=== PATIENT | male | born 1950 | race Caucasian/White ===

== ENCOUNTER 2020-11-18 11:19 | Inpatient (IN) | payer MEDICARE, MEDICAID, SELFPAY ==
[2020-11-18 11:32] VITALS: BMI 26.8
[2020-11-18 11:34] VITALS: BP 107/69; PULSE 69; TEMP 37.2; O2SAT 95
--- NOTE | 2020-11-18 13:17 | P.HPPS_ITS ---
HPI Chief Complaint: Bipolar disorder Sources of Information: patient interviewed, chart reviewed and crisis/core team assessment reviewed HPI Subjective Notes: Montiel Order, Section 7 and Conditional Voluntary Guardianship: Yes Medical Problems Affecting Mental Status: No Narrative: The patient is a 70 year old male, resident of group homes for most of his adult life, with a long history of Bipolar Disorder. He has a guardian, he is on a community Montiel and he has case managing services from [facility]. 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 He was also sexually desinhibited and he was inappropriated with his staff. During the intake interview, the patient was tired , he refused to elaborate but stated that he was on the ED for 15 days and 14 nights and he stated that he wanted to talk with his PCP. At the moment of the interview, he was uncooperative, refusing to give more details but he was easily redirected, with no evidence of violence. As per crisis report, since February 2020, he had several admissions into the hospital for manic episodes and psychosis and he has spent more time inpatient that in the community. Past Psychiatric History: He has several admissions in the past, he has a Montiel order, a guardian and he has [facility] case managing services. He lives in group homes for the last years. Medical Evaluation Reviewed: Hospitalist Chris Pending (Direct admission) [facility] Narrative: Parkinson's disease Hypercholesterolemia HTN Family History: Denies Social History: Chronically institutionalized, on disability for mental illness. Substance History: Denies Trauma History: Refused to elaborate Diagnostics Vital Signs (24Hr): Vital Signs - 24 hr 11/18/20 11:34 Temperature 98.9 F Pulse Rate 69 Blood Pressure 107/69 Pulse Oximetry 95 Body Mass Index 26.8 Meds/Allergies Meds Home Medications Acetaminophen (Acetaminophen 325 Mg Tablet) 650 mg PO Q6H PRN PRN Reason: Headache/Pain Mild Scale (1-3) Al Hydroxide/Mg Hydroxide (Magnesium Hydrox/Alum Hydrox 30 Ml Oral.Susp) 30 ml PO Q6H PRN PRN Reason: Heartburn/Nausea Amlodipine Besylate (Amlodipine Besylate 5 Mg Tablet) 5 mg PO DAILY [facility]; Protocol Aspirin (Aspirin 81 Mg Tab.Chew) 81 mg PO DAILY RADHAMES Carbamazepine (Carbamazepine 200 Mg Tablet) 400 mg PO BID RADHAMES Carbidopa/Levodopa (Carbidopa/Levodopa 25/100 Tablet) 1 tab PO BID RADHAMES Haloperidol (Haloperidol 5 Mg Tablet) 10 mg PO BID RADHAMES Hydroxyzine HCl (Hydroxyzine Hcl 25 Mg Tablet) 25 mg PO BEDTIME PRN PRN Reason: Anxiety Lorazepam (Lorazepam 1 Mg Tablet) 2 mg PO BID PRN PRN Reason: anxiety Magnesium Hydroxide (Milk Of Magnesia 30 Ml Oral.Susp) 30 ml PO DAILY PRN PRN Reason: Constipation Pravastatin Sodium (Pravastatin Sodium 40 Mg Tablet) 40 mg PO DAILY RADHAMES Tamsulosin HCl (Tamsulosin Hcl 0.4 Mg Capsule) 0.4 mg PO BEDTIME RADHAMES Trazodone HCl (Trazodone Hcl 50 Mg Tablet) 50 mg PO BEDTIME PRN PRN Reason: Insomnia Allergies Allergies Allergy/AdvReac Type Severity Reaction Status Date / Time No Known Allergies Allergy Verified 11/18/20 11:30 Mental Status Exam Mental Status Exam Patient Appearance: Disheveled (on hospital gowns) Patient Orientation: Person and Place Level of Consciousness: Awake and Alert Patient Behavior: Guarded, Avoidant, Fatigued and Uncooperative Mood Description: Calm and Withdrawn Affect Description: Constricted and Labile Patient Cognition Impaired: No Ability to Follow Directions: Fair Speech Pattern: Clear Hallucinations: None Delusions: Paranoid Ideation and Grandiose Thought Process: Evasive and Slowed Thinking Thought Content: positive for Perseveration and positive for Preoccupation Judgement: Poor Assessment & Plan Assessment & Plan (1) Bipolar 1 disorder: Status: Acute Code(s): F31.9 - Bipolar disorder, unspecified Assessment and Plan: Elderly male with bipolar disorder, chronically institutionalized, with a Montiel and Community Guardianship with several admissions for malcolm with psychosis. Plan: 1. Keep same treatment as per Dinesh and collateral. 2. Get Tegretol level and other bloodwork 3. Get collateral from primary caregivers Patient educated on: diagnosis, medication risk/benefits and therapeutic strategies Informed Consent: understands Reason for continued inpatient stay Substantial Risk for: harm to others, inability to function, rapid decompensation and med/psych decompensation
[2020-11-18 15:17] LABS: Carbamazepine Tegretol 8.2 mcg/mL (5.0-12.0)
--- NOTE | 2020-11-18 17:04 | PM.EVENT ---
Event Note Date of Service: 11/18/20 Event Note: attempted to see patient for medical consult. pt repeating himself and not answering questions. unable to obtain any medical history. can attempt re-evaluation at later date if necessary
[2020-11-18 18:00] VITALS: BP 137/62; PULSE 69; RESP 16; TEMP 36.1; O2SAT 96
--- NOTE | 2020-11-18 19:14 | PC.NURSE ---
Patient arrived via stretcher. was calm and cooperative upon arrival.Patient signed a CV and immediately asked for a three day notice. Admission assessment was started upon arrival. During assessment patient began to get agitated and continued to express desire to go out for a smoke. After signing all legals and doing a portion of the assessment I told him we would take a break. 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 He also discussed his removal from the care home and the incident that led to removal. He reported he was using the dining room as an office for his business and the group social worker did not like it. He was removed and spent 2 weeks in an ED. While there he became verbally agressive using sexually inappropriate language. 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 He was calm and cooperative until this evening when a disagreement ensued over the television. Jake was redirected and went to his room.
[2020-11-18] MEDS: carBAMazepine 200 MG TABLET 400 MG PO (21:41)
[2020-11-18] MEDS: Carbidopa/Levodopa 25/100 TABLET 1 TAB PO (21:42)
[2020-11-18] MEDS: HaloperidoL 5 MG TABLET 10 MG PO (21:42)
[2020-11-18] MEDS: Tamsulosin HCL 0.4 MG CAPSULE PO (21:42)
--- NOTE | 2020-11-18 22:55 | PC.NURSE ---
PT got into a verbal altercation with another PT (LISA) on the unit over television privileges. PT was found standing over the other PT demanding the TV remote. This nurse intervened in the exchange and all parties involved came to an agreement that each individual would be allowed 30 minute time slots to choose what they wanted to watch on the TV.
[2020-11-19 06:00] VITALS: BP 139/85; PULSE 66; RESP 16; TEMP 36.7; O2SAT 95
[2020-11-19 06:31] LABS: MANUAL DIFF FLAG NO
[2020-11-19 06:42] LABS: Basophils Percent Auto 0.3 % (0-2); Eosinophils Absolute Auto 0.1 X10*3/uL (0.0-0.4); Eosinophils Percent Auto 1.7 % (0-4); Hematocrit 42.5 % (42-52); Hemoglobin 14.5 g/dl (14.0-18.0); Imm Gran Abs Auto 0.04 X10*3/uL (0.00-0.03); Imm Gran Pct Auto 0.5 % (0.0-0.4); Lymphocytes Absolute Auto 2.3 X10*3/uL (1.2-4.9); Lymphocytes Percent Auto 31.1 % (20-40); Mean Corpuscular HGB Conc 34.1 g/dl (31.0-36.0); Mean Corpuscular Hemoglobin 31.7 pg (27.0-33.0); Mean Platelet Volume 8.9 fL (9.4-12.4); Monocytes Absolute Auto 0.7 X10*3/uL (0.1-1.2); Monocytes Percent Auto 9.1 % (2-11); Neutrophils Absolute Auto 4.3 X10*3/uL (2.0-8.3); Neutrophils Percent Auto 57.3 % (45-73); Platelet Count 225 X10*3/uL (160-400); Red Blood Count 4.57 X10*6/uL (4.60-5.80); White Blood Count 7.5 X10*3/uL (4.8-10.8)
[2020-11-19 06:52] LABS: Estimated Average Glucose 108 mg/dL; Hemoglobin A1c % 5.4 %
[2020-11-19 07:19] LABS: Alanine Aminotransferase < 6 U/L (0-40); Albumin Level 4.1 g/dL (3.5-5.0); Alkaline Phosphatase 113 U/L (39-117); Aspartate Amino Transferase 11 U/L (5-37); Bilirubin Direct 0.2 mg/dL (0.0-0.5); Bilirubin Total 0.4 mg/dL (0.0-1.0); Cholesterol 185 mg/dL; HDL Cholesterol 64 mg/dL; LDL Cholesterol Calculated 98 mg/dl; Total Protein 6.6 g/dL (6.5-8.0); Triglycerides 116 mg/dL
[2020-11-19 07:38] LABS: Thyroid Stimulating Hormone 1.04 uIU/mL (0.32-4.0)
[2020-11-19 08:03] LABS: Folate 11.9 ng/mL (> or = 4.0); Vitamin B12 331 pg/mL (200-900)
[2020-11-19] MEDS: amLODIPine Besylate 5 MG TABLET PO (08:12)
[2020-11-19] MEDS: HaloperidoL 5 MG TABLET 10 MG PO ×2 (08:12→21:18)
[2020-11-19] MEDS: carBAMazepine 200 MG TABLET 400 MG PO ×2 (08:12→21:19)
[2020-11-19] MEDS: Aspirin 81 MG TAB.CHEW PO (08:12)
[2020-11-19] MEDS: Carbidopa/Levodopa 25/100 TABLET 1 TAB PO ×2 (08:12→21:38)
[2020-11-19] MEDS: Pravastatin Sodium 40 MG TABLET PO (08:12)
--- NOTE | 2020-11-19 09:31 | P.PNPSI_ITS ---
Subjective Subjective Date of Service: 11/19/20 Reason For Visit: Bipolar disorder Subjective Notes: Conditional Voluntary and 3 Day Guardianship: Yes Medical Problems Affecting Mental Status: No Interim History: The patient signed a 3 day letter. He was angry and irritable over the phone yesterday and he nearly got into an altercation with a peer. I asked him to please not to use procacity while in the phone since it disturbs the rest of the patients. He denied any symptoms, he was passively pleasant. Medication Compliance: Yes Review of Systems Review of Systems Yes all other systems are reviewed and are negative Mental Status Exam Mental Status Exam Patient Appearance: Disheveled Patient Orientation: Person, Place and Situation Level of Consciousness: Awake Patient Behavior: Passive and Avoidant Mood Description: Withdrawn Affect Description: Constricted Patient Cognition Impaired: No Ability to Follow Directions: Good Speech Pattern: Clear Hallucinations: None Delusions: Paranoid Ideation and Grandiose Thought Process: Distracted and Slowed Thinking Judgement: Poor Diagnostics Vital Signs (24Hr): Vital Signs - 24 hr 11/18/20 11:34 11/18/20 18:00 11/19/20 06:00 Temperature 98.9 F 96.9 F 98.1 F Pulse Rate 69 69 66 Respiratory Rate 16 16 Blood Pressure 107/69 137/62 139/85 Pulse Oximetry 95 96 95 Body Mass Index 26.8 Labs Results: 11/19/20 06:25 Labs: Laboratory Results - last 48 hr 11/18/20 11/19/20 11/19/20 13:54 06:25 06:25 WBC 7.5 RBC 4.57 L Hgb 14.5 Hct 42.5 MCV 93.0 MCH 31.7 MCHC 34.1 RDW 12.0 Plt Count 225 MPV 8.9 L Immature Gran % (Auto) 0.5 H Neut % (Auto) 57.3 Lymph % (Auto) 31.1 [place] % (Auto) 9.1 Eos % (Auto) 1.7 Baso % (Auto) 0.3 Lymph # (Auto) 2.3 [place] # (Auto) 0.7 Eos # (Auto) 0.1 Baso # (Auto) 0.0 Abs Immat Gran (auto) 0.04 H Absolute Neuts (auto) 4.3 Absolute Nucleated RBC 0.000 Nucleated RBC % (auto) 0.0 Estimat Average Glucose Hemoglobin A1c % Total Bilirubin 0.4 Direct Bilirubin 0.2 AST 11 ALT < 6 Alkaline Phosphatase 113 Total Protein 6.6 Albumin 4.1 Triglycerides 116 Cholesterol 185 LDL Cholesterol, Calc 98 HDL Cholesterol 64 Vitamin B12 Folate TSH 1.04 Carbamazepine 8.2 11/19/20 11/19/20 06:25 06:25 WBC RBC Hgb Hct MCV MCH MCHC RDW Plt Count MPV Immature Gran % (Auto) Neut % (Auto) Lymph % (Auto) [place] % (Auto) Eos % (Auto) Baso % (Auto) Lymph # (Auto) [place] # (Auto) Eos # (Auto) Baso # (Auto) Abs Immat Gran (auto) Absolute Neuts (auto) Absolute Nucleated RBC Nucleated RBC % (auto) Estimat Average Glucose 108 Hemoglobin A1c % 5.4 Total Bilirubin Direct Bilirubin AST ALT Alkaline Phosphatase Total Protein Albumin Triglycerides Cholesterol LDL Cholesterol, Calc HDL Cholesterol Vitamin B12 331 Folate 11.9 TSH Carbamazepine Medications Medications Current Medications Generic Name Dose Route Start Last Admin Trade Name Freq PRN Reason Stop Dose Admin Acetaminophen 650 mg 11/18/20 13:10 Acetaminophen 325 Mg Tablet PO Q6H PRN Headache/Pain Mild Scale (1-3) Al Hydroxide/Mg Hydroxide 30 ml 11/18/20 13:10 Magnesium Hydrox/Alum Hydrox 30 Ml Oral.Susp PO Q6H PRN Heartburn/Nausea Amlodipine Besylate 5 mg 11/19/20 09:00 11/19/20 08:12 Amlodipine Besylate 5 Mg Tablet PO 5 mg DAILY RADHAMES Administration Protocol Aspirin 81 mg 11/19/20 09:00 11/19/20 08:12 Aspirin 81 Mg Tab.Chew PO 81 mg DAILY RADHAMES Administration Carbamazepine 400 mg 11/18/20 21:00 11/19/20 08:12 Carbamazepine 200 Mg Tablet PO 400 mg BID RADHAMES Administration Carbidopa/Levodopa 1 tab 11/18/20 21:00 11/19/20 08:12 Carbidopa/Levodopa 25/100 Tablet PO 1 tab BID RADHAMES Administration Haloperidol 10 mg 11/18/20 21:00 11/19/20 08:12 Haloperidol 5 Mg Tablet PO 10 mg BID RADHAMES Administration Hydroxyzine HCl 25 mg 11/18/20 13:10 Hydroxyzine Hcl 25 Mg Tablet PO BEDTIME PRN Anxiety Lorazepam 2 mg 11/18/20 13:13 Lorazepam 1 Mg Tablet PO BID PRN anxiety Magnesium Hydroxide 30 ml 11/18/20 13:10 Milk Of Magnesia 30 Ml Oral.Susp PO DAILY PRN Constipation Pravastatin Sodium 40 mg 11/19/20 09:00 11/19/20 08:12 Pravastatin Sodium 40 Mg Tablet PO 40 mg DAILY RADHAMES Administration Tamsulosin HCl 0.4 mg 11/18/20 21:00 11/18/20 21:42 Tamsulosin Hcl 0.4 Mg Capsule PO 0.4 mg BEDTIME RADHAMES Administration Trazodone HCl 50 mg 11/18/20 13:10 Trazodone Hcl 50 Mg Tablet PO BEDTIME PRN Insomnia Allergies Allergies Allergy/AdvReac Type Severity Reaction Status Date / Time No Known Allergies Allergy Verified 11/18/20 11:30 Assessment & Plan Assessment & Plan (1) Bipolar 1 disorder: Status: Acute Code(s): F31.9 - Bipolar disorder, unspecified Assessment and Plan: Elderly male with bipolar disorder, chronically institutionalized, with a Montiel and Community Guardianship with several admissions for malcolm with psychosis. Plan: 1. Keep same treatment as per Dinesh and collateral. 2. Get Tegretol level and other bloodwork 3. Get collateral from primary caregivers Greater than 50% of the session was spent on counseling and/or coordination of care Reason for contiued inpatient stay Substantial Risk for: harm to others, inability to function, rapid decompensation and med/psych decompensation
--- NOTE | 2020-11-19 14:07 | PC.NURSE ---
Santos Called to report Jake's Son had contacted him reporting Jake called him to request assistance for contacting an Escort Service. Reported to Viktoriya Michael.
--- NOTE | 2020-11-19 19:33 | PC.NURSE ---
Received phone call from Santos, the assistant import manager of the pt's intermediate, phone number is [phone]. Santos requested a phone call back from the MD regarding pt status, messaged [place] texted to Dr Michael. Other contacts for the intermediate are Martita- [phone]. Fzt-[phone]. Santos reports he is hoping that pt will not be sent home next week.
[2020-11-19] MEDS: Tamsulosin HCL 0.4 MG CAPSULE PO (21:15)
[2020-11-20 06:00] VITALS: BP 149/79; PULSE 65; RESP 12; TEMP 36.7; O2SAT 97
[2020-11-20] MEDS: LORazepam 1 MG TABLET 2 MG PO ×2 (08:19→17:46)
[2020-11-20] MEDS: Aspirin 81 MG TAB.CHEW PO (08:20)
[2020-11-20] MEDS: HaloperidoL 5 MG TABLET 10 MG PO ×2 (08:21→21:06)
[2020-11-20 08:22] VITALS: BP 148/76; PULSE 66
[2020-11-20] MEDS: Carbidopa/Levodopa 25/100 TABLET 1 TAB PO ×2 (08:22→21:06)
[2020-11-20] MEDS: carBAMazepine 200 MG TABLET 400 MG PO ×2 (08:22→21:06)
[2020-11-20] MEDS: amLODIPine Besylate 5 MG TABLET PO (08:22)
[2020-11-20] MEDS: Pravastatin Sodium 40 MG TABLET PO (08:23)
--- NOTE | 2020-11-20 10:48 | PM.GPSY.PN ---
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 Today was opening masturbating in public areas of psychiatric unit got prn ativan 2mg MSE- pt was A and Oriented to place and person, speech was garbled had to ask him to repeat himself multiple times, TP was perseverative on calling people to join his escort service TC hypersexual thoughts- not able to discuss other, denies PI/AH/VH , denies SI/HI Current Medications: Active Medications Generic Name Dose Route Start Last Admin Trade Name Freq PRN Reason Stop Dose Admin Acetaminophen 650 mg 11/18/20 13:10 Acetaminophen 325 Mg Tablet PO Q6H PRN Headache/Pain Mild Scale (1-3) Al Hydroxide/Mg Hydroxide 30 ml 11/18/20 13:10 Magnesium Hydrox/Alum Hydrox 30 Ml Oral.Susp PO Q6H PRN Heartburn/Nausea Amlodipine Besylate 5 mg 11/19/20 09:00 11/20/20 08:22 Amlodipine Besylate 5 Mg Tablet PO 5 mg DAILY RADHAMES Administration Protocol Aspirin 81 mg 11/19/20 09:00 11/20/20 08:20 Aspirin 81 Mg Tab.Chew PO 81 mg DAILY RADHAMES Administration Carbamazepine 400 mg 11/18/20 21:00 11/20/20 08:22 Carbamazepine 200 Mg Tablet PO 400 mg BID RADHAMES Administration Carbidopa/Levodopa 1 tab 11/18/20 21:00 11/20/20 08:22 Carbidopa/Levodopa 25/100 Tablet PO 1 tab BID RADHAMES Administration Haloperidol 10 mg 11/18/20 21:00 11/20/20 08:21 Haloperidol 5 Mg Tablet PO 10 mg BID RADHAMES Administration Hydroxyzine HCl 25 mg 11/18/20 13:10 Hydroxyzine Hcl 25 Mg Tablet PO BEDTIME PRN Anxiety Lorazepam 2 mg 11/18/20 13:13 11/20/20 08:19 Lorazepam 1 Mg Tablet PO 2 mg BID PRN Administration anxiety Magnesium Hydroxide 30 ml 11/18/20 13:10 Milk Of Magnesia 30 Ml Oral.Susp PO DAILY PRN Constipation Pravastatin Sodium 40 mg 11/19/20 09:00 11/20/20 08:23 Pravastatin Sodium 40 Mg Tablet PO 40 mg DAILY RADHAMES Administration Tamsulosin HCl 0.4 mg 11/18/20 21:00 11/19/20 21:15 Tamsulosin Hcl 0.4 Mg Capsule PO 0.4 mg BEDTIME RADHAMES Administration Trazodone HCl 50 mg 11/18/20 13:10 Trazodone Hcl 50 Mg Tablet PO BEDTIME PRN Insomnia Side effects from medications: Yes (pt does not identify any but clearly has parkinsonian movements ) Attending groups: Yes Medication compliance: Yes Acute medical concerns: No Data Labs CBC & Chem 7: 11/19/20 06:25 Labs: Laboratory Results - last 48 hr 11/18/20 11/19/20 11/19/20 13:54 06:25 06:25 WBC 7.5 RBC 4.57 L Hgb 14.5 Hct 42.5 MCV 93.0 MCH 31.7 MCHC 34.1 RDW 12.0 Plt Count 225 MPV 8.9 L Immature Gran % (Auto) 0.5 H Neut % (Auto) 57.3 Lymph % (Auto) 31.1 [place] % (Auto) 9.1 Eos % (Auto) 1.7 Baso % (Auto) 0.3 Lymph # (Auto) 2.3 [place] # (Auto) 0.7 Eos # (Auto) 0.1 Baso # (Auto) 0.0 Abs Immat Gran (auto) 0.04 H Absolute Neuts (auto) 4.3 Absolute Nucleated RBC 0.000 Nucleated RBC % (auto) 0.0 Estimat Average Glucose Hemoglobin A1c % Total Bilirubin 0.4 Direct Bilirubin 0.2 AST 11 ALT < 6 Alkaline Phosphatase 113 Total Protein 6.6 Albumin 4.1 Triglycerides 116 Cholesterol 185 LDL Cholesterol, Calc 98 HDL Cholesterol 64 Vitamin B12 Folate TSH 1.04 Carbamazepine 8.2 11/19/20 11/19/20 06:25 06:25 WBC RBC Hgb Hct MCV MCH MCHC RDW Plt Count MPV Immature Gran % (Auto) Neut % (Auto) Lymph % (Auto) [place] % (Auto) Eos % (Auto) Baso % (Auto) Lymph # (Auto) [place] # (Auto) Eos # (Auto) Baso # (Auto) Abs Immat Gran (auto) Absolute Neuts (auto) Absolute Nucleated RBC Nucleated RBC % (auto) Estimat Average Glucose 108 Hemoglobin A1c % 5.4 Total Bilirubin Direct Bilirubin AST ALT Alkaline Phosphatase Total Protein Albumin Triglycerides Cholesterol LDL Cholesterol, Calc HDL Cholesterol Vitamin B12 331 Folate 11.9 TSH Carbamazepine ECG Attestation: I personally reviewed and interpreted this ECG as follows: (ordered ekg- ) Geriatric Psychiatry - A/P Patient Data Legal status: conditional voluntary (3Day) Cognitive Capacity: perseverative on sexual concerns/preoccupations Alert and Oriented to place and person- Functional Capacity: independent ambulation Assessment and plan (1) Bipolar 1 disorder: Status: Acute Assessment and Plan: reviewed greenberg order which can allow higher dose of haldol , or risperidone po or invega IM but not po?! could add in risperidone and switch to invega- or stick to haldol and go for deconoate if it works effectively enough PRN ativan given for hypersexual behavior activity
--- NOTE | 2020-11-20 13:49 | PC.NURSE ---
Patient is OOB in dayroom. Continues to come out of room with no top on. Redirected to room. On phone multiple times. Attempts are made to make sure he isn't too close to other patients as he is sexually inappropriate verbally. His thoughts are disorganized and loose. He is on 5 minute checks however all staff has eyes on him as much as possible. He showered this morning. Because we have no male staff today security was called to stand by. He was cooperative with the shower and with his meds. He is eating his meals. He is allowed to participate in group but must sit at a separate table.
[2020-11-20 18:29] VITALS: BP 147/70; PULSE 69; RESP 20; TEMP 36.8; O2SAT 95
--- NOTE | 2020-11-20 19:02 | PC.NURSE ---
Patient has been sexually inappropriate this shift. Found masturbating multiple times throughout the shift in different locations. Redirected to his room each time and told to keep his clothes on. Unsuccessful. Ativan 2 mg given [id number]. Patient now sleeping in dayroom. He Using phone multiple times a day presumably to make business calls. Redirected from phone. It is necessary to keep him at a distance from other patients especially female patients due to inappropriate remarks. He was showered this shift in the presence of security. He voids without assist and is compliant with meds.
[2020-11-20] MEDS: Tamsulosin HCL 0.4 MG CAPSULE PO (21:06)
[2020-11-21 06:00] VITALS: BP 145/72; PULSE 67; RESP 16; TEMP 36.2; O2SAT 95
[2020-11-21] MEDS: carBAMazepine 200 MG TABLET 400 MG PO ×2 (08:16→19:40)
[2020-11-21] MEDS: Pravastatin Sodium 40 MG TABLET PO (08:17)
[2020-11-21] MEDS: HaloperidoL 5 MG TABLET 10 MG PO ×2 (08:17→19:40)
[2020-11-21 08:18] VITALS: BP 142/70; PULSE 66
[2020-11-21] MEDS: amLODIPine Besylate 5 MG TABLET PO (08:18)
[2020-11-21] MEDS: Aspirin 81 MG TAB.CHEW PO (09:44)
[2020-11-21] MEDS: Carbidopa/Levodopa 25/100 TABLET 1 TAB PO ×2 (09:45→19:40)
--- NOTE | 2020-11-21 11:10 | HO.PSYCHPN ---
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 Medication Compliance: Yes Side effects from medications: Yes (does not seem to be aware of it but he does have EPS movements in his hands) Attending Groups: No (not appropriate for groups due to intrussive hyperesexual behaviors) Review of Systems Review of Systems denies Mental Status Exam Mental Status Exam Narrative: casually dressed, more groomed after he was showered yesterday - still manages to appear unkempt Patient Appearance: Unkempt Patient Orientation: Person, Place and Situation Level of Consciousness: Awake Patient Behavior: Hypersexual, Restless and Distractible Behavior Comments: wants me to help him contact immediately a cousin he has not seen in months- Mood Description: Expansive Affect Description: Expansive Patient Cognition Impaired: Yes Ability to Follow Directions: Poor Speech Pattern: Slurred Hallucinations: None Delusions: Grandiose Thought Process: Distracted Thought Content: positive for Perseveration Abnormal Motor Activity Signs and Symptoms: Restlessness Judgement: Poor Diagnostics Vital Signs (24Hr): Vital Signs - 24 hr 11/20/20 18:29 11/21/20 06:00 11/21/20 08:18 Temperature 98.3 F 97.2 F Pulse Rate 69 67 66 Respiratory Rate 20 16 Blood Pressure 147/70 H 145/72 H 142/70 H Pulse Oximetry 95 95 Body Mass Index 26.8 Labs Results: 11/19/20 06:25 EKG EKG: reviewed EKG Comment: qtc on admission 422 Medications Medications Current Medications Generic Name Dose Route Start Last Admin Trade Name Freq PRN Reason Stop Dose Admin Acetaminophen 650 mg 11/18/20 13:10 Acetaminophen 325 Mg Tablet PO Q6H PRN Headache/Pain Mild Scale (1-3) Al Hydroxide/Mg Hydroxide 30 ml 11/18/20 13:10 Magnesium Hydrox/Alum Hydrox 30 Ml Oral.Susp PO Q6H PRN Heartburn/Nausea Amlodipine Besylate 5 mg 11/19/20 09:00 11/21/20 08:18 Amlodipine Besylate 5 Mg Tablet PO 5 mg DAILY RADHAMES Administration Protocol Aspirin 81 mg 11/19/20 09:00 11/21/20 09:44 Aspirin 81 Mg Tab.Chew PO 81 mg DAILY RADHAMES Administration Carbamazepine 400 mg 11/18/20 21:00 11/21/20 08:16 Carbamazepine 200 Mg Tablet PO 400 mg BID RADHAMES Administration Carbidopa/Levodopa 1 tab 11/18/20 21:00 11/21/20 09:45 Carbidopa/Levodopa 25/100 Tablet PO 1 tab BID RADHAMES Administration Haloperidol 10 mg 11/18/20 21:00 11/21/20 08:17 Haloperidol 5 Mg Tablet PO 10 mg BID RADHAMES Administration Haloperidol Lactate 2.5 mg 11/20/20 19:38 Haloperidol Lactate 10 Mg/5 Ml Oral.Conc PO TID PRN hypersexuality Hydroxyzine HCl 25 mg 11/20/20 19:38 Hydroxyzine Hcl 25 Mg Tablet PO BEDTIME MRX1 PRN Anxiety Lorazepam 2 mg 11/18/20 13:13 11/20/20 17:46 Lorazepam 1 Mg Tablet PO 2 mg BID PRN Administration anxiety Magnesium Hydroxide 30 ml 11/18/20 13:10 Milk Of Magnesia 30 Ml Oral.Susp PO DAILY PRN Constipation Pravastatin Sodium 40 mg 11/19/20 09:00 11/21/20 08:17 Pravastatin Sodium 40 Mg Tablet PO 40 mg DAILY RADHAMES Administration Tamsulosin HCl 0.4 mg 11/18/20 21:00 11/20/20 21:06 Tamsulosin Hcl 0.4 Mg Capsule PO 0.4 mg BEDTIME RADHAMES Administration Allergies Allergies Allergy/AdvReac Type Severity Reaction Status Date / Time No Known Allergies Allergy Verified 11/18/20 11:30 Assessment & Plan Assessment & Plan (1) Bipolar 1 disorder: Status: Acute Code(s): F31.9 - Bipolar disorder, unspecified Assessment and Plan: continues hypersexual and inappropriate verbal and behavior wrote for prn of haldol 2.5mg tid if needed reduced ativan to 1mg prn due to xs sedation on higher dose yesterday Greater than 50% of the session was spent on counseling and/or coordination of care Reason for contiued inpatient stay Substantial Risk for: harm to others and rapid decompensation
[2020-11-21 17:57] VITALS: BP 123/69; PULSE 62; RESP 18; TEMP 36.9; O2SAT 94
[2020-11-21 18:00] VITALS: BP 123/69; PULSE 62; RESP 16; TEMP 36.9; O2SAT 94
[2020-11-21] MEDS: LORazepam 1 MG TABLET PO (18:43)
[2020-11-21] MEDS: Tamsulosin HCL 0.4 MG CAPSULE PO (19:40)
[2020-11-22] MEDS: hydrOXYzine HCL 25 MG TABLET PO (01:20)
[2020-11-22] MEDS: LORazepam 1 MG TABLET PO (01:43)
--- NOTE | 2020-11-22 03:41 | PC.NURSE ---
Pt. on phone at start of shift using [employer] slur. Security called to redirect pt. To room. Pt. took HS medications with encouragement from security. Pt. up multiple times going straight to phone. Pt. redirected away from the phone. Pt. allowed to sit in sensory room with door open. He started masturbating. Pt. made sexually inappropriate comments when asked to go to room. Pt. then came out and sat in dining room with shirt up, fondling nipples making sexually inappropriate comments. Security called at [phone] for assist due to lack of staff. Pt. escorted to room by security. Pt. came out of room naked. Security called again at 0235. PRNs: hydroxyzine 25mg at 0120, haldol 2.5mg at 0143, ativan 1mg at 0143
[2020-11-22] MEDS: amLODIPine Besylate 5 MG TABLET PO (08:09)
[2020-11-22] MEDS: Carbidopa/Levodopa 25/100 TABLET 1 TAB PO ×2 (08:09→20:15)
[2020-11-22] MEDS: carBAMazepine 200 MG TABLET 400 MG PO ×2 (08:09→20:15)
[2020-11-22] MEDS: Aspirin 81 MG TAB.CHEW PO (08:09)
[2020-11-22] MEDS: Pravastatin Sodium 40 MG TABLET PO (08:09)
[2020-11-22] MEDS: HaloperidoL 5 MG TABLET 10 MG PO ×2 (08:09→20:15)
--- NOTE | 2020-11-22 09:12 | HO.PSYCHPN ---
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 Today, AM, he flipped a table in the common area since he got frustrated. We had a long conversation with his regular team last Sunday and apparently, this is not his baselines since February 2020 and he has spent most of the time inpatient. Utilization review reported that he has only 10 days more of his life-time hospitalization days. Review of Systems Review of Systems Yes all other systems are reviewed and are negative Mental Status Exam Mental Status Exam Patient Appearance: Disheveled (poor grooming and hygiene) Patient Orientation: Person, Place, Time and Situation Level of Consciousness: Awake and Restless Patient Behavior: Talkative and Hypersexual Mood Description: Hostile, Anxious and Expansive Affect Description: Labile and Angry Patient Cognition Impaired: No Ability to Follow Directions: Poor Speech Pattern: Impoverished and Loud Hallucinations: None Delusions: Paranoid Ideation and Grandiose Thought Process: Racing and Distracted Thought Content: positive for Perseveration and positive for Thought Blocking Judgement: Poor Diagnostics Vital Signs (24Hr): Vital Signs - 24 hr 11/21/20 17:57 11/21/20 18:00 Temperature 98.4 F 98.4 F Pulse Rate 62 62 Respiratory Rate 18 16 Blood Pressure 123/69 123/69 Pulse Oximetry 94 94 Body Mass Index 26.8 Labs Results: 11/19/20 06:25 Medications Medications Current Medications Generic Name Dose Route Start Last Admin Trade Name Mustaphaq PRN Reason Stop Dose Admin Acetaminophen 650 mg 11/18/20 13:10 Acetaminophen 325 Mg Tablet PO Q6H PRN Headache/Pain Mild Scale (1-3) Al Hydroxide/Mg Hydroxide 30 ml 11/18/20 13:10 Magnesium Hydrox/Alum Hydrox 30 Ml Oral.Susp PO Q6H PRN Heartburn/Nausea Amlodipine Besylate 5 mg 11/19/20 09:00 11/22/20 08:09 Amlodipine Besylate 5 Mg Tablet PO 5 mg DAILY RADHAMES Administration Protocol Aspirin 81 mg 11/19/20 09:00 11/22/20 08:09 Aspirin 81 Mg Tab.Chew PO 81 mg DAILY RADHAMES Administration Carbamazepine 400 mg 11/18/20 21:00 11/22/20 08:09 Carbamazepine 200 Mg Tablet PO 400 mg BID RADHAMES Administration Carbidopa/Levodopa 1 tab 11/18/20 21:00 11/22/20 08:09 Carbidopa/Levodopa 25/100 Tablet PO 1 tab BID RADHAMES Administration Haloperidol 10 mg 11/18/20 21:00 11/22/20 08:09 Haloperidol 5 Mg Tablet PO 10 mg BID RADHAMES Administration Haloperidol Lactate 2.5 mg 11/20/20 19:38 11/22/20 01:43 Haloperidol Lactate 10 Mg/5 Ml Oral.Conc PO 2.5 mg TID PRN Administration hypersexuality Hydroxyzine HCl 25 mg 11/20/20 19:38 11/22/20 01:20 Hydroxyzine Hcl 25 Mg Tablet PO 25 mg BEDTIME MRX1 PRN Administration Anxiety Lorazepam 1 mg 11/21/20 14:48 11/22/20 01:43 Lorazepam 1 Mg Tablet PO 1 mg BID PRN Administration anxiety Magnesium Hydroxide 30 ml 11/18/20 13:10 Milk Of Magnesia 30 Ml Oral.Susp PO DAILY PRN Constipation Pravastatin Sodium 40 mg 11/19/20 09:00 11/22/20 08:09 Pravastatin Sodium 40 Mg Tablet PO 40 mg DAILY RADHAMES Administration Tamsulosin HCl 0.4 mg 11/18/20 21:00 11/21/20 19:40 Tamsulosin Hcl 0.4 Mg Capsule PO 0.4 mg BEDTIME RADHAMES Administration Allergies Allergies Allergy/AdvReac Type Severity Reaction Status Date / Time No Known Allergies Allergy Verified 11/18/20 11:30 Assessment & Plan Assessment & Plan (1) Bipolar 1 disorder: Status: Acute Code(s): F31.9 - Bipolar disorder, unspecified Assessment and Plan: continues hypersexual and inappropriate verbal and behavior continue for prn of haldol 2.5mg tid if needed reduced ativan to 1mg prn due to xs sedation on higher dose Filing for 7 and 8 Greater than 50% of the session was spent on counseling and/or coordination of care Reason for contiued inpatient stay Substantial Risk for: harm to others, inability to function, rapid decompensation and med/psych decompensation
--- NOTE | 2020-11-22 13:32 | PC.NURSE ---
Pt urinated on himself in the sensory room, refusing to change his clothing, refuses to take a shower. Pt stated Leave me alone, it will dry .
[2020-11-22 20:13] VITALS: BP 160/77; PULSE 66; RESP 20; TEMP 36.4; O2SAT 96
[2020-11-22] MEDS: Tamsulosin HCL 0.4 MG CAPSULE PO (20:15)
[2020-11-23] MEDS: Pravastatin Sodium 40 MG TABLET PO (08:26)
[2020-11-23] MEDS: amLODIPine Besylate 5 MG TABLET PO (08:26)
[2020-11-23] MEDS: Carbidopa/Levodopa 25/100 TABLET 1 TAB PO ×2 (08:26→20:31)
[2020-11-23] MEDS: carBAMazepine 200 MG TABLET 400 MG PO ×2 (08:26→20:29)
[2020-11-23] MEDS: HaloperidoL 5 MG TABLET 10 MG PO ×2 (08:26→20:31)
[2020-11-23] MEDS: Aspirin 81 MG TAB.CHEW PO (08:26)
--- NOTE | 2020-11-23 10:13 | HO.PSYCHPN ---
Subjective Subjective Date of Service: 11/23/20 Reason For Visit: Bipolar disorder Interim History: Yesterday, the patient flipped a table and later he was disruptive, yelling to the TV. He also urinated on purpose in the sensory room and refused to be changed. 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 Review of Systems Acute medical concerns: No Medical Review of Systems: unchanged Mental Status Exam Mental Status Exam Patient Appearance: Disheveled and Unkempt Patient Orientation: Person, Place and Time Level of Consciousness: Awake and Restless Patient Behavior: Guarded, Hypersexual and Restless Mood Description: Hostile and Apprehensive Affect Description: Labile Patient Cognition Impaired: No Ability to Follow Directions: Poor Speech Pattern: Clear Memory Description: Intact Hallucinations: None Delusions: Paranoid Ideation and Grandiose Thought Process: Distracted Thought Content: positive for Perseveration and positive for Evasive Judgement: Poor Diagnostics Vital Signs (24Hr): Vital Signs - 24 hr 11/22/20 20:13 Temperature 97.6 F Pulse Rate 66 Respiratory Rate 20 Blood Pressure 160/77 H Pulse Oximetry 96 Body Mass Index 26.8 Labs Results: 11/19/20 06:25 Medications Medications Current Medications Generic Name Dose Route Start Last Admin Trade Name Freq PRN Reason Stop Dose Admin Acetaminophen 650 mg 11/18/20 13:10 Acetaminophen 325 Mg Tablet PO Q6H PRN Headache/Pain Mild Scale (1-3) Al Hydroxide/Mg Hydroxide 30 ml 11/18/20 13:10 Magnesium Hydrox/Alum Hydrox 30 Ml Oral.Susp PO Q6H PRN Heartburn/Nausea Amlodipine Besylate 5 mg 11/19/20 09:00 11/23/20 08:26 Amlodipine Besylate 5 Mg Tablet PO 5 mg DAILY RADHAMES Administration Protocol Aspirin 81 mg 11/19/20 09:00 11/23/20 08:26 Aspirin 81 Mg Tab.Chew PO 81 mg DAILY RADHAMES Administration Carbamazepine 400 mg 11/18/20 21:00 11/23/20 08:26 Carbamazepine 200 Mg Tablet PO 400 mg BID RADHAMES Administration Carbidopa/Levodopa 1 tab 11/18/20 21:00 11/23/20 08:26 Carbidopa/Levodopa 25/100 Tablet PO 1 tab BID RADHAMES Administration Haloperidol 10 mg 11/18/20 21:00 11/23/20 08:26 Haloperidol 5 Mg Tablet PO 10 mg BID RADHAMES Administration Haloperidol Lactate 2.5 mg 11/20/20 19:38 11/22/20 01:43 Haloperidol Lactate 10 Mg/5 Ml Oral.Conc PO 2.5 mg TID PRN Administration hypersexuality Hydroxyzine HCl 25 mg 11/20/20 19:38 11/22/20 01:20 Hydroxyzine Hcl 25 Mg Tablet PO 25 mg BEDTIME MRX1 PRN Administration Anxiety Lorazepam 1 mg 11/21/20 14:48 11/22/20 01:43 Lorazepam 1 Mg Tablet PO 1 mg BID PRN Administration anxiety Magnesium Hydroxide 30 ml 11/18/20 13:10 Milk Of Magnesia 30 Ml Oral.Susp PO DAILY PRN Constipation Paliperidone Palmitate 234 mg 11/23/20 10:01 Paliperidone Palmitate 234 Mg/1.5 Ml Syringe IM 11/23/20 10:02 ONCE ONE Pravastatin Sodium 40 mg 11/19/20 09:00 11/23/20 08:26 Pravastatin Sodium 40 Mg Tablet PO 40 mg DAILY RADHAMES Administration Tamsulosin HCl 0.4 mg 11/18/20 21:00 11/22/20 20:15 Tamsulosin Hcl 0.4 Mg Capsule PO 0.4 mg BEDTIME RADHAMES Administration Allergies Allergies Allergy/AdvReac Type Severity Reaction Status Date / Time No Known Allergies Allergy Verified 11/18/20 11:30 Assessment & Plan Assessment & Plan (1) Bipolar 1 disorder: Status: Acute Code(s): F31.9 - Bipolar disorder, unspecified Assessment and Plan: continues hypersexual and inappropriate verbal and behavior continue for prn of haldol 2.5mg tid if needed reduced ativan to 1mg prn due to xs sedation on higher dose Filing for and Adding Invega Sustenna 234 mg. Next Haldol dec on 12/11 (last one on November 17 170 mg) Greater than 50% of the session was spent on counseling and/or coordination of care Reason for contiued inpatient stay Substantial Risk for: harm to others, inability to function, rapid decompensation and med/psych decompensation
[2020-11-23] MEDS: Paliperidone Palmitate 234 MG/1.5 ML SYRINGE IM (13:41)
[2020-11-23 18:00] VITALS: BP 147/72; PULSE 60; RESP 18; TEMP 36.8; O2SAT 96
[2020-11-23] MEDS: Tamsulosin HCL 0.4 MG CAPSULE PO (20:31)
[2020-11-24 06:00] VITALS: BP 130/64; PULSE 70; RESP 16; TEMP 36.3; O2SAT 96
[2020-11-24 08:04] VITALS: BP 130/64; PULSE 70
[2020-11-24] MEDS: carBAMazepine 200 MG TABLET 400 MG PO ×2 (08:04→21:18)
[2020-11-24] MEDS: amLODIPine Besylate 5 MG TABLET PO (08:04)
[2020-11-24] MEDS: HaloperidoL 5 MG TABLET 10 MG PO ×2 (08:04→21:18)
[2020-11-24] MEDS: Pravastatin Sodium 40 MG TABLET PO (08:04)
[2020-11-24] MEDS: Aspirin 81 MG TAB.CHEW PO (08:09)
[2020-11-24] MEDS: Carbidopa/Levodopa 25/100 TABLET 1 TAB PO ×2 (08:09→21:18)
[2020-11-24 08:46] VITALS: BP 130/64; PULSE 70
[2020-11-24] MEDS: diphenhydrAMINE HCL 25 MG TABLET 50 MG PO (09:22)
[2020-11-24] MEDS: LORazepam 1 MG TABLET 2 MG PO (09:23)
[2020-11-24] MEDS: HaloperidoL 5 MG TABLET PO (09:23)
--- NOTE | 2020-11-24 10:44 | P.PNPSI_ITS ---
Subjective Subjective Date of Service: 11/24/20 Reason For Visit: Bipolar disorder Subjective Notes: Section 7, Section 8 and 3 Day Interim History: The patient got agitated today AM after I explained that we have filed for Section 7 and 8 and he was verbally abusive towards this prescriber and nursing staff so we had to medicate him. His mood remains unstable, yesterday he had his Invega Sustenna shot. Review of Systems Acute medical concerns: No Medical Review of Systems: unchanged Mental Status Exam Mental Status Exam Patient Appearance: Disheveled and Unkempt Patient Orientation: Person, Place, Time and Situation Level of Consciousness: Awake Patient Behavior: Aggressive and Restless Mood Description: Hostile Affect Description: Labile Patient Cognition Impaired: No Ability to Follow Directions: Poor Speech Pattern: Clear, Rapid and Loud Hallucinations: None Delusions: Grandiose Thought Process: Illogical Thought Content: positive for [place], positive for Circumstantial and positive for Thought Blocking Judgement: Poor Diagnostics Vital Signs (24Hr): Vital Signs - 24 hr 11/23/20 18:00 11/24/20 06:00 11/24/20 08:04 Temperature 98.3 F 97.3 F Pulse Rate 60 70 70 Respiratory Rate 18 16 Blood Pressure 147/72 H 130/64 130/64 Pulse Oximetry 96 96 11/24/20 08:46 Temperature Pulse Rate 70 Respiratory Rate Blood Pressure 130/64 Pulse Oximetry Body Mass Index 26.8 Labs Results: 11/19/20 06:25 Medications Medications Current Medications Generic Name Dose Route Start Last Admin Trade Name Freq PRN Reason Stop Dose Admin Acetaminophen 650 mg 11/18/20 13:10 Acetaminophen 325 Mg Tablet PO Q6H PRN Headache/Pain Mild Scale (1-3) Al Hydroxide/Mg Hydroxide 30 ml 11/18/20 13:10 Magnesium Hydrox/Alum Hydrox 30 Ml Oral.Susp PO Q6H PRN Heartburn/Nausea Amlodipine Besylate 5 mg 11/19/20 09:00 11/24/20 08:04 Amlodipine Besylate 5 Mg Tablet PO 5 mg DAILY RADHAMES Administration Protocol Aspirin 81 mg 11/19/20 09:00 11/24/20 08:09 Aspirin 81 Mg Tab.Chew PO 81 mg DAILY RADHAMES Administration Carbamazepine 400 mg 11/18/20 21:00 11/24/20 08:04 Carbamazepine 200 Mg Tablet PO 400 mg BID RADHAMES Administration Carbidopa/Levodopa 1 tab 11/18/20 21:00 11/24/20 08:09 Carbidopa/Levodopa 25/100 Tablet PO 1 tab BID RADHAMES Administration Haloperidol 10 mg 11/18/20 21:00 11/24/20 08:04 Haloperidol 5 Mg Tablet PO 10 mg BID RADHAMES Administration Haloperidol Lactate 2.5 mg 11/20/20 19:38 11/22/20 01:43 Haloperidol Lactate 10 Mg/5 Ml Oral.Conc PO 2.5 mg TID PRN Administration hypersexuality Hydroxyzine HCl 25 mg 11/20/20 19:38 11/22/20 01:20 Hydroxyzine Hcl 25 Mg Tablet PO 25 mg BEDTIME MRX1 PRN Administration Anxiety Lorazepam 1 mg 11/21/20 14:48 11/22/20 01:43 Lorazepam 1 Mg Tablet PO 1 mg BID PRN Administration anxiety Magnesium Hydroxide 30 ml 11/18/20 13:10 Milk Of Magnesia 30 Ml Oral.Susp PO DAILY PRN Constipation Pravastatin Sodium 40 mg 11/19/20 09:00 11/24/20 08:04 Pravastatin Sodium 40 Mg Tablet PO 40 mg DAILY RADHAMES Administration Tamsulosin HCl 0.4 mg 11/18/20 21:00 11/23/20 20:31 Tamsulosin Hcl 0.4 Mg Capsule PO 0.4 mg BEDTIME RADHAMES Administration Allergies Allergies Allergy/AdvReac Type Severity Reaction Status Date / Time No Known Allergies Allergy Verified 11/18/20 11:30 Assessment & Plan Assessment & Plan (1) Bipolar 1 disorder: Status: Acute Code(s): F31.9 - Bipolar disorder, unspecified Assessment and Plan: continues hypersexual and inappropriate verbal and behavior continue for prn of haldol 2.5mg tid if needed reduced ativan to 1mg prn due to xs sedation on higher dose Filing for and Adding Invega Sustenna 234 mg given on 11/23 Next Haldol dec on 12/11 (last one on November 17 170 mg) Greater than 50% of the session was spent on counseling and/or coordination of care Reason for contiued inpatient stay Substantial Risk for: harm to others, inability to function, rapid decompensation and med/psych decompensation
--- NOTE | 2020-11-24 17:46 | PC.NURSE ---
Patient became verbally agessive with Dr. Michael this morning while discussing commitment. He was given the choice of IM or PO meds by Dr. Michael if he didn't calm down in 30 seconds. He did not and then said he would take PO meds. He was given lorazapam , Haldol and Benadryl . Following medication administration patient was calm and observed resting quietly for most of the shift waking in late afternoon. He is med compliant. Continues to be sexually inappropriae with language towards staff and other patients.
[2020-11-24 18:00] VITALS: RESP 16
[2020-11-24] MEDS: Tamsulosin HCL 0.4 MG CAPSULE PO (21:18)
[2020-11-25 06:00] VITALS: BP 127/65; PULSE 82; RESP 16; TEMP 36.9; O2SAT 93
[2020-11-25 07:00] VITALS: BMI 25.0
[2020-11-25 09:23] VITALS: BP 130/73; PULSE 76
[2020-11-25] MEDS: amLODIPine Besylate 5 MG TABLET PO (09:23)
[2020-11-25] MEDS: LORazepam 1 MG TABLET PO (09:23)
[2020-11-25] MEDS: HaloperidoL 5 MG TABLET 10 MG PO (09:23)
[2020-11-25] MEDS: Carbidopa/Levodopa 25/100 TABLET 1 TAB PO (09:23)
[2020-11-25] MEDS: Pravastatin Sodium 40 MG TABLET PO (09:23)
[2020-11-25] MEDS: Aspirin 81 MG TAB.CHEW PO (09:23)
[2020-11-25] MEDS: carBAMazepine 200 MG TABLET 400 MG PO (09:24)
--- NOTE | 2020-11-25 10:27 | PC.NURSE ---
Patient is alert and oriented x 3. He takes his morning medications including PRN Ativan and Haldol without incident. Patient is asking when he is going to be discharged. He describes Anxiety and Depression 07/14. He yells in Dayroom. I can't this much longer! Patient makes phone call to [facility]. He gets off the phone and begins to yell. You're taking me to court! I'm going to bibi this whole hospital! You won't have anything left! You're violating my rights! I want to speak with the Doctor Now! Then patient satelipdio, Dena, did you hear me? Patient is acknowledged and calms back down.
--- NOTE | 2020-11-25 10:53 | HO.PSYCHPN ---
Subjective Subjective Date of Service: 11/25/20 Reason For Visit: Bipolar disorder Interim History: The patient remains sexually desinhibited, the staff has reported that he masturbates in public and he needs to be redirected to go to his room in private. He is angry that we are going to court. Yesterday, he had his Invega Sustenna shot Mental Status Exam Mental Status Exam Patient Appearance: Disheveled and Unkempt Patient Orientation: Person, Place, Time and Situation Level of Consciousness: Awake Patient Behavior: Appropriate Mood Description: Elated Affect Description: Labile Patient Cognition Impaired: No Ability to Follow Directions: Good Speech Pattern: Clear, Rapid and Loud Hallucinations: None Delusions: Paranoid Ideation and Grandiose Thought Process: Racing Thought Content: positive for Poverty of Content and positive for Loose Associations Judgement: Poor Diagnostics Vital Signs (24Hr): Vital Signs - 24 hr 11/24/20 18:00 11/25/20 06:00 11/25/20 09:23 Temperature 98.5 F Pulse Rate 82 76 Respiratory Rate 16 16 Blood Pressure 127/65 130/73 Pulse Oximetry 93 Body Mass Index 26.8 Labs Results: 11/19/20 06:25 Medications Medications Current Medications Generic Name Dose Route Start Last Admin Trade Name Freq PRN Reason Stop Dose Admin Acetaminophen 650 mg 11/18/20 13:10 Acetaminophen 325 Mg Tablet PO Q6H PRN Headache/Pain Mild Scale (1-3) Al Hydroxide/Mg Hydroxide 30 ml 11/18/20 13:10 Magnesium Hydrox/Alum Hydrox 30 Ml Oral.Susp PO Q6H PRN Heartburn/Nausea Amlodipine Besylate 5 mg 11/19/20 09:00 11/25/20 09:23 Amlodipine Besylate 5 Mg Tablet PO 5 mg DAILY RADHAMES Administration Protocol Aspirin 81 mg 11/19/20 09:00 11/25/20 09:23 Aspirin 81 Mg Tab.Chew PO 81 mg DAILY RADHAMES Administration Carbamazepine 400 mg 11/18/20 21:00 11/25/20 09:24 Carbamazepine 200 Mg Tablet PO 400 mg BID RADHAMES Administration Carbidopa/Levodopa 1 tab 11/18/20 21:00 11/25/20 09:23 Carbidopa/Levodopa 25/100 Tablet PO 1 tab BID RADHAMES Administration Haloperidol 10 mg 11/18/20 21:00 11/25/20 09:23 Haloperidol 5 Mg Tablet PO 10 mg BID RADHAMES Administration Haloperidol Lactate 2.5 mg 11/20/20 19:38 11/25/20 09:24 Haloperidol Lactate 10 Mg/5 Ml Oral.Conc PO 2.5 mg TID PRN Administration hypersexuality Hydroxyzine HCl 25 mg 11/20/20 19:38 11/22/20 01:20 Hydroxyzine Hcl 25 Mg Tablet PO 25 mg BEDTIME MRX1 PRN Administration Anxiety Lorazepam 1 mg 11/21/20 14:48 11/25/20 09:23 Lorazepam 1 Mg Tablet PO 1 mg BID PRN Administration anxiety Magnesium Hydroxide 30 ml 11/18/20 13:10 Milk Of Magnesia 30 Ml Oral.Susp PO DAILY PRN Constipation Pravastatin Sodium 40 mg 11/19/20 09:00 11/25/20 09:23 Pravastatin Sodium 40 Mg Tablet PO 40 mg DAILY RADHAMES Administration Tamsulosin HCl 0.4 mg 11/18/20 21:00 11/24/20 21:18 Tamsulosin Hcl 0.4 Mg Capsule PO 0.4 mg BEDTIME RADHAMES Administration Allergies Allergies Allergy/AdvReac Type Severity Reaction Status Date / Time No Known Allergies Allergy Verified 11/18/20 11:30 Assessment & Plan Assessment & Plan (1) Bipolar 1 disorder: Status: Acute Code(s): F31.9 - Bipolar disorder, unspecified Assessment and Plan: continues hypersexual and inappropriate verbal and behavior continue for prn of haldol 2.5mg tid if needed reduced ativan to 1mg prn due to xs sedation on higher dose Filing for and Adding Invega Sustenna 234 mg given on 11/23 Next Haldol dec on 12/11 (last one on November 17 170 mg) Greater than 50% of the session was spent on counseling and/or coordination of care Reason for contiued inpatient stay Substantial Risk for: harm to self, harm to others, inability to function, rapid decompensation and med/psych decompensation
[2020-11-25] MEDS: HaloperidoL 5 MG TABLET PO (14:25)
[2020-11-25] MEDS: diphenhydrAMINE HCL 25 MG TABLET 50 MG PO (14:25)
[2020-11-25] MEDS: LORazepam 1 MG TABLET 2 MG PO (14:25)
[2020-11-25 18:00] VITALS: BP 145/73; PULSE 61; RESP 16; TEMP 36.2; O2SAT 97
--- NOTE | 2020-11-25 18:17 | PC.NURSE ---
At approximately 14:20pm Patient was talking with Viktoriya in unit Dayroom. The conversation ended and patient begun to walk away and then started screaming profanities about the doctor very loudly. Viktoriya Michael ordered Ativan 2mg, Haldol 5mg, and Benadryl 50mg P.O. and asked for security to come to the unit. This technical writer and editor met with patient along with security. Patient took P.O. medication willingly and was an active participate in a conversation about appropriate behavior on the unit. Patient contracted for appropriateness. No additional behavioral disturbances occurred for remainder of shift.
[2020-11-26 06:00] VITALS: BP 139/85; PULSE 77; RESP 16; TEMP 36.7; O2SAT 95
[2020-11-26] MEDS: Aspirin 81 MG TAB.CHEW PO (08:22)
[2020-11-26 08:23] VITALS: BP 128/62; PULSE 74
[2020-11-26] MEDS: Carbidopa/Levodopa 25/100 TABLET 1 TAB PO ×2 (08:23→20:35)
[2020-11-26] MEDS: amLODIPine Besylate 5 MG TABLET PO (08:23)
[2020-11-26] MEDS: carBAMazepine 200 MG TABLET 400 MG PO ×2 (08:23→20:33)
[2020-11-26] MEDS: LORazepam 1 MG TABLET PO (08:23)
[2020-11-26] MEDS: HaloperidoL 5 MG TABLET 10 MG PO ×2 (08:23→20:34)
[2020-11-26] MEDS: Pravastatin Sodium 40 MG TABLET PO (08:24)
--- NOTE | 2020-11-26 11:46 | HO.PSYCHPN ---
Subjective Subjective Date of Service: 11/26/20 Reason For Visit: Bipolar disorder Interim History: The patient was sedated yesterday after he became agitated, he slept in the afternoon. Security needed to be called to be escorted to his room due to foul language. Staff later approached and he wanted conjugal visits . Mental Status Exam Mental Status Exam Patient Appearance: Disheveled and Unkempt Patient Orientation: Person, Place and Situation Level of Consciousness: Awake and Alert Patient Behavior: Suspicious and Aggressive Mood Description: Withdrawn Affect Description: Labile Patient Cognition Impaired: No Ability to Follow Directions: Fair Speech Pattern: Rapid, Inappropriate and Includes Profanity Delusions: Grandiose Thought Process: Racing Thought Content: positive for Poverty of Content and positive for Incoherent Judgement: Poor Diagnostics Vital Signs (24Hr): Vital Signs - 24 hr 11/25/20 18:00 11/26/20 06:00 11/26/20 08:23 Temperature 97.2 F 98.1 F Pulse Rate 61 77 74 Respiratory Rate 16 16 Blood Pressure 145/73 H 139/85 128/62 Pulse Oximetry 97 95 Body Mass Index 25.0 Labs Results: 11/19/20 06:25 Medications Medications Current Medications Generic Name Dose Route Start Last Admin Trade Name Freq PRN Reason Stop Dose Admin Acetaminophen 650 mg 11/18/20 13:10 Acetaminophen 325 Mg Tablet PO Q6H PRN Headache/Pain Mild Scale (1-3) Al Hydroxide/Mg Hydroxide 30 ml 11/18/20 13:10 Magnesium Hydrox/Alum Hydrox 30 Ml Oral.Susp PO Q6H PRN Heartburn/Nausea Amlodipine Besylate 5 mg 11/19/20 09:00 11/26/20 08:23 Amlodipine Besylate 5 Mg Tablet PO 5 mg DAILY RADHAMES Administration Protocol Aspirin 81 mg 11/19/20 09:00 11/26/20 08:22 Aspirin 81 Mg Tab.Chew PO 81 mg DAILY RADHAMES Administration Carbamazepine 400 mg 11/18/20 21:00 11/26/20 08:23 Carbamazepine 200 Mg Tablet PO 400 mg BID RADHAMES Administration Carbidopa/Levodopa 1 tab 11/18/20 21:00 11/26/20 08:23 Carbidopa/Levodopa 25/100 Tablet PO 1 tab BID RADHAMES Administration Haloperidol 10 mg 11/18/20 21:00 11/26/20 08:23 Haloperidol 5 Mg Tablet PO 10 mg BID RADHAMES Administration Haloperidol Lactate 2.5 mg 11/20/20 19:38 11/25/20 09:24 Haloperidol Lactate 10 Mg/5 Ml Oral.Conc PO 2.5 mg TID PRN Administration hypersexuality Hydroxyzine HCl 25 mg 11/20/20 19:38 11/22/20 01:20 Hydroxyzine Hcl 25 Mg Tablet PO 25 mg BEDTIME MRX1 PRN Administration Anxiety Lorazepam 1 mg 11/21/20 14:48 11/26/20 08:23 Lorazepam 1 Mg Tablet PO 1 mg BID PRN Administration anxiety Magnesium Hydroxide 30 ml 11/18/20 13:10 Milk Of Magnesia 30 Ml Oral.Susp PO DAILY PRN Constipation Pravastatin Sodium 40 mg 11/19/20 09:00 11/26/20 08:24 Pravastatin Sodium 40 Mg Tablet PO 40 mg DAILY RADHAMES Administration Tamsulosin HCl 0.4 mg 11/18/20 21:00 11/25/20 22:27 Tamsulosin Hcl 0.4 Mg Capsule PO Not Given BEDTIME RADHAMES Allergies Allergies Allergy/AdvReac Type Severity Reaction Status Date / Time No Known Allergies Allergy Verified 11/18/20 11:30 Assessment & Plan Assessment & Plan (1) Bipolar 1 disorder: Status: Acute Code(s): F31.9 - Bipolar disorder, unspecified Assessment and Plan: continues hypersexual and inappropriate verbal and behavior continue for prn of haldol 2.5mg tid if needed reduced ativan to 1mg prn due to xs sedation on higher dose Filing for and , court for next week Adding Invega Sustenna 234 mg given on 11/23 and next dose on 11/29 Next Haldol dec on 12/11 (last one on November 17 170 mg) Greater than 50% of the session was spent on counseling and/or coordination of care Reason for contiued inpatient stay Substantial Risk for: inability to function, rapid decompensation and med/psych decompensation
[2020-11-26 17:50] VITALS: BP 150/73; PULSE 69; RESP 18; TEMP 36.4; O2SAT 95
[2020-11-26] MEDS: Tamsulosin HCL 0.4 MG CAPSULE PO (20:33)
[2020-11-27 06:00] VITALS: BP 140/78; PULSE 77; RESP 18; TEMP 36.5; O2SAT 95
[2020-11-27] MEDS: Pravastatin Sodium 40 MG TABLET PO (08:31)
[2020-11-27] MEDS: Aspirin 81 MG TAB.CHEW PO (08:31)
[2020-11-27] MEDS: HaloperidoL 5 MG TABLET 10 MG PO ×2 (08:31→20:21)
[2020-11-27] MEDS: Carbidopa/Levodopa 25/100 TABLET 1 TAB PO ×2 (08:31→20:21)
[2020-11-27] MEDS: carBAMazepine 200 MG TABLET 400 MG PO ×2 (08:31→20:20)
[2020-11-27] MEDS: amLODIPine Besylate 5 MG TABLET PO (08:31)
--- NOTE | 2020-11-27 14:06 | HO.PSYCHPN ---
Subjective Subjective Date of Service: 11/27/20 Reason For Visit: Bipolar disorder Subjective Notes: Section 12B Interim History: Has had some inappropriate behaviors. Stated that he knows Court is happening next week and he needs to be discharged. Reports that his 24-year-old girlfriend will be coming to visit today and since it is her birthday he is going to propose. Does not have an engagement ring. Reports they met in the psychiatric hospital a few weeks ago. Medication Compliance: Yes Review of Systems Review of Systems unremarkable Mental Status Exam Mental Status Exam Narrative: disheveled. Irritable. Is alert and oriented. Grandiose. Denies hallucinations. Made reference to having suicidal thoughts but denied plans or intent. No HI. Insight and judgment limited Diagnostics Vital Signs (24Hr): Vital Signs - 24 hr 11/26/20 17:50 11/27/20 06:00 Temperature 97.5 F 97.7 F Pulse Rate 69 77 Respiratory Rate 18 18 Blood Pressure 150/73 H 140/78 H Pulse Oximetry 95 95 Body Mass Index 25.0 Labs Results: 11/19/20 06:25 Medications Medications Current Medications Generic Name Dose Route Start Last Admin Trade Name Freq PRN Reason Stop Dose Admin Acetaminophen 650 mg 11/18/20 13:10 Acetaminophen 325 Mg Tablet PO Q6H PRN Headache/Pain Mild Scale (1-3) Al Hydroxide/Mg Hydroxide 30 ml 11/18/20 13:10 Magnesium Hydrox/Alum Hydrox 30 Ml Oral.Susp PO Q6H PRN Heartburn/Nausea Amlodipine Besylate 5 mg 11/19/20 09:00 11/27/20 08:31 Amlodipine Besylate 5 Mg Tablet PO 5 mg DAILY RADHAMES Administration Protocol Aspirin 81 mg 11/19/20 09:00 11/27/20 08:31 Aspirin 81 Mg Tab.Chew PO 81 mg DAILY RADHAMES Administration Carbamazepine 400 mg 11/18/20 21:00 11/27/20 08:31 Carbamazepine 200 Mg Tablet PO 400 mg BID RADHAMES Administration Carbidopa/Levodopa 1 tab 11/18/20 21:00 11/27/20 08:31 Carbidopa/Levodopa 25/100 Tablet PO 1 tab BID RADHAMES Administration Haloperidol 10 mg 11/18/20 21:00 11/27/20 08:31 Haloperidol 5 Mg Tablet PO 10 mg BID RADHAMES Administration Haloperidol Lactate 2.5 mg 11/20/20 19:38 11/25/20 09:24 Haloperidol Lactate 10 Mg/5 Ml Oral.Conc PO 2.5 mg TID PRN Administration hypersexuality Hydroxyzine HCl 25 mg 11/20/20 19:38 11/22/20 01:20 Hydroxyzine Hcl 25 Mg Tablet PO 25 mg BEDTIME MRX1 PRN Administration Anxiety Magnesium Hydroxide 30 ml 11/18/20 13:10 Milk Of Magnesia 30 Ml Oral.Susp PO DAILY PRN Constipation Pravastatin Sodium 40 mg 11/19/20 09:00 11/27/20 08:31 Pravastatin Sodium 40 Mg Tablet PO 40 mg DAILY RADHAMES Administration Tamsulosin HCl 0.4 mg 11/18/20 21:00 11/26/20 20:33 Tamsulosin Hcl 0.4 Mg Capsule PO 0.4 mg BEDTIME RADHAMES Administration Allergies Allergies Allergy/AdvReac Type Severity Reaction Status Date / Time No Known Allergies Allergy Verified 11/18/20 11:30 Assessment & Plan Assessment & Plan (1) Bipolar 1 disorder: Status: Acute Code(s): F31.9 - Bipolar disorder, unspecified Assessment and Plan: no changes from primary team's plan on 11/26/2020: continue for prn of haldol 2.5mg tid if needed reduced ativan to 1mg prn due to xs sedation on higher dose Filing for and , court for next week Adding Invega Sustenna 234 mg given on 11/23 and next dose on 11/29 Next Haldol dec on 12/11 (last one on November 17 170 mg) Greater than 50% of the session was spent on counseling and/or coordination of care Reason for contiued inpatient stay Substantial Risk for: inability to function
[2020-11-27 18:00] VITALS: BP 136/71; PULSE 62; RESP 18; TEMP 36.9; O2SAT 95
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
[2020-11-27] MEDS: Tamsulosin HCL 0.4 MG CAPSULE PO (20:21)
[2020-11-28 05:39] VITALS: BP 138/80; PULSE 63; RESP 18; TEMP 36.2; O2SAT 96
[2020-11-28] MEDS: carBAMazepine 200 MG TABLET 400 MG PO ×2 (08:28→21:22)
[2020-11-28] MEDS: Pravastatin Sodium 40 MG TABLET PO (08:28)
[2020-11-28] MEDS: Aspirin 81 MG TAB.CHEW PO (08:28)
[2020-11-28] MEDS: Carbidopa/Levodopa 25/100 TABLET 1 TAB PO ×2 (08:28→21:22)
[2020-11-28] MEDS: HaloperidoL 5 MG TABLET 10 MG PO ×2 (08:28→21:22)
[2020-11-28] MEDS: amLODIPine Besylate 5 MG TABLET PO (08:31)
[2020-11-28] MEDS: Haloperidol Lactate 5 MG/ML VIAL IM (09:45)
[2020-11-28] MEDS: LORazepam 2 MG/ML VIAL IM (09:45)
--- NOTE | 2020-11-28 10:30 | MHC.PM.REST ---
Restraint Documentation Date of Service: 11/28/20 Face to Face Assessment: Current Situation: After assessment of the patient, a review of the pertinent medical record and a discussion with nursing staff, I feel the patient requires a restrain intervention. Was seen by senior technical writer within 1 hr - at time of restraint at 0945 and afterwards at 1030. Reaction To: [agitation, verbal aggression and threats, unable to be redirected, scaring other patients. Recieved IM haldol 5mg, benadryl 50mg and ativan 2mg- responded well to this in the past. ] Medical Condition: [Hx of parkinsons. Benefits of haldol outweigh risks. . Utilizes walker and supported by staff to walk from day area to room] Behavioral State: [see above] Continued Need: [Responded well to intervention, calm and sleeping] Care Time (minutes): [] Counseling/Coordination of Care: >50% of time spent Critical Care Time (minutes): [] Prolonged Care Time (minutes): [] Face to Face Prolonged Care: []
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
[2020-11-28] MEDS: diphenhydrAMINE HCL 50 MG/ML VIAL 25 MG IM (11:17)
--- NOTE | 2020-11-28 14:43 | P.PNPSI_ITS ---
Subjective Subjective Date of Service: 11/28/20 Reason For Visit: Bipolar disorder Interim History: significant event this morning, where patient was verbally hostile and threatening to the patient's. Was also threatening to use objects a violent manner. Unable to respond to redirection support. Required IM medications is potential danger to others. Security presence also required. Responded well to this intervention. Review of Systems Review of Systems unremarkable Yes all other systems are reviewed and are negative Mental Status Exam Mental Status Exam Narrative: disheveled. Irritable. Loud and demanding. Verbally hostile and threatening. Paranoid. No evidence of SI. Insight and judgment limited Patient Appearance: Disheveled and Unkempt Patient Orientation: Person, Place and Situation Level of Consciousness: Awake and Alert Patient Behavior: Suspicious and Aggressive Behavior Comments: wants me to help him contact immediately a cousin he has not seen in months- Mood Description: Withdrawn Affect Description: Labile Patient Cognition Impaired: No Ability to Follow Directions: Fair Speech Pattern: Rapid, Inappropriate and Includes Profanity Memory Description: Intact Diagnostics Vital Signs (24Hr): Vital Signs - 24 hr 11/27/20 18:00 11/28/20 05:39 Temperature 98.4 F 97.2 F Pulse Rate 62 63 Respiratory Rate 18 18 Blood Pressure 136/71 138/80 Pulse Oximetry 95 96 Body Mass Index 25.0 Labs Results: 11/19/20 06:25 Medications Medications Current Medications Generic Name Dose Route Start Last Admin Trade Name Freq PRN Reason Stop Dose Admin Acetaminophen 650 mg 11/18/20 13:10 Acetaminophen 325 Mg Tablet PO Q6H PRN Headache/Pain Mild Scale (1-3) Al Hydroxide/Mg Hydroxide 30 ml 11/18/20 13:10 Magnesium Hydrox/Alum Hydrox 30 Ml Oral.Susp PO Q6H PRN Heartburn/Nausea Amlodipine Besylate 5 mg 11/19/20 09:00 11/28/20 08:31 Amlodipine Besylate 5 Mg Tablet PO 5 mg DAILY RADHAMES Administration Protocol Aspirin 81 mg 11/19/20 09:00 11/28/20 08:28 Aspirin 81 Mg Tab.Chew PO 81 mg DAILY RADHAMES Administration Carbamazepine 400 mg 11/18/20 21:00 11/28/20 08:28 Carbamazepine 200 Mg Tablet PO 400 mg BID RADHAMES Administration Carbidopa/Levodopa 1 tab 11/18/20 21:00 11/28/20 08:28 Carbidopa/Levodopa 25/100 Tablet PO 1 tab BID RADHAMES Administration Haloperidol 10 mg 11/18/20 21:00 11/28/20 08:28 Haloperidol 5 Mg Tablet PO 10 mg BID RADHAMES Administration Haloperidol Lactate 2.5 mg 11/20/20 19:38 11/25/20 09:24 Haloperidol Lactate 10 Mg/5 Ml Oral.Conc PO 2.5 mg TID PRN Administration hypersexuality Hydroxyzine HCl 25 mg 11/20/20 19:38 11/22/20 01:20 Hydroxyzine Hcl 25 Mg Tablet PO 25 mg BEDTIME MRX1 PRN Administration Anxiety Magnesium Hydroxide 30 ml 11/18/20 13:10 Milk Of Magnesia 30 Ml Oral.Susp PO DAILY PRN Constipation Pravastatin Sodium 40 mg 11/19/20 09:00 11/28/20 08:28 Pravastatin Sodium 40 Mg Tablet PO 40 mg DAILY RADHAMES Administration Tamsulosin HCl 0.4 mg 11/18/20 21:00 11/27/20 20:21 Tamsulosin Hcl 0.4 Mg Capsule PO 0.4 mg BEDTIME RADHAMES Administration Allergies Allergies Allergy/AdvReac Type Severity Reaction Status Date / Time No Known Allergies Allergy Verified 11/18/20 11:30 Assessment & Plan Assessment & Plan (1) Bipolar 1 disorder: Status: Acute Code(s): F31.9 - Bipolar disorder, unspecified Assessment and Plan: if he continues to require p.r.n. for/ IM medications, may need to adjust standing doses of medications, otherwise no changes from primary team's plan on 11/26/2020: continue for prn of haldol 2.5mg tid if needed reduced ativan to 1mg prn due to xs sedation on higher dose Filing for and , court for next week Adding Invega Sustenna 234 mg given on 11/23 and next dose on 11/29 Next Haldol dec on 12/11 (last one on November 17 170 mg) Greater than 50% of the session was spent on counseling and/or coordination of care Reason for contiued inpatient stay Substantial Risk for: harm to others, inability to function and rapid d ecompensation
[2020-11-28 18:00] VITALS: BP 122/69; PULSE 71; TEMP 36.8; O2SAT 93
[2020-11-28] MEDS: Tamsulosin HCL 0.4 MG CAPSULE PO (21:23)
[2020-11-29 07:56] VITALS: BP 146/79; PULSE 67; RESP 20; TEMP 36.8; O2SAT 92
[2020-11-29] MEDS: Aspirin 81 MG TAB.CHEW PO (07:56)
[2020-11-29] MEDS: Carbidopa/Levodopa 25/100 TABLET 1 TAB PO ×2 (07:56→21:48)
[2020-11-29] MEDS: carBAMazepine 200 MG TABLET 400 MG PO ×2 (07:56→21:48)
[2020-11-29] MEDS: Pravastatin Sodium 40 MG TABLET PO (07:57)
[2020-11-29 08:02] VITALS: BP 146/79; PULSE 67
[2020-11-29] MEDS: amLODIPine Besylate 5 MG TABLET PO (08:02)
[2020-11-29] MEDS: HaloperidoL 5 MG TABLET 10 MG PO ×2 (08:02→21:48)
[2020-11-29] MEDS: diphenhydrAMINE HCL 25 MG TABLET 50 MG PO (08:12)
[2020-11-29] MEDS: LORazepam 1 MG TABLET 2 MG PO (08:12)
[2020-11-29] MEDS: HaloperidoL 5 MG TABLET PO (08:12)
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
[2020-11-29] MEDS: Paliperidone Palmitate 234 MG/1.5 ML SYRINGE IM (14:14)
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
[2020-11-29 18:00] VITALS: BP 146/74; PULSE 70; TEMP 37.4; O2SAT 96
[2020-11-29] MEDS: Tamsulosin HCL 0.4 MG CAPSULE PO (21:48)
[2020-11-30 03:38] VITALS: BP 146/81; PULSE 76; RESP 18; TEMP 36.6; O2SAT 95
[2020-11-30 06:00] VITALS: BP 146/81; PULSE 76; RESP 18; TEMP 36.6; O2SAT 95
[2020-11-30 08:17] VITALS: BP 137/75; PULSE 69
[2020-11-30] MEDS: Carbidopa/Levodopa 25/100 TABLET 1 TAB PO ×2 (08:17→20:42)
[2020-11-30] MEDS: HaloperidoL 5 MG TABLET 10 MG PO ×2 (08:17→20:42)
[2020-11-30] MEDS: amLODIPine Besylate 5 MG TABLET PO (08:17)
[2020-11-30] MEDS: Pravastatin Sodium 40 MG TABLET PO (08:17)
[2020-11-30] MEDS: Aspirin 81 MG TAB.CHEW PO (08:17)
[2020-11-30 08:18] VITALS: BP 137/75; PULSE 69; RESP 18; TEMP 37.1; O2SAT 94
[2020-11-30] MEDS: carBAMazepine 200 MG TABLET 400 MG PO ×2 (08:20→20:42)
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
[2020-11-30 18:00] VITALS: BP 161/80; PULSE 71; RESP 16; TEMP 36.1; O2SAT 95
[2020-11-30] MEDS: Tamsulosin HCL 0.4 MG CAPSULE PO (20:42)
[2020-12-01 06:00] VITALS: BP 153/75; PULSE 75; RESP 18; TEMP 36.4; O2SAT 95
[2020-12-01] MEDS: carBAMazepine 200 MG TABLET 400 MG PO ×2 (08:26→20:06)
[2020-12-01] MEDS: Aspirin 81 MG TAB.CHEW PO (08:26)
[2020-12-01 08:27] VITALS: BP 144/72; PULSE 66
[2020-12-01] MEDS: Carbidopa/Levodopa 25/100 TABLET 1 TAB PO ×2 (08:27→20:06)
[2020-12-01] MEDS: HaloperidoL 5 MG TABLET 10 MG PO ×2 (08:27→20:07)
[2020-12-01] MEDS: amLODIPine Besylate 5 MG TABLET PO (08:27)
[2020-12-01] MEDS: Pravastatin Sodium 40 MG TABLET PO (08:28)
--- NOTE | 2020-12-01 10:48 | P.PNPSI_ITS ---
Subjective Subjective Date of Service: 12/01/20 Reason For Visit: Bipolar disorder Subjective Notes: Section 7 and Section 8 Guardianship: Yes Interim History: The patient went to court yesterday and he is now commited on a section 7 and 8. Today, he was calmer and he wants to be discharged as soon as possible. He agreed to be OK and if everything is fine to discuss discharge planning on Sunday. Medication Compliance: Yes Side effects from medications: No Review of Systems Acute medical concerns: No Medical Review of Systems: unchanged Mental Status Exam Mental Status Exam Patient Appearance: Disheveled and Unkempt Patient Orientation: Person, Place and Situation Level of Consciousness: Awake Patient Behavior: Cooperative and Anxious Mood Description: Withdrawn Affect Description: Constricted Patient Cognition Impaired: Yes Ability to Follow Directions: Fair Speech Pattern: Rapid Hallucinations: None Delusions: Grandiose Thought Process: Racing Thought Content: positive for Poverty of Content and positive for Loose Associations Judgement: Poor Judgement and Insight: Limited insight Diagnostics Vital Signs (24Hr): Vital Signs - 24 hr 11/30/20 18:00 12/01/20 06:00 12/01/20 08:27 Temperature 97.0 F 97.5 F Pulse Rate 71 75 66 Respiratory Rate 16 18 Blood Pressure 161/80 H 153/75 H 144/72 H Pulse Oximetry 95 95 Body Mass Index 25.0 Labs Results: 11/19/20 06:25 Medications Medications Current Medications Generic Name Dose Route Start Last Admin Trade Name Freq PRN Reason Stop Dose Admin Acetaminophen 650 mg 11/18/20 13:10 Acetaminophen 325 Mg Tablet PO Q6H PRN Headache/Pain Mild Scale (1-3) Al Hydroxide/Mg Hydroxide 30 ml 11/18/20 13:10 Magnesium Hydrox/Alum Hydrox 30 Ml Oral.Susp PO Q6H PRN Heartburn/Nausea Amlodipine Besylate 5 mg 11/19/20 09:00 12/01/20 08:27 Amlodipine Besylate 5 Mg Tablet PO 5 mg DAILY RADHAMES Administration Protocol Aspirin 81 mg 11/19/20 09:00 12/01/20 08:26 Aspirin 81 Mg Tab.Chew PO 81 mg DAILY RADHAMES Administration Carbamazepine 400 mg 11/18/20 21:00 12/01/20 08:26 Carbamazepine 200 Mg Tablet PO 400 mg BID RADHAMES Administration Carbidopa/Levodopa 1 tab 11/18/20 21:00 12/01/20 08:27 Carbidopa/Levodopa 25/100 Tablet PO 1 tab BID RADHAMES Administration Diphenhydramine HCl 50 mg 11/30/20 13:52 Diphenhydramine Hcl 25 Mg Tablet PO BID PRN agitation Haloperidol 10 mg 11/18/20 21:00 12/01/20 08:27 Haloperidol 5 Mg Tablet PO 10 mg BID RADHAMES Administration Haloperidol 5 mg 11/30/20 13:52 Haloperidol 5 Mg Tablet PO TID PRN Psychosis Haloperidol Lactate 2.5 mg 11/20/20 19:38 11/30/20 11:13 Haloperidol Lactate 10 Mg/5 Ml Oral.Conc PO 2.5 mg TID PRN Administration hypersexuality Hydroxyzine HCl 25 mg 11/20/20 19:38 11/22/20 01:20 Hydroxyzine Hcl 25 Mg Tablet PO 25 mg BEDTIME MRX1 PRN Administration Anxiety Lorazepam 2 mg 11/30/20 13:52 Lorazepam 1 Mg Tablet PO TID PRN agitation Magnesium Hydroxide 30 ml 11/18/20 13:10 Milk Of Magnesia 30 Ml Oral.Susp PO DAILY PRN Constipation Pravastatin Sodium 40 mg 11/19/20 09:00 12/01/20 08:28 Pravastatin Sodium 40 Mg Tablet PO 40 mg DAILY RADHAMES Administration Tamsulosin HCl 0.4 mg 11/18/20 21:00 11/30/20 20:42 Tamsulosin Hcl 0.4 Mg Capsule PO 0.4 mg BEDTIME RADHAMES Administration Allergies Allergies Allergy/AdvReac Type Severity Reaction Status Date / Time No Known Allergies Allergy Verified 11/18/20 11:30 Assessment & Plan Assessment & Plan (1) Bipolar 1 disorder: Status: Acute Code(s): F31.9 - Bipolar disorder, unspecified Assessment and Plan: The patient is an elderly Caucaasian male with Bipolar disorder, [place] [facility], grossly manic and psychotic, extremely disruptive and abusive towards peers and staff. He has a Montiel order and a guardianship. Plan: Inveega Sustenna 234 mg second dose on 11/29 Next Haldol dec on 12/11 (last one on November 17 170 mg) Continue rest the same. Assessment and Plan: Invega Sustenna 234 mg second dose on 11/29 Next Haldol dec on 12/11 (last one on November 17 170 mg) Continue rest the same. Greater than 50% of the session was spent on counseling and/or coordination of care Patient educated on: diagnosis and therapeutic strategies Informed Consent: understands Reason for contiued inpatient stay Substantial Risk for: harm to self, harm to others, inability to function, rapid decompensation and med/psych decompensation
--- NOTE | 2020-12-01 15:54 | PC.NURSE ---
Patient calm and cooperative this shift. Compliant with meds. In dayroom with other patients most of day. Decrease in sexually inappropriate language noted.
[2020-12-01 17:32] VITALS: BP 158/80; PULSE 66; RESP 18; TEMP 37.1; O2SAT 96
[2020-12-01] MEDS: Tamsulosin HCL 0.4 MG CAPSULE PO (20:06)
[2020-12-02 04:40] VITALS: BP 136/72; PULSE 71; RESP 20; TEMP 36.6; O2SAT 94
[2020-12-02 04:41] VITALS: BMI 27.5
[2020-12-02] MEDS: LORazepam 1 MG TABLET 2 MG PO (07:44)
[2020-12-02] MEDS: HaloperidoL 5 MG TABLET PO (07:45)
[2020-12-02] MEDS: Carbidopa/Levodopa 25/100 TABLET 1 TAB PO ×2 (08:03→20:30)
[2020-12-02 08:04] VITALS: BP 148/70; PULSE 68
[2020-12-02] MEDS: Pravastatin Sodium 40 MG TABLET PO (08:04)
[2020-12-02] MEDS: amLODIPine Besylate 5 MG TABLET PO (08:04)
[2020-12-02] MEDS: Aspirin 81 MG TAB.CHEW PO (08:04)
[2020-12-02] MEDS: carBAMazepine 200 MG TABLET 400 MG PO ×2 (08:04→20:30)
--- NOTE | 2020-12-02 10:18 | P.PNPSI_ITS ---
Subjective Subjective Date of Service: 12/02/20 Reason For Visit: Bipolar disorder Interim History: The patient was medicated today AM since he was verbally abusive and aggressive. Yesterday, he had a good day, he was cooperative. 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 Today, I explained that in order to consider discharge planning, he needs to be free of PRN's for at least 72 hours and he understood well. Review of Systems Acute medical concerns: No Medical Review of Systems: unchanged Mental Status Exam Mental Status Exam Patient Appearance: Disheveled and Unkempt Patient Orientation: Person, Place and Situation Level of Consciousness: Awake Patient Behavior: Hyperactive Mood Description: Hostile Affect Description: Labile Patient Cognition Impaired: Yes Ability to Follow Directions: Fair Speech Pattern: Rapid and Loud Memory Description: Normal for Patient Hallucinations: None Delusions: Grandiose Thought Process: Evasive Thought Content: positive for Circumstantial and positive for Poverty of Content Judgement: Poor Diagnostics Vital Signs (24Hr): Vital Signs - 24 hr 12/01/20 17:32 12/02/20 04:40 12/02/20 08:04 Temperature 98.8 F 97.9 F Pulse Rate 66 71 68 Respiratory Rate 18 20 Blood Pressure 158/80 H 136/72 148/70 H Pulse Oximetry 96 94 Body Mass Index 27.5 Labs Results: 11/19/20 06:25 Medications Medications Current Medications Generic Name Dose Route Start Last Admin Trade Name Freq PRN Reason Stop Dose Admin Acetaminophen 650 mg 11/18/20 13:10 Acetaminophen 325 Mg Tablet PO Q6H PRN Headache/Pain Mild Scale (1-3) Al Hydroxide/Mg Hydroxide 30 ml 11/18/20 13:10 Magnesium Hydrox/Alum Hydrox 30 Ml Oral.Susp PO Q6H PRN Heartburn/Nausea Amlodipine Besylate 5 mg 11/19/20 09:00 12/02/20 08:04 Amlodipine Besylate 5 Mg Tablet PO 5 mg DAILY RADHAMES Administration Protocol Aspirin 81 mg 11/19/20 09:00 12/02/20 08:04 Aspirin 81 Mg Tab.Chew PO 81 mg DAILY RADHAMES Administration Carbamazepine 400 mg 11/18/20 21:00 12/02/20 08:04 Carbamazepine 200 Mg Tablet PO 400 mg BID RADHAMES Administration Carbidopa/Levodopa 1 tab 11/18/20 21:00 12/02/20 08:03 Carbidopa/Levodopa 25/100 Tablet PO 1 tab BID RADHAMES Administration Diphenhydramine HCl 50 mg 11/30/20 13:52 Diphenhydramine Hcl 25 Mg Tablet PO BID PRN agitation Haloperidol 10 mg 11/18/20 21:00 12/01/20 20:07 Haloperidol 5 Mg Tablet PO 10 mg BID RADHAMES Administration Haloperidol 5 mg 11/30/20 13:52 12/02/20 07:45 Haloperidol 5 Mg Tablet PO 5 mg TID PRN Administration Psychosis Haloperidol Lactate 2.5 mg 11/20/20 19:38 11/30/20 11:13 Haloperidol Lactate 10 Mg/5 Ml Oral.Conc PO 2.5 mg TID PRN Administration hypersexuality Hydroxyzine HCl 25 mg 11/20/20 19:38 11/22/20 01:20 Hydroxyzine Hcl 25 Mg Tablet PO 25 mg BEDTIME MRX1 PRN Administration Anxiety Lorazepam 2 mg 11/30/20 13:52 12/02/20 07:44 Lorazepam 1 Mg Tablet PO 2 mg TID PRN Administration agitation Magnesium Hydroxide 30 ml 11/18/20 13:10 Milk Of Magnesia 30 Ml Oral.Susp PO DAILY PRN Constipation Pravastatin Sodium 40 mg 11/19/20 09:00 12/02/20 08:04 Pravastatin Sodium 40 Mg Tablet PO 40 mg DAILY RADHAMES Administration Tamsulosin HCl 0.4 mg 11/18/20 21:00 12/01/20 20:06 Tamsulosin Hcl 0.4 Mg Capsule PO 0.4 mg BEDTIME RADHAMES Administration Allergies Allergies Allergy/AdvReac Type Severity Reaction Status Date / Time No Known Allergies Allergy Verified 11/18/20 11:30 Assessment & Plan Assessment & Plan (1) Bipolar 1 disorder: Status: Acute Code(s): F31.9 - Bipolar disorder, unspecified Assessment and Plan: The patient is an elderly Caucaasian male with Bipolar disorder, resident of a longterm in the [place] side [facility], grossly manic and psychotic, extremely disruptive and abusive towards peers and staff. He has a Montiel order and a guardianship. Plan: Invega Sustenna 234 mg second dose on 11/29 Next Haldol dec on 12/11 (last one on November 17 170 mg) Continue rest the same. Now on Section 7 and 8. Assessment and Plan: Invega Sustenna 234 mg second dose on 11/29 Next Haldol dec on 12/11 (last one on November 17 170 mg) Continue rest the same. Greater than 50% of the session was spent on counseling and/or coordination of care Reason for contiued inpatient stay Substantial Risk for: inability to function, rapid decompensation and med/psych decompensation
[2020-12-02 11:08] VITALS: BP 121/77; PULSE 86; TEMP 36.6; O2SAT 93
[2020-12-02] MEDS: HaloperidoL 5 MG TABLET 10 MG PO ×2 (11:16→20:30)
[2020-12-02 18:00] VITALS: BP 156/71; PULSE 69; RESP 18; TEMP 36.4; O2SAT 94
[2020-12-02] MEDS: Tamsulosin HCL 0.4 MG CAPSULE PO (20:29)
[2020-12-03 06:00] VITALS: BP 129/71; PULSE 79; RESP 20; TEMP 36.6; O2SAT 94
[2020-12-03] MEDS: HaloperidoL 5 MG TABLET 10 MG PO ×2 (10:11→20:33)
[2020-12-03] MEDS: Aspirin 81 MG TAB.CHEW PO (10:11)
[2020-12-03] MEDS: Pravastatin Sodium 40 MG TABLET PO (10:12)
[2020-12-03] MEDS: carBAMazepine 200 MG TABLET 400 MG PO ×2 (10:13→20:33)
[2020-12-03] MEDS: amLODIPine Besylate 5 MG TABLET PO (10:13)
[2020-12-03] MEDS: Carbidopa/Levodopa 25/100 TABLET 1 TAB PO ×2 (10:13→20:33)
--- NOTE | 2020-12-03 11:50 | P.PNPSI_ITS ---
Subjective Subjective Date of Service: 12/03/20 Reason For Visit: Bipolar disorder Subjective Notes: Section 7 and Section 8 Interim History: The patient has attended to 2 groups and so far, he has behaved better. Slept well and he agreed to participate on treatment. Denies side effects but he has some EPS. Review of Systems Acute medical concerns: No Medical Review of Systems: unchanged Mental Status Exam Mental Status Exam Patient Appearance: Disheveled and Unkempt Patient Orientation: Person, Place, Time and Situation Level of Consciousness: Awake Patient Behavior: Suspicious and Good Eye Contact Mood Description: Suspicious Affect Description: Constricted Patient Cognition Impaired: No Ability to Follow Directions: Fair Speech Pattern: Rapid Hallucinations: None Delusions: Grandiose Thought Process: Distracted Thought Content: positive for [place], positive for Perseveration and positive for Preoccupation Judgement: Poor Diagnostics Vital Signs (24Hr): Vital Signs - 24 hr 12/02/20 18:00 12/03/20 06:00 Temperature 97.5 F 97.9 F Pulse Rate 69 79 Respiratory Rate 18 20 Blood Pressure 156/71 H 129/71 Pulse Oximetry 94 94 Body Mass Index 27.5 Labs Results: 11/19/20 06:25 Medications Medications Current Medications Generic Name Dose Route Start Last Admin Trade Name Freq PRN Reason Stop Dose Admin Acetaminophen 650 mg 11/18/20 13:10 Acetaminophen 325 Mg Tablet PO Q6H PRN Headache/Pain Mild Scale (1-3) Al Hydroxide/Mg Hydroxide 30 ml 11/18/20 13:10 Magnesium Hydrox/Alum Hydrox 30 Ml Oral.Susp PO Q6H PRN Heartburn/Nausea Amlodipine Besylate 5 mg 11/19/20 09:00 12/03/20 10:13 Amlodipine Besylate 5 Mg Tablet PO 5 mg DAILY RADHAMES Administration Protocol Aspirin 81 mg 11/19/20 09:00 12/03/20 10:11 Aspirin 81 Mg Tab.Chew PO 81 mg DAILY RADHAMES Administration Carbamazepine 400 mg 11/18/20 21:00 12/03/20 10:13 Carbamazepine 200 Mg Tablet PO 400 mg BID RADHAMES Administration Carbidopa/Levodopa 1 tab 11/18/20 21:00 12/03/20 10:13 Carbidopa/Levodopa 25/100 Tablet PO 1 tab BID RADHAMES Administration Diphenhydramine HCl 50 mg 11/30/20 13:52 Diphenhydramine Hcl 25 Mg Tablet PO BID PRN agitation Haloperidol 10 mg 11/18/20 21:00 12/03/20 10:11 Haloperidol 5 Mg Tablet PO 10 mg BID RADHAMES Administration Haloperidol 5 mg 11/30/20 13:52 12/02/20 07:45 Haloperidol 5 Mg Tablet PO 5 mg TID PRN Administration Psychosis Haloperidol Lactate 2.5 mg 11/20/20 19:38 11/30/20 11:13 Haloperidol Lactate 10 Mg/5 Ml Oral.Conc PO 2.5 mg TID PRN Administration hypersexuality Hydroxyzine HCl 25 mg 11/20/20 19:38 11/22/20 01:20 Hydroxyzine Hcl 25 Mg Tablet PO 25 mg BEDTIME MRX1 PRN Administration Anxiety Lorazepam 2 mg 11/30/20 13:52 12/02/20 07:44 Lorazepam 1 Mg Tablet PO 2 mg TID PRN Administration agitation Magnesium Hydroxide 30 ml 11/18/20 13:10 Milk Of Magnesia 30 Ml Oral.Susp PO DAILY PRN Constipation Pravastatin Sodium 40 mg 11/19/20 09:00 12/03/20 10:12 Pravastatin Sodium 40 Mg Tablet PO 40 mg DAILY RADHAMES Administration Tamsulosin HCl 0.4 mg 11/18/20 21:00 12/02/20 20:29 Tamsulosin Hcl 0.4 Mg Capsule PO 0.4 mg BEDTIME RADHAMES Administration Allergies Allergies Allergy/AdvReac Type Severity Reaction Status Date / Time No Known Allergies Allergy Verified 11/18/20 11:30 Assessment & Plan Assessment & Plan (1) Bipolar 1 disorder: Status: Acute Code(s): F31.9 - Bipolar disorder, unspecified Assessment and Plan: The patient is an elderly Caucaasian male with Bipolar disorder, resident of a intermediate in the [place] [facility], grossly manic and psychotic, extremely disruptive and abusive towards peers and staff. He has a Montiel order and a guardianship. Plan: Invega Sustenna 234 mg second dose on 11/29 Next Haldol dec on 12/11 (last one on November 17 170 mg) Continue rest the same. Now on Section 7 and 8. Assessment and Plan: Invega Sustenna 234 mg second dose on 11/29 Next Haldol dec on 12/11 (last one on November 17 170 mg) Continue rest the same. Greater than 50% of the session was spent on counseling and/or coordination of care Reason for contiued inpatient stay Substantial Risk for: harm to others, inability to function, rapid decompe nsation and med/psych decompensation
[2020-12-03 16:04] VITALS: BP 156/79; PULSE 66; RESP 18; TEMP 36.4; O2SAT 97
[2020-12-03] MEDS: Tamsulosin HCL 0.4 MG CAPSULE PO (20:33)
[2020-12-04 06:00] VITALS: BP 141/78; PULSE 68; RESP 16; TEMP 37.2; O2SAT 95
[2020-12-04] MEDS: Aspirin 81 MG TAB.CHEW PO (08:06)
[2020-12-04] MEDS: carBAMazepine 200 MG TABLET 400 MG PO ×2 (08:06→19:26)
[2020-12-04] MEDS: HaloperidoL 5 MG TABLET 10 MG PO ×2 (08:07→19:26)
[2020-12-04 08:10] VITALS: BP 141/78; PULSE 68
[2020-12-04] MEDS: amLODIPine Besylate 5 MG TABLET PO (08:10)
[2020-12-04] MEDS: Carbidopa/Levodopa 25/100 TABLET 1 TAB PO ×2 (08:10→19:27)
[2020-12-04] MEDS: Pravastatin Sodium 40 MG TABLET PO (08:50)
--- NOTE | 2020-12-04 16:04 | PC.NURSE ---
Patient out of room most of shift. Enjoyed art group and listening to music. Much less phone calling today. Patient able to control behaviors . Jake was engaged and participated in 1:1.
[2020-12-04 18:28] VITALS: BP 164/80; PULSE 75; RESP 16; TEMP 36.8; O2SAT 95
[2020-12-04] MEDS: Tamsulosin HCL 0.4 MG CAPSULE PO (19:27)
--- NOTE | 2020-12-05 00:08 | HO.PSYCHPN ---
Subjective Subjective Date of Service: 12/05/20 Reason For Visit: Bipolar disorder Subjective Notes: Section 7 and Section 8 Interim History: This note reflects 12/04/20. Delayed entry. Patient seen. DW team. Patient reports feeling well. He offers no complaints today. Patient out of room most of shift. Enjoyed art group and listening to music. Much less phone calling today. Patient able to control behaviors . Jake was engaged and participated in 1:1. Review of Systems Review of Systems Yes all other systems are reviewed and are negative Mental Status Exam Mental Status Exam Narrative: disheveled. Irritable. Loud and demanding. Verbally hostile and threatening. Paranoid. No evidence of SI. Insight and judgment limited Patient Appearance: Disheveled and Unkempt Patient Orientation: Person, Place, Time and Situation Level of Consciousness: Awake Patient Behavior: Suspicious and Good Eye Contact Behavior Comments: wants me to help him contact immediately a cousin he has not seen in months- Mood Description: Suspicious Affect Description: Constricted Patient Cognition Impaired: No Ability to Follow Directions: Fair Speech Pattern: Rapid Memory Description: Normal for Patient Hallucinations: None Delusions: Paranoid Ideation Thought Process: Slowed Thinking Thought Content: positive for Intact Judgement: Fair Diagnostics Vital Signs (24Hr): Vital Signs - 24 hr 12/04/20 06:00 12/04/20 08:10 12/04/20 18:28 Temperature 99.0 F 98.2 F Pulse Rate 68 68 75 Respiratory Rate 16 16 Blood Pressure 141/78 H 141/78 H 164/80 H Pulse Oximetry 95 95 Body Mass Index 27.5 Labs Results: 11/19/20 06:25 Medications Medications Current Medications Generic Name Dose Route Start Last Admin Trade Name Freq PRN Reason Stop Dose Admin Acetaminophen 650 mg 11/18/20 13:10 Acetaminophen 325 Mg Tablet PO Q6H PRN Headache/Pain Mild Scale (1-3) Al Hydroxide/Mg Hydroxide 30 ml 11/18/20 13:10 Magnesium Hydrox/Alum Hydrox 30 Ml Oral.Susp PO Q6H PRN Heartburn/Nausea Amlodipine Besylate 5 mg 11/19/20 09:00 12/04/20 08:10 Amlodipine Besylate 5 Mg Tablet PO 5 mg DAILY RADHAMES Administration Protocol Aspirin 81 mg 11/19/20 09:00 12/04/20 08:06 Aspirin 81 Mg Tab.Chew PO 81 mg DAILY RADHAMES Administration Carbamazepine 400 mg 11/18/20 21:00 12/04/20 19:26 Carbamazepine 200 Mg Tablet PO 400 mg BID RADHAMES Administration Carbidopa/Levodopa 1 tab 11/18/20 21:00 12/04/20 19:27 Carbidopa/Levodopa 25/100 Tablet PO 1 tab BID RADHAMES Administration Diphenhydramine HCl 50 mg 11/30/20 13:52 Diphenhydramine Hcl 25 Mg Tablet PO BID PRN agitation Haloperidol 10 mg 11/18/20 21:00 12/04/20 19:26 Haloperidol 5 Mg Tablet PO 10 mg BID RADHAMES Administration Haloperidol 5 mg 11/30/20 13:52 12/02/20 07:45 Haloperidol 5 Mg Tablet PO 5 mg TID PRN Administration Psychosis Haloperidol Lactate 2.5 mg 11/20/20 19:38 11/30/20 11:13 Haloperidol Lactate 10 Mg/5 Ml Oral.Conc PO 2.5 mg TID PRN Administration hypersexuality Hydroxyzine HCl 25 mg 11/20/20 19:38 11/22/20 01:20 Hydroxyzine Hcl 25 Mg Tablet PO 25 mg BEDTIME MRX1 PRN Administration Anxiety Lorazepam 2 mg 11/30/20 13:52 12/02/20 07:44 Lorazepam 1 Mg Tablet PO 2 mg TID PRN Administration agitation Magnesium Hydroxide 30 ml 11/18/20 13:10 Milk Of Magnesia 30 Ml Oral.Susp PO DAILY PRN Constipation Pravastatin Sodium 40 mg 11/19/20 09:00 12/04/20 08:50 Pravastatin Sodium 40 Mg Tablet PO 40 mg DAILY RADHAMES Administration Tamsulosin HCl 0.4 mg 11/18/20 21:00 12/04/20 19:27 Tamsulosin Hcl 0.4 Mg Capsule PO 0.4 mg BEDTIME RADHAMES Administration Allergies Allergies Allergy/AdvReac Type Severity Reaction Status Date / Time No Known Allergies Allergy Verified 11/18/20 11:30 Assessment & Plan Assessment & Plan (1) Bipolar 1 disorder: Status: Acute Code(s): F31.9 - Bipolar disorder, unspecified Assessment and Plan: The patient is an elderly Caucaasian male with Bipolar disorder, resident of a longterm in the [place] side of [facility], grossly manic and psychotic, extremely disruptive and abusive towards peers and staff. He has a Montiel order and a guardianship. Plan: Invega Sustenna 234 mg second dose on 11/29 Next Haldol dec on 12/11 (last one on November 17 170 mg) Continue rest the same. Now on Section 7 and 8. Assessment and Plan: Invega Sustenna 234 mg second dose on 11/29 Next Haldol dec on 12/11 (last one on November 17 170 mg) Continue rest the same. Greater than 50% of the session was spent on counseling and/or coordination of care Reason for contiued inpatient stay Substantial Risk for: harm to others, inability to function and rapid decompensation
[2020-12-05 05:54] VITALS: BP 164/84; PULSE 76; RESP 18; TEMP 36.6; O2SAT 94
[2020-12-05] MEDS: HaloperidoL 5 MG TABLET 10 MG PO ×2 (08:08→19:52)
[2020-12-05] MEDS: Aspirin 81 MG TAB.CHEW PO (08:09)
[2020-12-05] MEDS: Carbidopa/Levodopa 25/100 TABLET 1 TAB PO ×2 (08:10→19:54)
[2020-12-05] MEDS: carBAMazepine 200 MG TABLET 400 MG PO ×2 (08:10→19:51)
[2020-12-05] MEDS: Pravastatin Sodium 40 MG TABLET PO (08:11)
[2020-12-05 08:15] VITALS: BP 148/98; PULSE 75
[2020-12-05] MEDS: amLODIPine Besylate 5 MG TABLET PO (08:15)
[2020-12-05] MEDS: diphenhydrAMINE HCL 25 MG TABLET 50 MG PO (10:38)
[2020-12-05] MEDS: LORazepam 1 MG TABLET 2 MG PO (10:38)
[2020-12-05] MEDS: HaloperidoL 5 MG TABLET PO (10:38)
[2020-12-05 19:45] VITALS: BP 163/81; PULSE 70; RESP 20; TEMP 36.2; O2SAT 94
[2020-12-05] MEDS: Tamsulosin HCL 0.4 MG CAPSULE PO (19:54)
--- NOTE | 2020-12-05 22:50 | HO.PSYCHPN ---
Subjective Subjective Date of Service: 12/05/20 Reason For Visit: Bipolar disorder Subjective Notes: Section 7 and Section 8 Interim History: Patient seen. DW team. Patient agitated today. Tells this field underwriter that he is mad with a [place] zora that fed my GF . He is paranoid saying people are playing with his mind. He mumbles about using Splenda to alexandro his drinks. Review of Systems Review of Systems Yes all other systems are reviewed and are negative Mental Status Exam Mental Status Exam Narrative: disheveled. Irritable. Loud and demanding. Verbally hostile and threatening. Paranoid. No evidence of SI. Insight and judgment limited Patient Appearance: Disheveled and Unkempt Patient Orientation: Person, Place, Time and Situation Level of Consciousness: Awake Patient Behavior: Suspicious and Good Eye Contact Behavior Comments: wants me to help him contact immediately a cousin he has not seen in months- Mood Description: Suspicious, Hostile and Angry Affect Description: Suspicious, Constricted, Hostile and Angry Patient Cognition Impaired: No Ability to Follow Directions: Fair Speech Pattern: Spontaneous Speech and Coherent Hallucinations: None Delusions: Paranoid Ideation and Grandiose Thought Process: Illogical Thought Content: positive for Circumstantial Judgement: Poor Diagnostics Vital Signs (24Hr): Vital Signs - 24 hr 12/05/20 05:54 12/05/20 08:15 12/05/20 19:45 Temperature 97.9 F 97.2 F Pulse Rate 76 75 70 Respiratory Rate 18 20 Blood Pressure 164/84 H 148/98 H 163/81 H Pulse Oximetry 94 94 Body Mass Index 27.5 Labs Results: 11/19/20 06:25 Medications Medications Current Medications Generic Name Dose Route Start Last Admin Trade Name Freq PRN Reason Stop Dose Admin Acetaminophen 650 mg 11/18/20 13:10 Acetaminophen 325 Mg Tablet PO Q6H PRN Headache/Pain Mild Scale (1-3) Al Hydroxide/Mg Hydroxide 30 ml 11/18/20 13:10 Magnesium Hydrox/Alum Hydrox 30 Ml Oral.Susp PO Q6H PRN Heartburn/Nausea Amlodipine Besylate 5 mg 11/19/20 09:00 12/05/20 08:15 Amlodipine Besylate 5 Mg Tablet PO 5 mg DAILY RADHAMES Administration Protocol Aspirin 81 mg 11/19/20 09:00 12/05/20 08:09 Aspirin 81 Mg Tab.Chew PO 81 mg DAILY RADHAMES Administration Carbamazepine 400 mg 11/18/20 21:00 12/05/20 19:51 Carbamazepine 200 Mg Tablet PO 400 mg BID RADHAMES Administration Carbidopa/Levodopa 1 tab 11/18/20 21:00 12/05/20 19:54 Carbidopa/Levodopa 25/100 Tablet PO 1 tab BID RADHAMES Administration Diphenhydramine HCl 50 mg 11/30/20 13:52 12/05/20 10:38 Diphenhydramine Hcl 25 Mg Tablet PO 50 mg BID PRN Administration agitation Haloperidol 10 mg 11/18/20 21:00 12/05/20 19:52 Haloperidol 5 Mg Tablet PO 10 mg BID RADHAMES Administration Haloperidol 5 mg 11/30/20 13:52 12/05/20 10:38 Haloperidol 5 Mg Tablet PO 5 mg TID PRN Administration Psychosis Haloperidol Lactate 2.5 mg 11/20/20 19:38 11/30/20 11:13 Haloperidol Lactate 10 Mg/5 Ml Oral.Conc PO 2.5 mg TID PRN Administration hypersexuality Hydroxyzine HCl 25 mg 11/20/20 19:38 11/22/20 01:20 Hydroxyzine Hcl 25 Mg Tablet PO 25 mg BEDTIME MRX1 PRN Administration Anxiety Lorazepam 2 mg 12/05/20 16:24 Lorazepam 1 Mg Tablet PO TID PRN Agitation Magnesium Hydroxide 30 ml 11/18/20 13:10 Milk Of Magnesia 30 Ml Oral.Susp PO DAILY PRN Constipation Pravastatin Sodium 40 mg 11/19/20 09:00 12/05/20 08:11 Pravastatin Sodium 40 Mg Tablet PO 40 mg DAILY RADHAMES Administration Tamsulosin HCl 0.4 mg 11/18/20 21:00 12/05/20 19:54 Tamsulosin Hcl 0.4 Mg Capsule PO 0.4 mg BEDTIME RADHAMES Administration Allergies Allergies Allergy/AdvReac Type Severity Reaction Status Date / Time No Known Allergies Allergy Verified 11/18/20 11:30 Assessment & Plan Assessment & Plan (1) Bipolar 1 disorder: Status: Acute Code(s): F31.9 - Bipolar disorder, unspecified Assessment and Plan: The patient is an elderly Caucaasian male with Bipolar disorder, [facility] [place] [facility], grossly manic and psychotic, extremely disruptive and abusive towards peers and staff. He has a Montiel order and a guardianship. Plan: Invega Sustenna 234 mg second dose on 11/29 Next Haldol dec on 12/11 (last one on November 17 170 mg) Continue rest the same. Now on Section 7 and 8. Assessment and Plan: I Greater than 50% of the session was spent on counseling and/or coordination of care Reason for contiued inpatient stay Substantial Risk for: harm to self, harm to others and inability to function
--- NOTE | 2020-12-06 06:38 | PC.NURSE ---
Pt. requesting to use the phone for phone sex at 6AM. Pt. agitated and angry when told he could not use the phone. Security called to the unit as pt. was yelling in his room. Pt. came back out to the dining room with security. He continued to request the phone and became louder after security left despite another pt. sitting in the television area with the pt. Pt. accepted Ativan 2mg PO, 50mg Benadryl PO and 5mg Haldol PO for agitation.
[2020-12-06] MEDS: diphenhydrAMINE HCL 25 MG TABLET 50 MG PO (06:40)
[2020-12-06] MEDS: LORazepam 1 MG TABLET 2 MG PO (06:40)
[2020-12-06] MEDS: HaloperidoL 5 MG TABLET PO (06:41)
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
[2020-12-06 11:22] VITALS: BP 122/77; PULSE 80
[2020-12-06] MEDS: amLODIPine Besylate 5 MG TABLET PO (11:22)
[2020-12-06] MEDS: Pravastatin Sodium 40 MG TABLET PO (11:22)
[2020-12-06] MEDS: carBAMazepine 200 MG TABLET 400 MG PO ×2 (11:22→19:43)
[2020-12-06] MEDS: Aspirin 81 MG TAB.CHEW PO (11:22)
[2020-12-06] MEDS: Carbidopa/Levodopa 25/100 TABLET 1 TAB PO ×2 (11:23→19:43)
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
[2020-12-06 18:00] VITALS: BP 167/77; PULSE 75; TEMP 36.6; O2SAT 95
[2020-12-06] MEDS: Tamsulosin HCL 0.4 MG CAPSULE PO (19:45)
[2020-12-06] MEDS: HaloperidoL 5 MG TABLET 10 MG PO (19:45)
[2020-12-07 06:00] VITALS: BP 168/77; PULSE 74; RESP 18; TEMP 36.2; O2SAT 96
[2020-12-07] MEDS: Acetaminophen 325 MG TABLET 650 MG PO (06:39)
[2020-12-07] MEDS: carBAMazepine 200 MG TABLET 400 MG PO ×2 (08:31→20:27)
[2020-12-07] MEDS: Aspirin 81 MG TAB.CHEW PO (08:32)
[2020-12-07] MEDS: Carbidopa/Levodopa 25/100 TABLET 1 TAB PO ×2 (08:32→20:27)
[2020-12-07] MEDS: HaloperidoL 5 MG TABLET 10 MG PO ×2 (08:32→20:27)
[2020-12-07] MEDS: Pravastatin Sodium 40 MG TABLET PO (08:32)
[2020-12-07 08:33] VITALS: BP 142/74; PULSE 71
[2020-12-07] MEDS: amLODIPine Besylate 5 MG TABLET PO (08:33)
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
[2020-12-07 18:00] VITALS: BP 185/83; PULSE 73; RESP 16; TEMP 36.8; O2SAT 97
[2020-12-07] MEDS: Tamsulosin HCL 0.4 MG CAPSULE PO (20:27)
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
[2020-12-08 06:00] VITALS: BP 152/70; PULSE 68; RESP 16; TEMP 36.9; O2SAT 96
[2020-12-08 08:27] VITALS: BP 145/80; PULSE 77
[2020-12-08] MEDS: amLODIPine Besylate 5 MG TABLET PO (08:27)
[2020-12-08] MEDS: Aspirin 81 MG TAB.CHEW PO (08:27)
[2020-12-08] MEDS: carBAMazepine 200 MG TABLET 400 MG PO ×2 (08:28→20:27)
[2020-12-08] MEDS: Pravastatin Sodium 40 MG TABLET PO (08:31)
[2020-12-08] MEDS: HaloperidoL 5 MG TABLET 10 MG PO ×2 (08:31→20:27)
[2020-12-08] MEDS: Carbidopa/Levodopa 25/100 TABLET 1 TAB PO ×2 (08:31→20:27)
[2020-12-08 09:02] VITALS: BP 145/80; PULSE 95; RESP 16; TEMP 37.2; O2SAT 99
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
[2020-12-08 18:00] VITALS: BP 146/72; PULSE 74; RESP 18; TEMP 36.8; O2SAT 96
[2020-12-08] MEDS: Tamsulosin HCL 0.4 MG CAPSULE PO (20:27)
[2020-12-09 05:53] VITALS: BP 155/75; PULSE 63; RESP 18; TEMP 36.4; O2SAT 95
[2020-12-09] MEDS: carBAMazepine 200 MG TABLET 400 MG PO ×2 (08:05→20:17)
[2020-12-09] MEDS: HaloperidoL 5 MG TABLET 10 MG PO ×2 (08:06→20:17)
[2020-12-09] MEDS: Carbidopa/Levodopa 25/100 TABLET 1 TAB PO ×2 (08:06→20:17)
[2020-12-09] MEDS: Pravastatin Sodium 40 MG TABLET PO (08:06)
[2020-12-09] MEDS: amLODIPine Besylate 5 MG TABLET PO (08:06)
[2020-12-09] MEDS: Aspirin 81 MG TAB.CHEW PO (08:09)
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
[2020-12-09 18:48] VITALS: BP 139/75; PULSE 66; RESP 18; TEMP 36.9; O2SAT 96
[2020-12-09] MEDS: Tamsulosin HCL 0.4 MG CAPSULE PO (20:17)
[2020-12-10 05:55] VITALS: BP 156/73; PULSE 69; RESP 16; TEMP 37; O2SAT 95
[2020-12-10 08:21] VITALS: BP 139/65; PULSE 73
[2020-12-10] MEDS: carBAMazepine 200 MG TABLET 400 MG PO (08:21)
[2020-12-10] MEDS: Carbidopa/Levodopa 25/100 TABLET 1 TAB PO ×2 (08:21→21:01)
[2020-12-10] MEDS: amLODIPine Besylate 5 MG TABLET PO (08:21)
[2020-12-10] MEDS: Aspirin 81 MG TAB.CHEW PO (08:21)
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
[2020-12-10] MEDS: diphenhydrAMINE HCL 50 MG/ML VIAL IM (11:12)
[2020-12-10] MEDS: LORazepam 2 MG/ML VIAL IM (11:13)
[2020-12-10] MEDS: Haloperidol Lactate 5 MG/ML VIAL IM (11:13)
[2020-12-10 17:49] VITALS: BP 154/80; PULSE 61; RESP 18; TEMP 36.8; O2SAT 95
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
[2020-12-10] MEDS: diphenhydrAMINE HCL 25 MG TABLET 50 MG PO (19:36)
[2020-12-10] MEDS: HaloperidoL 5 MG TABLET 10 MG PO (19:37)
[2020-12-10] MEDS: Tamsulosin HCL 0.4 MG CAPSULE PO (19:37)
[2020-12-11 05:06] VITALS: BP 151/70; PULSE 68; RESP 20; TEMP 36.3; O2SAT 95
[2020-12-11] MEDS: Aspirin 81 MG TAB.CHEW PO (08:57)
[2020-12-11 08:58] VITALS: BP 140/71; PULSE 65
[2020-12-11] MEDS: amLODIPine Besylate 5 MG TABLET PO (08:58)
[2020-12-11] MEDS: carBAMazepine 200 MG TABLET 400 MG PO ×2 (08:58→20:21)
[2020-12-11] MEDS: HaloperidoL 5 MG TABLET 10 MG PO ×2 (08:58→20:21)
[2020-12-11] MEDS: Pravastatin Sodium 40 MG TABLET PO (08:58)
[2020-12-11] MEDS: Carbidopa/Levodopa 25/100 TABLET 1 TAB PO ×2 (09:01→20:21)
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
[2020-12-11 18:00] VITALS: BP 147/69; PULSE 65; RESP 18; TEMP 37; O2SAT 96
[2020-12-11] MEDS: Tamsulosin HCL 0.4 MG CAPSULE PO (20:21)
[2020-12-12 06:00] VITALS: BP 119/67; PULSE 100; TEMP 37.2; O2SAT 100
[2020-12-12 08:13] VITALS: BP 119/67
[2020-12-12] MEDS: HaloperidoL 5 MG TABLET PO ×2 (08:13→14:00)
[2020-12-12] MEDS: amLODIPine Besylate 5 MG TABLET PO (08:13)
[2020-12-12] MEDS: Aspirin 81 MG TAB.CHEW PO (08:13)
[2020-12-12] MEDS: Pravastatin Sodium 40 MG TABLET PO (08:13)
[2020-12-12] MEDS: Carbidopa/Levodopa 25/100 TABLET 1 TAB PO ×2 (08:14→21:13)
[2020-12-12] MEDS: carBAMazepine 200 MG TABLET 400 MG PO (08:14)
[2020-12-12] MEDS: HaloperidoL 5 MG TABLET 10 MG PO (08:14)
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
[2020-12-12] MEDS: diphenhydrAMINE HCL 25 MG TABLET 50 MG PO (14:00)
[2020-12-12] MEDS: LORazepam 1 MG TABLET 2 MG PO (14:00)
--- NOTE | 2020-12-12 17:09 | PC.NURSE ---
Pt due to Haldol Dec injection on 12-11, sent message to Dr Eliu Siddiqui today, Dr Siddiqui stated it can be deferred until tomorrow. Message will be passed along to oncoming shift.
[2020-12-12 18:00] VITALS: BP 151/75; PULSE 72; RESP 20; TEMP 37; O2SAT 95
[2020-12-12] MEDS: Tamsulosin HCL 0.4 MG CAPSULE PO (21:13)
--- NOTE | 2020-12-13 | ECG_ITS ---
Test Reason : QT CHECK Blood Pressure : / mmHG Vent. Rate : 064 BPM Atrial Rate : 064 BPM P-R Int : 152 ms QRS Dur : 098 ms QT Int : 436 ms P-R-T Axes : 003 009 046 degrees QTc Int : 449 ms Normal sinus rhythm Normal ECG No previous ECGs available Referred By: Brian Michael Electronically Signed By:RANULFO VILLAGOMEZ MD
[2020-12-13] MEDS: carBAMazepine 200 MG TABLET 400 MG PO (09:27)
[2020-12-13 09:28] VITALS: BP 124/69; PULSE 77
[2020-12-13] MEDS: HaloperidoL 5 MG TABLET PO (09:28)
[2020-12-13] MEDS: Pravastatin Sodium 40 MG TABLET PO (09:28)
[2020-12-13] MEDS: HaloperidoL 5 MG TABLET 10 MG PO (09:28)
[2020-12-13] MEDS: Aspirin 81 MG TAB.CHEW PO (09:28)
[2020-12-13] MEDS: Carbidopa/Levodopa 25/100 TABLET 1 TAB PO ×2 (09:28→20:47)
[2020-12-13] MEDS: diphenhydrAMINE HCL 25 MG TABLET 50 MG PO (09:28)
[2020-12-13] MEDS: amLODIPine Besylate 5 MG TABLET PO (09:28)
[2020-12-13] MEDS: LORazepam 1 MG TABLET 2 MG PO (09:28)
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
[2020-12-13 17:47] VITALS: BP 163/87; PULSE 64; RESP 18; TEMP 36.9; O2SAT 96
--- NOTE | 2020-12-13 18:30 | PC.NURSE ---
Patient is alert and oriented x3. He is present and social on the unit. Patient requires redirection for cursing on the Dayroom phone, but quietly ends behavior and phone call. Patient rests comfortably in bed on and off throughout the day. Patient asks for staff assistance to write letter to a female friend; staff report letter is appropriate for mailing. Patient continues to refuse hygiene/showering.
[2020-12-13] MEDS: Tamsulosin HCL 0.4 MG CAPSULE PO (20:47)
[2020-12-14 06:17] VITALS: BP 157/76; PULSE 157; RESP 18; TEMP 36.4; O2SAT 94
[2020-12-14 07:43] LABS: Estimated Average Glucose 114 mg/dL; Hemoglobin A1c % 5.6 %
[2020-12-14 07:50] LABS: Anion Gap 12 (12-20); Blood Urea Nitrogen 12 mg/dL (9-16); Calcium 9.4 mg/dL (8.4-10.2); Carbon Dioxide 26 mmol/L (22-29); Chloride 105 mmol/L (96-108); Cholesterol 193 mg/dL; Creatinine Clr Calc Pharmacy 96.8; Estimated Glomerular Filt Rate > 60; Glucose Random 99 mg/dL (60-115); HDL Cholesterol 66 mg/dL; LDL Cholesterol Calculated 104 mg/dl; Potassium 4.2 mmol/L (3.3-5.1); Sodium 139 mmol/L (135-145); Triglycerides 119 mg/dL
[2020-12-14] MEDS: Carbidopa/Levodopa 25/100 TABLET 1 TAB PO ×2 (08:29→20:19)
[2020-12-14 08:30] VITALS: BP 140/74; PULSE 86
[2020-12-14] MEDS: amLODIPine Besylate 5 MG TABLET PO (08:30)
[2020-12-14] MEDS: Aspirin 81 MG TAB.CHEW PO (08:30)
[2020-12-14] MEDS: Pravastatin Sodium 40 MG TABLET PO (08:30)
[2020-12-14] MEDS: HaloperidoL 5 MG TABLET 10 MG PO ×2 (08:30→20:19)
[2020-12-14] MEDS: carBAMazepine 200 MG TABLET 400 MG PO ×2 (08:30→20:19)
[2020-12-14 08:35] LABS: Carbamazepine Tegretol 6.7 mcg/mL (5.0-12.0)
[2020-12-14] MEDS: Acetaminophen 325 MG TABLET 650 MG PO (08:44)
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
[2020-12-14 18:00] VITALS: BP 139/86; PULSE 79; TEMP 36.6; O2SAT 94
[2020-12-14] MEDS: Tamsulosin HCL 0.4 MG CAPSULE PO (20:20)
[2020-12-15 05:28] VITALS: BP 156/78; PULSE 62; RESP 18; TEMP 36.6; O2SAT 94
[2020-12-15] MEDS: Aspirin 81 MG TAB.CHEW PO (09:39)
[2020-12-15 09:40] VITALS: BP 139/60; PULSE 67
[2020-12-15] MEDS: amLODIPine Besylate 5 MG TABLET PO (09:40)
[2020-12-15] MEDS: carBAMazepine 200 MG TABLET 400 MG PO ×2 (09:40→20:23)
[2020-12-15] MEDS: Carbidopa/Levodopa 25/100 TABLET 1 TAB PO ×2 (09:40→20:23)
[2020-12-15] MEDS: Pravastatin Sodium 40 MG TABLET PO (09:40)
[2020-12-15] MEDS: HaloperidoL 5 MG TABLET 10 MG PO (09:40)
--- NOTE | 2020-12-15 13:17 | HO.PSYCHPN ---
Subjective Subjective Date of Service: 12/15/20 Reason For Visit: Bipolar disorder Subjective Notes: Section 7 and Section 8 Interim History: Distally the patient behaved well, he remains intrusive at times. 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 He was tangential at times but easily redirectable. Seems the patient is over-sedated in the morning, he agreed to change his only Haldol once a day at bedtime Medication Compliance: Yes Review of Systems Acute medical concerns: No Medical Review of Systems: unchanged Mental Status Exam Mental Status Exam Patient Appearance: Disheveled and Unkempt (poor hygiene) Patient Orientation: Person, Place and Situation Level of Consciousness: Awake Patient Behavior: Avoidant Mood Description: Suspicious and Withdrawn Affect Description: Constricted Patient Cognition Impaired: Yes Ability to Follow Directions: Good Speech Pattern: Clear Hallucinations: None Delusions: Paranoid Ideation and Grandiose Thought Process: Incoherent Thought Content: positive for Loose Associations, positive for Thought Blocking and positive for Tangential Judgement: Poor Diagnostics Vital Signs (24Hr): Vital Signs - 24 hr 12/14/20 18:00 12/15/20 05:28 12/15/20 09:40 Temperature 97.8 F 98 F Pulse Rate 79 62 67 Respiratory Rate 18 Blood Pressure 139/86 156/78 H 139/60 Pulse Oximetry 94 94 Body Mass Index 27.5 Labs Results: 11/19/20 06:25 12/14/20 06:53 Labs: Laboratory Results - last 48 hr 12/14/20 12/14/20 06:53 06:53 Sodium 139 Potassium 4.2 Chloride 105 Carbon Dioxide 26 Anion Gap 12 BUN 12 Creatinine 0.79 Estim Creat Clear Calc 96.8 Estimated GFR > 60 Random Glucose 99 Estimat Average Glucose 114 Hemoglobin A1c % 5.6 Calcium 9.4 Triglycerides 119 Cholesterol 193 LDL Cholesterol, Calc 104 HDL Cholesterol 66 Carbamazepine 6.7 Medications Medications Current Medications Generic Name Dose Route Start Last Admin Trade Name Freq PRN Reason Stop Dose Admin Acetaminophen 650 mg 11/18/20 13:10 12/14/20 08:44 Acetaminophen 325 Mg Tablet PO 650 mg Q6H PRN Administration Headache/Pain Mild Scale (1-3) Al Hydroxide/Mg Hydroxide 30 ml 11/18/20 13:10 Magnesium Hydrox/Alum Hydrox 30 Ml Oral.Susp PO Q6H PRN Heartburn/Nausea Amlodipine Besylate 5 mg 11/19/20 09:00 12/15/20 09:40 Amlodipine Besylate 5 Mg Tablet PO 5 mg DAILY RADHAMES Administration Protocol Aspirin 81 mg 11/19/20 09:00 12/15/20 09:39 Aspirin 81 Mg Tab.Chew PO 81 mg DAILY RADHAMES Administration Carbamazepine 400 mg 11/18/20 21:00 12/15/20 09:40 Carbamazepine 200 Mg Tablet PO 400 mg BID RADHAMES Administration Carbidopa/Levodopa 1 tab 11/18/20 21:00 12/15/20 09:40 Carbidopa/Levodopa 25/100 Tablet PO 1 tab BID RADHAMES Administration Diphenhydramine HCl 50 mg 11/30/20 13:52 12/13/20 09:28 Diphenhydramine Hcl 25 Mg Tablet PO 50 mg BID PRN Administration agitation Haloperidol 5 mg 11/30/20 13:52 12/13/20 09:28 Haloperidol 5 Mg Tablet PO 5 mg TID PRN Administration Psychosis Haloperidol Lactate 2.5 mg 11/20/20 19:38 11/30/20 11:13 Haloperidol Lactate 10 Mg/5 Ml Oral.Conc PO 2.5 mg TID PRN Administration hypersexuality Hydroxyzine HCl 25 mg 11/20/20 19:38 11/22/20 01:20 Hydroxyzine Hcl 25 Mg Tablet PO 25 mg BEDTIME MRX1 PRN Administration Anxiety Lorazepam 2 mg 12/10/20 19:52 12/13/20 09:28 Lorazepam 1 Mg Tablet PO 2 mg TID PRN Administration agitation Magnesium Hydroxide 30 ml 11/18/20 13:10 Milk Of Magnesia 30 Ml Oral.Susp PO DAILY PRN Constipation Pravastatin Sodium 40 mg 11/19/20 09:00 12/15/20 09:40 Pravastatin Sodium 40 Mg Tablet PO 40 mg DAILY RADHAMES Administration Tamsulosin HCl 0.4 mg 11/18/20 21:00 12/14/20 20:20 Tamsulosin Hcl 0.4 Mg Capsule PO 0.4 mg BEDTIME RADHAMES Administration Allergies Allergies Allergy/AdvReac Type Severity Reaction Status Date / Time No Known Allergies Allergy Verified 11/18/20 11:30 Assessment & Plan Assessment & Plan (1) Bipolar 1 disorder: Status: Acute Code(s): F31.9 - Bipolar disorder, unspecified Assessment and Plan: The patient is an elderly Caucaasian male with Bipolar disorder, resident of a [place] [facility], grossly manic and psychotic, extremely disruptive and abusive towards peers and staff. He has a Montiel order and a guardianship. Plan: Invega Sustenna 234 mg second dose on 11/29 next dose on 12/27 Next Haldol dec on 12/11 (last one on November 17 170 mg) Change haloperidol to 20 mg p.o. q.h.s. Continue rest the same. Now on Section 7 and 8. Referral for supervisor intermediates hospitalization made. Greater than 50% of the session was spent on counseling and/or coordination of care Reason for contiued inpatient stay Substantial Risk for: inability to function, rapid decompensation and med/psych decompensation
[2020-12-15 18:00] VITALS: BP 129/60; PULSE 72; RESP 18; TEMP 37.1; O2SAT 95
[2020-12-15] MEDS: Tamsulosin HCL 0.4 MG CAPSULE PO (20:23)
[2020-12-15] MEDS: HaloperidoL 5 MG TABLET 20 MG PO ×2 (21:32→21:39)
[2020-12-16 06:00] VITALS: BP 140/70; PULSE 62; RESP 18; TEMP 36.5; O2SAT 93
[2020-12-16 07:00] VITALS: BMI 27.6
[2020-12-16] MEDS: Pravastatin Sodium 40 MG TABLET PO (09:20)
[2020-12-16] MEDS: Acetaminophen 325 MG TABLET 650 MG PO (09:20)
[2020-12-16] MEDS: Carbidopa/Levodopa 25/100 TABLET 1 TAB PO ×2 (09:20→19:52)
[2020-12-16] MEDS: carBAMazepine 200 MG TABLET 400 MG PO ×2 (09:20→19:52)
[2020-12-16] MEDS: Aspirin 81 MG TAB.CHEW PO (09:20)
[2020-12-16 09:23] VITALS: BP 136/62; PULSE 77
[2020-12-16] MEDS: amLODIPine Besylate 5 MG TABLET PO (09:23)
--- NOTE | 2020-12-16 12:12 | P.PNPSI_ITS ---
Subjective Subjective Date of Service: 12/16/20 Reason For Visit: Bipolar disorder Subjective Notes: Section 7 and Section 8 Interim History: Yesterday the patient was able to review the behavioral plan and he agreed to meet. 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 There were no episodes of agitation yesterday and today in the morning. I explained to the patient that if he is able to control his behavior and not show threatening statements for several days in a row, we could reconsider a transfer to the [facility] but he was unable to understand. He got agitated but he was able to deescalate later on. Review of Systems Acute medical concerns: No Medical Review of Systems: unchanged Diagnostics Vital Signs (24Hr): Vital Signs - 24 hr 12/15/20 18:00 12/16/20 06:00 12/16/20 09:23 Temperature 98.7 F 97.7 F Pulse Rate 72 62 77 Respiratory Rate 18 18 Blood Pressure 129/60 140/70 H 136/62 Pulse Oximetry 95 93 Body Mass Index 27.5 Labs Results: 11/19/20 06:25 12/14/20 06:53 Medications Medications Current Medications Generic Name Dose Route Start Last Admin Trade Name Freq PRN Reason Stop Dose Admin Acetaminophen 650 mg 11/18/20 13:10 12/16/20 09:20 Acetaminophen 325 Mg Tablet PO 650 mg Q6H PRN Administration Headache/Pain Mild Scale (1-3) Al Hydroxide/Mg Hydroxide 30 ml 11/18/20 13:10 Magnesium Hydrox/Alum Hydrox 30 Ml Oral.Susp PO Q6H PRN Heartburn/Nausea Amlodipine Besylate 5 mg 11/19/20 09:00 12/16/20 09:23 Amlodipine Besylate 5 Mg Tablet PO 5 mg DAILY RADHAMES Administration Protocol Aspirin 81 mg 11/19/20 09:00 12/16/20 09:20 Aspirin 81 Mg Tab.Chew PO 81 mg DAILY RADHAMES Administration Carbamazepine 400 mg 11/18/20 21:00 12/16/20 09:20 Carbamazepine 200 Mg Tablet PO 400 mg BID RADHAMES Administration Carbidopa/Levodopa 1 tab 11/18/20 21:00 12/16/20 09:20 Carbidopa/Levodopa 25/100 Tablet PO 1 tab BID RADHAMES Administration Diphenhydramine HCl 50 mg 11/30/20 13:52 12/13/20 09:28 Diphenhydramine Hcl 25 Mg Tablet PO 50 mg BID PRN Administration agitation Haloperidol 5 mg 11/30/20 13:52 12/13/20 09:28 Haloperidol 5 Mg Tablet PO 5 mg TID PRN Administration Psychosis Haloperidol 20 mg 12/16/20 21:00 12/15/20 21:39 Haloperidol 5 Mg Tablet PO 20 mg BEDTIME RADHAMES Administration Haloperidol Lactate 2.5 mg 11/20/20 19:38 11/30/20 11:13 Haloperidol Lactate 10 Mg/5 Ml Oral.Conc PO 2.5 mg TID PRN Administration hypersexuality Hydroxyzine HCl 25 mg 11/20/20 19:38 11/22/20 01:20 Hydroxyzine Hcl 25 Mg Tablet PO 25 mg BEDTIME MRX1 PRN Administration Anxiety Lorazepam 2 mg 12/10/20 19:52 12/13/20 09:28 Lorazepam 1 Mg Tablet PO 2 mg TID PRN Administration agitation Magnesium Hydroxide 30 ml 11/18/20 13:10 Milk Of Magnesia 30 Ml Oral.Susp PO DAILY PRN Constipation Pravastatin Sodium 40 mg 11/19/20 09:00 12/16/20 09:20 Pravastatin Sodium 40 Mg Tablet PO 40 mg DAILY RADHAMES Administration Tamsulosin HCl 0.4 mg 11/18/20 21:00 12/15/20 20:23 Tamsulosin Hcl 0.4 Mg Capsule PO 0.4 mg BEDTIME RADHAMES Administration Allergies Allergies Allergy/AdvReac Type Severity Reaction Status Date / Time No Known Allergies Allergy Verified 11/18/20 11:30 Assessment & Plan Assessment & Plan (1) Bipolar 1 disorder: Status: Acute Code(s): F31.9 - Bipolar disorder, unspecified Assessment and Plan: The patient is an elderly Caucaasian male with Bipolar disorder, resident of a alf in the [place] side of [facility], grossly manic and psychotic, extremely disruptive and abusive towards peers and staff. He has a Montiel order and a guardianship. Plan: Invega Sustenna 234 mg second dose on 11/29 next dose on 12/27 Next Haldol dec on 12/11 (last one on November 17 170 mg) Change haloperidol to 20 mg p.o. q.h.s. Continue rest the same. Now on Section 7 and 8. Referral for termite helper hospitalization made. Greater than 50% of the session was spent on counseling and/or coordination of care Reason for contiued inpatient stay Substantial Risk for: harm to self, harm to others, inability to function, rapid decompensation and med/psych decompensation
[2020-12-16 17:46] VITALS: BP 162/72; PULSE 73; RESP 18; TEMP 36.7; O2SAT 96
[2020-12-16] MEDS: Tamsulosin HCL 0.4 MG CAPSULE PO (19:52)
[2020-12-16] MEDS: HaloperidoL 5 MG TABLET 20 MG PO (20:55)
--- NOTE | 2020-12-17 02:11 | PC.NURSE ---
PT needed redirection and encouragement to make the right decisions. PT says, I hate Carmela. PT continued to try to approach same staff member and kept telling her, You are a liar. PT used the phone and TV appropriately, took all meds with no issues.
[2020-12-17] MEDS: amLODIPine Besylate 5 MG TABLET PO (07:28)
[2020-12-17] MEDS: Carbidopa/Levodopa 25/100 TABLET 1 TAB PO ×2 (07:28→20:15)
[2020-12-17] MEDS: carBAMazepine 200 MG TABLET 400 MG PO ×2 (07:28→20:15)
[2020-12-17] MEDS: Aspirin 81 MG TAB.CHEW PO (07:28)
[2020-12-17] MEDS: Pravastatin Sodium 40 MG TABLET PO (07:29)
[2020-12-17] MEDS: Acetaminophen 325 MG TABLET 650 MG PO (07:58)
--- NOTE | 2020-12-17 11:20 | P.PNPSI_ITS ---
Subjective Subjective Date of Service: 12/17/20 Reason For Visit: Bipolar disorder Subjective Notes: Section 7 and Section 8 Interim History: The patient has been sexually inappropriated with staff, aggressive and he targets specific staff. He is upset since he will not be discharged to the community. Review of Systems Acute medical concerns: No Medical Review of Systems: unchanged Mental Status Exam Mental Status Exam Patient Appearance: Disheveled and Unkempt Patient Orientation: Person, Place and Situation Level of Consciousness: Awake Patient Behavior: Suspicious, Hypersexual and Restless Mood Description: Hostile and Angry Affect Description: Labile Patient Cognition Impaired: No Ability to Follow Directions: Poor Speech Pattern: Slurred and Rapid Hallucinations: None Delusions: Paranoid Ideation and Grandiose Thought Process: Illogical Thought Content: positive for Obsessional Thoughts, positive for Perseveration, positive for Poverty of Content and positive for Loose Associations Judgement: Poor Diagnostics Vital Signs (24Hr): Vital Signs - 24 hr 12/16/20 17:46 Temperature 98.0 F Pulse Rate 73 Respiratory Rate 18 Blood Pressure 162/72 H Pulse Oximetry 96 Body Mass Index 27.6 Labs Results: 11/19/20 06:25 12/14/20 06:53 Medications Medications Current Medications Generic Name Dose Route Start Last Admin Trade Name Freq PRN Reason Stop Dose Admin Acetaminophen 650 mg 11/18/20 13:10 12/17/20 07:58 Acetaminophen 325 Mg Tablet PO 650 mg Q6H PRN Administration Headache/Pain Mild Scale (1-3) Al Hydroxide/Mg Hydroxide 30 ml 11/18/20 13:10 Magnesium Hydrox/Alum Hydrox 30 Ml Oral.Susp PO Q6H PRN Heartburn/Nausea Amlodipine Besylate 5 mg 11/19/20 09:00 12/17/20 07:28 Amlodipine Besylate 5 Mg Tablet PO 5 mg DAILY RADHAMES Administration Protocol Aspirin 81 mg 11/19/20 09:00 12/17/20 07:28 Aspirin 81 Mg Tab.Chew PO 81 mg DAILY RADHAMES Administration Carbamazepine 400 mg 11/18/20 21:00 12/17/20 07:28 Carbamazepine 200 Mg Tablet PO 400 mg BID RADHAMES Administration Carbidopa/Levodopa 1 tab 11/18/20 21:00 12/17/20 07:28 Carbidopa/Levodopa 25/100 Tablet PO 1 tab BID RADHAMES Administration Diphenhydramine HCl 50 mg 11/30/20 13:52 12/13/20 09:28 Diphenhydramine Hcl 25 Mg Tablet PO 50 mg BID PRN Administration agitation Haloperidol 5 mg 11/30/20 13:52 12/13/20 09:28 Haloperidol 5 Mg Tablet PO 5 mg TID PRN Administration Psychosis Haloperidol 20 mg 12/16/20 21:00 12/16/20 20:55 Haloperidol 5 Mg Tablet PO 20 mg BEDTIME RADHAMES Administration Haloperidol Lactate 2.5 mg 11/20/20 19:38 11/30/20 11:13 Haloperidol Lactate 10 Mg/5 Ml Oral.Conc PO 2.5 mg TID PRN Administration hypersexuality Hydroxyzine HCl 25 mg 11/20/20 19:38 11/22/20 01:20 Hydroxyzine Hcl 25 Mg Tablet PO 25 mg BEDTIME MRX1 PRN Administration Anxiety Lorazepam 2 mg 12/10/20 19:52 12/13/20 09:28 Lorazepam 1 Mg Tablet PO 2 mg TID PRN Administration agitation Magnesium Hydroxide 30 ml 11/18/20 13:10 Milk Of Magnesia 30 Ml Oral.Susp PO DAILY PRN Constipation Pravastatin Sodium 40 mg 11/19/20 09:00 12/17/20 07:29 Pravastatin Sodium 40 Mg Tablet PO 40 mg DAILY RADHAMES Administration Tamsulosin HCl 0.4 mg 11/18/20 21:00 12/16/20 19:52 Tamsulosin Hcl 0.4 Mg Capsule PO 0.4 mg BEDTIME RADHAMES Administration Allergies Allergies Allergy/AdvReac Type Severity Reaction Status Date / Time No Known Allergies Allergy Verified 11/18/20 11:30 Assessment & Plan Assessment & Plan (1) Bipolar 1 disorder: Status: Acute Code(s): F31.9 - Bipolar disorder, unspecified Assessment and Plan: The patient is an elderly Caucaasian male with Bipolar disorder, resident of a correction in the [place] side of the [facility], grossly manic and psychotic, extremely disruptive and abusive towards peers and staff. He has a Montiel order and a guardianship. Plan: Invega Sustenna 234 mg second dose on 11/29 next dose on 12/27 Next Haldol dec on 12/11 (last one on November 17 170 mg) Change haloperidol to 20 mg p.o. q.h.s. Continue rest the same. Now on Section 7 and 8. 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 Greater than 50% of the session was spent on counseling and/or coordination of care Reason for contiued inpatient stay Substantial Risk for: harm to others, inability to function, rapid decompensation and med/psych decompensation
[2020-12-17] MEDS: Tamsulosin HCL 0.4 MG CAPSULE PO (20:14)
[2020-12-17] MEDS: HaloperidoL 5 MG TABLET 20 MG PO (20:14)
--- NOTE | 2020-12-18 07:47 | P.PNPSI_ITS ---
Subjective Subjective Date of Service: 12/18/20 Reason For Visit: Bipolar disorder Subjective Notes: Section 7 and Section 8 Interim History: The patient has been less agitated since yesterday, still delusional and grandiose. Review of Systems Acute medical concerns: No Medical Review of Systems: unchanged Mental Status Exam Mental Status Exam Patient Appearance: Disheveled and Unkempt Patient Orientation: Person, Place and Situation Level of Consciousness: Awake Patient Behavior: Guarded Mood Description: Apprehensive Affect Description: Labile Patient Cognition Impaired: Yes Ability to Follow Directions: Fair Speech Pattern: Clear Delusions: Paranoid Ideation and Grandiose Thought Process: Distracted and Slowed Thinking Thought Content: positive for Perseveration and positive for Poverty of Content Judgement: Poor Diagnostics Vital Signs (24Hr): Body Mass Index 27.6 Labs Results: 11/19/20 06:25 12/14/20 06:53 Medications Medications Current Medications Generic Name Dose Route Start Last Admin Trade Name Freq PRN Reason Stop Dose Admin Acetaminophen 650 mg 11/18/20 13:10 12/17/20 07:58 Acetaminophen 325 Mg Tablet PO 650 mg Q6H PRN Administration Headache/Pain Mild Scale (1-3) Al Hydroxide/Mg Hydroxide 30 ml 11/18/20 13:10 Magnesium Hydrox/Alum Hydrox 30 Ml Oral.Susp PO Q6H PRN Heartburn/Nausea Amlodipine Besylate 5 mg 11/19/20 09:00 12/17/20 07:28 Amlodipine Besylate 5 Mg Tablet PO 5 mg DAILY RADHAMES Administration Protocol Aspirin 81 mg 11/19/20 09:00 12/17/20 07:28 Aspirin 81 Mg Tab.Chew PO 81 mg DAILY RADHAMES Administration Carbamazepine 400 mg 11/18/20 21:00 12/17/20 20:15 Carbamazepine 200 Mg Tablet PO 400 mg BID RADHAMES Administration Carbidopa/Levodopa 1 tab 11/18/20 21:00 12/17/20 20:15 Carbidopa/Levodopa 25/100 Tablet PO 1 tab BID RADHAMES Administration Diphenhydramine HCl 50 mg 11/30/20 13:52 12/13/20 09:28 Diphenhydramine Hcl 25 Mg Tablet PO 50 mg BID PRN Administration agitation Haloperidol 5 mg 11/30/20 13:52 12/13/20 09:28 Haloperidol 5 Mg Tablet PO 5 mg TID PRN Administration Psychosis Haloperidol 20 mg 12/16/20 21:00 12/17/20 20:14 Haloperidol 5 Mg Tablet PO 20 mg BEDTIME RADHAMES Administration Haloperidol Lactate 2.5 mg 11/20/20 19:38 11/30/20 11:13 Haloperidol Lactate 10 Mg/5 Ml Oral.Conc PO 2.5 mg TID PRN Administration hypersexuality Hydroxyzine HCl 25 mg 11/20/20 19:38 11/22/20 01:20 Hydroxyzine Hcl 25 Mg Tablet PO 25 mg BEDTIME MRX1 PRN Administration Anxiety Lorazepam 2 mg 12/10/20 19:52 12/13/20 09:28 Lorazepam 1 Mg Tablet PO 2 mg TID PRN Administration agitation Magnesium Hydroxide 30 ml 11/18/20 13:10 Milk Of Magnesia 30 Ml Oral.Susp PO DAILY PRN Constipation Pravastatin Sodium 40 mg 11/19/20 09:00 12/17/20 07:29 Pravastatin Sodium 40 Mg Tablet PO 40 mg DAILY RADHAMES Administration Tamsulosin HCl 0.4 mg 11/18/20 21:00 12/17/20 20:14 Tamsulosin Hcl 0.4 Mg Capsule PO 0.4 mg BEDTIME RADHAMES Administration Allergies Allergies Allergy/AdvReac Type Severity Reaction Status Date / Time No Known Allergies Allergy Verified 11/18/20 11:30 Assessment & Plan Assessment & Plan (1) Bipolar 1 disorder: Status: Acute Code(s): F31.9 - Bipolar disorder, unspecified Assessment and Plan: The patient is an elderly Caucaasian male with Bipolar disorder, resident of a senior living in the [place] side of the [facility], grossly manic and psychotic, extremely disruptive and abusive towards peers and staff. He has a Montiel order and a guardianship. Plan: Invega Sustenna 234 mg second dose on 11/29 next dose on 12/27 Next Haldol dec on 12/11 (last one on November 17 170 mg) Change haloperidol to 20 mg p.o. q.h.s. Continue rest the same. Now on Section 7 and 8. Referral for emt intermediate hospitalization made. Greater than 50% of the session was spent on counseling and/or coordination of care Reason for contiued inpatient stay Substantial Risk for: harm to others, inability to function, rapid decompensation and med/psych decompensation
[2020-12-18 08:28] VITALS: BP 128/78; PULSE 84
[2020-12-18] MEDS: carBAMazepine 200 MG TABLET 400 MG PO ×2 (08:28→20:48)
[2020-12-18] MEDS: amLODIPine Besylate 5 MG TABLET PO (08:28)
[2020-12-18] MEDS: Pravastatin Sodium 40 MG TABLET PO (08:29)
[2020-12-18] MEDS: Carbidopa/Levodopa 25/100 TABLET 1 TAB PO ×2 (08:29→20:47)
[2020-12-18] MEDS: Aspirin 81 MG TAB.CHEW PO (08:29)
[2020-12-18] MEDS: Acetaminophen 325 MG TABLET 650 MG PO (08:29)
[2020-12-18 18:00] VITALS: BP 136/70; PULSE 63; RESP 16; TEMP 36.2; O2SAT 98
[2020-12-18] MEDS: HaloperidoL 5 MG TABLET 20 MG PO (20:47)
[2020-12-18] MEDS: Tamsulosin HCL 0.4 MG CAPSULE PO (20:47)
[2020-12-19 08:54] VITALS: BP 130/70; PULSE 73; RESP 18; TEMP 36.9; O2SAT 92
[2020-12-19] MEDS: Pravastatin Sodium 40 MG TABLET PO (08:55)
[2020-12-19] MEDS: Aspirin 81 MG TAB.CHEW PO (08:55)
[2020-12-19] MEDS: carBAMazepine 200 MG TABLET 400 MG PO ×2 (08:55→20:38)
[2020-12-19 08:56] VITALS: BP 130/70; PULSE 73
[2020-12-19] MEDS: Carbidopa/Levodopa 25/100 TABLET 1 TAB PO ×2 (08:56→20:38)
[2020-12-19] MEDS: amLODIPine Besylate 5 MG TABLET PO (08:56)
--- NOTE | 2020-12-19 09:02 | P.PNPSI_ITS ---
Subjective Subjective Date of Service: 12/19/20 Reason For Visit: Bipolar disorder Subjective Notes: Section 7 and Section 8 Interim History: As per nursing staff, the patient had a good day with no episodes of agitation. She slept well last night and he was appropriate today in the morning. During the interview, the patient reported that he feels bored and he wants to go back to the community. Review of Systems Acute medical concerns: No Medical Review of Systems: unchanged Mental Status Exam Mental Status Exam Patient Appearance: Disheveled and Unkempt Patient Orientation: Person and Situation Level of Consciousness: Awake Patient Behavior: Guarded Mood Description: Withdrawn Affect Description: Constricted Patient Cognition Impaired: Yes Ability to Follow Directions: Fair Speech Pattern: Slurred Memory Description: Intact Hallucinations: None Delusions: Paranoid Ideation and Grandiose Thought Process: Slowed Thinking Thought Content: positive for Perseveration, positive for Poverty of Content and positive for Tangential Judgement: Poor Diagnostics Vital Signs (24Hr): Vital Signs - 24 hr 12/18/20 18:00 12/19/20 08:54 12/19/20 08:56 Temperature 97.2 F 98.4 F Pulse Rate 63 73 73 Respiratory Rate 16 18 Blood Pressure 136/70 130/70 130/70 Pulse Oximetry 98 92 Body Mass Index 27.6 Labs Results: 11/19/20 06:25 12/14/20 06:53 Medications Medications Current Medications Generic Name Dose Route Start Last Admin Trade Name Freq PRN Reason Stop Dose Admin Acetaminophen 650 mg 11/18/20 13:10 12/18/20 08:29 Acetaminophen 325 Mg Tablet PO 650 mg Q6H PRN Administration Headache/Pain Mild Scale (1-3) Al Hydroxide/Mg Hydroxide 30 ml 11/18/20 13:10 Magnesium Hydrox/Alum Hydrox 30 Ml Oral.Susp PO Q6H PRN Heartburn/Nausea Amlodipine Besylate 5 mg 11/19/20 09:00 12/19/20 08:56 Amlodipine Besylate 5 Mg Tablet PO 5 mg DAILY RADHAMES Administration Protocol Aspirin 81 mg 11/19/20 09:00 12/19/20 08:55 Aspirin 81 Mg Tab.Chew PO 81 mg DAILY RADHAMES Administration Carbamazepine 400 mg 11/18/20 21:00 12/19/20 08:55 Carbamazepine 200 Mg Tablet PO 400 mg BID RADHAMES Administration Carbidopa/Levodopa 1 tab 11/18/20 21:00 12/19/20 08:56 Carbidopa/Levodopa 25/100 Tablet PO 1 tab BID RADHAMES Administration Diphenhydramine HCl 50 mg 11/30/20 13:52 12/13/20 09:28 Diphenhydramine Hcl 25 Mg Tablet PO 50 mg BID PRN Administration agitation Haloperidol 5 mg 11/30/20 13:52 12/13/20 09:28 Haloperidol 5 Mg Tablet PO 5 mg TID PRN Administration Psychosis Haloperidol 20 mg 12/16/20 21:00 12/18/20 20:47 Haloperidol 5 Mg Tablet PO 20 mg BEDTIME RADHAMES Administration Haloperidol Lactate 2.5 mg 11/20/20 19:38 11/30/20 11:13 Haloperidol Lactate 10 Mg/5 Ml Oral.Conc PO 2.5 mg TID PRN Administration hypersexuality Hydroxyzine HCl 25 mg 11/20/20 19:38 11/22/20 01:20 Hydroxyzine Hcl 25 Mg Tablet PO 25 mg BEDTIME MRX1 PRN Administration Anxiety Lorazepam 2 mg 12/10/20 19:52 12/13/20 09:28 Lorazepam 1 Mg Tablet PO 2 mg TID PRN Administration agitation Magnesium Hydroxide 30 ml 11/18/20 13:10 Milk Of Magnesia 30 Ml Oral.Susp PO DAILY PRN Constipation Pravastatin Sodium 40 mg 11/19/20 09:00 12/19/20 08:55 Pravastatin Sodium 40 Mg Tablet PO 40 mg DAILY RADHAMES Administration Tamsulosin HCl 0.4 mg 11/18/20 21:00 12/18/20 20:47 Tamsulosin Hcl 0.4 Mg Capsule PO 0.4 mg BEDTIME RADHAMES Administration Allergies Allergies Allergy/AdvReac Type Severity Reaction Status Date / Time No Known Allergies Allergy Verified 11/18/20 11:30 Assessment & Plan Assessment & Plan (1) Bipolar 1 disorder: Status: Acute Code(s): F31.9 - Bipolar disorder, unspecified Assessment and Plan: The patient is an elderly Caucaasian male with Bipolar disorder, resident of a alf in the [place] side of [facility], grossly manic and psychotic, extremely disruptive and abusive towards peers and staff. He has a Montiel order and a guardianship. Plan: Invega Sustenna 234 mg second dose on 11/29 next dose on 12/27 Next Haldol dec on 12/11 (last one on November 17 170 mg) Change haloperidol to 20 mg p.o. q.h.s. Continue rest the same. Now on Section 7 and 8. Referral for [facility] hospitalization made. Greater than 50% of the session was spent on counseling and/or coordination of care Reason for contiued inpatient stay Substantial Risk for: harm to others, inability to function, rapid decompensation and med/psych decompensation
[2020-12-19] MEDS: Acetaminophen 325 MG TABLET 650 MG PO (09:38)
[2020-12-19 17:49] VITALS: BP 175/83; PULSE 62; RESP 16; TEMP 36.7; O2SAT 97
[2020-12-19] MEDS: HaloperidoL 5 MG TABLET 20 MG PO (20:38)
[2020-12-19] MEDS: Tamsulosin HCL 0.4 MG CAPSULE PO (20:38)
[2020-12-19] MEDS: HaloperidoL 5 MG TABLET PO (23:50)
[2020-12-20] MEDS: HaloperidoL 5 MG TABLET PO (01:04)
--- NOTE | 2020-12-20 01:51 | PC.NURSE ---
Patient had appropriate behaviors through the evening shift, easily redirectable; no signs of agitation nor aggressiveness. Able to maintain appropriate boundaries. Med compliant with scheduled HS medications. Requested something to help me sleep shortly before midnight, went through med list of available prns, patient requested 10mg of Haldol, alerted patient PRN was for 5mg but he could have a second PRN in an hour if the 5mg isn't enough. Patient came out for 2nd PRN and became paranoid about different tablet color and shape than he is used to believing staff intentionally was giving different tablet you are trying to trick me... you are trying to get to me , was shown the packaging yet remained paranoid, accepted the med and went to bed.
[2020-12-20] MEDS: Pravastatin Sodium 40 MG TABLET PO (09:42)
[2020-12-20] MEDS: Carbidopa/Levodopa 25/100 TABLET 1 TAB PO ×2 (09:42→21:03)
[2020-12-20] MEDS: Aspirin 81 MG TAB.CHEW PO (09:42)
[2020-12-20] MEDS: amLODIPine Besylate 5 MG TABLET PO (09:42)
[2020-12-20] MEDS: carBAMazepine 200 MG TABLET 400 MG PO ×2 (09:42→21:03)
--- NOTE | 2020-12-20 11:18 | P.PNPSI_ITS ---
Subjective Subjective Date of Service: 12/21/20 Reason For Visit: Bipolar disorder Subjective Notes: Section 7 and Section 8 Interim History: The patient has followed the behavioral plan and as per nursing report, he has been less agitated. He complained of right shoulder pain that has improved with medications. 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 Review of Systems Acute medical concerns: No Medical Review of Systems: unchanged Mental Status Exam Mental Status Exam Patient Appearance: Disheveled and Unkempt Patient Orientation: Person, Place and Situation Level of Consciousness: Awake Patient Behavior: Appropriate and Restless Mood Description: Withdrawn and Depressed Affect Description: Constricted Patient Cognition Impaired: Yes Ability to Follow Directions: Good Speech Pattern: Slurred and Rapid Hallucinations: None Delusions: Paranoid Ideation and Grandiose Thought Process: Illogical and Slowed Thinking Thought Content: positive for Obsessional Thoughts, positive for Circumstantial, positive for Perseveration, positive for Poverty of Content and positive for Incoherent Judgement: Poor Diagnostics Vital Signs (24Hr): Vital Signs - 24 hr 12/19/20 17:49 Temperature 98.1 F Pulse Rate 62 Respiratory Rate 16 Blood Pressure 175/83 H Pulse Oximetry 97 Body Mass Index 27.6 Labs Results: 11/19/20 06:25 12/14/20 06:53 Medications Medications Current Medications Generic Name Dose Route Start Last Admin Trade Name Freq PRN Reason Stop Dose Admin Acetaminophen 650 mg 11/18/20 13:10 12/19/20 09:38 Acetaminophen 325 Mg Tablet PO 650 mg Q6H PRN Administration Headache/Pain Mild Scale (1-3) Al Hydroxide/Mg Hydroxide 30 ml 11/18/20 13:10 Magnesium Hydrox/Alum Hydrox 30 Ml Oral.Susp PO Q6H PRN Heartburn/Nausea Amlodipine Besylate 5 mg 11/19/20 09:00 12/20/20 09:42 Amlodipine Besylate 5 Mg Tablet PO 5 mg DAILY RADHAMES Administration Protocol Aspirin 81 mg 11/19/20 09:00 12/20/20 09:42 Aspirin 81 Mg Tab.Chew PO 81 mg DAILY RADHAMES Administration Carbamazepine 400 mg 11/18/20 21:00 12/20/20 09:42 Carbamazepine 200 Mg Tablet PO 400 mg BID RADHAMES Administration Carbidopa/Levodopa 1 tab 11/18/20 21:00 12/20/20 09:42 Carbidopa/Levodopa 25/100 Tablet PO 1 tab BID RADHAMES Administration Diphenhydramine HCl 50 mg 11/30/20 13:52 12/13/20 09:28 Diphenhydramine Hcl 25 Mg Tablet PO 50 mg BID PRN Administration agitation Haloperidol 5 mg 11/30/20 13:52 12/20/20 01:04 Haloperidol 5 Mg Tablet PO 5 mg TID PRN Administration Psychosis Haloperidol 20 mg 12/16/20 21:00 12/19/20 20:38 Haloperidol 5 Mg Tablet PO 20 mg BEDTIME RADHAMES Administration Haloperidol Lactate 2.5 mg 11/20/20 19:38 11/30/20 11:13 Haloperidol Lactate 10 Mg/5 Ml Oral.Conc PO 2.5 mg TID PRN Administration hypersexuality Hydroxyzine HCl 25 mg 11/20/20 19:38 11/22/20 01:20 Hydroxyzine Hcl 25 Mg Tablet PO 25 mg BEDTIME MRX1 PRN Administration Anxiety Lorazepam 2 mg 12/10/20 19:52 12/13/20 09:28 Lorazepam 1 Mg Tablet PO 2 mg TID PRN Administration agitation Magnesium Hydroxide 30 ml 11/18/20 13:10 Milk Of Magnesia 30 Ml Oral.Susp PO DAILY PRN Constipation Pravastatin Sodium 40 mg 11/19/20 09:00 12/20/20 09:42 Pravastatin Sodium 40 Mg Tablet PO 40 mg DAILY RADHAMES Administration Tamsulosin HCl 0.4 mg 11/18/20 21:00 12/19/20 20:38 Tamsulosin Hcl 0.4 Mg Capsule PO 0.4 mg BEDTIME RADHAMES Administration Trolamine Salicylate/Aloe Vera 1 appl 12/19/20 10:37 12/19/20 15:56 Trolamine Salicylate 10%/Aloe Cream 35.4 Gm TOPICAL 1 appl TID PRN Administration Pain, Mild (Pain Scale 1-3) Allergies Allergies Allergy/AdvReac Type Severity Reaction Status Date / Time No Known Allergies Allergy Verified 11/18/20 11:30 Assessment & Plan Assessment & Plan (1) Bipolar 1 disorder: Status: Acute Code(s): F31.9 - Bipolar disorder, unspecified Assessment and Plan: The patient is an elderly Caucaasian male with Bipolar disorder, resident of [facility] [place] [facility], grossly manic and psychotic, extremely disruptive and abusive towards peers and staff. He has a Montiel order and a guardianship. Plan: Invega Sustenna 234 mg second dose on 11/29 next dose on 12/27 Next Haldol dec on 12/11 (last one on November 17 170 mg) Change haloperidol to 20 mg p.o. q.h.s. Continue rest the same. Now on Section 7 and 8. Referral for intermediate manager hospitalization made. Greater than 50% of the session was spent on counseling and/or coordination of care Reason for contiued inpatient stay Substantial Risk for: harm to self, harm to others, inability to function, rapid decompensation and med/psych decompensation
[2020-12-20 20:50] VITALS: BP 139/78; PULSE 60; RESP 18; TEMP 36.5; O2SAT 96
[2020-12-20] MEDS: Tamsulosin HCL 0.4 MG CAPSULE PO (21:03)
[2020-12-20] MEDS: HaloperidoL 5 MG TABLET 20 MG PO (21:03)
--- NOTE | 2020-12-21 05:11 | PC.NURSE ---
Patient rang call crespo at 5am requesting assistance getting out of bed;nursing staff attempted to get clarification of what he needed assistance with as he has been independent transferring self in and out of bed, patient became belligerent yelling and swearing at staff, redirected patient with minimal effect; assisted to a sitting position at side of bed, he then requested 2 female staff for assistance in the bathroom, again redirected about his ability to toilet on his own and again patient started swearing at staff as he independently walked into the bathroom. Staff stepped out of the room due to his targeting behaviors; he rang again shortly afterward again two staff responded to his call crespo and he requested for assistance pulling up his pants, assistance was given and staff stepped away. Patient then came into kitchen area and sat at table, patient specifically requested this typewriters functional tester's assistance with pushing in chair, when going over to assist patient again started with derogatory name calling and swears at this typewriters functional tester, redirected patient again that speaking to any individual in this manner would not be tolerated and stepped away from patient. Shorty afterward patient apologized and assistance was given with previous requests.
[2020-12-21 06:00] VITALS: BP 123/72; PULSE 83; RESP 16; TEMP 36.9; O2SAT 98
[2020-12-21 09:27] VITALS: BP 123/72; PULSE 88
[2020-12-21] MEDS: Aspirin 81 MG TAB.CHEW PO (09:27)
[2020-12-21] MEDS: amLODIPine Besylate 5 MG TABLET PO (09:27)
[2020-12-21] MEDS: carBAMazepine 200 MG TABLET 400 MG PO ×2 (09:27→20:44)
[2020-12-21] MEDS: Pravastatin Sodium 40 MG TABLET PO (09:28)
[2020-12-21] MEDS: Carbidopa/Levodopa 25/100 TABLET 1 TAB PO ×2 (09:28→20:43)
--- NOTE | 2020-12-21 10:34 | HO.PSYCHPN ---
Subjective Subjective Date of Service: 12/21/20 Reason For Visit: Bipolar disorder Subjective Notes: Section 7 and Section 8 Interim History: The patient wants to be discharged as soon as possible. I explained him that we did a referral to the [facility] but if he becomes is stable with no agitation, we will start thinking on discharge planning. We will have a treatment team meeting with his primary team and [facility] the next days. Review of Systems Acute medical concerns: No Medical Review of Systems: unchanged Mental Status Exam Mental Status Exam Patient Appearance: Disheveled and Unkempt Patient Orientation: Person Level of Consciousness: Appropriate and Inappropriate Patient Behavior: Hypersexual and Swearing Mood Description: Depressed Affect Description: Labile Patient Cognition Impaired: Yes Ability to Follow Directions: Fair Speech Pattern: Clear Hallucinations: None Delusions: Paranoid Ideation and Grandiose Thought Process: Slowed Thinking and Word Salad Thought Content: positive for Obsessional Thoughts, positive for Perseveration and positive for Poverty of Content Judgement: Fair Diagnostics Vital Signs (24Hr): Vital Signs - 24 hr 12/20/20 20:50 12/21/20 06:00 12/21/20 09:27 Temperature 97.7 F 98.4 F Pulse Rate 60 83 88 Respiratory Rate 18 16 Blood Pressure 139/78 123/72 123/72 Pulse Oximetry 96 98 Body Mass Index 27.6 Labs Results: 11/19/20 06:25 12/14/20 06:53 Medications Medications Current Medications Generic Name Dose Route Start Last Admin Trade Name Freq PRN Reason Stop Dose Admin Acetaminophen 650 mg 11/18/20 13:10 12/19/20 09:38 Acetaminophen 325 Mg Tablet PO 650 mg Q6H PRN Administration Headache/Pain Mild Scale (1-3) Al Hydroxide/Mg Hydroxide 30 ml 11/18/20 13:10 Magnesium Hydrox/Alum Hydrox 30 Ml Oral.Susp PO Q6H PRN Heartburn/Nausea Amlodipine Besylate 5 mg 11/19/20 09:00 12/21/20 09:27 Amlodipine Besylate 5 Mg Tablet PO 5 mg DAILY RADHAMES Administration Protocol Aspirin 81 mg 11/19/20 09:00 12/21/20 09:27 Aspirin 81 Mg Tab.Chew PO 81 mg DAILY RADHAMES Administration Carbamazepine 400 mg 11/18/20 21:00 12/21/20 09:27 Carbamazepine 200 Mg Tablet PO 400 mg BID RADHAMES Administration Carbidopa/Levodopa 1 tab 11/18/20 21:00 12/21/20 09:28 Carbidopa/Levodopa 25/100 Tablet PO 1 tab BID RADHAMES Administration Diphenhydramine HCl 50 mg 11/30/20 13:52 12/13/20 09:28 Diphenhydramine Hcl 25 Mg Tablet PO 50 mg BID PRN Administration agitation Haloperidol 5 mg 11/30/20 13:52 12/20/20 01:04 Haloperidol 5 Mg Tablet PO 5 mg TID PRN Administration Psychosis Haloperidol 20 mg 12/16/20 21:00 12/20/20 21:03 Haloperidol 5 Mg Tablet PO 20 mg BEDTIME RADHAMES Administration Haloperidol Lactate 2.5 mg 11/20/20 19:38 11/30/20 11:13 Haloperidol Lactate 10 Mg/5 Ml Oral.Conc PO 2.5 mg TID PRN Administration hypersexuality Hydroxyzine HCl 25 mg 11/20/20 19:38 11/22/20 01:20 Hydroxyzine Hcl 25 Mg Tablet PO 25 mg BEDTIME MRX1 PRN Administration Anxiety Magnesium Hydroxide 30 ml 11/18/20 13:10 Milk Of Magnesia 30 Ml Oral.Susp PO DAILY PRN Constipation Pravastatin Sodium 40 mg 11/19/20 09:00 12/21/20 09:28 Pravastatin Sodium 40 Mg Tablet PO 40 mg DAILY RADHAMES Administration Tamsulosin HCl 0.4 mg 11/18/20 21:00 12/20/20 21:03 Tamsulosin Hcl 0.4 Mg Capsule PO 0.4 mg BEDTIME RADHAMES Administration Trolamine Salicylate/Aloe Vera 1 appl 12/19/20 10:37 12/19/20 15:56 Trolamine Salicylate 10%/Aloe Cream 35.4 Gm TOPICAL 1 appl TID PRN Administration Pain, Mild (Pain Scale 1-3) Allergies Allergies Allergy/AdvReac Type Severity Reaction Status Date / Time No Known Allergies Allergy Verified 11/18/20 11:30 Assessment & Plan Assessment & Plan (1) Bipolar 1 disorder: Status: Acute Code(s): F31.9 - Bipolar disorder, unspecified Assessment and Plan: The patient is an elderly Caucaasian male with Bipolar disorder, [facility] [place] [place] [facility], grossly manic and psychotic, extremely disruptive and abusive towards peers and staff. He has a Montiel order and a guardianship. Plan: Invega Sustenna 234 mg second dose on 11/29 next dose on 12/27 Next Haldol dec on 12/11 (last one on November 17 170 mg) Change haloperidol to 20 mg p.o. q.h.s. Continue rest the same. Now on Section 7 and 8. 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 Greater than 50% of the session was spent on counseling and/or coordination of care Reason for contiued inpatient stay Substantial Risk for: inability to function, rapid decompensation and med/psych decompensation
[2020-12-21 18:21] VITALS: BP 126/64; PULSE 65; RESP 16; TEMP 36.2; O2SAT 94
[2020-12-21] MEDS: HaloperidoL 5 MG TABLET 20 MG PO (20:43)
[2020-12-21] MEDS: Tamsulosin HCL 0.4 MG CAPSULE PO (20:44)
--- NOTE | 2020-12-22 00:46 | PC.NURSE ---
PT standing at the nurse's, harassing the tech, asking her sexually inappropriate questions, and mumbling and making noise to be purposely disruptive on the unit. PT requested a PRN HPT is aldol and the refused the med once it was pulled because it isn't the right color . PT was asked to go his room, but continued be disruptive and rude to staff. PT is self dialoguing in the common area, expressing delusional thoughts of police or swat coming here and removing him from the unit.
[2020-12-22 07:57] VITALS: BP 152/76; PULSE 81; RESP 16; TEMP 36.7; O2SAT 91
[2020-12-22 09:05] VITALS: BP 152/76; PULSE 81
[2020-12-22] MEDS: amLODIPine Besylate 5 MG TABLET PO (09:05)
[2020-12-22] MEDS: Pravastatin Sodium 40 MG TABLET PO (09:05)
[2020-12-22] MEDS: Aspirin 81 MG TAB.CHEW PO (09:05)
[2020-12-22] MEDS: carBAMazepine 200 MG TABLET 400 MG PO ×2 (09:05→20:53)
[2020-12-22] MEDS: Carbidopa/Levodopa 25/100 TABLET 1 TAB PO ×2 (09:06→20:54)
--- NOTE | 2020-12-22 09:28 | HO.PSYCHPN ---
Subjective Subjective Date of Service: 12/22/20 Reason For Visit: Bipolar disorder Subjective Notes: Section 7 and Section 8 Interim History: The patient has been agitated at times but no need of PRNs. Review of Systems Acute medical concerns: No Medical Review of Systems: unchanged Mental Status Exam Mental Status Exam Patient Appearance: Disheveled and Unkempt Patient Orientation: Person and Situation Level of Consciousness: Awake Patient Behavior: Suspicious and Aggressive Mood Description: Calm Affect Description: Constricted and Depressed Patient Cognition Impaired: Yes Ability to Follow Directions: Fair Speech Pattern: Slurred Hallucinations: None Delusions: Paranoid Ideation and Grandiose Thought Process: Illogical Thought Content: positive for Circumstantial Judgement: Fair Diagnostics Vital Signs (24Hr): Vital Signs - 24 hr 12/21/20 18:21 12/22/20 07:57 12/22/20 09:05 Temperature 97.1 F 98.1 F Pulse Rate 65 81 81 Respiratory Rate 16 16 Blood Pressure 126/64 152/76 H 152/76 H Pulse Oximetry 94 91 L Body Mass Index 27.6 Labs Results: 11/19/20 06:25 12/14/20 06:53 Medications Medications Current Medications Generic Name Dose Route Start Last Admin Trade Name Freq PRN Reason Stop Dose Admin Acetaminophen 650 mg 11/18/20 13:10 12/19/20 09:38 Acetaminophen 325 Mg Tablet PO 650 mg Q6H PRN Administration Headache/Pain Mild Scale (1-3) Al Hydroxide/Mg Hydroxide 30 ml 11/18/20 13:10 Magnesium Hydrox/Alum Hydrox 30 Ml Oral.Susp PO Q6H PRN Heartburn/Nausea Amlodipine Besylate 5 mg 11/19/20 09:00 12/22/20 09:05 Amlodipine Besylate 5 Mg Tablet PO 5 mg DAILY RADHAMES Administration Protocol Aspirin 81 mg 11/19/20 09:00 12/22/20 09:05 Aspirin 81 Mg Tab.Chew PO 81 mg DAILY RADHAMES Administration Carbamazepine 400 mg 11/18/20 21:00 12/22/20 09:05 Carbamazepine 200 Mg Tablet PO 400 mg BID RADHAMES Administration Carbidopa/Levodopa 1 tab 11/18/20 21:00 12/22/20 09:06 Carbidopa/Levodopa 25/100 Tablet PO 1 tab BID RADHAMES Administration Diphenhydramine HCl 50 mg 11/30/20 13:52 12/13/20 09:28 Diphenhydramine Hcl 25 Mg Tablet PO 50 mg BID PRN Administration agitation Haloperidol 5 mg 11/30/20 13:52 12/20/20 01:04 Haloperidol 5 Mg Tablet PO 5 mg TID PRN Administration Psychosis Haloperidol 20 mg 12/16/20 21:00 12/21/20 20:43 Haloperidol 5 Mg Tablet PO 20 mg BEDTIME RADHAMES Administration Haloperidol Lactate 2.5 mg 11/20/20 19:38 11/30/20 11:13 Haloperidol Lactate 10 Mg/5 Ml Oral.Conc PO 2.5 mg TID PRN Administration hypersexuality Hydroxyzine HCl 25 mg 11/20/20 19:38 11/22/20 01:20 Hydroxyzine Hcl 25 Mg Tablet PO 25 mg BEDTIME MRX1 PRN Administration Anxiety Magnesium Hydroxide 30 ml 11/18/20 13:10 Milk Of Magnesia 30 Ml Oral.Susp PO DAILY PRN Constipation Pravastatin Sodium 40 mg 11/19/20 09:00 12/22/20 09:05 Pravastatin Sodium 40 Mg Tablet PO 40 mg DAILY RADHAMES Administration Tamsulosin HCl 0.4 mg 11/18/20 21:00 12/21/20 20:44 Tamsulosin Hcl 0.4 Mg Capsule PO 0.4 mg BEDTIME RADHAMES Administration Trolamine Salicylate/Aloe Vera 1 appl 12/19/20 10:37 12/19/20 15:56 Trolamine Salicylate 10%/Aloe Cream 35.4 Gm TOPICAL 1 appl TID PRN Administration Pain, Mild (Pain Scale 1-3) Allergies Allergies Allergy/AdvReac Type Severity Reaction Status Date / Time No Known Allergies Allergy Verified 11/18/20 11:30 Assessment & Plan Assessment & Plan (1) Bipolar 1 disorder: Status: Acute Code(s): F31.9 - Bipolar disorder, unspecified Assessment and Plan: The patient is an elderly Caucaasian male with Bipolar disorder, [facility] [place] [facility], grossly manic and psychotic, extremely disruptive and abusive towards peers and staff. He has a Montiel order and a guardianship. Plan: Invega Sustenna 234 mg second dose on 11/29 next dose on 12/27 Next Haldol dec on 12/11 (last one on November 17 170 mg) Change haloperidol to 20 mg p.o. q.h.s. Continue rest the same. Now on Section 7 and 8. Referral for rat exterminator hospitalization made. Greater than 50% of the session was spent on counseling and/or coordination of care Reason for contiued inpatient stay Substantial Risk for: harm to self, harm to others, inability to function, rapid decompensation and med/psych decompensation
[2020-12-22 18:23] VITALS: BP 143/73; PULSE 65; RESP 16; TEMP 36.7; O2SAT 95
[2020-12-22] MEDS: Tamsulosin HCL 0.4 MG CAPSULE PO (20:54)
[2020-12-22] MEDS: HaloperidoL 5 MG TABLET 20 MG PO (20:54)
[2020-12-22] MEDS: HaloperidoL 5 MG TABLET PO (23:07)
[2020-12-23] MEDS: diphenhydrAMINE HCL 25 MG TABLET 50 MG PO (00:17)
[2020-12-23 07:00] VITALS: BMI 27.6
[2020-12-23 09:34] VITALS: BP 138/74; PULSE 78; RESP 18; TEMP 36.5; O2SAT 95
[2020-12-23] MEDS: carBAMazepine 200 MG TABLET 400 MG PO ×2 (09:34→20:10)
[2020-12-23 09:35] VITALS: BP 138/74; PULSE 78
[2020-12-23] MEDS: amLODIPine Besylate 5 MG TABLET PO (09:35)
[2020-12-23] MEDS: Pravastatin Sodium 40 MG TABLET PO (09:35)
[2020-12-23] MEDS: Aspirin 81 MG TAB.CHEW PO (09:35)
[2020-12-23] MEDS: Carbidopa/Levodopa 25/100 TABLET 1 TAB PO ×2 (09:35→20:10)
--- NOTE | 2020-12-23 11:27 | HO.PSYCHPN ---
Subjective Subjective Date of Service: 12/23/20 Reason For Visit: Bipolar disorder Subjective Notes: Section 7 and Section 8 Interim History: Nursing staff reported that the patient asked for medications at night. He has been delusional as a baseline but easily redirectable. We will have a meeting today at 12:30 with his team. Historically, he had been admitted at [facility] before. So far, we have not use p.r.n. medications for agitation. Today on interview, the patient reported that he wants to leave the hospital soon as possible and he is aware of the referral to the [facility]. We had an online meeting with his primary outpatient team and he got irritated and he decided to go for a walk. Review of Systems Acute medical concerns: No Medical Review of Systems: unchanged Mental Status Exam Mental Status Exam Patient Appearance: Disheveled and Unkempt Patient Orientation: Person and Situation Level of Consciousness: Awake Patient Behavior: Cooperative Mood Description: Constricted Affect Description: Suspicious and Withdrawn Patient Cognition Impaired: Yes Ability to Follow Directions: Good Speech Pattern: Impoverished Hallucinations: None Delusions: Paranoid Ideation and Grandiose Thought Process: Slowed Thinking Thought Content: positive for [place], positive for Poverty of Content and positive for Thought Blocking Judgement: Poor Diagnostics Vital Signs (24Hr): Vital Signs - 24 hr 12/22/20 18:23 12/23/20 09:34 12/23/20 09:35 Temperature 98.1 F 97.7 F Pulse Rate 65 78 78 Respiratory Rate 16 18 Blood Pressure 143/73 H 138/74 138/74 Pulse Oximetry 95 95 Body Mass Index 27.6 Labs Results: 11/19/20 06:25 12/14/20 06:53 Medications Medications Current Medications Generic Name Dose Route Start Last Admin Trade Name Freq PRN Reason Stop Dose Admin Acetaminophen 650 mg 11/18/20 13:10 12/19/20 09:38 Acetaminophen 325 Mg Tablet PO 650 mg Q6H PRN Administration Headache/Pain Mild Scale (1-3) Al Hydroxide/Mg Hydroxide 30 ml 11/18/20 13:10 Magnesium Hydrox/Alum Hydrox 30 Ml Oral.Susp PO Q6H PRN Heartburn/Nausea Amlodipine Besylate 5 mg 11/19/20 09:00 12/23/20 09:35 Amlodipine Besylate 5 Mg Tablet PO 5 mg DAILY RADHAMES Administration Protocol Aspirin 81 mg 11/19/20 09:00 12/23/20 09:35 Aspirin 81 Mg Tab.Chew PO 81 mg DAILY RADHAMES Administration Carbamazepine 400 mg 11/18/20 21:00 12/23/20 09:34 Carbamazepine 200 Mg Tablet PO 400 mg BID RADHAMES Administration Carbidopa/Levodopa 1 tab 11/18/20 21:00 12/23/20 09:35 Carbidopa/Levodopa 25/100 Tablet PO 1 tab BID RADHAMES Administration Diphenhydramine HCl 50 mg 11/30/20 13:52 12/23/20 00:17 Diphenhydramine Hcl 25 Mg Tablet PO 50 mg BID PRN Administration agitation Haloperidol 5 mg 11/30/20 13:52 12/22/20 23:07 Haloperidol 5 Mg Tablet PO 5 mg TID PRN Administration Psychosis Haloperidol 20 mg 12/16/20 21:00 12/22/20 20:54 Haloperidol 5 Mg Tablet PO 20 mg BEDTIME RADHAMES Administration Haloperidol Lactate 2.5 mg 11/20/20 19:38 11/30/20 11:13 Haloperidol Lactate 10 Mg/5 Ml Oral.Conc PO 2.5 mg TID PRN Administration hypersexuality Hydroxyzine HCl 25 mg 11/20/20 19:38 11/22/20 01:20 Hydroxyzine Hcl 25 Mg Tablet PO 25 mg BEDTIME MRX1 PRN Administration Anxiety Magnesium Hydroxide 30 ml 11/18/20 13:10 Milk Of Magnesia 30 Ml Oral.Susp PO DAILY PRN Constipation Paliperidone Palmitate 234 mg 12/23/20 08:00 Paliperidone Palmitate 234 Mg/1.5 Ml Syringe IM Q30D RADHAMES Pravastatin Sodium 40 mg 11/19/20 09:00 12/23/20 09:35 Pravastatin Sodium 40 Mg Tablet PO 40 mg DAILY RADHAMES Administration Tamsulosin HCl 0.4 mg 11/18/20 21:00 12/22/20 20:54 Tamsulosin Hcl 0.4 Mg Capsule PO 0.4 mg BEDTIME RADHAMES Administration Trolamine Salicylate/Aloe Vera 1 appl 12/19/20 10:37 12/22/20 12:25 Trolamine Salicylate 10%/Aloe Cream 35.4 Gm TOPICAL 1 appl TID PRN Administration Pain, Mild (Pain Scale 1-3) Allergies Allergies Allergy/AdvReac Type Severity Reaction Status Date / Time No Known Allergies Allergy Verified 11/18/20 11:30 Assessment & Plan Assessment & Plan (1) Bipolar 1 disorder: Status: Acute Code(s): F31.9 - Bipolar disorder, unspecified Assessment and Plan: The patient is an elderly Caucaasian male with Bipolar disorder, resident of [facility] [place] [facility], grossly manic and psychotic, extremely disruptive and abusive towards peers and staff. He has a Montiel order and a guardianship. Plan: Invega Sustenna 234 mg second dose on 11/29 next dose on 12/27 Next Haldol dec on 12/11 (last one on November 17 170 mg) Change haloperidol to 20 mg p.o. q.h.s. Continue rest the same. Now on Section 7 and 8. Referral for local intermodal truck driver hospitalization made. Will consider discharge to his [facility] if conditions are better. Greater than 50% of the session was spent on counseling and/or coordination of care Reason for contiued inpatient stay Substantial Risk for: inability to function, rapid decompensation and med/psych decompensation
[2020-12-23] MEDS: Paliperidone Palmitate 234 MG/1.5 ML SYRINGE IM (12:56)
[2020-12-23 18:00] VITALS: BP 148/72; PULSE 61; RESP 18; TEMP 37; O2SAT 94
[2020-12-23] MEDS: Tamsulosin HCL 0.4 MG CAPSULE PO (20:10)
[2020-12-23] MEDS: HaloperidoL 5 MG TABLET 20 MG PO ×2 (20:11→20:15)
--- NOTE | 2020-12-24 08:01 | HO.PSYCHPN ---
Subjective Subjective Date of Service: 12/24/20 Reason For Visit: Bipolar disorder Subjective Notes: Section 7 and Section 8 Interim History: Yesterday the patient had a meeting with his regular team of [facility]. I asked to explore other options besides the [facility] seems the patient, now at baseline, is poorly functional he could probably thrive in the community. During the meeting, the delicatessen manager of the house was in favor of a transfer to the [facility]. Today, the patient was assessed before breakfast and he stated that he wanted to be discharged, that he used to be at [facility] only for short periods of time. Nursing staff is drafting a new behavioral contract. Mental Status Exam Mental Status Exam Patient Appearance: Disheveled and Unkempt Patient Orientation: Person and Situation Level of Consciousness: Awake Patient Behavior: Guarded and Suspicious Mood Description: Depressed Affect Description: Constricted Patient Cognition Impaired: Yes Ability to Follow Directions: Good Speech Pattern: Clear Hallucinations: None Delusions: Paranoid Ideation and Grandiose Thought Process: Distracted Thought Content: positive for Circumstantial and positive for Poverty of Content Judgement: Poor Diagnostics Vital Signs (24Hr): Vital Signs - 24 hr 12/23/20 09:34 12/23/20 09:35 12/23/20 18:00 Temperature 97.7 F 98.6 F Pulse Rate 78 78 61 Respiratory Rate 18 18 Blood Pressure 138/74 138/74 148/72 H Pulse Oximetry 95 94 Body Mass Index 27.6 Labs Results: 11/19/20 06:25 12/14/20 06:53 Medications Medications Current Medications Generic Name Dose Route Start Last Admin Trade Name Freq PRN Reason Stop Dose Admin Acetaminophen 650 mg 11/18/20 13:10 12/19/20 09:38 Acetaminophen 325 Mg Tablet PO 650 mg Q6H PRN Administration Headache/Pain Mild Scale (1-3) Al Hydroxide/Mg Hydroxide 30 ml 11/18/20 13:10 Magnesium Hydrox/Alum Hydrox 30 Ml Oral.Susp PO Q6H PRN Heartburn/Nausea Amlodipine Besylate 5 mg 11/19/20 09:00 12/23/20 09:35 Amlodipine Besylate 5 Mg Tablet PO 5 mg DAILY RADHAMES Administration Protocol Aspirin 81 mg 11/19/20 09:00 12/23/20 09:35 Aspirin 81 Mg Tab.Chew PO 81 mg DAILY RADHAMES Administration Carbamazepine 400 mg 11/18/20 21:00 12/23/20 20:10 Carbamazepine 200 Mg Tablet PO 400 mg BID RADHAMES Administration Carbidopa/Levodopa 1 tab 11/18/20 21:00 12/23/20 20:10 Carbidopa/Levodopa 25/100 Tablet PO 1 tab BID RADHAMES Administration Diphenhydramine HCl 50 mg 11/30/20 13:52 12/23/20 00:17 Diphenhydramine Hcl 25 Mg Tablet PO 50 mg BID PRN Administration agitation Haloperidol 5 mg 11/30/20 13:52 12/22/20 23:07 Haloperidol 5 Mg Tablet PO 5 mg TID PRN Administration Psychosis Haloperidol 20 mg 12/16/20 21:00 12/23/20 20:15 Haloperidol 5 Mg Tablet PO 20 mg BEDTIME RADHAMES Administration Haloperidol Lactate 2.5 mg 11/20/20 19:38 11/30/20 11:13 Haloperidol Lactate 10 Mg/5 Ml Oral.Conc PO 2.5 mg TID PRN Administration hypersexuality Hydroxyzine HCl 25 mg 11/20/20 19:38 11/22/20 01:20 Hydroxyzine Hcl 25 Mg Tablet PO 25 mg BEDTIME MRX1 PRN Administration Anxiety Magnesium Hydroxide 30 ml 11/18/20 13:10 Milk Of Magnesia 30 Ml Oral.Susp PO DAILY PRN Constipation Paliperidone Palmitate 234 mg 12/23/20 08:00 12/23/20 12:56 Paliperidone Palmitate 234 Mg/1.5 Ml Syringe IM 234 mg Q30D RADHAMES Administration Pravastatin Sodium 40 mg 11/19/20 09:00 12/23/20 09:35 Pravastatin Sodium 40 Mg Tablet PO 40 mg DAILY RADHAMES Administration Tamsulosin HCl 0.4 mg 11/18/20 21:00 12/23/20 20:10 Tamsulosin Hcl 0.4 Mg Capsule PO 0.4 mg BEDTIME RADHAMES Administration Trolamine Salicylate/Aloe Vera 1 appl 12/19/20 10:37 12/22/20 12:25 Trolamine Salicylate 10%/Aloe Cream 35.4 Gm TOPICAL 1 appl TID PRN Administration Pain, Mild (Pain Scale 1-3) Allergies Allergies Allergy/AdvReac Type Severity Reaction Status Date / Time No Known Allergies Allergy Verified 11/18/20 11:30 Assessment & Plan Assessment & Plan (1) Bipolar 1 disorder: Status: Acute Code(s): F31.9 - Bipolar disorder, unspecified Assessment and Plan: The patient is an elderly Caucaasian male with Bipolar disorder, resident [facility] [place] [facility], grossly manic and psychotic, extremely disruptive and abusive towards peers and staff. He has a Montiel order and a guardianship. Plan: Invega Sustenna 234 mg second dose on 11/29 next dose on 12/23 Next Haldol dec od/c Change haloperidol to 20 mg p.o. q.h.s. Continue rest the same. Now on Section 7 and 8. Referral for correction hospitalization made. Will consider discharge to his [facility] if conditions are better. Greater than 50% of the session was spent on counseling and/or coordination of care Reason for contiued inpatient stay Substantial Risk for: inability to function, rapid decompensation and med/psych decompensation
[2020-12-24 08:33] VITALS: BP 144/72; PULSE 67; RESP 16; TEMP 36.8; O2SAT 93
[2020-12-24] MEDS: carBAMazepine 200 MG TABLET 400 MG PO ×2 (09:16→20:39)
[2020-12-24 09:17] VITALS: BP 144/72; PULSE 67
[2020-12-24] MEDS: Aspirin 81 MG TAB.CHEW PO (09:17)
[2020-12-24] MEDS: Pravastatin Sodium 40 MG TABLET PO (09:17)
[2020-12-24] MEDS: amLODIPine Besylate 5 MG TABLET PO (09:17)
[2020-12-24] MEDS: Carbidopa/Levodopa 25/100 TABLET 1 TAB PO ×2 (09:17→20:39)
[2020-12-24] MEDS: Acetaminophen 325 MG TABLET 650 MG PO (10:51)
[2020-12-24 20:27] VITALS: BP 166/72; PULSE 55; RESP 18; TEMP 36.6; O2SAT 96
[2020-12-24] MEDS: Tamsulosin HCL 0.4 MG CAPSULE PO (20:39)
[2020-12-24] MEDS: HaloperidoL 5 MG TABLET 20 MG PO (20:44)
[2020-12-24] MEDS: hydrOXYzine HCL 25 MG TABLET PO (21:19)
[2020-12-24] MEDS: HaloperidoL 5 MG TABLET PO (22:07)
--- NOTE | 2020-12-25 06:19 | HO.PSYCHPN ---
Subjective Subjective Date of Service: 12/27/20 Reason For Visit: Bipolar disorder Interim History: Per nursing, pt had incident of agitation and irritability, but no IM required. Today, pt sitting in common area, he reports doing well. He denies suicidal or homicidal ideation. He reports eating and sleeping well. No behavioral concerns. Medication Compliance: Yes Side effects from medications: No Review of Systems Review of Systems Yes all other systems are reviewed and are negative Mental Status Exam Mental Status Exam Narrative: improved hygiene, dressed in street clothes. cooperative with interview. pill-rolling tremor in left hand. no PMA/PMR otherwise. speech somewhat soft and muffled, decr amount and incr latency. thoughts linear and logical in brief interview. affect constricted, hypo-intense, non-labile. no SI/HI/AVH expressed. Patient Appearance: Disheveled and Unkempt Patient Orientation: Person and Situation Level of Consciousness: Awake Patient Behavior: Guarded and Suspicious Mood Description: Depressed Affect Description: Constricted Patient Cognition Impaired: Yes Ability to Follow Directions: Good Speech Pattern: Clear Memory Description: Intact Diagnostics Vital Signs (24Hr): Vital Signs - 24 hr 12/26/20 07:50 12/26/20 18:00 Temperature 98.1 F Pulse Rate 67 60 Blood Pressure 136/74 142/70 H Pulse Oximetry 96 Body Mass Index 27.6 Labs Results: 11/19/20 06:25 12/14/20 06:53 Medications Medications Current Medications Generic Name Dose Route Start Last Admin Trade Name Freq PRN Reason Stop Dose Admin Acetaminophen 650 mg 11/18/20 13:10 12/24/20 10:51 Acetaminophen 325 Mg Tablet PO 650 mg Q6H PRN Administration Headache/Pain Mild Scale (1-3) Al Hydroxide/Mg Hydroxide 30 ml 11/18/20 13:10 Magnesium Hydrox/Alum Hydrox 30 Ml Oral.Susp PO Q6H PRN Heartburn/Nausea Amlodipine Besylate 5 mg 11/19/20 09:00 12/26/20 07:50 Amlodipine Besylate 5 Mg Tablet PO 5 mg DAILY RADHAMES Administration Protocol Aspirin 81 mg 11/19/20 09:00 12/26/20 07:50 Aspirin 81 Mg Tab.Chew PO 81 mg DAILY RADHAMES Administration Carbamazepine 400 mg 11/18/20 21:00 12/26/20 20:15 Carbamazepine 200 Mg Tablet PO 400 mg BID RADHAMES Administration Carbidopa/Levodopa 1 tab 11/18/20 21:00 12/26/20 20:15 Carbidopa/Levodopa 25/100 Tablet PO 1 tab BID RADHAMES Administration Diphenhydramine HCl 50 mg 11/30/20 13:52 12/26/20 00:44 Diphenhydramine Hcl 25 Mg Tablet PO 50 mg BID PRN Administration agitation Haloperidol 5 mg 11/30/20 13:52 12/25/20 23:04 Haloperidol 5 Mg Tablet PO 5 mg TID PRN Administration Psychosis Haloperidol 20 mg 12/16/20 21:00 12/26/20 20:15 Haloperidol 5 Mg Tablet PO 20 mg BEDTIME RADHAMES Administration Haloperidol Lactate 2.5 mg 11/20/20 19:38 11/30/20 11:13 Haloperidol Lactate 10 Mg/5 Ml Oral.Conc PO 2.5 mg TID PRN Administration hypersexuality Hydroxyzine HCl 25 mg 11/20/20 19:38 12/24/20 21:19 Hydroxyzine Hcl 25 Mg Tablet PO 25 mg BEDTIME MRX1 PRN Administration Anxiety Magnesium Hydroxide 30 ml 11/18/20 13:10 Milk Of Magnesia 30 Ml Oral.Susp PO DAILY PRN Constipation Paliperidone Palmitate 234 mg 12/23/20 08:00 12/23/20 12:56 Paliperidone Palmitate 234 Mg/1.5 Ml Syringe IM 234 mg Q30D RADHAMES Administration Pravastatin Sodium 40 mg 11/19/20 09:00 12/26/20 07:50 Pravastatin Sodium 40 Mg Tablet PO 40 mg DAILY RADHAMES Administration Tamsulosin HCl 0.4 mg 11/18/20 21:00 12/26/20 20:15 Tamsulosin Hcl 0.4 Mg Capsule PO 0.4 mg BEDTIME RADHAMES Administration Trolamine Salicylate/Aloe Vera 1 appl 12/19/20 10:37 12/24/20 09:22 Trolamine Salicylate 10%/Aloe Cream 35.4 Gm TOPICAL 1 appl TID PRN Administration Pain, Mild (Pain Scale 1-3) Allergies Allergies Allergy/AdvReac Type Severity Reaction Status Date / Time No Known Allergies Allergy Verified 11/18/20 11:30 Assessment & Plan Assessment & Plan (1) Bipolar 1 disorder: Status: Acute Code(s): F31.9 - Bipolar disorder, unspecified Assessment and Plan: The patient is an elderly Caucaasian male with Bipolar disorder, [facility] [place] [facility], grossly manic and psychotic, extremely disruptive and abusive towards peers and staff. He has a Montiel order and a guardianship. Plan: Invega Sustenna 234 mg second dose on 11/29 next dose on 12/23 Next Haldol dec od/c Change haloperidol to 20 mg p.o. q.h.s. Continue rest the same. Now on Section 7 and 8. Referral for group home hospitalization made. Will consider discharge to his half-way if conditions are better. Greater than 50% of the session was spent on counseling and/or coordination of care Reason for contiued inpatient stay Substantial Risk for: harm to others and inability to function
[2020-12-25 07:58] VITALS: BP 141/83; PULSE 71
[2020-12-25] MEDS: amLODIPine Besylate 5 MG TABLET PO (07:58)
[2020-12-25] MEDS: Aspirin 81 MG TAB.CHEW PO (07:58)
[2020-12-25] MEDS: carBAMazepine 200 MG TABLET 400 MG PO ×2 (07:58→20:27)
[2020-12-25] MEDS: Carbidopa/Levodopa 25/100 TABLET 1 TAB PO ×2 (07:58→20:27)
[2020-12-25] MEDS: Pravastatin Sodium 40 MG TABLET PO (07:58)
[2020-12-25 18:00] VITALS: BP 155/82; PULSE 60; RESP 21; TEMP 36.4; O2SAT 96
[2020-12-25] MEDS: HaloperidoL 5 MG TABLET 20 MG PO (20:26)
[2020-12-25] MEDS: Tamsulosin HCL 0.4 MG CAPSULE PO (20:27)
[2020-12-25] MEDS: HaloperidoL 5 MG TABLET PO (23:04)
[2020-12-26] MEDS: diphenhydrAMINE HCL 25 MG TABLET 50 MG PO (00:44)
[2020-12-26 06:00] VITALS: BP 136/74; PULSE 67; TEMP 36.7; O2SAT 94
--- NOTE | 2020-12-26 06:21 | P.PNPSI_ITS ---
Subjective Subjective Date of Service: 12/27/20 Reason For Visit: Bipolar disorder Interim History: Per nursing, no behavioral concerns overnight. Pt continues to report that he is doing well. He denies SI/HI. He also denies VH/AH. He is pleasant on approach, taking medications as prescribed. He has been visible in the unit. Review of Systems Review of Systems Yes all other systems are reviewed and are negative Mental Status Exam Mental Status Exam Narrative: improved hygiene, dressed in street clothes. cooperative with interview. pill-rolling tremor in left hand. no PMA/PMR otherwise. speech somewhat soft and muffled, decr amount and incr latency. thoughts linear and logical in brief interview. affect constricted, hypo-intense, non-labile. no SI/HI/AVH expressed. Patient Appearance: Disheveled and Unkempt Patient Orientation: Person and Situation Level of Consciousness: Awake Patient Behavior: Guarded and Suspicious Mood Description: Depressed Affect Description: Constricted Patient Cognition Impaired: Yes Ability to Follow Directions: Good Speech Pattern: Clear Memory Description: Intact Diagnostics Vital Signs (24Hr): Vital Signs - 24 hr 12/26/20 07:50 12/26/20 18:00 Temperature 98.1 F Pulse Rate 67 60 Blood Pressure 136/74 142/70 H Pulse Oximetry 96 Body Mass Index 27.6 Labs Results: 11/19/20 06:25 12/14/20 06:53 Medications Medications Current Medications Generic Name Dose Route Start Last Admin Trade Name Freq PRN Reason Stop Dose Admin Acetaminophen 650 mg 11/18/20 13:10 12/24/20 10:51 Acetaminophen 325 Mg Tablet PO 650 mg Q6H PRN Administration Headache/Pain Mild Scale (1-3) Al Hydroxide/Mg Hydroxide 30 ml 11/18/20 13:10 Magnesium Hydrox/Alum Hydrox 30 Ml Oral.Susp PO Q6H PRN Heartburn/Nausea Amlodipine Besylate 5 mg 11/19/20 09:00 12/26/20 07:50 Amlodipine Besylate 5 Mg Tablet PO 5 mg DAILY RADHAMES Administration Protocol Aspirin 81 mg 11/19/20 09:00 12/26/20 07:50 Aspirin 81 Mg Tab.Chew PO 81 mg DAILY RADHAMES Administration Carbamazepine 400 mg 11/18/20 21:00 12/26/20 20:15 Carbamazepine 200 Mg Tablet PO 400 mg BID RADHAMES Administration Carbidopa/Levodopa 1 tab 11/18/20 21:00 12/26/20 20:15 Carbidopa/Levodopa 25/100 Tablet PO 1 tab BID RADHAMES Administration Diphenhydramine HCl 50 mg 11/30/20 13:52 12/26/20 00:44 Diphenhydramine Hcl 25 Mg Tablet PO 50 mg BID PRN Administration agitation Haloperidol 5 mg 11/30/20 13:52 12/25/20 23:04 Haloperidol 5 Mg Tablet PO 5 mg TID PRN Administration Psychosis Haloperidol 20 mg 12/16/20 21:00 12/26/20 20:15 Haloperidol 5 Mg Tablet PO 20 mg BEDTIME RADHAMES Administration Haloperidol Lactate 2.5 mg 11/20/20 19:38 11/30/20 11:13 Haloperidol Lactate 10 Mg/5 Ml Oral.Conc PO 2.5 mg TID PRN Administration hypersexuality Hydroxyzine HCl 25 mg 11/20/20 19:38 12/24/20 21:19 Hydroxyzine Hcl 25 Mg Tablet PO 25 mg BEDTIME MRX1 PRN Administration Anxiety Magnesium Hydroxide 30 ml 11/18/20 13:10 Milk Of Magnesia 30 Ml Oral.Susp PO DAILY PRN Constipation Paliperidone Palmitate 234 mg 12/23/20 08:00 12/23/20 12:56 Paliperidone Palmitate 234 Mg/1.5 Ml Syringe IM 234 mg Q30D RADHAMES Administration Pravastatin Sodium 40 mg 11/19/20 09:00 12/26/20 07:50 Pravastatin Sodium 40 Mg Tablet PO 40 mg DAILY RADHAMES Administration Tamsulosin HCl 0.4 mg 11/18/20 21:00 12/26/20 20:15 Tamsulosin Hcl 0.4 Mg Capsule PO 0.4 mg BEDTIME RADHAMES Administration Trolamine Salicylate/Aloe Vera 1 appl 12/19/20 10:37 12/24/20 09:22 Trolamine Salicylate 10%/Aloe Cream 35.4 Gm TOPICAL 1 appl TID PRN Administration Pain, Mild (Pain Scale 1-3) Allergies Allergies Allergy/AdvReac Type Severity Reaction Status Date / Time No Known Allergies Allergy Verified 11/18/20 11:30 Assessment & Plan Assessment & Plan (1) Bipolar 1 disorder: Status: Acute Code(s): F31.9 - Bipolar disorder, unspecified Assessment and Plan: The patient is an elderly Caucaasian male with Bipolar disorder, resident [facility] [place] [place] [facility] the [facility], grossly manic and psychotic, extremely disruptive and abusive towards peers and staff. He has a Montiel order and a guardianship. Plan: Invega Sustenna 234 mg second dose on 11/29 next dose on 12/23 Next Haldol dec od/c Change haloperidol to 20 mg p.o. q.h.s. Continue rest the same. Now on Section 7 and 8. Referral for technician terminal and repeater hospitalization made. Will consider discharge to his [place] [facility] if conditions are better. Greater than 50% of the session was spent on counseling and/or coordination of care Reason for contiued inpatient stay Substantial Risk for: harm to others and inability to function
[2020-12-26 07:50] VITALS: BP 136/74; PULSE 67
[2020-12-26] MEDS: Pravastatin Sodium 40 MG TABLET PO (07:50)
[2020-12-26] MEDS: Aspirin 81 MG TAB.CHEW PO (07:50)
[2020-12-26] MEDS: amLODIPine Besylate 5 MG TABLET PO (07:50)
[2020-12-26] MEDS: Carbidopa/Levodopa 25/100 TABLET 1 TAB PO ×2 (07:50→20:15)
[2020-12-26] MEDS: carBAMazepine 200 MG TABLET 400 MG PO ×2 (07:51→20:15)
[2020-12-26 18:00] VITALS: BP 142/70; PULSE 60; TEMP 36.7; O2SAT 96
[2020-12-26] MEDS: HaloperidoL 5 MG TABLET 20 MG PO (20:15)
[2020-12-26] MEDS: Tamsulosin HCL 0.4 MG CAPSULE PO (20:15)
[2020-12-27 08:09] VITALS: BP 154/79; PULSE 59; RESP 16; TEMP 36.7; O2SAT 94
[2020-12-27] MEDS: carBAMazepine 200 MG TABLET 400 MG PO ×2 (10:03→20:37)
[2020-12-27] MEDS: Aspirin 81 MG TAB.CHEW PO (10:03)
[2020-12-27 10:04] VITALS: BP 154/79; PULSE 59
[2020-12-27] MEDS: amLODIPine Besylate 5 MG TABLET PO (10:04)
[2020-12-27] MEDS: Carbidopa/Levodopa 25/100 TABLET 1 TAB PO ×2 (10:04→20:37)
[2020-12-27] MEDS: Pravastatin Sodium 40 MG TABLET PO (10:04)
--- NOTE | 2020-12-27 10:37 | HO.PSYCHPN ---
Subjective Subjective Date of Service: 12/27/20 Reason For Visit: Bipolar disorder Subjective Notes: Section 7 and Section 8 Interim History: The patient has behaved fairly well over the weekend, still chronically delusional but safe. Easily redirectable. Today on interview, he wanted to be discharged as soon as possible, he wants to work it out with Santos (Santos is the [employer] worker of the [facility]) Medication Compliance: Yes Side effects from medications: No Review of Systems Acute medical concerns: No Medical Review of Systems: unchanged Mental Status Exam Mental Status Exam Patient Appearance: Disheveled and Unkempt Patient Orientation: Person and Situation Level of Consciousness: Awake Patient Behavior: Guarded and Passive Mood Description: Depressed Affect Description: Constricted Patient Cognition Impaired: No Ability to Follow Directions: Good Speech Pattern: Clear Memory Description: Intact Hallucinations: None Delusions: Paranoid Ideation and Grandiose Thought Process: Distracted Thought Content: positive for Circumstantial Judgement: Fair Diagnostics Vital Signs (24Hr): Vital Signs - 24 hr 12/26/20 18:00 12/27/20 08:09 12/27/20 10:04 Temperature 98.1 F 98.1 F Pulse Rate 60 59 59 Respiratory Rate 16 Blood Pressure 142/70 H 154/79 H 154/79 H Pulse Oximetry 96 94 Body Mass Index 27.6 Labs Results: 11/19/20 06:25 12/14/20 06:53 Medications Medications Current Medications Generic Name Dose Route Start Last Admin Trade Name Freq PRN Reason Stop Dose Admin Acetaminophen 650 mg 11/18/20 13:10 12/24/20 10:51 Acetaminophen 325 Mg Tablet PO 650 mg Q6H PRN Administration Headache/Pain Mild Scale (1-3) Al Hydroxide/Mg Hydroxide 30 ml 11/18/20 13:10 Magnesium Hydrox/Alum Hydrox 30 Ml Oral.Susp PO Q6H PRN Heartburn/Nausea Amlodipine Besylate 5 mg 11/19/20 09:00 12/27/20 10:04 Amlodipine Besylate 5 Mg Tablet PO 5 mg DAILY RADHAMES Administration Protocol Aspirin 81 mg 11/19/20 09:00 12/27/20 10:03 Aspirin 81 Mg Tab.Chew PO 81 mg DAILY RADHAMES Administration Carbamazepine 400 mg 11/18/20 21:00 12/27/20 10:03 Carbamazepine 200 Mg Tablet PO 400 mg BID RADHAMES Administration Carbidopa/Levodopa 1 tab 11/18/20 21:00 12/27/20 10:04 Carbidopa/Levodopa 25/100 Tablet PO 1 tab BID RADHAMES Administration Diphenhydramine HCl 50 mg 11/30/20 13:52 12/26/20 00:44 Diphenhydramine Hcl 25 Mg Tablet PO 50 mg BID PRN Administration agitation Haloperidol 5 mg 11/30/20 13:52 12/25/20 23:04 Haloperidol 5 Mg Tablet PO 5 mg TID PRN Administration Psychosis Haloperidol 20 mg 12/16/20 21:00 12/26/20 20:15 Haloperidol 5 Mg Tablet PO 20 mg BEDTIME RADHAMES Administration Haloperidol Lactate 2.5 mg 11/20/20 19:38 11/30/20 11:13 Haloperidol Lactate 10 Mg/5 Ml Oral.Conc PO 2.5 mg TID PRN Administration hypersexuality Hydroxyzine HCl 25 mg 11/20/20 19:38 12/24/20 21:19 Hydroxyzine Hcl 25 Mg Tablet PO 25 mg BEDTIME MRX1 PRN Administration Anxiety Magnesium Hydroxide 30 ml 11/18/20 13:10 Milk Of Magnesia 30 Ml Oral.Susp PO DAILY PRN Constipation Paliperidone Palmitate 234 mg 12/23/20 08:00 12/23/20 12:56 Paliperidone Palmitate 234 Mg/1.5 Ml Syringe IM 234 mg Q30D RADHAMES Administration Pravastatin Sodium 40 mg 11/19/20 09:00 12/27/20 10:04 Pravastatin Sodium 40 Mg Tablet PO 40 mg DAILY RADHAMES Administration Tamsulosin HCl 0.4 mg 11/18/20 21:00 12/26/20 20:15 Tamsulosin Hcl 0.4 Mg Capsule PO 0.4 mg BEDTIME RADHAMES Administration Trolamine Salicylate/Aloe Vera 1 appl 12/19/20 10:37 12/24/20 09:22 Trolamine Salicylate 10%/Aloe Cream 35.4 Gm TOPICAL 1 appl TID PRN Administration Pain, Mild (Pain Scale 1-3) Allergies Allergies Allergy/AdvReac Type Severity Reaction Status Date / Time No Known Allergies Allergy Verified 11/18/20 11:30 Assessment & Plan Assessment & Plan (1) Bipolar 1 disorder: Status: Acute Code(s): F31.9 - Bipolar disorder, unspecified Assessment and Plan: The patient is an elderly Caucaasian male with Bipolar disorder, resident [facility] [place] [facility], grossly manic and psychotic, extremely disruptive and abusive towards peers and staff. He has a Montiel order and a guardianship. Plan: Invega Sustenna 234 mg second dose on 11/29 next dose on 12/23 Next Haldol dec od/c Change haloperidol to 20 mg p.o. q.h.s. Continue rest the same. Now on Section 7 and 8. Referral for skilled nursing hospitalization made. Will consider discharge to his [place] [facility] if conditions are better. Request a new meeting with team. Greater than 50% of the session was spent on counseling and/or coordination of care Reason for contiued inpatient stay Substantial Risk for: inability to function, rapid decompensation and med/psych decompensation
[2020-12-27 18:29] VITALS: BP 167/84; PULSE 82; RESP 17; TEMP 36.9; O2SAT 95
[2020-12-27] MEDS: Tamsulosin HCL 0.4 MG CAPSULE PO (20:37)
[2020-12-27] MEDS: HaloperidoL 5 MG TABLET 20 MG PO (20:37)
[2020-12-27] MEDS: HaloperidoL 5 MG TABLET PO (23:12)
[2020-12-28] MEDS: diphenhydrAMINE HCL 25 MG TABLET 50 MG PO ×2 (00:11→23:44)
[2020-12-28 06:00] VITALS: BP 131/77; PULSE 76; TEMP 37.1; O2SAT 95
[2020-12-28] MEDS: Carbidopa/Levodopa 25/100 TABLET 1 TAB PO ×2 (09:15→20:26)
[2020-12-28] MEDS: Pravastatin Sodium 40 MG TABLET PO (09:15)
[2020-12-28] MEDS: carBAMazepine 200 MG TABLET 400 MG PO ×2 (09:15→20:27)
[2020-12-28] MEDS: Aspirin 81 MG TAB.CHEW PO (09:15)
[2020-12-28 09:29] VITALS: BP 131/77; PULSE 76
[2020-12-28] MEDS: amLODIPine Besylate 5 MG TABLET PO (09:29)
--- NOTE | 2020-12-28 11:14 | P.PNPSI_ITS ---
Subjective Subjective Date of Service: 12/28/20 Reason For Visit: Bipolar disorder Subjective Notes: Section 7 and Section 8 Interim History: As per nursing staff, the patient has been stable in the unit. No episodes of agitation, he is easily redirectable. She remains chronically delusional with grandiose ideas and delusional thinking but no behavioral disturbances. On interview the patient remains pleasant and he wants to be discharged back to the community. Yesterday, he stated that he wants a meeting with Santos, the manager staffing, and try to ?to improve the relation . On a previous meeting, the housefellow was clear that he wanted to be discharged to the [facility] since he has used emergency room a lot and he has not thrive in the community Review of Systems Acute medical concerns: No Medical Review of Systems: unchanged Mental Status Exam Mental Status Exam Patient Appearance: Disheveled and Unkempt Patient Orientation: Person Level of Consciousness: Awake Patient Behavior: Guarded and Suspicious Mood Description: Withdrawn Affect Description: Constricted Patient Cognition Impaired: Yes Ability to Follow Directions: Good Speech Pattern: Clear and Rapid Hallucinations: None Delusions: Paranoid Ideation and Grandiose Thought Process: Intact Thought Content: positive for [place] and positive for Circumstantial Judgement: Poor Diagnostics Vital Signs (24Hr): Vital Signs - 24 hr 12/27/20 18:29 12/28/20 06:00 12/28/20 09:29 Temperature 98.4 F 98.7 F Pulse Rate 82 76 76 Respiratory Rate 17 Blood Pressure 167/84 H 131/77 131/77 Pulse Oximetry 95 95 Body Mass Index 27.6 Labs Results: 11/19/20 06:25 12/14/20 06:53 Medications Medications Current Medications Generic Name Dose Route Start Last Admin Trade Name Freq PRN Reason Stop Dose Admin Acetaminophen 650 mg 11/18/20 13:10 12/24/20 10:51 Acetaminophen 325 Mg Tablet PO 650 mg Q6H PRN Administration Headache/Pain Mild Scale (1-3) Al Hydroxide/Mg Hydroxide 30 ml 11/18/20 13:10 Magnesium Hydrox/Alum Hydrox 30 Ml Oral.Susp PO Q6H PRN Heartburn/Nausea Amlodipine Besylate 5 mg 11/19/20 09:00 12/28/20 09:29 Amlodipine Besylate 5 Mg Tablet PO 5 mg DAILY RADHAMES Administration Protocol Aspirin 81 mg 11/19/20 09:00 12/28/20 09:15 Aspirin 81 Mg Tab.Chew PO 81 mg DAILY RADHAMES Administration Carbamazepine 400 mg 11/18/20 21:00 12/28/20 09:15 Carbamazepine 200 Mg Tablet PO 400 mg BID RADHAMES Administration Carbidopa/Levodopa 1 tab 11/18/20 21:00 12/28/20 09:15 Carbidopa/Levodopa 25/100 Tablet PO 1 tab BID RADHAMES Administration Diphenhydramine HCl 50 mg 11/30/20 13:52 12/28/20 00:11 Diphenhydramine Hcl 25 Mg Tablet PO 50 mg BID PRN Administration agitation Haloperidol 5 mg 11/30/20 13:52 12/27/20 23:12 Haloperidol 5 Mg Tablet PO 5 mg TID PRN Administration Psychosis Haloperidol 20 mg 12/16/20 21:00 12/27/20 20:37 Haloperidol 5 Mg Tablet PO 20 mg BEDTIME RADHAMES Administration Haloperidol Lactate 2.5 mg 11/20/20 19:38 11/30/20 11:13 Haloperidol Lactate 10 Mg/5 Ml Oral.Conc PO 2.5 mg TID PRN Administration hypersexuality Hydroxyzine HCl 25 mg 11/20/20 19:38 12/24/20 21:19 Hydroxyzine Hcl 25 Mg Tablet PO 25 mg BEDTIME MRX1 PRN Administration Anxiety Magnesium Hydroxide 30 ml 11/18/20 13:10 Milk Of Magnesia 30 Ml Oral.Susp PO DAILY PRN Constipation Paliperidone Palmitate 234 mg 12/23/20 08:00 12/23/20 12:56 Paliperidone Palmitate 234 Mg/1.5 Ml Syringe IM 234 mg Q30D RADHAMES Administration Pravastatin Sodium 40 mg 11/19/20 09:00 12/28/20 09:15 Pravastatin Sodium 40 Mg Tablet PO 40 mg DAILY RADHAMES Administration Tamsulosin HCl 0.4 mg 11/18/20 21:00 12/27/20 20:37 Tamsulosin Hcl 0.4 Mg Capsule PO 0.4 mg BEDTIME RADHAMES Administration Trolamine Salicylate/Aloe Vera 1 appl 12/19/20 10:37 12/24/20 09:22 Trolamine Salicylate 10%/Aloe Cream 35.4 Gm TOPICAL 1 appl TID PRN Administration Pain, Mild (Pain Scale 1-3) Allergies Allergies Allergy/AdvReac Type Severity Reaction Status Date / Time No Known Allergies Allergy Verified 11/18/20 11:30 Assessment & Plan Assessment & Plan (1) Bipolar 1 disorder: Status: Acute Code(s): F31.9 - Bipolar disorder, unspecified Assessment and Plan: The patient is an elderly Caucaasian male with Bipolar disorder, resident of a long term in the [place] side of [facility], grossly manic and psychotic, extremely disruptive and abusive towards peers and staff. He has a Montiel order and a guardianship. Plan: Invega Sustenna 234 mg second dose on 11/29 next dose on 12/23 Next Haldol dec od/c Change haloperidol to 20 mg p.o. q.h.s. Continue rest the same. Now on Section 7 and 8. Referral for long term acute care registered nurse hospitalization made. Will consider discharge to his long term if conditions are better. Request a new meeting with team. Greater than 50% of the session was spent on counseling and/or coordination of care Reason for contiued inpatient stay Substantial Risk for: inability to function, rapid decompensation and med/psych decompensation
[2020-12-28 18:00] VITALS: BP 144/70; PULSE 63; TEMP 36.1; O2SAT 94
[2020-12-28] MEDS: Tamsulosin HCL 0.4 MG CAPSULE PO (20:26)
[2020-12-28] MEDS: HaloperidoL 5 MG TABLET 20 MG PO (20:27)
[2020-12-28] MEDS: HaloperidoL 5 MG TABLET PO (23:44)
[2020-12-29] MEDS: Pravastatin Sodium 40 MG TABLET PO (08:20)
[2020-12-29] MEDS: Aspirin 81 MG TAB.CHEW PO (08:20)
[2020-12-29 08:21] VITALS: BP 123/80; PULSE 85
[2020-12-29] MEDS: amLODIPine Besylate 5 MG TABLET PO (08:21)
[2020-12-29] MEDS: Carbidopa/Levodopa 25/100 TABLET 1 TAB PO ×2 (08:21→20:47)
[2020-12-29] MEDS: carBAMazepine 200 MG TABLET 400 MG PO ×2 (08:23→20:47)
[2020-12-29] MEDS: diphenhydrAMINE HCL 25 MG TABLET 50 MG PO ×2 (08:24→22:03)
[2020-12-29 10:28] VITALS: BP 123/80; PULSE 82; RESP 20; TEMP 36.6; O2SAT 94
--- NOTE | 2020-12-29 10:49 | HO.PSYCHPN ---
Subjective Subjective Date of Service: 12/29/20 Reason For Visit: Bipolar disorder Subjective Notes: Section 7 and Section 8 Interim History: As per nursing staff, the patient is doing fine. No episodes of agitation or verbal aggression. The oncology social work tried to arrange annual meeting with his outpatient providers but it seems that he has a guardian and and the switch house operator are pushing [facility] the patient is a high utilizer of the emergency services. On interview the patient denies new symptoms, he wants to be discharged in the community. He is chronically delusional with grandiose delusions and paranoia. Mental Status Exam Mental Status Exam Patient Appearance: Disheveled and Unkempt Patient Orientation: Person and Situation Level of Consciousness: Awake Patient Behavior: Guarded Mood Description: Depressed Affect Description: Constricted Patient Cognition Impaired: Yes Ability to Follow Directions: Good Speech Pattern: Clear Hallucinations: None Delusions: Not Present Thought Process: Linear Thought Content: positive for Poverty of Content and positive for Thought Blocking Judgement: Fair Diagnostics Vital Signs (24Hr): Vital Signs - 24 hr 12/28/20 18:00 12/29/20 08:21 12/29/20 10:28 Temperature 97 F 97.8 F Pulse Rate 63 85 82 Respiratory Rate 20 Blood Pressure 144/70 H 123/80 123/80 Pulse Oximetry 94 94 Body Mass Index 27.6 Labs Results: 11/19/20 06:25 12/14/20 06:53 Medications Medications Current Medications Generic Name Dose Route Start Last Admin Trade Name Freq PRN Reason Stop Dose Admin Acetaminophen 650 mg 11/18/20 13:10 12/24/20 10:51 Acetaminophen 325 Mg Tablet PO 650 mg Q6H PRN Administration Headache/Pain Mild Scale (1-3) Al Hydroxide/Mg Hydroxide 30 ml 11/18/20 13:10 Magnesium Hydrox/Alum Hydrox 30 Ml Oral.Susp PO Q6H PRN Heartburn/Nausea Amlodipine Besylate 5 mg 11/19/20 09:00 12/29/20 08:21 Amlodipine Besylate 5 Mg Tablet PO 5 mg DAILY RADHAMES Administration Protocol Aspirin 81 mg 11/19/20 09:00 12/29/20 08:20 Aspirin 81 Mg Tab.Chew PO 81 mg DAILY RADHAMES Administration Carbamazepine 400 mg 11/18/20 21:00 12/29/20 08:23 Carbamazepine 200 Mg Tablet PO 400 mg BID RADHAMES Administration Carbidopa/Levodopa 1 tab 11/18/20 21:00 12/29/20 08:21 Carbidopa/Levodopa 25/100 Tablet PO 1 tab BID RADHAMES Administration Diphenhydramine HCl 50 mg 11/30/20 13:52 12/29/20 08:24 Diphenhydramine Hcl 25 Mg Tablet PO 50 mg BID PRN Administration agitation Haloperidol 5 mg 11/30/20 13:52 12/28/20 23:44 Haloperidol 5 Mg Tablet PO 5 mg TID PRN Administration Psychosis Haloperidol 20 mg 12/16/20 21:00 12/28/20 20:27 Haloperidol 5 Mg Tablet PO 20 mg BEDTIME RADHAMES Administration Haloperidol Lactate 2.5 mg 11/20/20 19:38 11/30/20 11:13 Haloperidol Lactate 10 Mg/5 Ml Oral.Conc PO 2.5 mg TID PRN Administration hypersexuality Hydroxyzine HCl 25 mg 11/20/20 19:38 12/24/20 21:19 Hydroxyzine Hcl 25 Mg Tablet PO 25 mg BEDTIME MRX1 PRN Administration Anxiety Magnesium Hydroxide 30 ml 11/18/20 13:10 Milk Of Magnesia 30 Ml Oral.Susp PO DAILY PRN Constipation Paliperidone Palmitate 234 mg 12/23/20 08:00 12/23/20 12:56 Paliperidone Palmitate 234 Mg/1.5 Ml Syringe IM 234 mg Q30D RADHAMES Administration Pravastatin Sodium 40 mg 11/19/20 09:00 12/29/20 08:20 Pravastatin Sodium 40 Mg Tablet PO 40 mg DAILY RADHAMES Administration Tamsulosin HCl 0.4 mg 11/18/20 21:00 12/28/20 20:26 Tamsulosin Hcl 0.4 Mg Capsule PO 0.4 mg BEDTIME RADHAMES Administration Trolamine Salicylate/Aloe Vera 1 appl 12/19/20 10:37 12/24/20 09:22 Trolamine Salicylate 10%/Aloe Cream 35.4 Gm TOPICAL 1 appl TID PRN Administration Pain, Mild (Pain Scale 1-3) Allergies Allergies Allergy/AdvReac Type Severity Reaction Status Date / Time No Known Allergies Allergy Verified 11/18/20 11:30 Assessment & Plan Assessment & Plan (1) Bipolar 1 disorder: Status: Acute Code(s): F31.9 - Bipolar disorder, unspecified Assessment and Plan: The patient is an elderly Caucaasian male with Bipolar disorder, resident of [place] [facility], grossly manic and psychotic, extremely disruptive and abusive towards peers and staff. He has a Montiel order and a guardianship. Plan: Invega Sustenna 234 mg second dose on 11/29 next dose on 12/23 Next Haldol dec od/c Change haloperidol to 20 mg p.o. q.h.s. Continue rest the same. Now on Section 7 and 8. Referral for jail hospitalization made. Will consider discharge to his halfway if conditions are better. Request a new meeting with team. Greater than 50% of the session was spent on counseling and/or coordination of care Reason for contiued inpatient stay Substantial Risk for: inability to function, rapid decompensation and med/psych decompensation
--- NOTE | 2020-12-29 17:45 | PC.NURSE ---
Patient has been meeting behavioral contract goals. No verbal agression or inappropriate comments. Patient phone calls have decreased even though he is able to use phone. He is isolative to room this shift and has commented that he is nervous about leaving and going back to [facility]. [facility] He has been cooperative and med compliant.
[2020-12-29 18:00] VITALS: BP 131/62; PULSE 74; TEMP 36.1; O2SAT 96
[2020-12-29] MEDS: Tamsulosin HCL 0.4 MG CAPSULE PO (20:47)
[2020-12-29] MEDS: HaloperidoL 5 MG TABLET 20 MG PO (20:47)
[2020-12-29] MEDS: HaloperidoL 5 MG TABLET PO (22:03)
[2020-12-30] MEDS: hydrOXYzine HCL 25 MG TABLET PO (03:43)
[2020-12-30 06:00] VITALS: BP 118/62; PULSE 77; TEMP 36.7; O2SAT 94
[2020-12-30 07:00] VITALS: BMI 27.1
[2020-12-30 08:18] VITALS: BP 118/70; PULSE 77
[2020-12-30] MEDS: amLODIPine Besylate 5 MG TABLET PO (08:18)
[2020-12-30] MEDS: Pravastatin Sodium 40 MG TABLET PO (08:18)
[2020-12-30] MEDS: Carbidopa/Levodopa 25/100 TABLET 1 TAB PO ×2 (08:18→20:12)
[2020-12-30] MEDS: carBAMazepine 200 MG TABLET 400 MG PO ×2 (08:18→20:12)
[2020-12-30] MEDS: Aspirin 81 MG TAB.CHEW PO (08:18)
--- NOTE | 2020-12-30 10:50 | HO.PSYCHPN ---
Subjective Subjective Date of Service: 12/30/20 Reason For Visit: Bipolar disorder Subjective Notes: Section 7 and Section 8 Interim History: Nursing staff reported the patient has behaved well, no episodes of agitation, cooperative with care. On interview, the patient was calmer and cooperative and he stated that he wants to be placed in the community. Mental Status Exam Mental Status Exam Patient Appearance: Well Grooomed Patient Orientation: Person, Place, Time and Situation Level of Consciousness: Awake Patient Behavior: Guarded and Cooperative Mood Description: Depressed Affect Description: Constricted Patient Cognition Impaired: No Ability to Follow Directions: Good Speech Pattern: Clear Hallucinations: None Delusions: Paranoid Ideation and Grandiose Thought Process: Intact Thought Content: positive for Circumstantial Judgement: Fair Diagnostics Vital Signs (24Hr): Vital Signs - 24 hr 12/29/20 18:00 12/30/20 06:00 12/30/20 08:18 Temperature 97.0 F 98.1 F Pulse Rate 74 77 77 Blood Pressure 131/62 118/62 118/70 Pulse Oximetry 96 94 Body Mass Index 27.6 Labs Results: 11/19/20 06:25 12/14/20 06:53 Medications Medications Current Medications Generic Name Dose Route Start Last Admin Trade Name Freq PRN Reason Stop Dose Admin Acetaminophen 650 mg 11/18/20 13:10 12/24/20 10:51 Acetaminophen 325 Mg Tablet PO 650 mg Q6H PRN Administration Headache/Pain Mild Scale (1-3) Al Hydroxide/Mg Hydroxide 30 ml 11/18/20 13:10 Magnesium Hydrox/Alum Hydrox 30 Ml Oral.Susp PO Q6H PRN Heartburn/Nausea Amlodipine Besylate 5 mg 11/19/20 09:00 12/30/20 08:18 Amlodipine Besylate 5 Mg Tablet PO 5 mg DAILY RADHAMES Administration Protocol Aspirin 81 mg 11/19/20 09:00 12/30/20 08:18 Aspirin 81 Mg Tab.Chew PO 81 mg DAILY RADHAMES Administration Carbamazepine 400 mg 11/18/20 21:00 12/30/20 08:18 Carbamazepine 200 Mg Tablet PO 400 mg BID RADHAMES Administration Carbidopa/Levodopa 1 tab 11/18/20 21:00 12/30/20 08:18 Carbidopa/Levodopa 25/100 Tablet PO 1 tab BID RADHAMES Administration Diphenhydramine HCl 50 mg 11/30/20 13:52 12/29/20 22:03 Diphenhydramine Hcl 25 Mg Tablet PO 50 mg BID PRN Administration agitation Haloperidol 5 mg 11/30/20 13:52 12/29/20 22:03 Haloperidol 5 Mg Tablet PO 5 mg TID PRN Administration Psychosis Haloperidol 20 mg 12/16/20 21:00 12/29/20 20:47 Haloperidol 5 Mg Tablet PO 20 mg BEDTIME RADHAMES Administration Haloperidol Lactate 2.5 mg 11/20/20 19:38 11/30/20 11:13 Haloperidol Lactate 10 Mg/5 Ml Oral.Conc PO 2.5 mg TID PRN Administration hypersexuality Hydroxyzine HCl 25 mg 11/20/20 19:38 12/30/20 03:43 Hydroxyzine Hcl 25 Mg Tablet PO 25 mg BEDTIME MRX1 PRN Administration Anxiety Magnesium Hydroxide 30 ml 11/18/20 13:10 Milk Of Magnesia 30 Ml Oral.Susp PO DAILY PRN Constipation Paliperidone Palmitate 234 mg 12/23/20 08:00 12/23/20 12:56 Paliperidone Palmitate 234 Mg/1.5 Ml Syringe IM 234 mg Q30D RADHAMES Administration Pravastatin Sodium 40 mg 11/19/20 09:00 12/30/20 08:18 Pravastatin Sodium 40 Mg Tablet PO 40 mg DAILY RADHAMES Administration Tamsulosin HCl 0.4 mg 11/18/20 21:00 12/29/20 20:47 Tamsulosin Hcl 0.4 Mg Capsule PO 0.4 mg BEDTIME RADHAMES Administration Trolamine Salicylate/Aloe Vera 1 appl 12/19/20 10:37 12/24/20 09:22 Trolamine Salicylate 10%/Aloe Cream 35.4 Gm TOPICAL 1 appl TID PRN Administration Pain, Mild (Pain Scale 1-3) Allergies Allergies Allergy/AdvReac Type Severity Reaction Status Date / Time No Known Allergies Allergy Verified 11/18/20 11:30 Assessment & Plan Assessment & Plan (1) Bipolar 1 disorder: Status: Acute Code(s): F31.9 - Bipolar disorder, unspecified Assessment and Plan: The patient is an elderly Caucaasian male with Bipolar disorder, resident of a custodial in the [place] [facility], grossly manic and psychotic, extremely disruptive and abusive towards peers and staff. He has a Montiel order and a guardianship. Plan: Invega Sustenna 234 mg second dose on 11/29 next dose on 12/23 Next Haldol dec od/c Change haloperidol to 20 mg p.o. q.h.s. Continue rest the same. Now on Section 7 and 8. Referral for ad terminal makeup operator hospitalization made. Will consider discharge to his custodial if conditions are better. Request a new meeting with team. Greater than 50% of the session was spent on counseling and/or coordination of care Reason for contiued inpatient stay Substantial Risk for: inability to function, rapid decompensation and med/psych decompensation
[2020-12-30] MEDS: HaloperidoL 5 MG TABLET 20 MG PO (20:12)
[2020-12-30] MEDS: Tamsulosin HCL 0.4 MG CAPSULE PO (20:12)
[2020-12-30 20:46] VITALS: BP 149/76; PULSE 60; RESP 18; TEMP 36.5; O2SAT 95
[2020-12-30] MEDS: diphenhydrAMINE HCL 25 MG TABLET 50 MG PO (21:04)
[2020-12-30] MEDS: HaloperidoL 5 MG TABLET PO (22:05)
[2020-12-31] MEDS: Carbidopa/Levodopa 25/100 TABLET 1 TAB PO ×2 (08:10→20:34)
[2020-12-31] MEDS: Pravastatin Sodium 40 MG TABLET PO (08:10)
[2020-12-31] MEDS: Aspirin 81 MG TAB.CHEW PO (08:10)
[2020-12-31] MEDS: carBAMazepine 200 MG TABLET 400 MG PO ×2 (08:10→20:34)
[2020-12-31 08:27] VITALS: BP 130/94; PULSE 78
[2020-12-31] MEDS: amLODIPine Besylate 5 MG TABLET PO (08:27)
[2020-12-31 09:01] VITALS: BP 130/94; PULSE 78; TEMP 36.8; O2SAT 95
--- NOTE | 2020-12-31 10:16 | PC.NURSE ---
Patient has been very subdued the past few days. He states he is nervous about dc and where I might go . He is visible on unit but more isolative to room. Meeting all behavioral goals.
--- NOTE | 2020-12-31 11:32 | P.PNPSI_ITS ---
Subjective Subjective Date of Service: 12/31/20 Reason For Visit: Bipolar disorder Subjective Notes: Section 7 and Section 8 Interim History: Nursing staff reported the patient has behaved well, there were no neat appearance. She has spent less time over the phone. Review of Systems Acute medical concerns: No Medical Review of Systems: unchanged Mental Status Exam Mental Status Exam Patient Appearance: Disheveled and Unkempt Patient Orientation: Person Level of Consciousness: Awake Patient Behavior: Guarded and Passive Mood Description: Depressed Affect Description: Constricted Patient Cognition Impaired: Yes Ability to Follow Directions: Good Speech Pattern: Clear Hallucinations: None Thought Process: Slowed Thinking Thought Content: positive for Perseveration Judgement: Poor Diagnostics Vital Signs (24Hr): Vital Signs - 24 hr 12/30/20 20:46 12/31/20 08:27 12/31/20 09:01 Temperature 97.7 F 98.2 F Pulse Rate 60 78 78 Respiratory Rate 18 Blood Pressure 149/76 H 130/94 H 130/94 H Pulse Oximetry 95 95 Body Mass Index 27.1 Labs Results: 11/19/20 06:25 12/14/20 06:53 Medications Medications Current Medications Generic Name Dose Route Start Last Admin Trade Name Freq PRN Reason Stop Dose Admin Acetaminophen 650 mg 11/18/20 13:10 12/24/20 10:51 Acetaminophen 325 Mg Tablet PO 650 mg Q6H PRN Administration Headache/Pain Mild Scale (1-3) Al Hydroxide/Mg Hydroxide 30 ml 11/18/20 13:10 Magnesium Hydrox/Alum Hydrox 30 Ml Oral.Susp PO Q6H PRN Heartburn/Nausea Amlodipine Besylate 5 mg 11/19/20 09:00 12/31/20 08:27 Amlodipine Besylate 5 Mg Tablet PO 5 mg DAILY RADHAMES Administration Protocol Aspirin 81 mg 11/19/20 09:00 12/31/20 08:10 Aspirin 81 Mg Tab.Chew PO 81 mg DAILY RADHAMES Administration Carbamazepine 400 mg 11/18/20 21:00 12/31/20 08:10 Carbamazepine 200 Mg Tablet PO 400 mg BID RADHAMES Administration Carbidopa/Levodopa 1 tab 11/18/20 21:00 12/31/20 08:10 Carbidopa/Levodopa 25/100 Tablet PO 1 tab BID RADHAMES Administration Diphenhydramine HCl 50 mg 11/30/20 13:52 12/30/20 21:04 Diphenhydramine Hcl 25 Mg Tablet PO 50 mg BID PRN Administration agitation Haloperidol 5 mg 11/30/20 13:52 12/30/20 22:05 Haloperidol 5 Mg Tablet PO 5 mg TID PRN Administration Psychosis Haloperidol 20 mg 12/16/20 21:00 12/30/20 20:12 Haloperidol 5 Mg Tablet PO 20 mg BEDTIME RADHAMES Administration Haloperidol Lactate 2.5 mg 11/20/20 19:38 11/30/20 11:13 Haloperidol Lactate 10 Mg/5 Ml Oral.Conc PO 2.5 mg TID PRN Administration hypersexuality Hydroxyzine HCl 25 mg 11/20/20 19:38 12/30/20 03:43 Hydroxyzine Hcl 25 Mg Tablet PO 25 mg BEDTIME MRX1 PRN Administration Anxiety Magnesium Hydroxide 30 ml 11/18/20 13:10 Milk Of Magnesia 30 Ml Oral.Susp PO DAILY PRN Constipation Paliperidone Palmitate 234 mg 12/23/20 08:00 12/23/20 12:56 Paliperidone Palmitate 234 Mg/1.5 Ml Syringe IM 234 mg Q30D RADHAMES Administration Pravastatin Sodium 40 mg 11/19/20 09:00 12/31/20 08:10 Pravastatin Sodium 40 Mg Tablet PO 40 mg DAILY RADHAMES Administration Tamsulosin HCl 0.4 mg 11/18/20 21:00 12/30/20 20:12 Tamsulosin Hcl 0.4 Mg Capsule PO 0.4 mg BEDTIME RADHAMES Administration Trolamine Salicylate/Aloe Vera 1 appl 12/19/20 10:37 12/24/20 09:22 Trolamine Salicylate 10%/Aloe Cream 35.4 Gm TOPICAL 1 appl TID PRN Administration Pain, Mild (Pain Scale 1-3) Allergies Allergies Allergy/AdvReac Type Severity Reaction Status Date / Time No Known Allergies Allergy Verified 11/18/20 11:30 Assessment & Plan Assessment & Plan (1) Bipolar 1 disorder: Status: Acute Code(s): F31.9 - Bipolar disorder, unspecified Assessment and Plan: The patient is an elderly Caucaasian male with Bipolar disorder, resident of a senior living [place] [facility], grossly manic and psychotic, extremely disruptive and abusive towards peers and staff. He has a Montiel order and a guardianship. Plan: Invega Sustenna 234 mg second dose on 11/29 next dose on 8/19 Next Haldol dec od/c Change haloperidol to 20 mg p.o. q.h.s. Continue rest the same. Now on Section 7 and 8. Referral for [facility] hospitalization made. Will consider discharge to his senior living if conditions are better. Request a new meeting with team. Greater than 50% of the session was spent on counseling and/or coordination of care Reason for contiued inpatient stay Substantial Risk for: inability to function, rapid decompensation and med/psych decompensation
[2020-12-31 18:00] VITALS: BP 125/68; PULSE 65; TEMP 36.9; O2SAT 94
[2020-12-31] MEDS: HaloperidoL 5 MG TABLET 20 MG PO (20:34)
[2020-12-31] MEDS: Tamsulosin HCL 0.4 MG CAPSULE PO (20:35)
[2020-12-31] MEDS: diphenhydrAMINE HCL 25 MG TABLET 50 MG PO (21:01)
[2020-12-31] MEDS: hydrOXYzine HCL 25 MG TABLET PO (22:00)
[2021-01-01 08:40] VITALS: BP 129/72; PULSE 74; RESP 18; TEMP 36.7; O2SAT 94
[2021-01-01 08:43] VITALS: BP 129/72; PULSE 74
[2021-01-01] MEDS: Pravastatin Sodium 40 MG TABLET PO (08:43)
[2021-01-01] MEDS: amLODIPine Besylate 5 MG TABLET PO (08:43)
[2021-01-01] MEDS: carBAMazepine 200 MG TABLET 400 MG PO ×2 (08:43→20:08)
[2021-01-01] MEDS: Carbidopa/Levodopa 25/100 TABLET 1 TAB PO ×2 (08:43→20:08)
[2021-01-01] MEDS: Aspirin 81 MG TAB.CHEW PO (08:43)
--- NOTE | 2021-01-01 12:31 | P.PNPSI_ITS ---
Subjective Subjective Date of Service: 01/01/21 Reason For Visit: Bipolar disorder Subjective Notes: Section 8 Interim History: pt irritable dysphoric helpless easily agitated Mental Status Exam Mental Status Exam Patient Appearance: Disheveled and Unkempt Patient Orientation: Person Level of Consciousness: Awake Patient Behavior: Guarded and Passive Mood Description: Depressed Affect Description: Constricted Patient Cognition Impaired: Yes Ability to Follow Directions: Good Speech Pattern: Clear Hallucinations: None Thought Process: Slowed Thinking Thought Content: positive for Perseveration Depressive Symptoms: Increased Anxiety Judgement: Poor Diagnostics Vital Signs (24Hr): Vital Signs - 24 hr 12/31/20 18:00 01/01/21 08:40 01/01/21 08:43 Temperature 98.4 F 98.0 F Pulse Rate 65 74 74 Respiratory Rate 18 Blood Pressure 125/68 129/72 129/72 Pulse Oximetry 94 94 Body Mass Index 27.1 Labs Results: 11/19/20 06:25 12/14/20 06:53 Medications Medications Current Medications Generic Name Dose Route Start Last Admin Trade Name Freq PRN Reason Stop Dose Admin Acetaminophen 650 mg 11/18/20 13:10 12/24/20 10:51 Acetaminophen 325 Mg Tablet PO 650 mg Q6H PRN Administration Headache/Pain Mild Scale (1-3) Al Hydroxide/Mg Hydroxide 30 ml 11/18/20 13:10 Magnesium Hydrox/Alum Hydrox 30 Ml Oral.Susp PO Q6H PRN Heartburn/Nausea Amlodipine Besylate 5 mg 11/19/20 09:00 01/01/21 08:43 Amlodipine Besylate 5 Mg Tablet PO 5 mg DAILY RADHAMES Administration Protocol Aspirin 81 mg 11/19/20 09:00 01/01/21 08:43 Aspirin 81 Mg Tab.Chew PO 81 mg DAILY RADHAMES Administration Carbamazepine 400 mg 11/18/20 21:00 01/01/21 08:43 Carbamazepine 200 Mg Tablet PO 400 mg BID RADHAMES Administration Carbidopa/Levodopa 1 tab 11/18/20 21:00 01/01/21 08:43 Carbidopa/Levodopa 25/100 Tablet PO 1 tab BID RADHAMES Administration Diphenhydramine HCl 50 mg 11/30/20 13:52 12/31/20 21:01 Diphenhydramine Hcl 25 Mg Tablet PO 50 mg BID PRN Administration agitation Haloperidol 5 mg 11/30/20 13:52 08/26/21 22:05 Haloperidol 5 Mg Tablet PO 5 mg TID PRN Administration Psychosis Haloperidol 20 mg 12/16/20 21:00 12/31/20 20:34 Haloperidol 5 Mg Tablet PO 20 mg BEDTIME RADHAMES Administration Haloperidol Lactate 2.5 mg 11/20/20 19:38 11/30/20 11:13 Haloperidol Lactate 10 Mg/5 Ml Oral.Conc PO 2.5 mg TID PRN Administration hypersexuality Hydroxyzine HCl 25 mg 11/20/20 19:38 12/31/20 22:00 Hydroxyzine Hcl 25 Mg Tablet PO 25 mg BEDTIME MRX1 PRN Administration Anxiety Magnesium Hydroxide 30 ml 11/18/20 13:10 Milk Of Magnesia 30 Ml Oral.Susp PO DAILY PRN Constipation Paliperidone Palmitate 234 mg 12/23/20 08:00 12/23/20 12:56 Paliperidone Palmitate 234 Mg/1.5 Ml Syringe IM 234 mg Q30D RADHAMES Administration Pravastatin Sodium 40 mg 11/19/20 09:00 01/01/21 08:43 Pravastatin Sodium 40 Mg Tablet PO 40 mg DAILY RADHAMES Administration Tamsulosin HCl 0.4 mg 11/18/20 21:00 12/31/20 20:35 Tamsulosin Hcl 0.4 Mg Capsule PO 0.4 mg BEDTIME RADHAMES Administration Trolamine Salicylate/Aloe Vera 1 appl 12/19/20 10:37 12/24/20 09:22 Trolamine Salicylate 10%/Aloe Cream 35.4 Gm TOPICAL 1 appl TID PRN Administration Pain, Mild (Pain Scale 1-3) Allergies Allergies Allergy/AdvReac Type Severity Reaction Status Date / Time No Known Allergies Allergy Verified 11/18/20 11:30 Assessment & Plan Assessment & Plan (1) Bipolar 1 disorder: Status: Acute Code(s): F31.9 - Bipolar disorder, unspecified Assessment and Plan: The patient is an elderly Caucaasian male with Bipolar disorder, resident of a [facility] [place] [facility], grossly manic and psychotic, extremely disruptive and abusive towards peers and staff. He has a Montiel order and a guardianship. Plan: Invega Sustenna 234 mg second dose on 11/29 next dose on 12/23 Next Haldol dec od/c Change haloperidol to 20 mg p.o. q.h.s. Continue rest the same. Now on Section 7 and 8. Referral for senior living hospitalization made. Will consider discharge to his [facility] if conditions are better. Request a new meeting with team. above reviewed monitor for adverse effects Greater than 50% of the session was spent on counseling and/or coordination of care Reason for contiued inpatient stay Substantial Risk for: harm to others, inability to function and rapid decompensation
[2021-01-01 18:00] VITALS: BP 147/72; PULSE 57; RESP 16; TEMP 36.9; O2SAT 95
[2021-01-01] MEDS: HaloperidoL 5 MG TABLET 20 MG PO (20:08)
[2021-01-01] MEDS: Tamsulosin HCL 0.4 MG CAPSULE PO (20:08)
[2021-01-01] MEDS: Mineral Oil/Petrolatum,White 106 GM Tube 1 APPL TOPICAL (21:18)
[2021-01-01] MEDS: hydrOXYzine HCL 25 MG TABLET PO (22:06)
[2021-01-01] MEDS: diphenhydrAMINE HCL 25 MG TABLET 50 MG PO (22:08)
[2021-01-02 09:18] VITALS: BP 116/70; PULSE 70
[2021-01-02] MEDS: carBAMazepine 200 MG TABLET 400 MG PO ×2 (09:18→20:37)
[2021-01-02] MEDS: Carbidopa/Levodopa 25/100 TABLET 1 TAB PO ×2 (09:18→20:37)
[2021-01-02] MEDS: Pravastatin Sodium 40 MG TABLET PO (09:18)
[2021-01-02] MEDS: Aspirin 81 MG TAB.CHEW PO (09:18)
[2021-01-02] MEDS: amLODIPine Besylate 5 MG TABLET PO (09:18)
--- NOTE | 2021-01-02 12:27 | P.PNPSI_ITS ---
Subjective Subjective Date of Service: 01/01/21 Reason For Visit: Bipolar disorder Subjective Notes: Section 8 Guardianship: No Medication Compliance: Intermittent Attending Groups: Intermittent Mental Status Exam Mental Status Exam Patient Appearance: Disheveled and Unkempt Patient Orientation: Person and Situation Level of Consciousness: Awake Patient Behavior: Guarded and Passive Mood Description: Depressed and Apprehensive Affect Description: Constricted Patient Cognition Impaired: Yes Ability to Follow Directions: Good Speech Pattern: Clear Hallucinations: None Thought Process: Slowed Thinking Thought Content: positive for Perseveration Depressive Symptoms: Increased Anxiety, Increased Irritability and Hopelessness Judgement: Poor Diagnostics Vital Signs (24Hr): Vital Signs - 24 hr 01/01/21 18:00 01/02/21 09:18 Temperature 98.4 F Pulse Rate 57 70 Respiratory Rate 16 Blood Pressure 147/72 H 116/70 Pulse Oximetry 95 Body Mass Index 27.1 Labs Results: 11/19/20 06:25 12/14/20 06:53 Medications Medications Current Medications Generic Name Dose Route Start Last Admin Trade Name Freq PRN Reason Stop Dose Admin Acetaminophen 650 mg 11/18/20 13:10 12/24/20 10:51 Acetaminophen 325 Mg Tablet PO 650 mg Q6H PRN Administration Headache/Pain Mild Scale (1-3) Al Hydroxide/Mg Hydroxide 30 ml 11/18/20 13:10 Magnesium Hydrox/Alum Hydrox 30 Ml Oral.Susp PO Q6H PRN Heartburn/Nausea Amlodipine Besylate 5 mg 11/19/20 09:00 01/02/21 09:18 Amlodipine Besylate 5 Mg Tablet PO 5 mg DAILY RADHAMES Administration Protocol Aspirin 81 mg 11/19/20 09:00 01/02/21 09:18 Aspirin 81 Mg Tab.Chew PO 81 mg DAILY RADHAMES Administration Carbamazepine 400 mg 11/18/20 21:00 01/02/21 09:18 Carbamazepine 200 Mg Tablet PO 400 mg BID RADHAMES Administration Carbidopa/Levodopa 1 tab 11/18/20 21:00 01/02/21 09:18 Carbidopa/Levodopa 25/100 Tablet PO 1 tab BID RADHAMES Administration Diphenhydramine HCl 50 mg 11/30/20 13:52 01/01/21 22:08 Diphenhydramine Hcl 25 Mg Tablet PO 50 mg BID PRN Administration agitation Haloperidol 5 mg 11/30/20 13:52 12/30/20 22:05 Haloperidol 5 Mg Tablet PO 5 mg TID PRN Administration Psychosis Haloperidol 20 mg 12/16/20 21:00 01/01/21 20:08 Haloperidol 5 Mg Tablet PO 20 mg BEDTIME RADHAMES Administration Haloperidol Lactate 2.5 mg 11/20/20 19:38 11/30/20 11:13 Haloperidol Lactate 10 Mg/5 Ml Oral.Conc PO 2.5 mg TID PRN Administration hypersexuality Hydroxyzine HCl 25 mg 11/20/20 19:38 01/01/21 22:06 Hydroxyzine Hcl 25 Mg Tablet PO 25 mg BEDTIME MRX1 PRN Administration Anxiety Magnesium Hydroxide 30 ml 11/18/20 13:10 Milk Of Magnesia 30 Ml Oral.Susp PO DAILY PRN Constipation Multi-Ingred Cream/Lotion/Oil/Oint 1 appl 01/01/21 21:00 01/02/21 09:37 Mineral Oil/Petrolatum,White 106 Gm Tube TOPICAL Not Given BID RADHAMES Paliperidone Palmitate 234 mg 12/23/20 08:00 12/23/20 12:56 Paliperidone Palmitate 234 Mg/1.5 Ml Syringe IM 234 mg Q30D RADHAMES Administration Pravastatin Sodium 40 mg 11/19/20 09:00 01/02/21 09:18 Pravastatin Sodium 40 Mg Tablet PO 40 mg DAILY RADHAMES Administration Tamsulosin HCl 0.4 mg 11/18/20 21:00 01/01/21 20:08 Tamsulosin Hcl 0.4 Mg Capsule PO 0.4 mg BEDTIME RADHAMES Administration Trolamine Salicylate/Aloe Vera 1 appl 12/19/20 10:37 12/24/20 09:22 Trolamine Salicylate 10%/Aloe Cream 35.4 Gm TOPICAL 1 appl TID PRN Administration Pain, Mild (Pain Scale 1-3) Allergies Allergies Allergy/AdvReac Type Severity Reaction Status Date / Time No Known Allergies Allergy Verified 11/18/20 11:30 Assessment & Plan Assessment & Plan (1) Bipolar 1 disorder: Status: Acute Code(s): F31.9 - Bipolar disorder, unspecified Assessment and Plan: The patient is an elderly Caucaasian male with Bipolar disorder, resident of a prison in the [place] [facility], grossly manic and psychotic, extremely disruptive and abusive towards peers and staff. He has a Montiel order and a guardianship. Plan: Invega Sustenna 234 mg second dose on 11/29 next dose on 12/23 Next Haldol dec od/c Change haloperidol to 20 mg p.o. q.h.s. Continue rest the same. Now on Section 7 and 8. pt withdrawn isolated Greater than 50% of the session was spent on counseling and/or coordination of care Reason for contiued inpatient stay Substantial Risk for: harm to self and rapid decompensation
[2021-01-02] MEDS: hydrOXYzine HCL 25 MG TABLET PO ×2 (14:18→20:37)
[2021-01-02] MEDS: Tamsulosin HCL 0.4 MG CAPSULE PO (20:37)
[2021-01-02] MEDS: HaloperidoL 5 MG TABLET 20 MG PO (20:38)
[2021-01-02 20:50] VITALS: BP 138/66; PULSE 65; RESP 20; TEMP 36.5; O2SAT 94
[2021-01-02] MEDS: diphenhydrAMINE HCL 25 MG TABLET 50 MG PO (20:51)
--- NOTE | 2021-01-02 21:27 | HO.PSYCHPN ---
Subjective Subjective Date of Service: 01/02/21 Reason For Visit: Bipolar disorder Subjective Notes: Section 8 Interim History: pt irritable dysphoric withdrawn isolated has been worried re future how he will live Medication Compliance: Intermittent Review of Systems Review of Systems Yes all other systems are reviewed and are negative Mental Status Exam Mental Status Exam Patient Appearance: Disheveled and Unkempt Patient Orientation: Person and Situation Level of Consciousness: Awake Patient Behavior: Guarded and Passive Mood Description: Depressed and Apprehensive Affect Description: Constricted, Depressed and Apprehensive Patient Cognition Impaired: Yes Ability to Follow Directions: Good Speech Pattern: Clear Memory Description: Intact Diagnostics Vital Signs (24Hr): Vital Signs - 24 hr 01/02/21 09:18 01/02/21 20:50 Temperature 97.7 F Pulse Rate 70 65 Respiratory Rate 20 Blood Pressure 116/70 138/66 Pulse Oximetry 94 Body Mass Index 27.1 Labs Results: 11/19/20 06:25 12/14/20 06:53 Medications Medications Current Medications Generic Name Dose Route Start Last Admin Trade Name Freq PRN Reason Stop Dose Admin Acetaminophen 650 mg 11/18/20 13:10 12/24/20 10:51 Acetaminophen 325 Mg Tablet PO 650 mg Q6H PRN Administration Headache/Pain Mild Scale (1-3) Al Hydroxide/Mg Hydroxide 30 ml 11/18/20 13:10 Magnesium Hydrox/Alum Hydrox 30 Ml Oral.Susp PO Q6H PRN Heartburn/Nausea Amlodipine Besylate 5 mg 11/19/20 09:00 01/02/21 09:18 Amlodipine Besylate 5 Mg Tablet PO 5 mg DAILY RADHAMES Administration Protocol Aspirin 81 mg 11/19/20 09:00 01/02/21 09:18 Aspirin 81 Mg Tab.Chew PO 81 mg DAILY RADHAMES Administration Carbamazepine 400 mg 11/18/20 21:00 01/02/21 20:37 Carbamazepine 200 Mg Tablet PO 400 mg BID RADHAMES Administration Carbidopa/Levodopa 1 tab 11/18/20 21:00 01/02/21 20:37 Carbidopa/Levodopa 25/100 Tablet PO 1 tab BID RADHAMES Administration Diphenhydramine HCl 50 mg 11/30/20 13:52 01/02/21 20:51 Diphenhydramine Hcl 25 Mg Tablet PO 50 mg BID PRN Administration agitation Haloperidol 5 mg 11/30/20 13:52 12/30/20 22:05 Haloperidol 5 Mg Tablet PO 5 mg TID PRN Administration Psychosis Haloperidol 20 mg 12/16/20 21:00 01/02/21 20:38 Haloperidol 5 Mg Tablet PO 20 mg BEDTIME RADHAMES Administration Haloperidol Lactate 2.5 mg 11/20/20 19:38 11/30/20 11:13 Haloperidol Lactate 10 Mg/5 Ml Oral.Conc PO 2.5 mg TID PRN Administration hypersexuality Hydroxyzine HCl 25 mg 01/02/21 17:22 01/02/21 20:37 Hydroxyzine Hcl 25 Mg Tablet PO 25 mg TID PRN Administration Anxiety Magnesium Hydroxide 30 ml 11/18/20 13:10 Milk Of Magnesia 30 Ml Oral.Susp PO DAILY PRN Constipation Multi-Ingred Cream/Lotion/Oil/Oint 1 appl 01/01/21 21:00 01/02/21 20:41 Mineral Oil/Petrolatum,White 106 Gm Tube TOPICAL Not Given BID RADHAMES Paliperidone Palmitate 234 mg 12/23/20 08:00 12/23/20 12:56 Paliperidone Palmitate 234 Mg/1.5 Ml Syringe IM 234 mg Q30D RADHAMES Administration Pravastatin Sodium 40 mg 11/19/20 09:00 01/02/21 09:18 Pravastatin Sodium 40 Mg Tablet PO 40 mg DAILY RADHAMES Administration Tamsulosin HCl 0.4 mg 11/18/20 21:00 01/02/21 20:37 Tamsulosin Hcl 0.4 Mg Capsule PO 0.4 mg BEDTIME RADHAMES Administration Trolamine Salicylate/Aloe Vera 1 appl 12/19/20 10:37 12/24/20 09:22 Trolamine Salicylate 10%/Aloe Cream 35.4 Gm TOPICAL 1 appl TID PRN Administration Pain, Mild (Pain Scale 1-3) Allergies Allergies Allergy/AdvReac Type Severity Reaction Status Date / Time No Known Allergies Allergy Verified 11/18/20 11:30 Assessment & Plan Assessment & Plan (1) Bipolar 1 disorder: Status: Acute Code(s): F31.9 - Bipolar disorder, unspecified Assessment and Plan: The patient is an elderly Caucaasian male with Bipolar disorder, resident of a custodial in the [place] side of [facility], grossly manic and psychotic, extremely disruptive and abusive towards peers and staff. He has a Montiel order and a guardianship. Plan: Invega Sustenna 234 mg second dose on 11/29 next dose on 12/23 Next Haldol dec od/c Change haloperidol to 20 mg p.o. q.h.s. Continue rest the same. Now on Section 7 and 8. pt withdrawn isolated continue above medication Greater than 50% of the session was spent on counseling and/or coordination of care Reason for contiued inpatient stay Substantial Risk for: harm to self and rapid decompensation
[2021-01-02] MEDS: LORazepam 1 MG TABLET PO (21:36)
--- NOTE | 2021-01-02 22:40 | PC.NURSE ---
Jake was very emotional this evening, experiencing intense emotional distress. Pt expressed to this RN I want a quick peaceful , patient expressed SI and regrets over past life choices; as patient was speaking to RN patient started repetitively hitting himself in the neck and the RN had to physically stop him. Discussed with patient the need for safety, and patient wanted to stay in room and sleep, dell for safety as RN worked getting him a PRN. As RN was getting PRN patient was yelling out in emotional distress, repetitively I just want to . I just want to ; patient was given prn Atarax for anxiety followed by PRN Benadryl, and a 1:1 was placed temporarily until PRNs took effect. call center assistant coverage was called for a PRN of Ativan, as patient continued to yell in emotional distress; patient was encouraged to come out into the dayroom to distract himself while medication took effect. Patient was able to continue to contract for safety, with no further self-harming episodes, and calmed to the point of going to bed and not needing 1:1. Remained sullen and withdrawn when in his room but calm state. Continued on 15 minute checks and will continue to monitor.
[2021-01-03 08:00] VITALS: BP 121/72; PULSE 73; TEMP 36.3; O2SAT 94
[2021-01-03 09:47] VITALS: BP 121/72; PULSE 73
[2021-01-03] MEDS: Aspirin 81 MG TAB.CHEW PO (09:47)
[2021-01-03] MEDS: Carbidopa/Levodopa 25/100 TABLET 1 TAB PO ×2 (09:47→20:16)
[2021-01-03] MEDS: carBAMazepine 200 MG TABLET 400 MG PO ×2 (09:47→20:16)
[2021-01-03] MEDS: amLODIPine Besylate 5 MG TABLET PO (09:47)
[2021-01-03] MEDS: Pravastatin Sodium 40 MG TABLET PO (09:47)
--- NOTE | 2021-01-03 11:07 | P.PNPSI_ITS ---
Subjective Subjective Date of Service: 01/04/21 Reason For Visit: Bipolar disorder Subjective Notes: Section 8 Interim History: Per nursing, pt not as visible as before, although not psychotic and in behavioral control. Pt reports feeling well. He denies suicidal or homicidal ideation. He denies depressed mood, although notes that he is worried about his living situation as he does not know if he can return to [facility]. He has been sleeping and eating well. Walking with walker. He denies VH/AH. Medication Compliance: Yes Attending Groups: Intermittent Review of Systems Acute medical concerns: No Medical Review of Systems: unchanged Review of Systems Review of Systems Yes all other systems are reviewed and are negative Mental Status Exam Mental Status Exam Narrative: Appearance: casually groomed, fair hygiene in NAD Behavior:cooperative psychomotor:some retardation noted, bilat resting tremor Speech: clear, mumbles at times, regular rate/rhythm/volume, spontaneous Thought process:mostly linear Thought content:no overt signs of psychosis, worried about his living situation Mood: okay Affect: somewhat blunted SI:denies HI:denies VH/AH:denies Delusions:no overt delusional content reported Insight/judgment: fair x 2 Memory/cog: alert, oriented x 3. not formally tested. Diagnostics Vital Signs (24Hr): Vital Signs - 24 hr 01/03/21 18:00 01/04/21 06:00 01/04/21 08:29 Temperature 98.4 F 97.9 F Pulse Rate 77 80 80 Respiratory Rate 18 16 Blood Pressure 117/74 109/63 109/63 Pulse Oximetry 94 94 Body Mass Index 27.1 Labs Results: 11/19/20 06:25 12/14/20 06:53 Medications Medications Current Medications Generic Name Dose Route Start Last Admin Trade Name Freq PRN Reason Stop Dose Admin Acetaminophen 650 mg 11/18/20 13:10 12/24/20 10:51 Acetaminophen 325 Mg Tablet PO 650 mg Q6H PRN Administration Headache/Pain Mild Scale (1-3) Al Hydroxide/Mg Hydroxide 30 ml 11/18/20 13:10 Magnesium Hydrox/Alum Hydrox 30 Ml Oral.Susp PO Q6H PRN Heartburn/Nausea Amlodipine Besylate 5 mg 11/19/20 09:00 01/04/21 08:29 Amlodipine Besylate 5 Mg Tablet PO 5 mg DAILY RADHAMES Administration Protocol Aspirin 81 mg 11/19/20 09:00 01/04/21 08:28 Aspirin 81 Mg Tab.Chew PO 81 mg DAILY RADHAMES Administration Carbamazepine 400 mg 11/18/20 21:00 01/04/21 08:28 Carbamazepine 200 Mg Tablet PO 400 mg BID RADHAMES Administration Carbidopa/Levodopa 1 tab 11/18/20 21:00 01/04/21 08:31 Carbidopa/Levodopa 25/100 Tablet PO 1 tab BID RADHAMES Administration Diphenhydramine HCl 50 mg 11/30/20 13:52 01/03/21 16:44 Diphenhydramine Hcl 25 Mg Tablet PO 50 mg BID PRN Administration agitation Haloperidol 5 mg 11/30/20 13:52 01/04/21 02:30 Haloperidol 5 Mg Tablet PO 5 mg TID PRN Administration Psychosis Haloperidol 20 mg 12/16/20 21:00 01/03/21 20:16 Haloperidol 5 Mg Tablet PO 20 mg BEDTIME RADHAMES Administration Haloperidol Lactate 2.5 mg 11/20/20 19:38 11/30/20 11:13 Haloperidol Lactate 10 Mg/5 Ml Oral.Conc PO 2.5 mg TID PRN Administration hypersexuality Hydroxyzine HCl 25 mg 01/02/21 17:22 01/03/21 21:16 Hydroxyzine Hcl 25 Mg Tablet PO 25 mg TID PRN Administration Anxiety Magnesium Hydroxide 30 ml 11/18/20 13:10 Milk Of Magnesia 30 Ml Oral.Susp PO DAILY PRN Constipation Multi-Ingred Cream/Lotion/Oil/Oint 1 appl 01/01/21 21:00 01/04/21 10:54 Mineral Oil/Petrolatum,White 106 Gm Tube TOPICAL Not Given BID RADHAMES Paliperidone Palmitate 234 mg 12/23/20 08:00 12/23/20 12:56 Paliperidone Palmitate 234 Mg/1.5 Ml Syringe IM 234 mg Q30D RADHAMES Administration Pravastatin Sodium 40 mg 11/19/20 09:00 01/04/21 08:28 Pravastatin Sodium 40 Mg Tablet PO 40 mg DAILY RADHAMES Administration Tamsulosin HCl 0.4 mg 11/18/20 21:00 01/03/21 20:16 Tamsulosin Hcl 0.4 Mg Capsule PO 0.4 mg BEDTIME RADHAMES Administration Trolamine Salicylate/Aloe Vera 1 appl 12/19/20 10:37 12/24/20 09:22 Trolamine Salicylate 10%/Aloe Cream 35.4 Gm TOPICAL 1 appl TID PRN Administration Pain, Mild (Pain Scale 1-3) Allergies Allergies Allergy/AdvReac Type Severity Reaction Status Date / Time No Known Allergies Allergy Verified 11/18/20 11:30 Assessment & Plan Assessment & Plan (1) Bipolar 1 disorder: Status: Acute Code(s): F31.9 - Bipolar disorder, unspecified Assessment and Plan: The patient is an elderly Caucaasian male with Bipolar disorder, resident of a chcf in the [place] side located within [facility], who was admitted due to being grossly manic and psychotic, extremely disruptive and abusive towards peers and staff. He has a Montiel order and a guardianship. As of 01/03- He is currently much less manic, no overt psychosis noted, effect blunted no active SI/HI. No behavioral concerns. Continue per primary treatment team: Plan: Invega Sustenna 234 mg second dose on 11/29 next dose on 12/23 Next Haldol dec od/c Change haloperidol to 20 mg p.o. q.h.s. Continue rest the same. Now on Section 7 and 8. pt withdrawn isolated continue above medication Greater than 50% of the session was spent on counseling and/or coordination of care Reason for contiued inpatient stay Substantial Risk for: stable for discharge
[2021-01-03] MEDS: hydrOXYzine HCL 25 MG TABLET PO ×2 (16:30→21:16)
[2021-01-03] MEDS: diphenhydrAMINE HCL 25 MG TABLET 50 MG PO (16:44)
[2021-01-03 18:00] VITALS: BP 117/74; PULSE 77; RESP 18; TEMP 36.9; O2SAT 94
[2021-01-03] MEDS: Tamsulosin HCL 0.4 MG CAPSULE PO (20:16)
[2021-01-03] MEDS: HaloperidoL 5 MG TABLET 20 MG PO (20:16)
[2021-01-03] MEDS: Mineral Oil/Petrolatum,White 106 GM Tube 1 APPL TOPICAL (20:17)
[2021-01-04] MEDS: HaloperidoL 5 MG TABLET PO (02:30)
[2021-01-04 06:00] VITALS: BP 109/63; PULSE 80; RESP 16; TEMP 36.6; O2SAT 94
[2021-01-04] MEDS: Aspirin 81 MG TAB.CHEW PO (08:28)
[2021-01-04] MEDS: carBAMazepine 200 MG TABLET 400 MG PO ×2 (08:28→20:48)
[2021-01-04] MEDS: Pravastatin Sodium 40 MG TABLET PO (08:28)
[2021-01-04 08:29] VITALS: BP 109/63; PULSE 80
[2021-01-04] MEDS: amLODIPine Besylate 5 MG TABLET PO (08:29)
[2021-01-04] MEDS: Carbidopa/Levodopa 25/100 TABLET 1 TAB PO ×2 (08:31→20:48)
--- NOTE | 2021-01-04 11:14 | HO.PSYCHPN ---
Subjective Subjective Date of Service: 01/04/21 Reason For Visit: Bipolar disorder Subjective Notes: Section 8 Interim History: Per nursing, pt not as visible as before, although not psychotic and in behavioral control. Pt appears more withdrawn today. He reports feeling anxious about upcoming phone meeting with assistant housekeeping manager to determine if he can return there. He will be accompanied by PATRICK Medrano. Pt appropriately worried about housing. He denies suicidal or homicidal ideation. He does report some sadness about where he is at in his life and current problems that he hopes he hadn't had. No behavioral concerns. Review of Systems Review of Systems Yes all other systems are reviewed and are negative Mental Status Exam Mental Status Exam Narrative: Appearance: casually groomed, fair hygiene in NAD Behavior:cooperative psychomotor:some retardation noted, bilat resting tremor Speech: clear, mumbles at times, regular rate/rhythm/volume, spontaneous Thought process:mostly linear Thought content:no overt signs of psychosis, worried about his living situation Mood: okay Affect: somewhat blunted SI:denies HI:denies VH/AH:denies Delusions:no overt delusional content reported Insight/judgment: fair x 2 Memory/cog: alert, oriented x 3. not formally tested. Diagnostics Vital Signs (24Hr): Vital Signs - 24 hr 01/03/21 18:00 01/04/21 06:00 01/04/21 08:29 Temperature 98.4 F 97.9 F Pulse Rate 77 80 80 Respiratory Rate 18 16 Blood Pressure 117/74 109/63 109/63 Pulse Oximetry 94 94 Body Mass Index 27.1 Labs Results: 11/19/20 06:25 12/14/20 06:53 Medications Medications Current Medications Generic Name Dose Route Start Last Admin Trade Name Freq PRN Reason Stop Dose Admin Acetaminophen 650 mg 11/18/20 13:10 12/24/20 10:51 Acetaminophen 325 Mg Tablet PO 650 mg Q6H PRN Administration Headache/Pain Mild Scale (1-3) Al Hydroxide/Mg Hydroxide 30 ml 11/18/20 13:10 Magnesium Hydrox/Alum Hydrox 30 Ml Oral.Susp PO Q6H PRN Heartburn/Nausea Amlodipine Besylate 5 mg 11/19/20 09:00 01/04/21 08:29 Amlodipine Besylate 5 Mg Tablet PO 5 mg DAILY RADHAMES Administration Protocol Aspirin 81 mg 11/19/20 09:00 01/04/21 08:28 Aspirin 81 Mg Tab.Chew PO 81 mg DAILY RADHAMES Administration Carbamazepine 400 mg 11/18/20 21:00 01/04/21 08:28 Carbamazepine 200 Mg Tablet PO 400 mg BID RADHAMES Administration Carbidopa/Levodopa 1 tab 11/18/20 21:00 01/04/21 08:31 Carbidopa/Levodopa 25/100 Tablet PO 1 tab BID RADHAMES Administration Diphenhydramine HCl 50 mg 11/30/20 13:52 01/03/21 16:44 Diphenhydramine Hcl 25 Mg Tablet PO 50 mg BID PRN Administration agitation Haloperidol 5 mg 11/30/20 13:52 01/04/21 02:30 Haloperidol 5 Mg Tablet PO 5 mg TID PRN Administration Psychosis Haloperidol 20 mg 12/16/20 21:00 01/03/21 20:16 Haloperidol 5 Mg Tablet PO 20 mg BEDTIME RADHAMES Administration Haloperidol Lactate 2.5 mg 11/20/20 19:38 11/30/20 11:13 Haloperidol Lactate 10 Mg/5 Ml Oral.Conc PO 2.5 mg TID PRN Administration hypersexuality Hydroxyzine HCl 25 mg 01/02/21 17:22 01/03/21 21:16 Hydroxyzine Hcl 25 Mg Tablet PO 25 mg TID PRN Administration Anxiety Magnesium Hydroxide 30 ml 11/18/20 13:10 Milk Of Magnesia 30 Ml Oral.Susp PO DAILY PRN Constipation Multi-Ingred Cream/Lotion/Oil/Oint 1 appl 01/01/21 21:00 01/04/21 10:54 Mineral Oil/Petrolatum,White 106 Gm Tube TOPICAL Not Given BID RADHAMES Paliperidone Palmitate 234 mg 12/23/20 08:00 12/23/20 12:56 Paliperidone Palmitate 234 Mg/1.5 Ml Syringe IM 234 mg Q30D RADHAMES Administration Pravastatin Sodium 40 mg 11/19/20 09:00 01/04/21 08:28 Pravastatin Sodium 40 Mg Tablet PO 40 mg DAILY RADHAMES Administration Tamsulosin HCl 0.4 mg 11/18/20 21:00 01/03/21 20:16 Tamsulosin Hcl 0.4 Mg Capsule PO 0.4 mg BEDTIME RADHAMES Administration Trolamine Salicylate/Aloe Vera 1 appl 12/19/20 10:37 12/24/20 09:22 Trolamine Salicylate 10%/Aloe Cream 35.4 Gm TOPICAL 1 appl TID PRN Administration Pain, Mild (Pain Scale 1-3) Allergies Allergies Allergy/AdvReac Type Severity Reaction Status Date / Time No Known Allergies Allergy Verified 11/18/20 11:30 Assessment & Plan Assessment & Plan (1) Bipolar 1 disorder: Status: Acute Code(s): F31.9 - Bipolar disorder, unspecified Assessment and Plan: The patient is an elderly Caucaasian male with Bipolar disorder, resident of a snf in the [place] side [facility], who was admitted due to being grossly manic and psychotic, extremely disruptive and abusive towards peers and staff. He has a Montiel order and a guardianship. As of 01/03- He is currently much less manic, no overt psychosis noted, effect blunted no active SI/HI. No behavioral concerns. Continue per primary treatment team: Plan: Invega Sustenna 234 mg second dose on 11/29 next dose on 12/23 Next Haldol dec od/c Change haloperidol to 20 mg p.o. q.h.s. Continue rest the same. Now on Section 7 and 8. pt withdrawn isolated continue above medication Greater than 50% of the session was spent on counseling and/or coordination of care Reason for contiued inpatient stay Substantial Risk for: stable for discharge
[2021-01-04 18:00] VITALS: BP 147/77; PULSE 62; RESP 15; TEMP 36.3; O2SAT 96
[2021-01-04] MEDS: HaloperidoL 5 MG TABLET 20 MG PO (20:48)
[2021-01-04] MEDS: Tamsulosin HCL 0.4 MG CAPSULE PO (20:48)
[2021-01-04] MEDS: hydrOXYzine HCL 25 MG TABLET PO (21:04)
[2021-01-04] MEDS: diphenhydrAMINE HCL 25 MG TABLET 50 MG PO (22:08)
[2021-01-05] MEDS: amLODIPine Besylate 5 MG TABLET PO (08:19)
[2021-01-05] MEDS: carBAMazepine 200 MG TABLET 400 MG PO ×2 (08:19→20:51)
[2021-01-05] MEDS: Pravastatin Sodium 40 MG TABLET PO (08:19)
[2021-01-05] MEDS: Aspirin 81 MG TAB.CHEW PO (08:19)
[2021-01-05] MEDS: Carbidopa/Levodopa 25/100 TABLET 1 TAB PO ×2 (08:19→20:51)
[2021-01-05 09:44] VITALS: BP 129/61; PULSE 75; RESP 16; TEMP 36.2; O2SAT 94
--- NOTE | 2021-01-05 14:21 | P.PNPSI_ITS ---
Subjective Subjective Date of Service: 01/05/21 Reason For Visit: Bipolar disorder Subjective Notes: Section 7 and Section 8 Interim History: Nursing staff reported the patient is sleeping a lot, he looks dysphoric and there were no behavioral problems. Also the staff, reported that he has more grounded in reality. On interview the patient reported that he is feeling sad, he wants to go back to the community. He will have a phone conversation tomorrow 14:00 with the staff of [facility] jail. Medication Compliance: Yes Side effects from medications: No Attending Groups: Yes Review of Systems Acute medical concerns: No Medical Review of Systems: unchanged Mental Status Exam Mental Status Exam Patient Appearance: Disheveled and Unkempt Patient Orientation: Person, Place and Time Level of Consciousness: Awake Patient Behavior: Guarded Mood Description: Calm Affect Description: Constricted Patient Cognition Impaired: Yes Ability to Follow Directions: Good Speech Pattern: Clear Memory Description: Intact Hallucinations: None Delusions: Paranoid Ideation and Grandiose Thought Process: Distracted Thought Content: positive for Circumstantial and positive for Poverty of Content Judgement: Fair Diagnostics Vital Signs (24Hr): Vital Signs - 24 hr 01/04/21 18:00 01/05/21 09:44 Temperature 97.3 F 97.2 F Pulse Rate 62 75 Respiratory Rate 15 16 Blood Pressure 147/77 H 129/61 Pulse Oximetry 96 94 Body Mass Index 27.1 Labs Results: 11/19/20 06:25 12/14/20 06:53 Medications Medications Current Medications Generic Name Dose Route Start Last Admin Trade Name Freq PRN Reason Stop Dose Admin Acetaminophen 650 mg 11/18/20 13:10 12/24/20 10:51 Acetaminophen 325 Mg Tablet PO 650 mg Q6H PRN Administration Headache/Pain Mild Scale (1-3) Al Hydroxide/Mg Hydroxide 30 ml 11/18/20 13:10 Magnesium Hydrox/Alum Hydrox 30 Ml Oral.Susp PO Q6H PRN Heartburn/Nausea Amlodipine Besylate 5 mg 11/19/20 09:00 01/05/21 08:19 Amlodipine Besylate 5 Mg Tablet PO 5 mg DAILY RADHAMES Administration Protocol Aspirin 81 mg 11/19/20 09:00 01/05/21 08:19 Aspirin 81 Mg Tab.Chew PO 81 mg DAILY RADHAMES Administration Carbamazepine 400 mg 11/18/20 21:00 01/05/21 08:19 Carbamazepine 200 Mg Tablet PO 400 mg BID RADHAMES Administration Carbidopa/Levodopa 1 tab 11/18/20 21:00 01/05/21 08:19 Carbidopa/Levodopa 25/100 Tablet PO 1 tab BID RADHAMES Administration Diphenhydramine HCl 50 mg 11/30/20 13:52 01/04/21 22:08 Diphenhydramine Hcl 25 Mg Tablet PO 50 mg BID PRN Administration agitation Haloperidol 5 mg 11/30/20 13:52 01/04/21 02:30 Haloperidol 5 Mg Tablet PO 5 mg TID PRN Administration Psychosis Haloperidol 20 mg 12/16/20 21:00 01/04/21 20:48 Haloperidol 5 Mg Tablet PO 20 mg BEDTIME RADHAMES Administration Haloperidol Lactate 2.5 mg 11/20/20 19:38 11/30/20 11:13 Haloperidol Lactate 10 Mg/5 Ml Oral.Conc PO 2.5 mg TID PRN Administration hypersexuality Hydroxyzine HCl 25 mg 01/02/21 17:22 01/04/21 21:04 Hydroxyzine Hcl 25 Mg Tablet PO 25 mg TID PRN Administration Anxiety Magnesium Hydroxide 30 ml 11/18/20 13:10 Milk Of Magnesia 30 Ml Oral.Susp PO DAILY PRN Constipation Multi-Ingred Cream/Lotion/Oil/Oint 1 appl 01/01/21 21:00 01/05/21 08:20 Mineral Oil/Petrolatum,White 106 Gm Tube TOPICAL Not Given BID RADHAMES Paliperidone Palmitate 234 mg 12/23/20 08:00 12/23/20 12:56 Paliperidone Palmitate 234 Mg/1.5 Ml Syringe IM 234 mg Q30D RADHAMES Administration Pravastatin Sodium 40 mg 11/19/20 09:00 01/05/21 08:19 Pravastatin Sodium 40 Mg Tablet PO 40 mg DAILY RADHAMES Administration Tamsulosin HCl 0.4 mg 11/18/20 21:00 01/04/21 20:48 Tamsulosin Hcl 0.4 Mg Capsule PO 0.4 mg BEDTIME RADHAMES Administration Trolamine Salicylate/Aloe Vera 1 appl 12/19/20 10:37 12/24/20 09:22 Trolamine Salicylate 10%/Aloe Cream 35.4 Gm TOPICAL 1 appl TID PRN Administration Pain, Mild (Pain Scale 1-3) Allergies Allergies Allergy/AdvReac Type Severity Reaction Status Date / Time No Known Allergies Allergy Verified 11/18/20 11:30 Assessment & Plan Assessment & Plan (1) Bipolar 1 disorder: Status: Acute Code(s): F31.9 - Bipolar disorder, unspecified Assessment and Plan: The patient is an elderly Caucaasian male with Bipolar disorder, resident of a jail in the [place] side of [facility], who was admitted due to being grossly manic and psychotic, extremely disruptive and abusive towards peers and staff. He has a Montiel order and a guardianship. As of 01/03- He is currently much less manic, no overt psychosis noted, effect blunted no active SI/HI. No behavioral concerns. Continue per primary treatment team: Plan: Invega Sustenna 234 mg second dose on 11/29 next dose on 12/23 Next Haldol dec od/c Change haloperidol to 20 mg p.o. q.h.s. Continue rest the same. Now on Section 7 and 8. pt withdrawn isolated continue above medication Greater than 50% of the session was spent on counseling and/or coordination of care Informed Consent: understands Reason for contiued inpatient stay Substantial Risk for: inability to function, rapid decompensation and med/psych decompensation
[2021-01-05] MEDS: hydrOXYzine HCL 25 MG TABLET PO (17:26)
[2021-01-05] MEDS: diphenhydrAMINE HCL 25 MG TABLET 50 MG PO (18:34)
[2021-01-05] MEDS: Tamsulosin HCL 0.4 MG CAPSULE PO (20:51)
[2021-01-05] MEDS: HaloperidoL 5 MG TABLET 20 MG PO (20:51)
[2021-01-05 20:57] VITALS: BP 153/85; PULSE 65; RESP 18; TEMP 36.9; O2SAT 95
[2021-01-06] MEDS: hydrOXYzine HCL 25 MG TABLET PO ×2 (02:26→20:23)
[2021-01-06] MEDS: HaloperidoL 5 MG TABLET PO (03:24)
[2021-01-06 06:00] VITALS: BP 125/67; PULSE 81; TEMP 36.6; O2SAT 94
[2021-01-06] MEDS: Pravastatin Sodium 40 MG TABLET PO (08:15)
[2021-01-06] MEDS: Carbidopa/Levodopa 25/100 TABLET 1 TAB PO ×2 (08:15→20:22)
[2021-01-06] MEDS: carBAMazepine 200 MG TABLET 400 MG PO ×2 (08:15→20:22)
[2021-01-06 08:16] VITALS: BP 125/67; PULSE 81
[2021-01-06] MEDS: Aspirin 81 MG TAB.CHEW PO (08:16)
[2021-01-06] MEDS: amLODIPine Besylate 5 MG TABLET PO (08:16)
[2021-01-06 14:01] VITALS: BMI 27.1
[2021-01-06 18:00] VITALS: BP 150/72; PULSE 59; TEMP 36.4; O2SAT 94
[2021-01-06] MEDS: Tamsulosin HCL 0.4 MG CAPSULE PO (20:22)
[2021-01-06] MEDS: HaloperidoL 5 MG TABLET 20 MG PO (20:23)
[2021-01-06] MEDS: diphenhydrAMINE HCL 25 MG TABLET 50 MG PO (20:59)
[2021-01-07 07:50] VITALS: BP 122/72; PULSE 75; RESP 18; TEMP 36.8; O2SAT 95
[2021-01-07 09:11] VITALS: BP 122/72; PULSE 75
[2021-01-07] MEDS: Aspirin 81 MG TAB.CHEW PO (09:11)
[2021-01-07] MEDS: Pravastatin Sodium 40 MG TABLET PO (09:11)
[2021-01-07] MEDS: Carbidopa/Levodopa 25/100 TABLET 1 TAB PO ×2 (09:11→20:15)
[2021-01-07] MEDS: amLODIPine Besylate 5 MG TABLET PO (09:11)
[2021-01-07] MEDS: carBAMazepine 200 MG TABLET 400 MG PO ×2 (09:12→20:15)
[2021-01-07] MEDS: hydrOXYzine HCL 25 MG TABLET PO ×2 (09:17→17:35)
--- NOTE | 2021-01-07 11:07 | P.PNPSI_ITS ---
Subjective Subjective Date of Service: 01/07/21 Reason For Visit: Bipolar disorder Subjective Notes: Section 7 and Section 8 Interim History: Nursing staff reported the patient is more depressed and isolative. The protective services social worker reported that yesterday had a phone conversation with the director of his house and he quit reported that he made threats to him but the staff is willing ?to move forward?. Yesterday also, he attended to groups and he was appropriate. Today, he was assessed at bedside and he was tired but he reported feeling down, he is willing to work with the correction being over to avoid more inpatient admissions. At this moment, he does not present any manic symptoms. Mental Status Exam Mental Status Exam Patient Appearance: Well Grooomed and Appropriate Patient Orientation: Person, Place and Situation Level of Consciousness: Awake Patient Behavior: Appropriate Mood Description: Calm Affect Description: Constricted Patient Cognition Impaired: No Ability to Follow Directions: Good Speech Pattern: Clear Memory Description: Intact Hallucinations: None Delusions: Paranoid Ideation Thought Process: Distracted and Slowed Thinking Thought Content: positive for Circumstantial Depressive Symptoms: Increased Anxiety Judgement: Fair Diagnostics Vital Signs (24Hr): Vital Signs - 24 hr 01/06/21 18:00 01/07/21 07:50 01/07/21 09:11 Temperature 97.6 F 98.3 F Pulse Rate 59 75 75 Respiratory Rate 18 Blood Pressure 150/72 H 122/72 122/72 Pulse Oximetry 94 95 Body Mass Index 27.1 Labs Results: 11/19/20 06:25 12/14/20 06:53 Medications Medications Current Medications Generic Name Dose Route Start Last Admin Trade Name Freq PRN Reason Stop Dose Admin Acetaminophen 650 mg 11/18/20 13:10 12/24/20 10:51 Acetaminophen 325 Mg Tablet PO 650 mg Q6H PRN Administration Headache/Pain Mild Scale (1-3) Al Hydroxide/Mg Hydroxide 30 ml 11/18/20 13:10 Magnesium Hydrox/Alum Hydrox 30 Ml Oral.Susp PO Q6H PRN Heartburn/Nausea Amlodipine Besylate 5 mg 11/19/20 09:00 01/07/21 09:11 Amlodipine Besylate 5 Mg Tablet PO 5 mg DAILY RADHAMES Administration Protocol Aspirin 81 mg 11/19/20 09:00 01/07/21 09:11 Aspirin 81 Mg Tab.Chew PO 81 mg DAILY RADHAMES Administration Carbamazepine 400 mg 11/18/20 21:00 01/07/21 09:12 Carbamazepine 200 Mg Tablet PO 400 mg BID RADHAMES Administration Carbidopa/Levodopa 1 tab 11/18/20 21:00 01/07/21 09:11 Carbidopa/Levodopa 25/100 Tablet PO 1 tab BID RADHAMES Administration Diphenhydramine HCl 50 mg 11/30/20 13:52 01/06/21 20:59 Diphenhydramine Hcl 25 Mg Tablet PO 50 mg BID PRN Administration agitation Haloperidol 5 mg 11/30/20 13:52 01/06/21 03:24 Haloperidol 5 Mg Tablet PO 5 mg TID PRN Administration Psychosis Haloperidol 20 mg 12/16/20 21:00 01/06/21 20:23 Haloperidol 5 Mg Tablet PO 20 mg BEDTIME RADHAMES Administration Haloperidol Lactate 2.5 mg 11/20/20 19:38 11/30/20 11:13 Haloperidol Lactate 10 Mg/5 Ml Oral.Conc PO 2.5 mg TID PRN Administration hypersexuality Hydroxyzine HCl 25 mg 01/02/21 17:22 01/07/21 09:17 Hydroxyzine Hcl 25 Mg Tablet PO 25 mg TID PRN Administration Anxiety Magnesium Hydroxide 30 ml 11/18/20 13:10 Milk Of Magnesia 30 Ml Oral.Susp PO DAILY PRN Constipation Multi-Ingred Cream/Lotion/Oil/Oint 1 appl 01/01/21 21:00 01/07/21 09:12 Mineral Oil/Petrolatum,White 106 Gm Tube TOPICAL Not Given BID RADHAMES Paliperidone Palmitate 234 mg 12/23/20 08:00 12/23/20 12:56 Paliperidone Palmitate 234 Mg/1.5 Ml Syringe IM 234 mg Q30D RADHAMES Administration Pravastatin Sodium 40 mg 11/19/20 09:00 01/07/21 09:11 Pravastatin Sodium 40 Mg Tablet PO 40 mg DAILY RADHAMES Administration Tamsulosin HCl 0.4 mg 11/18/20 21:00 01/06/21 20:22 Tamsulosin Hcl 0.4 Mg Capsule PO 0.4 mg BEDTIME RADHAMES Administration Trolamine Salicylate/Aloe Vera 1 appl 12/19/20 10:37 01/06/21 17:25 Trolamine Salicylate 10%/Aloe Cream 35.4 Gm TOPICAL 1 appl TID PRN Administration Pain, Mild (Pain Scale 1-3) Allergies Allergies Allergy/AdvReac Type Severity Reaction Status Date / Time No Known Allergies Allergy Verified 11/18/20 11:30 Assessment & Plan Assessment & Plan (1) Bipolar 1 disorder: Status: Acute Code(s): F31.9 - Bipolar disorder, unspecified Assessment and Plan: The patient is an elderly Caucaasian male with Bipolar disorder, resident of a correction in the [place] side of [facility], who was admitted due to being grossly manic and psychotic, extremely disruptive and abusive towards peers and staff. He has a Montiel order and a guardianship. As of 01/03- He is currently much less manic, no overt psychosis noted, effect blunted no active SI/HI. Later in January, he presented himself with more depression No behavioral concerns. Continue per primary treatment team: Plan: Invega Sustenna 234 mg second dose on 11/29 next dose on 12/23 Next Haldol dec od/c Change haloperidol to 20 mg p.o. q.h.s. Continue rest the same. Now on Section 7 and 8. pt withdrawn isolated continue above medication Greater than 50% of the session was spent on counseling and/or coordination of care Reason for contiued inpatient stay Substantial Risk for: inability to function, rapid decompensation and med/psych decompensation
[2021-01-07] MEDS: LORazepam 1 MG TABLET PO (18:40)
[2021-01-07 18:45] VITALS: BP 139/82; PULSE 70; RESP 18; TEMP 36.2; O2SAT 96
[2021-01-07] MEDS: diphenhydrAMINE HCL 25 MG TABLET 50 MG PO (19:37)
[2021-01-07] MEDS: HaloperidoL 5 MG TABLET 20 MG PO (20:16)
[2021-01-07] MEDS: Tamsulosin HCL 0.4 MG CAPSULE PO (20:16)
[2021-01-08] MEDS: HaloperidoL 5 MG TABLET PO (02:02)
[2021-01-08] MEDS: hydrOXYzine HCL 25 MG TABLET PO (02:02)
[2021-01-08 08:00] VITALS: BP 127/67; PULSE 70; TEMP 36.9; O2SAT 94
[2021-01-08 08:56] VITALS: BP 127/67; PULSE 70
[2021-01-08] MEDS: amLODIPine Besylate 5 MG TABLET PO (08:56)
[2021-01-08] MEDS: Carbidopa/Levodopa 25/100 TABLET 1 TAB PO ×2 (08:57→20:35)
[2021-01-08] MEDS: Aspirin 81 MG TAB.CHEW PO (08:57)
[2021-01-08] MEDS: carBAMazepine 200 MG TABLET 400 MG PO ×2 (08:57→20:36)
[2021-01-08] MEDS: Pravastatin Sodium 40 MG TABLET PO (08:58)
--- NOTE | 2021-01-08 11:21 | P.PNPSI_ITS ---
Subjective Subjective Date of Service: 01/09/21 Reason For Visit: Bipolar disorder Interim History: Pt mostly in bed. He reports feeling anxious at times but not able to identify what. Last week pt reporting feeling anxious as he did not know if will take him back. He reports he had meeting with engineering group manager who agreed to take him back once more stable. Pt reports that engineering group manager told him that he had threatened staff to hurt them with knife to what pt states he does not think he made that statement. He denies SI/HI. He reports vistaril helpful for anxiety. He has been encouraged to attend groups, be more visible in unit but he declines. No behavioral concerns. Medication Compliance: Yes Side effects from medications: No Attending Groups: No Review of Systems Acute medical concerns: No Review of Systems Review of Systems Yes all other systems are reviewed and are negative Mental Status Exam Mental Status Exam Narrative: Appearance: casually groomed, poor hygiene in NAD Behavior:cooperative psychomotor:some retardation noted, bilat resting tremor Speech: clear, mumbles at times, regular rate/rhythm/volume, spontaneous Thought process:mostly linear Thought content:no overt signs of psychosis, worried about his living situation Mood: okay Affect: somewhat blunted SI:denies HI:denies VH/AH:denies Delusions:no overt delusional content reported Insight/judgment: fair x 2 Memory/cog: alert, oriented x 3. not formally tested. Diagnostics Vital Signs (24Hr): Vital Signs - 24 hr 01/08/21 18:00 01/09/21 06:00 01/09/21 08:59 Temperature 98.6 F 98 F Pulse Rate 88 63 63 Respiratory Rate 20 Blood Pressure 138/76 134/77 134/77 Pulse Oximetry 95 94 Body Mass Index 27.1 Labs Results: 11/19/20 06:25 12/14/20 06:53 Medications Medications Current Medications Generic Name Dose Route Start Last Admin Trade Name Freq PRN Reason Stop Dose Admin Acetaminophen 650 mg 11/18/20 13:10 12/24/20 10:51 Acetaminophen 325 Mg Tablet PO 650 mg Q6H PRN Administration Headache/Pain Mild Scale (1-3) Al Hydroxide/Mg Hydroxide 30 ml 11/18/20 13:10 Magnesium Hydrox/Alum Hydrox 30 Ml Oral.Susp PO Q6H PRN Heartburn/Nausea Amlodipine Besylate 5 mg 11/19/20 09:00 01/09/21 08:59 Amlodipine Besylate 5 Mg Tablet PO 5 mg DAILY RADHAMES Administration Protocol Aspirin 81 mg 11/19/20 09:00 01/09/21 08:59 Aspirin 81 Mg Tab.Chew PO 81 mg DAILY RADHAMES Administration Carbamazepine 400 mg 11/18/20 21:00 01/09/21 08:59 Carbamazepine 200 Mg Tablet PO 400 mg BID RADHAMES Administration Carbidopa/Levodopa 1 tab 11/18/20 21:00 01/09/21 08:59 Carbidopa/Levodopa 25/100 Tablet PO 1 tab BID RADHAMES Administration Diphenhydramine HCl 50 mg 11/30/20 13:52 01/09/21 03:25 Diphenhydramine Hcl 25 Mg Tablet PO 50 mg BID PRN Administration agitation Haloperidol 5 mg 11/30/20 13:52 01/08/21 02:02 Haloperidol 5 Mg Tablet PO 5 mg TID PRN Administration Psychosis Haloperidol 20 mg 12/16/20 21:00 01/08/21 20:47 Haloperidol 5 Mg Tablet PO 20 mg BEDTIME RADHAMES Administration Haloperidol Lactate 2.5 mg 11/20/20 19:38 11/30/20 11:13 Haloperidol Lactate 10 Mg/5 Ml Oral.Conc PO 2.5 mg TID PRN Administration hypersexuality Hydroxyzine HCl 50 mg 01/08/21 09:51 01/09/21 02:19 Hydroxyzine Hcl 25 Mg Tablet PO 50 mg Q6H PRN Administration Anxiety Magnesium Hydroxide 30 ml 11/18/20 13:10 Milk Of Magnesia 30 Ml Oral.Susp PO DAILY PRN Constipation Multi-Ingred Cream/Lotion/Oil/Oint 1 appl 01/01/21 21:00 01/08/21 20:48 Mineral Oil/Petrolatum,White 106 Gm Tube TOPICAL Not Given BID RADHAMES Paliperidone Palmitate 234 mg 12/23/20 08:00 12/23/20 12:56 Paliperidone Palmitate 234 Mg/1.5 Ml Syringe IM 234 mg Q30D RADHAMES Administration Pravastatin Sodium 40 mg 11/19/20 09:00 01/09/21 08:59 Pravastatin Sodium 40 Mg Tablet PO 40 mg DAILY RADHAMES Administration Tamsulosin HCl 0.4 mg 11/18/20 21:00 01/08/21 20:35 Tamsulosin Hcl 0.4 Mg Capsule PO 0.4 mg BEDTIME RADHAMES Administration Trolamine Salicylate/Aloe Vera 1 appl 12/19/20 10:37 01/07/21 17:37 Trolamine Salicylate 10%/Aloe Cream 35.4 Gm TOPICAL 1 appl TID PRN Administration Pain, Mild (Pain Scale 1-3) Allergies Allergies Allergy/AdvReac Type Severity Reaction Status Date / Time No Known Allergies Allergy Verified 11/18/20 11:30 Assessment & Plan Assessment & Plan (1) Bipolar 1 disorder: Status: Acute Code(s): F31.9 - Bipolar disorder, unspecified Assessment and Plan: The patient is an elderly male with Bipolar disorder, resident of a longterm in the [place] side of [facility], who was admitted due to being grossly manic and psychotic, extremely disruptive and abusive towards peers and staff. He has a Montiel order and a guardianship. As of 01/03- He is currently much less manic, no overt psychosis noted, effect blunted no active SI/HI. Later in January, he presented himself with more depression No behavioral concerns. Continue per primary treatment team: Plan: Invega Sustenna 234 mg second dose on 11/29 next dose on 12/23 Next Haldol dec od/c Change haloperidol to 20 mg p.o. q.h.s. Continue rest the same. Now on Section 7 and 8. Greater than 50% of the session was spent on counseling and/or coordination of care Reason for contiued inpatient stay Substantial Risk for: rapid decompensation
[2021-01-08] MEDS: hydrOXYzine HCL 25 MG TABLET 50 MG PO (17:37)
[2021-01-08 18:00] VITALS: BP 138/76; PULSE 88; RESP 20; TEMP 37; O2SAT 95
[2021-01-08] MEDS: Tamsulosin HCL 0.4 MG CAPSULE PO (20:35)
[2021-01-08] MEDS: HaloperidoL 5 MG TABLET 20 MG PO (20:47)
[2021-01-08] MEDS: diphenhydrAMINE HCL 25 MG TABLET 50 MG PO (20:51)
[2021-01-09] MEDS: hydrOXYzine HCL 25 MG TABLET 50 MG PO ×2 (02:19→17:27)
[2021-01-09] MEDS: diphenhydrAMINE HCL 25 MG TABLET 50 MG PO ×2 (03:25→18:44)
[2021-01-09 06:00] VITALS: BP 134/77; PULSE 63; TEMP 36.6; O2SAT 94
--- NOTE | 2021-01-09 08:15 | P.PNPSI_ITS ---
Subjective Subjective Date of Service: 01/11/21 Reason For Visit: Bipolar disorder Interim History: Pt mostly in bed. He reports feeling anxious at times but not able to identify what is making him feel this way. Last week pt reporting feeling anxious as he did not know if will take him back. He reports he had meeting with supplier development manager who agreed to take him back once more stable. Pt reports that supplier development manager told him that he had threatened staff to hurt them with knife to what pt states he does not think he made that statement. He denies SI/HI. He reports vistaril helpful for anxiety. He has been encouraged to attend groups, be more visible in unit but he declines. No behavioral concerns. Review of Systems Review of Systems Yes all other systems are reviewed and are negative Mental Status Exam Mental Status Exam Narrative: Appearance: casually groomed, poor hygiene in NAD Behavior:cooperative psychomotor:some retardation noted, bilat resting tremor Speech: clear, mumbles at times, regular rate/rhythm/volume, spontaneous Thought process:mostly linear Thought content:no overt signs of psychosis, worried about his living situation Mood: okay Affect: somewhat blunted SI:denies HI:denies VH/AH:denies Delusions:no overt delusional content reported Insight/judgment: fair x 2 Memory/cog: alert, oriented x 3. not formally tested. Speech Pattern: Clear Memory Description: Intact Diagnostics Vital Signs (24Hr): Vital Signs - 24 hr 01/10/21 18:00 Temperature 97.1 F Pulse Rate 106 H Respiratory Rate 20 Blood Pressure 127/72 Pulse Oximetry 94 Body Mass Index 27.1 Labs Results: 11/19/20 06:25 12/14/20 06:53 Medications Medications Current Medications Generic Name Dose Route Start Last Admin Trade Name Freq PRN Reason Stop Dose Admin Acetaminophen 650 mg 11/18/20 13:10 12/24/20 10:51 Acetaminophen 325 Mg Tablet PO 650 mg Q6H PRN Administration Headache/Pain Mild Scale (1-3) Al Hydroxide/Mg Hydroxide 30 ml 11/18/20 13:10 Magnesium Hydrox/Alum Hydrox 30 Ml Oral.Susp PO Q6H PRN Heartburn/Nausea Amlodipine Besylate 5 mg 11/19/20 09:00 01/10/21 08:18 Amlodipine Besylate 5 Mg Tablet PO 5 mg DAILY RADHAMES Administration Protocol Aspirin 81 mg 11/19/20 09:00 01/10/21 08:18 Aspirin 81 Mg Tab.Chew PO 81 mg DAILY RADHAMES Administration Carbamazepine 400 mg 11/18/20 21:00 01/10/21 20:04 Carbamazepine 200 Mg Tablet PO 400 mg BID RADHAMES Administration Carbidopa/Levodopa 1 tab 11/18/20 21:00 01/10/21 20:04 Carbidopa/Levodopa 25/100 Tablet PO 1 tab BID RADHAMES Administration Diphenhydramine HCl 50 mg 11/30/20 13:52 01/10/21 22:00 Diphenhydramine Hcl 25 Mg Tablet PO 50 mg BID PRN Administration agitation Haloperidol 5 mg 11/30/20 13:52 01/11/21 01:59 Haloperidol 5 Mg Tablet PO 5 mg TID PRN Administration Psychosis Haloperidol 20 mg 12/16/20 21:00 01/10/21 20:04 Haloperidol 5 Mg Tablet PO 20 mg BEDTIME RADHAMES Administration Haloperidol Lactate 2.5 mg 11/20/20 19:38 11/30/20 11:13 Haloperidol Lactate 10 Mg/5 Ml Oral.Conc PO 2.5 mg TID PRN Administration hypersexuality Hydroxyzine HCl 50 mg 01/08/21 09:51 01/10/21 20:04 Hydroxyzine Hcl 25 Mg Tablet PO 50 mg Q6H PRN Administration Anxiety Magnesium Hydroxide 30 ml 11/18/20 13:10 Milk Of Magnesia 30 Ml Oral.Susp PO DAILY PRN Constipation Multi-Ingred Cream/Lotion/Oil/Oint 1 appl 01/01/21 21:00 01/11/21 02:01 Mineral Oil/Petrolatum,White 106 Gm Tube TOPICAL Not Given BID RADHAMES Paliperidone Palmitate 234 mg 12/23/20 08:00 12/23/20 12:56 Paliperidone Palmitate 234 Mg/1.5 Ml Syringe IM 234 mg Q30D RADHAMES Administration Pravastatin Sodium 40 mg 11/19/20 09:00 01/10/21 08:18 Pravastatin Sodium 40 Mg Tablet PO 40 mg DAILY RADHAMES Administration Tamsulosin HCl 0.4 mg 11/18/20 21:00 01/10/21 20:04 Tamsulosin Hcl 0.4 Mg Capsule PO 0.4 mg BEDTIME RADHAMES Administration Trolamine Salicylate/Aloe Vera 1 appl 12/19/20 10:37 01/07/21 17:37 Trolamine Salicylate 10%/Aloe Cream 35.4 Gm TOPICAL 1 appl TID PRN Administration Pain, Mild (Pain Scale 1-3) Allergies Allergies Allergy/AdvReac Type Severity Reaction Status Date / Time No Known Allergies Allergy Verified 11/18/20 11:30 Assessment & Plan Assessment & Plan (1) Bipolar 1 disorder: Status: Acute Code(s): F31.9 - Bipolar disorder, unspecified Assessment and Plan: The patient is an elderly male with Bipolar disorder, resident of a [facility] in the [facility], who was admitted due to being grossly manic and psychotic, extremely disruptive and abusive towards peers and staff. He has a Montiel order and a guardianship. As of 01/03- He is currently much less manic, no overt psychosis noted, effect blunted no active SI/HI. Later in January, he presented himself with more depression No behavioral concerns. Continue per primary treatment team: Plan: Invega Sustenna 234 mg second dose on 11/29 next dose on 12/23 Next Haldol dec od/c Change haloperidol to 20 mg p.o. q.h.s. Continue rest the same. Now on Section 7 and 8. Greater than 50% of the session was spent on counseling and/or coordination of care Reason for contiued inpatient stay Substantial Risk for: inability to function
[2021-01-09 08:59] VITALS: BP 134/77; PULSE 63
[2021-01-09] MEDS: Pravastatin Sodium 40 MG TABLET PO (08:59)
[2021-01-09] MEDS: Carbidopa/Levodopa 25/100 TABLET 1 TAB PO ×2 (08:59→21:12)
[2021-01-09] MEDS: Aspirin 81 MG TAB.CHEW PO (08:59)
[2021-01-09] MEDS: carBAMazepine 200 MG TABLET 400 MG PO ×2 (08:59→21:12)
[2021-01-09] MEDS: amLODIPine Besylate 5 MG TABLET PO (08:59)
[2021-01-09 18:00] VITALS: BP 132/77; PULSE 75; RESP 16; TEMP 36.7; O2SAT 94
[2021-01-09] MEDS: HaloperidoL 5 MG TABLET 20 MG PO (21:12)
[2021-01-09] MEDS: Tamsulosin HCL 0.4 MG CAPSULE PO (21:12)
[2021-01-09] MEDS: LORazepam 1 MG TABLET PO (21:51)
[2021-01-10] MEDS: hydrOXYzine HCL 25 MG TABLET 50 MG PO ×2 (03:18→20:04)
[2021-01-10 06:00] VITALS: BP 122/73; PULSE 81; TEMP 36.2; O2SAT 94
--- NOTE | 2021-01-10 08:16 | P.PNPSI_ITS ---
Subjective Subjective Date of Service: 01/11/21 Reason For Visit: Bipolar disorder Interim History: Pt mostly in bed. He reports feeling anxious at times but not able to identify what is making him feel this way. Last week pt reporting feeling anxious as he did not know if will take him back. He reports he had meeting with reservoir engineering manager who agreed to take him back once more stable. Pt reports that reservoir engineering manager told him that he had threatened staff to hurt them with knife to what pt states he does not think he made that statement. He denies SI/HI. He reports vistaril helpful for anxiety. He has been encouraged to attend groups, be more visible in unit but he declines. No behavioral concerns. Review of Systems Review of Systems Yes all other systems are reviewed and are negative Mental Status Exam Mental Status Exam Narrative: Appearance: casually groomed, poor hygiene in NAD Behavior:cooperative psychomotor:some retardation noted, bilat resting tremor Speech: clear, mumbles at times, regular rate/rhythm/volume, spontaneous Thought process:mostly linear Thought content:no overt signs of psychosis, worried about his living situation Mood: okay Affect: somewhat blunted SI:denies HI:denies VH/AH:denies Delusions:no overt delusional content reported Insight/judgment: fair x 2 Memory/cog: alert, oriented x 3. not formally tested. Diagnostics Vital Signs (24Hr): Vital Signs - 24 hr 01/10/21 18:00 Temperature 97.1 F Pulse Rate 106 H Respiratory Rate 20 Blood Pressure 127/72 Pulse Oximetry 94 Body Mass Index 27.1 Labs Results: 11/19/20 06:25 12/14/20 06:53 Medications Medications Current Medications Generic Name Dose Route Start Last Admin Trade Name Freq PRN Reason Stop Dose Admin Acetaminophen 650 mg 11/18/20 13:10 12/24/20 10:51 Acetaminophen 325 Mg Tablet PO 650 mg Q6H PRN Administration Headache/Pain Mild Scale (1-3) Al Hydroxide/Mg Hydroxide 30 ml 11/18/20 13:10 Magnesium Hydrox/Alum Hydrox 30 Ml Oral.Susp PO Q6H PRN Heartburn/Nausea Amlodipine Besylate 5 mg 11/19/20 09:00 01/10/21 08:18 Amlodipine Besylate 5 Mg Tablet PO 5 mg DAILY RADHAMES Administration Protocol Aspirin 81 mg 11/19/20 09:00 01/10/21 08:18 Aspirin 81 Mg Tab.Chew PO 81 mg DAILY RADHAMES Administration Carbamazepine 400 mg 11/18/20 21:00 01/10/21 20:04 Carbamazepine 200 Mg Tablet PO 400 mg BID RADHAMES Administration Carbidopa/Levodopa 1 tab 11/18/20 21:00 01/10/21 20:04 Carbidopa/Levodopa 25/100 Tablet PO 1 tab BID RADHAMES Administration Diphenhydramine HCl 50 mg 11/30/20 13:52 01/10/21 22:00 Diphenhydramine Hcl 25 Mg Tablet PO 50 mg BID PRN Administration agitation Haloperidol 5 mg 11/30/20 13:52 01/11/21 01:59 Haloperidol 5 Mg Tablet PO 5 mg TID PRN Administration Psychosis Haloperidol 20 mg 12/16/20 21:00 01/10/21 20:04 Haloperidol 5 Mg Tablet PO 20 mg BEDTIME RADHAMES Administration Haloperidol Lactate 2.5 mg 11/20/20 19:38 11/30/20 11:13 Haloperidol Lactate 10 Mg/5 Ml Oral.Conc PO 2.5 mg TID PRN Administration hypersexuality Hydroxyzine HCl 50 mg 01/08/21 09:51 01/10/21 20:04 Hydroxyzine Hcl 25 Mg Tablet PO 50 mg Q6H PRN Administration Anxiety Magnesium Hydroxide 30 ml 11/18/20 13:10 Milk Of Magnesia 30 Ml Oral.Susp PO DAILY PRN Constipation Multi-Ingred Cream/Lotion/Oil/Oint 1 appl 01/01/21 21:00 01/11/21 02:01 Mineral Oil/Petrolatum,White 106 Gm Tube TOPICAL Not Given BID RADHAMES Paliperidone Palmitate 234 mg 12/23/20 08:00 12/23/20 12:56 Paliperidone Palmitate 234 Mg/1.5 Ml Syringe IM 234 mg Q30D RADHAMES Administration Pravastatin Sodium 40 mg 11/19/20 09:00 01/10/21 08:18 Pravastatin Sodium 40 Mg Tablet PO 40 mg DAILY RADHAMES Administration Tamsulosin HCl 0.4 mg 11/18/20 21:00 01/10/21 20:04 Tamsulosin Hcl 0.4 Mg Capsule PO 0.4 mg BEDTIME RADHAMES Administration Trolamine Salicylate/Aloe Vera 1 appl 12/19/20 10:37 01/07/21 17:37 Trolamine Salicylate 10%/Aloe Cream 35.4 Gm TOPICAL 1 appl TID PRN Administration Pain, Mild (Pain Scale 1-3) Allergies Allergies Allergy/AdvReac Type Severity Reaction Status Date / Time No Known Allergies Allergy Verified 11/18/20 11:30 Assessment & Plan Assessment & Plan (1) Bipolar 1 disorder: Status: Acute Code(s): F31.9 - Bipolar disorder, unspecified Assessment and Plan: The patient is an elderly male with Bipolar disorder, resident of a fdc in the [place] side of [facility], who was admitted due to being grossly manic and psychotic, extremely disruptive and abusive towards peers and staff. He has a Montiel order and a guardianship. As of 01/03- He is currently much less manic, no overt psychosis noted, effect blunted no active SI/HI. Later in January, he presented himself with more depression No behavioral concerns. Continue per primary treatment team: Plan: Invega Sustenna 234 mg second dose on 11/29 next dose on 12/23 Next Haldol dec od/c Change haloperidol to 20 mg p.o. q.h.s. Continue rest the same. Now on Section 7 and 8. Greater than 50% of the session was spent on counseling and/or coordination of care Reason for contiued inpatient stay Substantial Risk for: inability to function
[2021-01-10] MEDS: carBAMazepine 200 MG TABLET 400 MG PO ×2 (08:18→20:04)
[2021-01-10] MEDS: Aspirin 81 MG TAB.CHEW PO (08:18)
[2021-01-10] MEDS: amLODIPine Besylate 5 MG TABLET PO (08:18)
[2021-01-10] MEDS: Pravastatin Sodium 40 MG TABLET PO (08:18)
[2021-01-10] MEDS: Carbidopa/Levodopa 25/100 TABLET 1 TAB PO ×2 (08:18→20:04)
--- NOTE | 2021-01-10 14:05 | PC.NURSE ---
Pt in wheelchair observed going into another pt's room to utilize the bathroom. The pt moved the wheelchair in front of the toilet, pulled out his penis and urinated over the front of his Miguelangel, on his hospital pants, and on the floor, the pt then said Bessy, I got it, I did it good . Explained to the pt that he has urine on the front of his Miguelangel, and he needed to put on a clean one, the pt stated No, that is from breakfast, it's all good . After some encouragement, the pt did allow staff to assist him with changing his Miguelangel and hospital pants.
[2021-01-10 18:00] VITALS: BP 127/72; PULSE 106; RESP 20; TEMP 36.2; O2SAT 94
[2021-01-10] MEDS: HaloperidoL 5 MG TABLET 20 MG PO (20:04)
[2021-01-10] MEDS: Tamsulosin HCL 0.4 MG CAPSULE PO (20:04)
[2021-01-10] MEDS: diphenhydrAMINE HCL 25 MG TABLET 50 MG PO (22:00)
[2021-01-11] MEDS: HaloperidoL 5 MG TABLET PO ×2 (01:59→22:57)
[2021-01-11 06:00] VITALS: BP 123/71; PULSE 56; TEMP 37; O2SAT 93
[2021-01-11] MEDS: Carbidopa/Levodopa 25/100 TABLET 1 TAB PO ×2 (09:40→20:05)
[2021-01-11] MEDS: Pravastatin Sodium 40 MG TABLET PO (09:40)
[2021-01-11 09:41] VITALS: BP 123/71; PULSE 59
[2021-01-11] MEDS: carBAMazepine 200 MG TABLET 400 MG PO ×2 (09:41→20:05)
[2021-01-11] MEDS: Aspirin 81 MG TAB.CHEW PO (09:41)
[2021-01-11] MEDS: amLODIPine Besylate 5 MG TABLET PO (09:41)
--- NOTE | 2021-01-11 10:57 | HO.PSYCHPN ---
Subjective Subjective Date of Service: 01/11/21 Reason For Visit: Bipolar disorder Subjective Notes: Section 7 and Section 8 Interim History: The nursing staff reported the patient is very depressed, yesterday he refused to have dinner and he stays most of the time in his room in bed. He has been requesting his medications at bedtime very early in the afternoon. Today, the patient was in his room, he was depressed and was requesting about discharge date. I remembered him that we will have a meeting with his guardian tomorrow. Review of Systems Acute medical concerns: No Medical Review of Systems: unchanged Mental Status Exam Mental Status Exam Patient Appearance: Disheveled and Unkempt Patient Orientation: Person and Situation Level of Consciousness: Awake Patient Behavior: Cooperative Mood Description: Depressed Affect Description: Constricted Patient Cognition Impaired: Yes Ability to Follow Directions: Good Speech Pattern: Clear Hallucinations: None Delusions: Paranoid Ideation Thought Process: Distracted and Goal Oriented Thought Content: positive for Circumstantial Judgement: Fair Diagnostics Vital Signs (24Hr): Vital Signs - 24 hr 01/10/21 18:00 01/11/21 09:41 Temperature 97.1 F Pulse Rate 106 H 59 Respiratory Rate 20 Blood Pressure 127/72 123/71 Pulse Oximetry 94 Body Mass Index 27.1 Labs Results: 11/19/20 06:25 12/14/20 06:53 Medications Medications Current Medications Generic Name Dose Route Start Last Admin Trade Name Freq PRN Reason Stop Dose Admin Acetaminophen 650 mg 11/18/20 13:10 12/24/20 10:51 Acetaminophen 325 Mg Tablet PO 650 mg Q6H PRN Administration Headache/Pain Mild Scale (1-3) Al Hydroxide/Mg Hydroxide 30 ml 11/18/20 13:10 Magnesium Hydrox/Alum Hydrox 30 Ml Oral.Susp PO Q6H PRN Heartburn/Nausea Amlodipine Besylate 5 mg 11/19/20 09:00 01/11/21 09:41 Amlodipine Besylate 5 Mg Tablet PO 5 mg DAILY RADHAMES Administration Protocol Aspirin 81 mg 11/19/20 09:00 01/11/21 09:41 Aspirin 81 Mg Tab.Chew PO 81 mg DAILY RADHAMES Administration Carbamazepine 400 mg 11/18/20 21:00 01/11/21 09:41 Carbamazepine 200 Mg Tablet PO 400 mg BID RADHAMES Administration Carbidopa/Levodopa 1 tab 11/18/20 21:00 01/11/21 09:40 Carbidopa/Levodopa 25/100 Tablet PO 1 tab BID RADHAMES Administration Diphenhydramine HCl 50 mg 11/30/20 13:52 01/10/21 22:00 Diphenhydramine Hcl 25 Mg Tablet PO 50 mg BID PRN Administration agitation Haloperidol 5 mg 11/30/20 13:52 01/11/21 01:59 Haloperidol 5 Mg Tablet PO 5 mg TID PRN Administration Psychosis Haloperidol 20 mg 12/16/20 21:00 01/10/21 20:04 Haloperidol 5 Mg Tablet PO 20 mg BEDTIME RADHAMES Administration Haloperidol Lactate 2.5 mg 11/20/20 19:38 11/30/20 11:13 Haloperidol Lactate 10 Mg/5 Ml Oral.Conc PO 2.5 mg TID PRN Administration hypersexuality Hydroxyzine HCl 50 mg 01/08/21 09:51 01/10/21 20:04 Hydroxyzine Hcl 25 Mg Tablet PO 50 mg Q6H PRN Administration Anxiety Magnesium Hydroxide 30 ml 11/18/20 13:10 Milk Of Magnesia 30 Ml Oral.Susp PO DAILY PRN Constipation Multi-Ingred Cream/Lotion/Oil/Oint 1 appl 01/01/21 21:00 01/11/21 10:33 Mineral Oil/Petrolatum,White 106 Gm Tube TOPICAL Not Given BID RADHAMES Paliperidone Palmitate 234 mg 12/23/20 08:00 12/23/20 12:56 Paliperidone Palmitate 234 Mg/1.5 Ml Syringe IM 234 mg Q30D RADHAMES Administration Pravastatin Sodium 40 mg 11/19/20 09:00 01/11/21 09:40 Pravastatin Sodium 40 Mg Tablet PO 40 mg DAILY RADHAMES Administration Tamsulosin HCl 0.4 mg 11/18/20 21:00 01/10/21 20:04 Tamsulosin Hcl 0.4 Mg Capsule PO 0.4 mg BEDTIME RADHAMES Administration Trolamine Salicylate/Aloe Vera 1 appl 12/19/20 10:37 01/07/21 17:37 Trolamine Salicylate 10%/Aloe Cream 35.4 Gm TOPICAL 1 appl TID PRN Administration Pain, Mild (Pain Scale 1-3) Allergies Allergies Allergy/AdvReac Type Severity Reaction Status Date / Time No Known Allergies Allergy Verified 11/18/20 11:30 Assessment & Plan Assessment & Plan (1) Bipolar 1 disorder: Status: Acute Code(s): F31.9 - Bipolar disorder, unspecified Assessment and Plan: The patient is an elderly male with Bipolar disorder, resident [place] [facility] [place] [facility], who was admitted due to being grossly manic and psychotic, extremely disruptive and abusive towards peers and staff. He has a Montiel order and a guardianship. As of 01/03- He is currently much less manic, no overt psychosis noted, effect blunted no active SI/HI. Later in January, he presented himself with more depression No behavioral concerns. Continue per primary treatment team: Plan: Invega Sustenna 234 mg second dose on 11/29 next dose on 12/23 Next Haldol dec od/c Change haloperidol to 20 mg p.o. q.h.s. Continue rest the same. Now on Section 7 and 8. Over the phone meeting with his guardian tomorrow Greater than 50% of the session was spent on counseling and/or coordination of care Reason for contiued inpatient stay Substantial Risk for: inability to function, rapid decompensation and med/psych decompensation
[2021-01-11] MEDS: hydrOXYzine HCL 25 MG TABLET 50 MG PO (17:32)
[2021-01-11 18:00] VITALS: BP 129/75; PULSE 61; TEMP 36.7; O2SAT 95
[2021-01-11] MEDS: diphenhydrAMINE HCL 25 MG TABLET 50 MG PO (18:51)
[2021-01-11] MEDS: HaloperidoL 5 MG TABLET 20 MG PO (20:05)
[2021-01-11] MEDS: Tamsulosin HCL 0.4 MG CAPSULE PO (20:06)
[2021-01-12] MEDS: hydrOXYzine HCL 25 MG TABLET 50 MG PO ×3 (00:26→21:04)
[2021-01-12 10:12] VITALS: BP 119/72; PULSE 65
[2021-01-12] MEDS: amLODIPine Besylate 5 MG TABLET PO (10:12)
[2021-01-12] MEDS: Carbidopa/Levodopa 25/100 TABLET 1 TAB PO ×2 (10:12→20:20)
[2021-01-12] MEDS: Pravastatin Sodium 40 MG TABLET PO (10:13)
[2021-01-12] MEDS: carBAMazepine 200 MG TABLET 400 MG PO ×2 (10:13→20:20)
[2021-01-12] MEDS: Aspirin 81 MG TAB.CHEW PO (10:13)
--- NOTE | 2021-01-12 11:03 | HO.PSYCHPN ---
Subjective Subjective Date of Service: 01/12/21 Reason For Visit: Bipolar disorder Subjective Notes: Section 7 and Section 8 Interim History: Nursing staff reported the patient has been doing fine. OT staff reported that the patient went to 2 groups yesterday. She slept well but he has used p.r.n. medications at night. According to the licensed clinical social worker, the patient is more insightful and engaged, even assertive at times. Today, he reported that he wants to go home, we will have a meeting with his guardian at 14:30 Medication Compliance: Yes Side effects from medications: No Attending Groups: Yes Review of Systems Acute medical concerns: No Medical Review of Systems: unchanged Mental Status Exam Mental Status Exam Patient Appearance: Disheveled and Unkempt Patient Orientation: Person Level of Consciousness: Awake Patient Behavior: Appropriate Mood Description: Depressed Affect Description: Constricted Patient Cognition Impaired: No Ability to Follow Directions: Good Speech Pattern: Clear Memory Description: Intact Hallucinations: None Delusions: Paranoid Ideation Thought Process: Linear Thought Content: positive for Poverty of Content Judgement: Fair Diagnostics Vital Signs (24Hr): Vital Signs - 24 hr 01/11/21 18:00 01/12/21 10:12 Temperature 98.0 F Pulse Rate 61 65 Blood Pressure 129/75 119/72 Pulse Oximetry 95 Body Mass Index 27.1 Labs Results: 11/19/20 06:25 12/14/20 06:53 Medications Medications Current Medications Generic Name Dose Route Start Last Admin Trade Name Freq PRN Reason Stop Dose Admin Acetaminophen 650 mg 11/18/20 13:10 12/24/20 10:51 Acetaminophen 325 Mg Tablet PO 650 mg Q6H PRN Administration Headache/Pain Mild Scale (1-3) Al Hydroxide/Mg Hydroxide 30 ml 11/18/20 13:10 Magnesium Hydrox/Alum Hydrox 30 Ml Oral.Susp PO Q6H PRN Heartburn/Nausea Amlodipine Besylate 5 mg 11/19/20 09:00 01/12/21 10:12 Amlodipine Besylate 5 Mg Tablet PO 5 mg DAILY RADHAMES Administration Protocol Aspirin 81 mg 11/19/20 09:00 01/12/21 10:13 Aspirin 81 Mg Tab.Chew PO 81 mg DAILY RADHAMES Administration Carbamazepine 400 mg 11/18/20 21:00 01/12/21 10:13 Carbamazepine 200 Mg Tablet PO 400 mg BID RADHAMES Administration Carbidopa/Levodopa 1 tab 11/18/20 21:00 01/12/21 10:12 Carbidopa/Levodopa 25/100 Tablet PO 1 tab BID RADHAMES Administration Diphenhydramine HCl 50 mg 11/30/20 13:52 01/11/21 18:51 Diphenhydramine Hcl 25 Mg Tablet PO 50 mg BID PRN Administration agitation Haloperidol 5 mg 11/30/20 13:52 01/11/21 22:57 Haloperidol 5 Mg Tablet PO 5 mg TID PRN Administration Psychosis Haloperidol 20 mg 12/16/20 21:00 01/11/21 20:05 Haloperidol 5 Mg Tablet PO 20 mg BEDTIME RADHAMES Administration Haloperidol Lactate 2.5 mg 11/20/20 19:38 11/30/20 11:13 Haloperidol Lactate 10 Mg/5 Ml Oral.Conc PO 2.5 mg TID PRN Administration hypersexuality Hydroxyzine HCl 50 mg 01/08/21 09:51 01/12/21 10:17 Hydroxyzine Hcl 25 Mg Tablet PO 50 mg Q6H PRN Administration Anxiety Magnesium Hydroxide 30 ml 11/18/20 13:10 Milk Of Magnesia 30 Ml Oral.Susp PO DAILY PRN Constipation Multi-Ingred Cream/Lotion/Oil/Oint 1 appl 01/01/21 21:00 01/12/21 10:27 Mineral Oil/Petrolatum,White 106 Gm Tube TOPICAL Not Given BID RADHAMES Paliperidone Palmitate 234 mg 12/23/20 08:00 12/23/20 12:56 Paliperidone Palmitate 234 Mg/1.5 Ml Syringe IM 234 mg Q30D RADHAMES Administration Pravastatin Sodium 40 mg 11/19/20 09:00 01/12/21 10:13 Pravastatin Sodium 40 Mg Tablet PO 40 mg DAILY RADHAMES Administration Tamsulosin HCl 0.4 mg 11/18/20 21:00 01/11/21 20:06 Tamsulosin Hcl 0.4 Mg Capsule PO 0.4 mg BEDTIME RADHAMES Administration Trolamine Salicylate/Aloe Vera 1 appl 12/19/20 10:37 01/07/21 17:37 Trolamine Salicylate 10%/Aloe Cream 35.4 Gm TOPICAL 1 appl TID PRN Administration Pain, Mild (Pain Scale 1-3) Allergies Allergies Allergy/AdvReac Type Severity Reaction Status Date / Time No Known Allergies Allergy Verified 11/18/20 11:30 Assessment & Plan Assessment & Plan (1) Bipolar 1 disorder: Status: Acute Code(s): F31.9 - Bipolar disorder, unspecified Assessment and Plan: The patient is an elderly male with Bipolar disorder, resident of a correction in the [place] [facility] of [facility], who was admitted due to being grossly manic and psychotic, extremely disruptive and abusive towards peers and staff. He has a Montiel order and a guardianship. As of 01/03- He is currently much less manic, no overt psychosis noted, effect blunted no active SI/HI. Later in January, he presented himself with more depression No behavioral concerns. Continue per primary treatment team: Plan: Invega Sustenna 234 mg second dose on 11/29 next dose on 12/23 Next Haldol dec od/c Change haloperidol to 20 mg p.o. q.h.s. Continue rest the same. Now on Section 7 and 8. Over the phone meeting with his guardian today Greater than 50% of the session was spent on counseling and/or coordination of care Reason for contiued inpatient stay Substantial Risk for: inability to function, rapid decompensation and med/psych decompensation
[2021-01-12 17:32] VITALS: BP 148/70; PULSE 59; RESP 17; TEMP 36.7; O2SAT 99
[2021-01-12] MEDS: HaloperidoL 5 MG TABLET 20 MG PO (20:18)
[2021-01-12] MEDS: Tamsulosin HCL 0.4 MG CAPSULE PO (20:19)
[2021-01-12] MEDS: diphenhydrAMINE HCL 25 MG TABLET 50 MG PO (23:15)
[2021-01-13] MEDS: HaloperidoL 5 MG TABLET PO (02:25)
[2021-01-13 08:39] VITALS: BP 130/78; PULSE 63
[2021-01-13] MEDS: Pravastatin Sodium 40 MG TABLET PO (08:39)
[2021-01-13] MEDS: amLODIPine Besylate 5 MG TABLET PO (08:39)
[2021-01-13] MEDS: Carbidopa/Levodopa 25/100 TABLET 1 TAB PO ×2 (08:40→21:09)
[2021-01-13] MEDS: Aspirin 81 MG TAB.CHEW PO (08:40)
[2021-01-13] MEDS: carBAMazepine 200 MG TABLET 400 MG PO ×2 (08:41→21:09)
[2021-01-13 08:49] VITALS: BP 130/78; PULSE 63; RESP 16; TEMP 36.6; O2SAT 95
[2021-01-13 09:48] VITALS: BMI 27.0
--- NOTE | 2021-01-13 10:16 | P.PNPSI_ITS ---
Subjective Subjective Date of Service: 01/13/21 Reason For Visit: Bipolar disorder Subjective Notes: Section 7 and Section 8 Interim History: Nursing staff reported that the patient stated that he had visual hallucinations at night. He has been pleasant and cooperative. No safety concerns at this moment. Medication Compliance: Yes Side effects from medications: No Attending Groups: Yes Review of Systems Acute medical concerns: No Medical Review of Systems: unchanged Mental Status Exam Mental Status Exam Patient Appearance: Well Grooomed and Unkempt Patient Orientation: Person Level of Consciousness: Awake Patient Behavior: Appropriate Mood Description: Withdrawn Affect Description: Constricted Patient Cognition Impaired: No Ability to Follow Directions: Good Speech Pattern: Clear Memory Description: Intact Hallucinations: Visual Delusions: Paranoid Ideation Thought Process: Linear Thought Content: positive for Circumstantial and positive for Poverty of Content Judgement: Fair (improved) Diagnostics Vital Signs (24Hr): Vital Signs - 24 hr 01/12/21 17:32 01/13/21 08:39 01/13/21 08:49 Temperature 98.0 F 97.8 F Pulse Rate 59 63 63 Respiratory Rate 17 16 Blood Pressure 148/70 H 130/78 130/78 Pulse Oximetry 99 95 Body Mass Index 27.0 Labs Results: 11/19/20 06:25 12/14/20 06:53 Medications Medications Current Medications Generic Name Dose Route Start Last Admin Trade Name Freq PRN Reason Stop Dose Admin Acetaminophen 650 mg 11/18/20 13:10 12/24/20 10:51 Acetaminophen 325 Mg Tablet PO 650 mg Q6H PRN Administration Headache/Pain Mild Scale (1-3) Al Hydroxide/Mg Hydroxide 30 ml 11/18/20 13:10 Magnesium Hydrox/Alum Hydrox 30 Ml Oral.Susp PO Q6H PRN Heartburn/Nausea Amlodipine Besylate 5 mg 11/19/20 09:00 01/13/21 08:39 Amlodipine Besylate 5 Mg Tablet PO 5 mg DAILY RADHAMES Administration Protocol Aspirin 81 mg 11/19/20 09:00 01/13/21 08:40 Aspirin 81 Mg Tab.Chew PO 81 mg DAILY RADHAMES Administration Carbamazepine 400 mg 11/18/20 21:00 01/13/21 08:41 Carbamazepine 200 Mg Tablet PO 400 mg BID RADHAMES Administration Carbidopa/Levodopa 1 tab 11/18/20 21:00 01/13/21 08:40 Carbidopa/Levodopa 25/100 Tablet PO 1 tab BID RADHAMES Administration Diphenhydramine HCl 50 mg 11/30/20 13:52 01/12/21 23:15 Diphenhydramine Hcl 25 Mg Tablet PO 50 mg BID PRN Administration agitation Haloperidol 5 mg 11/30/20 13:52 01/13/21 02:25 Haloperidol 5 Mg Tablet PO 5 mg TID PRN Administration Psychosis Haloperidol 20 mg 12/16/20 21:00 01/12/21 20:18 Haloperidol 5 Mg Tablet PO 20 mg BEDTIME RADHAMES Administration Haloperidol Lactate 2.5 mg 11/20/20 19:38 11/30/20 11:13 Haloperidol Lactate 10 Mg/5 Ml Oral.Conc PO 2.5 mg TID PRN Administration hypersexuality Hydroxyzine HCl 50 mg 01/08/21 09:51 01/12/21 21:04 Hydroxyzine Hcl 25 Mg Tablet PO 50 mg Q6H PRN Administration Anxiety Magnesium Hydroxide 30 ml 11/18/20 13:10 Milk Of Magnesia 30 Ml Oral.Susp PO DAILY PRN Constipation Multi-Ingred Cream/Lotion/Oil/Oint 1 appl 01/01/21 21:00 01/13/21 09:44 Mineral Oil/Petrolatum,White 106 Gm Tube TOPICAL Not Given BID RADHAMES Paliperidone Palmitate 234 mg 01/13/21 10:00 Paliperidone Palmitate 234 Mg/1.5 Ml Syringe IM Q21D RADHAMES Pravastatin Sodium 40 mg 11/19/20 09:00 01/13/21 08:39 Pravastatin Sodium 40 Mg Tablet PO 40 mg DAILY RADHAMES Administration Tamsulosin HCl 0.4 mg 11/18/20 21:00 01/12/21 20:19 Tamsulosin Hcl 0.4 Mg Capsule PO 0.4 mg BEDTIME RADHAMES Administration Trolamine Salicylate/Aloe Vera 1 appl 12/19/20 10:37 01/07/21 17:37 Trolamine Salicylate 10%/Aloe Cream 35.4 Gm TOPICAL 1 appl TID PRN Administration Pain, Mild (Pain Scale 1-3) Allergies Allergies Allergy/AdvReac Type Severity Reaction Status Date / Time No Known Allergies Allergy Verified 11/18/20 11:30 Assessment & Plan Assessment & Plan (1) Bipolar 1 disorder: Status: Acute Code(s): F31.9 - Bipolar disorder, unspecified Assessment and Plan: The patient is an elderly male with Bipolar disorder, resident of a [facility] [place] [facility], who was admitted due to being adalgisa sly manic and psychotic, extremely disruptive and abusive towards peers and staff. He has a Montiel order and a guardianship. As of 01/03- He is currently much less manic, no overt psychosis noted, effect blunted no active SI/HI. Later in January, he presented himself with more depression No behavioral concerns. Continue per primary treatment team: Plan: Invega Sustenna 234 mg second dose on 12/01, 3rd dose 12/23 Next dose today. From now on q21d Next Haldol dec od/c Change haloperidol to 20 mg p.o. q.h.s. Continue rest the same. Now on Section 7 and 8. Over the phone meeting with his guardian today Greater than 50% of the session was spent on counseling and/or coordination of care Reason for contiued inpatient stay Substantial Risk for: inability to function, rapid decompensation and med/psych decompensation
[2021-01-13] MEDS: Paliperidone Palmitate 234 MG/1.5 ML SYRINGE IM (12:05)
[2021-01-13 20:35] VITALS: BP 152/71; PULSE 63; RESP 18; TEMP 37.1; O2SAT 94
[2021-01-13] MEDS: hydrOXYzine HCL 25 MG TABLET 50 MG PO (21:09)
[2021-01-13] MEDS: Tamsulosin HCL 0.4 MG CAPSULE PO (21:10)
[2021-01-13] MEDS: HaloperidoL 5 MG TABLET 20 MG PO (21:10)
[2021-01-13] MEDS: diphenhydrAMINE HCL 25 MG TABLET 50 MG PO (22:18)
[2021-01-14 07:53] VITALS: BP 152/71; PULSE 63; O2SAT 94
[2021-01-14 08:25] VITALS: BP 138/77; PULSE 66
[2021-01-14] MEDS: amLODIPine Besylate 5 MG TABLET PO (08:25)
[2021-01-14] MEDS: Pravastatin Sodium 40 MG TABLET PO (08:26)
[2021-01-14] MEDS: Aspirin 81 MG TAB.CHEW PO (08:26)
[2021-01-14] MEDS: Carbidopa/Levodopa 25/100 TABLET 1 TAB PO ×2 (08:26→20:35)
[2021-01-14] MEDS: carBAMazepine 200 MG TABLET 400 MG PO ×2 (08:31→20:34)
[2021-01-14 09:09] VITALS: BP 138/77; PULSE 66; RESP 20; TEMP 36.6; O2SAT 96
--- NOTE | 2021-01-14 11:00 | P.PNPSI_ITS ---
Subjective Subjective Date of Service: 01/14/21 Reason For Visit: Bipolar disorder Subjective Notes: Section 7 and Section 8 Interim History: The nursing staff reported that he was doing well, no manic symptoms. Yesterday, he had a meeting with his [facility] and staff [facility]; they requested a PT evaluation and so far, PT has not recommended new services. On interview, he denies new symptoms. Medication Compliance: Yes Side effects from medications: No Attending Groups: Yes Review of Systems Acute medical concerns: No Medical Review of Systems: unchanged Mental Status Exam Mental Status Exam Patient Appearance: Well Grooomed Patient Orientation: Person Level of Consciousness: Awake Patient Behavior: Appropriate Mood Description: Depressed Affect Description: Constricted Patient Cognition Impaired: Yes Ability to Follow Directions: Good Speech Pattern: Clear Hallucinations: None Delusions: Paranoid Ideation Thought Process: Linear Thought Content: positive for Circumstantial and positive for Poverty of Content Judgement: Fair Diagnostics Vital Signs (24Hr): Vital Signs - 24 hr 01/13/21 20:35 01/14/21 07:53 01/14/21 08:25 Temperature 98.8 F Pulse Rate 63 63 66 Respiratory Rate 18 Blood Pressure 152/71 H 152/71 H 138/77 Pulse Oximetry 94 94 01/14/21 09:09 Temperature 97.9 F Pulse Rate 66 Respiratory Rate 20 Blood Pressure 138/77 Pulse Oximetry 96 Body Mass Index 27.0 Labs Results: 11/19/20 06:25 12/14/20 06:53 Medications Medications Current Medications Generic Name Dose Route Start Last Admin Trade Name Freq PRN Reason Stop Dose Admin Acetaminophen 650 mg 11/18/20 13:10 12/24/20 10:51 Acetaminophen 325 Mg Tablet PO 650 mg Q6H PRN Administration Headache/Pain Mild Scale (1-3) Al Hydroxide/Mg Hydroxide 30 ml 11/18/20 13:10 Magnesium Hydrox/Alum Hydrox 30 Ml Oral.Susp PO Q6H PRN Heartburn/Nausea Amlodipine Besylate 5 mg 11/19/20 09:00 01/14/21 08:25 Amlodipine Besylate 5 Mg Tablet PO 5 mg DAILY RADHAMES Administration Protocol Aspirin 81 mg 11/19/20 09:00 01/14/21 08:26 Aspirin 81 Mg Tab.Chew PO 81 mg DAILY RADHAMES Administration Carbamazepine 400 mg 11/18/20 21:00 01/14/21 08:31 Carbamazepine 200 Mg Tablet PO 400 mg BID RADHAMES Administration Carbidopa/Levodopa 1 tab 11/18/20 21:00 01/14/21 08:26 Carbidopa/Levodopa 25/100 Tablet PO 1 tab BID RADHAMES Administration Diphenhydramine HCl 50 mg 11/30/20 13:52 01/13/21 22:18 Diphenhydramine Hcl 25 Mg Tablet PO 50 mg BID PRN Administration agitation Haloperidol 5 mg 11/30/20 13:52 01/13/21 02:25 Haloperidol 5 Mg Tablet PO 5 mg TID PRN Administration Psychosis Haloperidol 20 mg 12/16/20 21:00 01/13/21 21:10 Haloperidol 5 Mg Tablet PO 20 mg BEDTIME RADHAMES Administration Haloperidol Lactate 2.5 mg 11/20/20 19:38 11/30/20 11:13 Haloperidol Lactate 10 Mg/5 Ml Oral.Conc PO 2.5 mg TID PRN Administration hypersexuality Hydroxyzine HCl 50 mg 01/08/21 09:51 01/13/21 21:09 Hydroxyzine Hcl 25 Mg Tablet PO 50 mg Q6H PRN Administration Anxiety Magnesium Hydroxide 30 ml 11/18/20 13:10 Milk Of Magnesia 30 Ml Oral.Susp PO DAILY PRN Constipation Multi-Ingred Cream/Lotion/Oil/Oint 1 appl 01/01/21 21:00 01/14/21 08:27 Mineral Oil/Petrolatum,White 106 Gm Tube TOPICAL Not Given BID RADHAMES Paliperidone Palmitate 234 mg 01/13/21 10:00 01/13/21 12:05 Paliperidone Palmitate 234 Mg/1.5 Ml Syringe IM 234 mg Q21D RADHAMES Administration Pravastatin Sodium 40 mg 11/19/20 09:00 01/14/21 08:26 Pravastatin Sodium 40 Mg Tablet PO 40 mg DAILY RADHAMES Administration Tamsulosin HCl 0.4 mg 11/18/20 21:00 01/13/21 21:10 Tamsulosin Hcl 0.4 Mg Capsule PO 0.4 mg BEDTIME RADHAMES Administration Trolamine Salicylate/Aloe Vera 1 appl 12/19/20 10:37 01/07/21 17:37 Trolamine Salicylate 10%/Aloe Cream 35.4 Gm TOPICAL 1 appl TID PRN Administration Pain, Mild (Pain Scale 1-3) Allergies Allergies Allergy/AdvReac Type Severity Reaction Status Date / Time No Known Allergies Allergy Verified 11/18/20 11:30 Assessment & Plan Assessment & Plan (1) Bipolar 1 disorder: Status: Acute Code(s): F31.9 - Bipolar disorder, unspecified Assessment and Plan: The patient is an elderly male with Bipolar disorder, resident of a [facility] in the [place] [facility], who was admitted due to being grossly manic and psychotic, extremely disruptive and abusive towards peers and staff. He has a Montiel order and a guardianship. As of 01/03- He is currently much less manic, no overt psychosis noted, effect blunted no active SI/HI. Later in January, he presented himself with more depression No behavioral concerns. Continue per primary treatment team: Plan: Invega Sustenna 234 mg second dose on 12/01, 3rd dose 12/23 Next dose today. From now on q21d Next Haldol dec od/c Change haloperidol to 20 mg p.o. q.h.s. Continue rest the same. Now on Section 7 and 8. Over the phone meeting with his guardian, no new PT suggestions. Greater than 50% of the session was spent on counseling and/or coordination of care Reason for contiued inpatient stay Substantial Risk for: inability to function, rapid decompensation and med/psych decompensation
[2021-01-14] MEDS: hydrOXYzine HCL 25 MG TABLET 50 MG PO (19:31)
[2021-01-14 20:14] VITALS: BP 135/79; PULSE 66; RESP 18; TEMP 36; O2SAT 95
[2021-01-14] MEDS: HaloperidoL 5 MG TABLET 20 MG PO (20:34)
[2021-01-14] MEDS: Tamsulosin HCL 0.4 MG CAPSULE PO (20:34)
[2021-01-14] MEDS: diphenhydrAMINE HCL 25 MG TABLET 50 MG PO (21:49)
[2021-01-15] MEDS: HaloperidoL 5 MG TABLET PO (04:35)
[2021-01-15 09:15] VITALS: BP 144/82; PULSE 62; RESP 17; TEMP 36.6; O2SAT 94
[2021-01-15] MEDS: Aspirin 81 MG TAB.CHEW PO (09:16)
[2021-01-15 09:17] VITALS: BP 144/82; PULSE 68
[2021-01-15] MEDS: carBAMazepine 200 MG TABLET 400 MG PO ×2 (09:17→20:20)
[2021-01-15] MEDS: amLODIPine Besylate 5 MG TABLET PO (09:17)
[2021-01-15] MEDS: Carbidopa/Levodopa 25/100 TABLET 1 TAB PO ×2 (09:17→20:20)
[2021-01-15] MEDS: Pravastatin Sodium 40 MG TABLET PO (09:17)
--- NOTE | 2021-01-15 13:06 | HO.PSYCHPN ---
Subjective Subjective Date of Service: 01/15/21 Reason For Visit: Bipolar disorder Interim History: The nursing staff reported that he was doing well, no manic symptoms. He has been stable. Denies any symptoms. Looking forward to discharge next . On interview, he denies new symptoms. Review of Systems Review of Systems Yes all other systems are reviewed and are negative Mental Status Exam Mental Status Exam Narrative: Appearance: casually groomed, poor hygiene in NAD Behavior:cooperative psychomotor:some retardation noted, bilat resting tremor Speech: clear, mumbles at times, regular rate/rhythm/volume, spontaneous Thought process:mostly linear Thought content:no overt signs of psychosis, worried about his living situation Mood: okay Affect: somewhat blunted SI:denies HI:denies VH/AH:denies Delusions:no overt delusional content reported Insight/judgment: fair x 2 Memory/cog: alert, oriented x 3. not formally tested. Patient Appearance: Well Grooomed Patient Orientation: Person Level of Consciousness: Awake Patient Behavior: Appropriate Mood Description: Depressed Affect Description: Constricted Patient Cognition Impaired: Yes Ability to Follow Directions: Good Speech Pattern: Clear Memory Description: Intact Diagnostics Vital Signs (24Hr): Vital Signs - 24 hr 01/14/21 20:14 01/15/21 09:15 01/15/21 09:17 Temperature 96.8 F 97.9 F Pulse Rate 66 62 68 Respiratory Rate 18 17 Blood Pressure 135/79 144/82 H 144/82 H Pulse Oximetry 95 94 Body Mass Index 27.0 Labs Results: 11/19/20 06:25 12/14/20 06:53 Medications Medications Current Medications Generic Name Dose Route Start Last Admin Trade Name Mustaphaq PRN Reason Stop Dose Admin Acetaminophen 650 mg 11/18/20 13:10 12/24/20 10:51 Acetaminophen 325 Mg Tablet PO 650 mg Q6H PRN Administration Headache/Pain Mild Scale (1-3) Al Hydroxide/Mg Hydroxide 30 ml 11/18/20 13:10 Magnesium Hydrox/Alum Hydrox 30 Ml Oral.Susp PO Q6H PRN Heartburn/Nausea Amlodipine Besylate 5 mg 11/19/20 09:00 01/15/21 09:17 Amlodipine Besylate 5 Mg Tablet PO 5 mg DAILY RADHAMES Administration Protocol Aspirin 81 mg 11/19/20 09:00 01/15/21 09:16 Aspirin 81 Mg Tab.Chew PO 81 mg DAILY RADHAMES Administration Carbamazepine 400 mg 11/18/20 21:00 01/15/21 09:17 Carbamazepine 200 Mg Tablet PO 400 mg BID RADHAMES Administration Carbidopa/Levodopa 1 tab 11/18/20 21:00 01/15/21 09:17 Carbidopa/Levodopa 25/100 Tablet PO 1 tab BID RADHAMES Administration Diphenhydramine HCl 50 mg 11/30/20 13:52 01/14/21 21:49 Diphenhydramine Hcl 25 Mg Tablet PO 50 mg BID PRN Administration agitation Haloperidol 5 mg 11/30/20 13:52 01/15/21 04:35 Haloperidol 5 Mg Tablet PO 5 mg TID PRN Administration Psychosis Haloperidol 20 mg 12/16/20 21:00 01/14/21 20:34 Haloperidol 5 Mg Tablet PO 20 mg BEDTIME RADHAMES Administration Haloperidol Lactate 2.5 mg 11/20/20 19:38 11/30/20 11:13 Haloperidol Lactate 10 Mg/5 Ml Oral.Conc PO 2.5 mg TID PRN Administration hypersexuality Hydroxyzine HCl 50 mg 01/08/21 09:51 01/14/21 19:31 Hydroxyzine Hcl 25 Mg Tablet PO 50 mg Q6H PRN Administration Anxiety Magnesium Hydroxide 30 ml 11/18/20 13:10 Milk Of Magnesia 30 Ml Oral.Susp PO DAILY PRN Constipation Multi-Ingred Cream/Lotion/Oil/Oint 1 appl 01/01/21 21:00 01/15/21 09:26 Mineral Oil/Petrolatum,White 106 Gm Tube TOPICAL Not Given BID RADHAMES Paliperidone Palmitate 234 mg 01/13/21 10:00 01/13/21 12:05 Paliperidone Palmitate 234 Mg/1.5 Ml Syringe IM 234 mg Q21D RADHAMES Administration Pravastatin Sodium 40 mg 11/19/20 09:00 01/15/21 09:17 Pravastatin Sodium 40 Mg Tablet PO 40 mg DAILY RADHAMES Administration Tamsulosin HCl 0.4 mg 11/18/20 21:00 01/14/21 20:34 Tamsulosin Hcl 0.4 Mg Capsule PO 0.4 mg BEDTIME RADHAMES Administration Trolamine Salicylate/Aloe Vera 1 appl 12/19/20 10:37 01/07/21 17:37 Trolamine Salicylate 10%/Aloe Cream 35.4 Gm TOPICAL 1 appl TID PRN Administration Pain, Mild (Pain Scale 1-3) Allergies Allergies Allergy/AdvReac Type Severity Reaction Status Date / Time No Known Allergies Allergy Verified 11/18/20 11:30 Assessment & Plan Assessment & Plan (1) Bipolar 1 disorder: Status: Acute Code(s): F31.9 - Bipolar disorder, unspecified Assessment and Plan: The patient is an elderly male with Bipolar disorder, resident of a custod[place] [facility], who was admitted due to being grossly manic and psychotic, extremely disruptive and abusive towards peers and staff. He has a Montiel order and a guardianship. As of 01/03- He is currently much less manic, no overt psychosis noted, effect blunted no active SI/HI. Later in January, he presented himself with more depression No behavioral concerns. Continue per primary treatment team: Plan: Invega Sustenna 234 mg second dose on 12/01, 3rd dose 12/23 Next dose today. From now on q21d Next Haldol dec od/c Change haloperidol to 20 mg p.o. q.h.s. Continue rest the same. Now on Section 7 and 8. Over the phone meeting with his guardian, no new PT suggestions. Greater than 50% of the session was spent on counseling and/or coordination of care Reason for contiued inpatient stay Substantial Risk for: harm to others and inability to function
[2021-01-15 18:00] VITALS: BP 156/83; PULSE 61; RESP 20; TEMP 36.8; O2SAT 95
[2021-01-15] MEDS: Tamsulosin HCL 0.4 MG CAPSULE PO (20:20)
[2021-01-15] MEDS: HaloperidoL 5 MG TABLET 20 MG PO (20:22)
[2021-01-15] MEDS: hydrOXYzine HCL 25 MG TABLET 50 MG PO (21:01)
[2021-01-16] MEDS: HaloperidoL 5 MG TABLET PO (02:07)
[2021-01-16] MEDS: diphenhydrAMINE HCL 25 MG TABLET 50 MG PO (02:56)
[2021-01-16 06:00] VITALS: BP 148/77; PULSE 64; RESP 18; TEMP 37; O2SAT 95
[2021-01-16] MEDS: carBAMazepine 200 MG TABLET 400 MG PO ×2 (08:29→20:07)
[2021-01-16] MEDS: Pravastatin Sodium 40 MG TABLET PO (08:29)
[2021-01-16 08:30] VITALS: BP 148/77; PULSE 64
[2021-01-16] MEDS: Carbidopa/Levodopa 25/100 TABLET 1 TAB PO ×2 (08:30→20:07)
[2021-01-16] MEDS: amLODIPine Besylate 5 MG TABLET PO (08:30)
[2021-01-16] MEDS: Aspirin 81 MG TAB.CHEW PO (08:30)
--- NOTE | 2021-01-16 16:50 | HO.PSYCHPN ---
Subjective Subjective Date of Service: 01/16/21 Reason For Visit: Bipolar disorder Interim History: The nursing staff reported that he was doing well, no manic symptoms. He has been stable. Denies any symptoms. Looking forward to discharge next . On interview, he denies new symptoms. Review of Systems Review of Systems Yes all other systems are reviewed and are negative Mental Status Exam Mental Status Exam Narrative: Appearance: casually groomed, poor hygiene in NAD Behavior:cooperative psychomotor:some retardation noted, bilat resting tremor Speech: clear, mumbles at times, regular rate/rhythm/volume, spontaneous Thought process:mostly linear Thought content:no overt signs of psychosis, worried about his living situation Mood: okay Affect: somewhat blunted SI:denies HI:denies VH/AH:denies Delusions:no overt delusional content reported Insight/judgment: fair x 2 Memory/cog: alert, oriented x 3. not formally tested. Patient Appearance: Well Grooomed Patient Orientation: Person Level of Consciousness: Awake Patient Behavior: Appropriate Mood Description: Depressed Affect Description: Constricted Patient Cognition Impaired: Yes Ability to Follow Directions: Good Speech Pattern: Clear Memory Description: Intact Diagnostics Vital Signs (24Hr): Vital Signs - 24 hr 01/15/21 18:00 01/16/21 06:00 01/16/21 08:30 Temperature 98.3 F 98.6 F Pulse Rate 61 64 64 Respiratory Rate 20 18 Blood Pressure 156/83 H 148/77 H 148/77 H Pulse Oximetry 95 95 Body Mass Index 27.0 Labs Results: 11/19/20 06:25 12/14/20 06:53 Medications Medications Current Medications Generic Name Dose Route Start Last Admin Trade Name Freq PRN Reason Stop Dose Admin Acetaminophen 650 mg 11/18/20 13:10 12/24/20 10:51 Acetaminophen 325 Mg Tablet PO 650 mg Q6H PRN Administration Headache/Pain Mild Scale (1-3) Al Hydroxide/Mg Hydroxide 30 ml 11/18/20 13:10 Magnesium Hydrox/Alum Hydrox 30 Ml Oral.Susp PO Q6H PRN Heartburn/Nausea Amlodipine Besylate 5 mg 11/19/20 09:00 01/16/21 08:30 Amlodipine Besylate 5 Mg Tablet PO 5 mg DAILY RADHAMES Administration Protocol Aspirin 81 mg 11/19/20 09:00 01/16/21 08:30 Aspirin 81 Mg Tab.Chew PO 81 mg DAILY RADHAMES Administration Carbamazepine 400 mg 11/18/20 21:00 01/16/21 08:29 Carbamazepine 200 Mg Tablet PO 400 mg BID RADHAEMS Administration Carbidopa/Levodopa 1 tab 11/18/20 21:00 01/16/21 08:30 Carbidopa/Levodopa 25/100 Tablet PO 1 tab BID RADHAMES Administration Diphenhydramine HCl 50 mg 11/30/20 13:52 01/16/21 02:56 Diphenhydramine Hcl 25 Mg Tablet PO 50 mg BID PRN Administration agitation Haloperidol 5 mg 11/30/20 13:52 01/16/21 02:07 Haloperidol 5 Mg Tablet PO 5 mg TID PRN Administration Psychosis Haloperidol 20 mg 12/16/20 21:00 01/15/21 20:22 Haloperidol 5 Mg Tablet PO 20 mg BEDTIME RADHAMES Administration Haloperidol Lactate 2.5 mg 11/20/20 19:38 11/30/20 11:13 Haloperidol Lactate 10 Mg/5 Ml Oral.Conc PO 2.5 mg TID PRN Administration hypersexuality Hydroxyzine HCl 50 mg 01/08/21 09:51 01/15/21 21:01 Hydroxyzine Hcl 25 Mg Tablet PO 50 mg Q6H PRN Administration Anxiety Magnesium Hydroxide 30 ml 11/18/20 13:10 Milk Of Magnesia 30 Ml Oral.Susp PO DAILY PRN Constipation Multi-Ingred Cream/Lotion/Oil/Oint 1 appl 01/01/21 21:00 01/16/21 08:30 Mineral Oil/Petrolatum,White 106 Gm Tube TOPICAL Not Given BID RADHAMES Paliperidone Palmitate 234 mg 01/13/21 10:00 01/13/21 12:05 Paliperidone Palmitate 234 Mg/1.5 Ml Syringe IM 234 mg Q21D RADHAMES Administration Pravastatin Sodium 40 mg 11/19/20 09:00 01/16/21 08:29 Pravastatin Sodium 40 Mg Tablet PO 40 mg DAILY RADHAMES Administration Tamsulosin HCl 0.4 mg 11/18/20 21:00 01/15/21 20:20 Tamsulosin Hcl 0.4 Mg Capsule PO 0.4 mg BEDTIME RADHAMES Administration Trolamine Salicylate/Aloe Vera 1 appl 12/19/20 10:37 01/16/21 02:23 Trolamine Salicylate 10%/Aloe Cream 35.4 Gm TOPICAL 1 appl TID PRN Administration Pain, Mild (Pain Scale 1-3) Allergies Allergies Allergy/AdvReac Type Severity Reaction Status Date / Time No Known Allergies Allergy Verified 11/18/20 11:30 Assessment & Plan Assessment & Plan (1) Bipolar 1 disorder: Status: Acute Code(s): F31.9 - Bipolar disorder, unspecified Assessment and Plan: The patient is an elderly male with Bipolar disorder, resident of a nursing home in the [place] [facility], who was admitted due to being grossly manic and psychotic, extremely disruptive and abusive towards peers and staff. He has a Montiel order and a guardianship. As of 01/03- He is currently much less manic, no overt psychosis noted, effect blunted no active SI/HI. Later in January, he presented himself with more depression No behavioral concerns. Continue per primary treatment team: Plan: Invega Sustenna 234 mg second dose on 12/01, 3rd dose 12/23 Next dose today. From now on q21d Next Haldol dec od/c Change haloperidol to 20 mg p.o. q.h.s. Continue rest the same. Now on Section 7 and 8. Over the phone meeting with his guardian, no new PT suggestions. Greater than 50% of the session was spent on counseling and/or coordination of care Reason for contiued inpatient stay Substantial Risk for: inability to function
--- NOTE | 2021-01-16 16:52 | HO.PSYCHPN ---
Subjective Subjective Date of Service: 01/16/21 Reason For Visit: Bipolar disorder Diagnostics Vital Signs (24Hr): Vital Signs - 24 hr 01/15/21 18:00 01/16/21 06:00 01/16/21 08:30 Temperature 98.3 F 98.6 F Pulse Rate 61 64 64 Respiratory Rate 20 18 Blood Pressure 156/83 H 148/77 H 148/77 H Pulse Oximetry 95 95 Body Mass Index 27.0 Labs Results: 11/19/20 06:25 12/14/20 06:53 Medications Medications Current Medications Generic Name Dose Route Start Last Admin Trade Name Freq PRN Reason Stop Dose Admin Acetaminophen 650 mg 11/18/20 13:10 12/24/20 10:51 Acetaminophen 325 Mg Tablet PO 650 mg Q6H PRN Administration Headache/Pain Mild Scale (1-3) Al Hydroxide/Mg Hydroxide 30 ml 11/18/20 13:10 Magnesium Hydrox/Alum Hydrox 30 Ml Oral.Susp PO Q6H PRN Heartburn/Nausea Amlodipine Besylate 5 mg 11/19/20 09:00 01/16/21 08:30 Amlodipine Besylate 5 Mg Tablet PO 5 mg DAILY RADHAMES Administration Protocol Aspirin 81 mg 11/19/20 09:00 01/16/21 08:30 Aspirin 81 Mg Tab.Chew PO 81 mg DAILY RADHAMES Administration Carbamazepine 400 mg 11/18/20 21:00 01/16/21 08:29 Carbamazepine 200 Mg Tablet PO 400 mg BID RADHAMES Administration Carbidopa/Levodopa 1 tab 11/18/20 21:00 01/16/21 08:30 Carbidopa/Levodopa 25/100 Tablet PO 1 tab BID RADHAMES Administration Diphenhydramine HCl 50 mg 11/30/20 13:52 01/16/21 02:56 Diphenhydramine Hcl 25 Mg Tablet PO 50 mg BID PRN Administration agitation Haloperidol 5 mg 11/30/20 13:52 01/16/21 02:07 Haloperidol 5 Mg Tablet PO 5 mg TID PRN Administration Psychosis Haloperidol 20 mg 12/16/20 21:00 01/15/21 20:22 Haloperidol 5 Mg Tablet PO 20 mg BEDTIME RADHAMES Administration Haloperidol Lactate 2.5 mg 11/20/20 19:38 11/30/20 11:13 Haloperidol Lactate 10 Mg/5 Ml Oral.Conc PO 2.5 mg TID PRN Administration hypersexuality Hydroxyzine HCl 50 mg 01/08/21 09:51 01/15/21 21:01 Hydroxyzine Hcl 25 Mg Tablet PO 50 mg Q6H PRN Administration Anxiety Magnesium Hydroxide 30 ml 11/18/20 13:10 Milk Of Magnesia 30 Ml Oral.Susp PO DAILY PRN Constipation Multi-Ingred Cream/Lotion/Oil/Oint 1 appl 01/01/21 21:00 01/16/21 08:30 Mineral Oil/Petrolatum,White 106 Gm Tube TOPICAL Not Given BID RADHAMES Paliperidone Palmitate 234 mg 01/13/21 10:00 01/13/21 12:05 Paliperidone Palmitate 234 Mg/1.5 Ml Syringe IM 234 mg Q21D RADHAMES Administration Pravastatin Sodium 40 mg 11/19/20 09:00 01/16/21 08:29 Pravastatin Sodium 40 Mg Tablet PO 40 mg DAILY RADHAMES Administration Tamsulosin HCl 0.4 mg 11/18/20 21:00 01/15/21 20:20 Tamsulosin Hcl 0.4 Mg Capsule PO 0.4 mg BEDTIME RADHAMES Administration Trolamine Salicylate/Aloe Vera 1 appl 12/19/20 10:37 01/16/21 02:23 Trolamine Salicylate 10%/Aloe Cream 35.4 Gm TOPICAL 1 appl TID PRN Administration Pain, Mild (Pain Scale 1-3) Allergies Allergies Allergy/AdvReac Type Severity Reaction Status Date / Time No Known Allergies Allergy Verified 11/18/20 11:30 Assessment & Plan Assessment & Plan (1) Bipolar 1 disorder: Status: Acute Code(s): F31.9 - Bipolar disorder, unspecified Assessment and Plan: The patient is an elderly male with Bipolar disorder, resident of a snf in the [facility], who was admitted due to being grossly manic and psychotic, extremely disruptive and abusive towards peers and staff. He has a Montiel order and a guardianship. As of 01/03- He is currently much less manic, no overt psychosis noted, effect blunted no active SI/HI. Later in January, he presented himself with more depression No behavioral concerns. Continue per primary treatment team: Plan: Invega Sustenna 234 mg second dose on 12/01, 3rd dose 12/23 Next dose today. From now on q21d Next Haldol dec od/c Change haloperidol to 20 mg p.o. q.h.s. Continue rest the same. Now on Section 7 and 8. Over the phone meeting with his guardian, no new PT suggestions. Greater than 50% of the session was spent on counseling and/or coordination of care
[2021-01-16 18:00] VITALS: BP 123/77; PULSE 70; RESP 18; TEMP 36; O2SAT 96
[2021-01-16] MEDS: Tamsulosin HCL 0.4 MG CAPSULE PO (20:07)
[2021-01-16] MEDS: HaloperidoL 5 MG TABLET 20 MG PO (20:08)
[2021-01-16] MEDS: hydrOXYzine HCL 25 MG TABLET 50 MG PO (20:55)
[2021-01-17] MEDS: diphenhydrAMINE HCL 25 MG TABLET 50 MG PO ×2 (02:04→22:09)
[2021-01-17] MEDS: HaloperidoL 5 MG TABLET PO (02:47)
[2021-01-17 06:00] VITALS: BP 136/80; PULSE 67; RESP 18; O2SAT 95
--- NOTE | 2021-01-17 08:19 | P.PNPSI_ITS ---
Subjective Subjective Date of Service: 01/17/21 Reason For Visit: Bipolar disorder Interim History: Nursing staff reported that patient has been seclusive and isolative in his room, and shows regarding going back to the long-term but he is very insightful. He is fully compliant with treatment. On interview, the patient reported feeling okay and willing to go back to his long-term. Medication Compliance: Yes Side effects from medications: No Attending Groups: Intermittent Review of Systems Acute medical concerns: No Medical Review of Systems: unchanged Mental Status Exam Mental Status Exam Patient Appearance: Disheveled and Unkempt Patient Orientation: Person Level of Consciousness: Awake Patient Behavior: Guarded, Passive and Anxious Mood Description: Depressed Affect Description: Constricted Patient Cognition Impaired: No Ability to Follow Directions: Good Speech Pattern: Clear Hallucinations: None Delusions: Not Present Thought Process: Distracted and Slowed Thinking Thought Content: positive for Perseveration and positive for Poverty of Content Judgement: Fair Diagnostics Vital Signs (24Hr): Vital Signs - 24 hr 01/16/21 08:30 01/16/21 18:00 01/17/21 06:00 Temperature 96.8 F Pulse Rate 64 70 67 Respiratory Rate 18 18 Blood Pressure 148/77 H 123/77 136/80 Pulse Oximetry 96 95 Body Mass Index 27.0 Labs Results: 11/19/20 06:25 12/14/20 06:53 Medications Medications Current Medications Generic Name Dose Route Start Last Admin Trade Name Freq PRN Reason Stop Dose Admin Acetaminophen 650 mg 11/18/20 13:10 12/24/20 10:51 Acetaminophen 325 Mg Tablet PO 650 mg Q6H PRN Administration Headache/Pain Mild Scale (1-3) Al Hydroxide/Mg Hydroxide 30 ml 11/18/20 13:10 Magnesium Hydrox/Alum Hydrox 30 Ml Oral.Susp PO Q6H PRN Heartburn/Nausea Amlodipine Besylate 5 mg 11/19/20 09:00 01/16/21 08:30 Amlodipine Besylate 5 Mg Tablet PO 5 mg DAILY RADHAMES Administration Protocol Aspirin 81 mg 11/19/20 09:00 01/16/21 08:30 Aspirin 81 Mg Tab.Chew PO 81 mg DAILY RADHAMES Administration Carbamazepine 400 mg 11/18/20 21:00 01/16/21 20:07 Carbamazepine 200 Mg Tablet PO 400 mg BID RADHAMES Administration Carbidopa/Levodopa 1 tab 11/18/20 21:00 01/16/21 20:07 Carbidopa/Levodopa 25/100 Tablet PO 1 tab BID RADHAMES Administration Diphenhydramine HCl 50 mg 11/30/20 13:52 01/17/21 02:04 Diphenhydramine Hcl 25 Mg Tablet PO 50 mg BID PRN Administration agitation Haloperidol 5 mg 11/30/20 13:52 01/17/21 02:47 Haloperidol 5 Mg Tablet PO 5 mg TID PRN Administration Psychosis Haloperidol 20 mg 12/16/20 21:00 01/16/21 20:08 Haloperidol 5 Mg Tablet PO 20 mg BEDTIME RADHAMES Administration Haloperidol Lactate 2.5 mg 11/20/20 19:38 11/30/20 11:13 Haloperidol Lactate 10 Mg/5 Ml Oral.Conc PO 2.5 mg TID PRN Administration hypersexuality Hydroxyzine HCl 50 mg 01/08/21 09:51 01/16/21 20:55 Hydroxyzine Hcl 25 Mg Tablet PO 50 mg Q6H PRN Administration Anxiety Magnesium Hydroxide 30 ml 11/18/20 13:10 Milk Of Magnesia 30 Ml Oral.Susp PO DAILY PRN Constipation Multi-Ingred Cream/Lotion/Oil/Oint 1 appl 01/01/21 21:00 01/16/21 20:14 Mineral Oil/Petrolatum,White 106 Gm Tube TOPICAL Not Given BID RADHAMES Paliperidone Palmitate 234 mg 01/13/21 10:00 01/13/21 12:05 Paliperidone Palmitate 234 Mg/1.5 Ml Syringe IM 234 mg Q21D RADHAMES Administration Pravastatin Sodium 40 mg 11/19/20 09:00 01/16/21 08:29 Pravastatin Sodium 40 Mg Tablet PO 40 mg DAILY RADHAMES Administration Tamsulosin HCl 0.4 mg 11/18/20 21:00 01/16/21 20:07 Tamsulosin Hcl 0.4 Mg Capsule PO 0.4 mg BEDTIME RADHAMES Administration Trolamine Salicylate/Aloe Vera 1 appl 12/19/20 10:37 01/17/21 03:10 Trolamine Salicylate 10%/Aloe Cream 35.4 Gm TOPICAL 1 appl TID PRN Administration Pain, Mild (Pain Scale 1-3) Allergies Allergies Allergy/AdvReac Type Severity Reaction Status Date / Time No Known Allergies Allergy Verified 11/18/20 11:30 Assessment & Plan Assessment & Plan (1) Bipolar 1 disorder: Status: Acute Code(s): F31.9 - Bipolar disorder, unspecified Assessment and Plan: The patient is an elderly male with Bipolar disorder, resident of a [place] [facility], who was admitted due to being grossly manic and psychotic, extremely disruptive and abusive towards peers and staff. He has a Montiel order and a guardianship. As of 01/03- He is currently much less manic, no overt psychosis noted, effect blunted no active SI/HI. Later in January, he presented himself with more depression No behavioral concerns. Continue per primary treatment team: Plan: Invega Sustenna 234 mg second dose on 12/01, 3rd dose 12/23 Next dose today. From now on q21d Next Haldol dec od/c Change haloperidol to 20 mg p.o. q.h.s. Continue rest the same. Now on Section 7 and 8. Over the phone meeting with his guardian, no new PT suggestions. Discharge most likely at the end of the week to his long-term Greater than 50% of the session was spent on counseling and/or coordination of care Reason for contiued inpatient stay Substantial Risk for: rapid decompensation and med/psych decompensation
[2021-01-17 08:57] VITALS: BP 136/80; PULSE 67
[2021-01-17] MEDS: amLODIPine Besylate 5 MG TABLET PO (08:57)
[2021-01-17] MEDS: Aspirin 81 MG TAB.CHEW PO (08:58)
[2021-01-17] MEDS: carBAMazepine 200 MG TABLET 400 MG PO ×2 (08:58→21:03)
[2021-01-17] MEDS: Pravastatin Sodium 40 MG TABLET PO (08:59)
[2021-01-17] MEDS: Carbidopa/Levodopa 25/100 TABLET 1 TAB PO ×2 (08:59→21:04)
[2021-01-17 17:23] VITALS: BP 160/87; PULSE 63; RESP 16; O2SAT 94
[2021-01-17] MEDS: Tamsulosin HCL 0.4 MG CAPSULE PO (21:04)
[2021-01-17] MEDS: HaloperidoL 5 MG TABLET 20 MG PO (21:05)
[2021-01-17] MEDS: hydrOXYzine HCL 25 MG TABLET 50 MG PO (21:06)
[2021-01-18] MEDS: HaloperidoL 5 MG TABLET PO (00:12)
[2021-01-18 06:00] VITALS: BP 115/72; PULSE 75; RESP 17; TEMP 36.8; O2SAT 93
[2021-01-18 08:07] VITALS: BP 115/77; PULSE 75
[2021-01-18] MEDS: Pravastatin Sodium 40 MG TABLET PO (08:07)
[2021-01-18] MEDS: amLODIPine Besylate 5 MG TABLET PO (08:07)
[2021-01-18] MEDS: carBAMazepine 200 MG TABLET 400 MG PO ×2 (08:08→20:06)
[2021-01-18] MEDS: Carbidopa/Levodopa 25/100 TABLET 1 TAB PO ×2 (08:08→20:07)
[2021-01-18] MEDS: Aspirin 81 MG TAB.CHEW PO (08:08)
--- NOTE | 2021-01-18 12:05 | HO.PSYCHPN ---
Subjective Subjective Date of Service: 01/18/21 Reason For Visit: Bipolar disorder Subjective Notes: Section 7 and Section 8 Guardianship: Yes Interim History: The nursing staff reported the patient has been cooperative and pleasant, fully compliant with treatment but he is mostly seclusive in his room. Today in the morning, after taking his levodopa/carbidopa medication, he complained of visual hallucinations, seen at bedside in front of his wall. I explained to the patient that visual hallucinations are a common side effect of his Parkinson's medication. On interview, the patient denies new symptoms he is cooperative and pleasant, waiting to be discharged to his long term Medication Compliance: Yes Side effects from medications: Yes (Visual hallucinations with Parkinson medication) Attending Groups: No Review of Systems Acute medical concerns: No Medical Review of Systems: unchanged Mental Status Exam Mental Status Exam Patient Appearance: Well Grooomed Patient Orientation: Person Level of Consciousness: Awake Patient Behavior: Cooperative Mood Description: Depressed Affect Description: Constricted Patient Cognition Impaired: No Ability to Follow Directions: Good Speech Pattern: Clear Hallucinations: None Delusions: Not Present Thought Process: Linear Thought Content: positive for Circumstantial and positive for Poverty of Content Judgement: Fair Diagnostics Vital Signs (24Hr): Vital Signs - 24 hr 01/17/21 17:23 01/18/21 06:00 01/18/21 08:07 Temperature 98.2 F Pulse Rate 63 75 75 Respiratory Rate 16 17 Blood Pressure 160/87 H 115/72 115/77 Pulse Oximetry 94 93 Body Mass Index 27.0 Labs Results: 11/19/20 06:25 12/14/20 06:53 Medications Medications Current Medications Generic Name Dose Route Start Last Admin Trade Name Mustaphaq PRN Reason Stop Dose Admin Acetaminophen 650 mg 11/18/20 13:10 12/24/20 10:51 Acetaminophen 325 Mg Tablet PO 650 mg Q6H PRN Administration Headache/Pain Mild Scale (1-3) Al Hydroxide/Mg Hydroxide 30 ml 11/18/20 13:10 Magnesium Hydrox/Alum Hydrox 30 Ml Oral.Susp PO Q6H PRN Heartburn/Nausea Amlodipine Besylate 5 mg 11/19/20 09:00 01/18/21 08:07 Amlodipine Besylate 5 Mg Tablet PO 5 mg DAILY RADHAMES Administration Protocol Aspirin 81 mg 11/19/20 09:00 01/18/21 08:08 Aspirin 81 Mg Tab.Chew PO 81 mg DAILY RADHAMES Administration Carbamazepine 400 mg 11/18/20 21:00 01/18/21 08:08 Carbamazepine 200 Mg Tablet PO 400 mg BID RADHAMES Administration Carbidopa/Levodopa 1 tab 11/18/20 21:00 01/18/21 08:08 Carbidopa/Levodopa 25/100 Tablet PO 1 tab BID RADHAMES Administration Diphenhydramine HCl 50 mg 11/30/20 13:52 01/17/21 22:09 Diphenhydramine Hcl 25 Mg Tablet PO 50 mg BID PRN Administration agitation Haloperidol 5 mg 11/30/20 13:52 01/18/21 00:12 Haloperidol 5 Mg Tablet PO 5 mg TID PRN Administration Psychosis Haloperidol 20 mg 12/16/20 21:00 01/17/21 21:05 Haloperidol 5 Mg Tablet PO 20 mg BEDTIME RADHAMES Administration Haloperidol Lactate 2.5 mg 11/20/20 19:38 11/30/20 11:13 Haloperidol Lactate 10 Mg/5 Ml Oral.Conc PO 2.5 mg TID PRN Administration hypersexuality Hydroxyzine HCl 50 mg 01/08/21 09:51 01/17/21 21:06 Hydroxyzine Hcl 25 Mg Tablet PO 50 mg Q6H PRN Administration Anxiety Magnesium Hydroxide 30 ml 11/18/20 13:10 Milk Of Magnesia 30 Ml Oral.Susp PO DAILY PRN Constipation Multi-Ingred Cream/Lotion/Oil/Oint 1 appl 01/01/21 21:00 01/18/21 08:11 Mineral Oil/Petrolatum,White 106 Gm Tube TOPICAL Not Given BID RADHAMES Paliperidone Palmitate 234 mg 01/13/21 10:00 01/13/21 12:05 Paliperidone Palmitate 234 Mg/1.5 Ml Syringe IM 234 mg Q21D RADHAMES Administration Pravastatin Sodium 40 mg 11/19/20 09:00 01/18/21 08:07 Pravastatin Sodium 40 Mg Tablet PO 40 mg DAILY RADHAMES Administration Tamsulosin HCl 0.4 mg 11/18/20 21:00 01/17/21 21:04 Tamsulosin Hcl 0.4 Mg Capsule PO 0.4 mg BEDTIME RADHAMES Administration Trolamine Salicylate/Aloe Vera 1 appl 12/19/20 10:37 01/17/21 03:10 Trolamine Salicylate 10%/Aloe Cream 35.4 Gm TOPICAL 1 appl TID PRN Administration Pain, Mild (Pain Scale 1-3) Allergies Allergies Allergy/AdvReac Type Severity Reaction Status Date / Time No Known Allergies Allergy Verified 11/18/20 11:30 Assessment & Plan Assessment & Plan (1) Bipolar 1 disorder: Status: Acute Code(s): F31.9 - Bipolar disorder, unspecified Assessment and Plan: The patient is an elderly male with Bipolar disorder, resident of a long term in the [place] side of [facility], who was admitted due to being grossly manic and psychotic, extremely disruptive and abusive towards peers and staff. He has a Montiel order and a guardianship. As of 01/03- He is currently much less manic, no overt psychosis noted, effect blunted no active SI/HI. Later in January, he presented himself with more depression No behavioral concerns. Continue per primary treatment team: Plan: Invega Sustenna 234 mg second dose on 12/01, 3rd dose 12/23 Next dose today. From now on q21d Next Haldol dec od/c Change haloperidol to 20 mg p.o. q.h.s. Continue rest the same. Now on Section 7 and 8. Over the phone meeting with his guardian, no new PT suggestions. Discharge most likely at the end of the week to his long term Greater than 50% of the session was spent on counseling and/or coordination of care Reason for contiued inpatient stay Substantial Risk for: stable for discharge
[2021-01-18] MEDS: HaloperidoL 5 MG TABLET 20 MG PO (20:07)
[2021-01-18] MEDS: Tamsulosin HCL 0.4 MG CAPSULE PO (20:08)
[2021-01-18 20:33] VITALS: BP 144/76; PULSE 59; RESP 15; TEMP -12.5; TEMP 9.5; O2SAT 94
[2021-01-18] MEDS: hydrOXYzine HCL 25 MG TABLET 50 MG PO (22:46)
[2021-01-19] MEDS: diphenhydrAMINE HCL 25 MG TABLET 50 MG PO (01:06)
[2021-01-19] MEDS: HaloperidoL 5 MG TABLET PO (01:54)
[2021-01-19 09:15] VITALS: BP 140/72; PULSE 72; RESP 16; TEMP 36.6; O2SAT 92
[2021-01-19 09:34] VITALS: BP 140/72; PULSE 72
[2021-01-19] MEDS: amLODIPine Besylate 5 MG TABLET PO (09:34)
[2021-01-19] MEDS: Aspirin 81 MG TAB.CHEW PO (09:35)
[2021-01-19] MEDS: carBAMazepine 200 MG TABLET 400 MG PO ×2 (09:35→20:44)
[2021-01-19] MEDS: Pravastatin Sodium 40 MG TABLET PO (09:36)
[2021-01-19] MEDS: Mineral Oil/Petrolatum,White 106 GM Tube 1 APPL TOPICAL (09:36)
[2021-01-19] MEDS: Carbidopa/Levodopa 25/100 TABLET 1 TAB PO ×2 (09:36→20:46)
--- NOTE | 2021-01-19 11:51 | HO.PSYCHPN ---
Subjective Subjective Date of Service: 01/19/21 Reason For Visit: Bipolar disorder Subjective Notes: Section 7 and Section 8 Interim History: The nursing staff reports no changes in his mental status, he is mostly seclusive in his room under were no behavioral disturbances. On interview, the patient reports that he is doing fine no evidence of malcolm. Medication Compliance: Yes Side effects from medications: No Attending Groups: Intermittent Review of Systems Acute medical concerns: No Medical Review of Systems: unchanged Mental Status Exam Mental Status Exam Patient Appearance: Well Grooomed Patient Orientation: Person Level of Consciousness: Awake Patient Behavior: Guarded and Suspicious Mood Description: Calm Affect Description: Constricted Patient Cognition Impaired: No Ability to Follow Directions: Good Speech Pattern: Appropriate Hallucinations: None Delusions: Not Present Thought Process: Intact Thought Content: positive for Circumstantial Judgement: Fair Diagnostics Vital Signs (24Hr): Vital Signs - 24 hr 01/18/21 20:33 01/19/21 09:15 01/19/21 09:34 Temperature 9.5 F L 97.9 F Pulse Rate 59 72 72 Respiratory Rate 15 16 Blood Pressure 144/76 H 140/72 H 140/72 H Pulse Oximetry 94 92 Body Mass Index 27.0 Labs Results: 11/19/20 06:25 12/14/20 06:53 Medications Medications Current Medications Generic Name Dose Route Start Last Admin Trade Name Freq PRN Reason Stop Dose Admin Acetaminophen 650 mg 11/18/20 13:10 12/24/20 10:51 Acetaminophen 325 Mg Tablet PO 650 mg Q6H PRN Administration Headache/Pain Mild Scale (1-3) Al Hydroxide/Mg Hydroxide 30 ml 11/18/20 13:10 Magnesium Hydrox/Alum Hydrox 30 Ml Oral.Susp PO Q6H PRN Heartburn/Nausea Amlodipine Besylate 5 mg 11/19/20 09:00 01/19/21 09:34 Amlodipine Besylate 5 Mg Tablet PO 5 mg DAILY RADHAMES Administration Protocol Aspirin 81 mg 11/19/20 09:00 01/19/21 09:35 Aspirin 81 Mg Tab.Chew PO 81 mg DAILY RADHAMES Administration Carbamazepine 400 mg 11/18/20 21:00 01/19/21 09:35 Carbamazepine 200 Mg Tablet PO 400 mg BID RADHAMES Administration Carbidopa/Levodopa 1 tab 11/18/20 21:00 01/19/21 09:36 Carbidopa/Levodopa 25/100 Tablet PO 1 tab BID RADHAMES Administration Diphenhydramine HCl 50 mg 11/30/20 13:52 01/19/21 01:06 Diphenhydramine Hcl 25 Mg Tablet PO 50 mg BID PRN Administration agitation Haloperidol 5 mg 11/30/20 13:52 01/19/21 01:54 Haloperidol 5 Mg Tablet PO 5 mg TID PRN Administration Psychosis Haloperidol 20 mg 12/16/20 21:00 01/18/21 20:07 Haloperidol 5 Mg Tablet PO 20 mg BEDTIME RADHAMES Administration Haloperidol Lactate 2.5 mg 11/20/20 19:38 11/30/20 11:13 Haloperidol Lactate 10 Mg/5 Ml Oral.Conc PO 2.5 mg TID PRN Administration hypersexuality Hydroxyzine HCl 50 mg 01/08/21 09:51 01/18/21 22:46 Hydroxyzine Hcl 25 Mg Tablet PO 50 mg Q6H PRN Administration Anxiety Magnesium Hydroxide 30 ml 11/18/20 13:10 Milk Of Magnesia 30 Ml Oral.Susp PO DAILY PRN Constipation Multi-Ingred Cream/Lotion/Oil/Oint 1 appl 01/01/21 21:00 01/19/21 09:36 Mineral Oil/Petrolatum,White 106 Gm Tube TOPICAL 1 appl BID RADHAMES Administration Paliperidone Palmitate 234 mg 01/13/21 10:00 01/13/21 12:05 Paliperidone Palmitate 234 Mg/1.5 Ml Syringe IM 234 mg Q21D RADHAMES Administration Pravastatin Sodium 40 mg 11/19/20 09:00 01/19/21 09:36 Pravastatin Sodium 40 Mg Tablet PO 40 mg DAILY RADHAMES Administration Tamsulosin HCl 0.4 mg 11/18/20 21:00 01/18/21 20:08 Tamsulosin Hcl 0.4 Mg Capsule PO 0.4 mg BEDTIME RADHAMES Administration Trolamine Salicylate/Aloe Vera 1 appl 12/19/20 10:37 01/17/21 03:10 Trolamine Salicylate 10%/Aloe Cream 35.4 Gm TOPICAL 1 appl TID PRN Administration Pain, Mild (Pain Scale 1-3) Allergies Allergies Allergy/AdvReac Type Severity Reaction Status Date / Time No Known Allergies Allergy Verified 11/18/20 11:30 Assessment & Plan Assessment & Plan (1) Bipolar 1 disorder: Status: Acute Code(s): F31.9 - Bipolar disorder, unspecified Assessment and Plan: The patient is an elderly male with Bipolar disorder, resident of [place] [facility] [place] [facility], who was admitted due to being grossly manic and psychotic, extremely disruptive and abusive towards peers and staff. He has a Montiel order and a guardianship. As of 01/03- He is currently much less manic, no overt psychosis noted, effect blunted no active SI/HI. Later in January, he presented himself with more depression No behavioral concerns. Continue per primary treatment team: Plan: Invega Sustenna 234 mg second dose on 12/01, 3rd dose 12/23 Next dose today. From now on q21d Next Haldol dec od/c Change haloperidol to 20 mg p.o. q.h.s. Continue rest the same. Now on Section 7 and 8. Over the phone meeting with his guardian, no new PT suggestions. Discharge most likely at the end of the week to his care home Tomorrow we will have habitual meeting with his team for discharge planning Greater than 50% of the session was spent on counseling and/or coordination of care Reason for contiued inpatient stay Substantial Risk for: stable for discharge
[2021-01-19 18:00] VITALS: BP 134/83; PULSE 63; RESP 18; TEMP 36.6; O2SAT 93
[2021-01-19] MEDS: Tamsulosin HCL 0.4 MG CAPSULE PO (20:44)
[2021-01-19] MEDS: HaloperidoL 5 MG TABLET 20 MG PO (20:44)
[2021-01-19] MEDS: hydrOXYzine HCL 25 MG TABLET 50 MG PO (21:17)
[2021-01-20 09:53] VITALS: BP 127/73; PULSE 67; RESP 16; TEMP 36.9; O2SAT 93
[2021-01-20 09:58] VITALS: BP 127/73; PULSE 67
[2021-01-20] MEDS: Aspirin 81 MG TAB.CHEW PO (09:58)
[2021-01-20] MEDS: Pravastatin Sodium 40 MG TABLET PO (09:58)
[2021-01-20] MEDS: amLODIPine Besylate 5 MG TABLET PO (09:58)
[2021-01-20] MEDS: carBAMazepine 200 MG TABLET 400 MG PO ×2 (09:58→20:27)
[2021-01-20] MEDS: Carbidopa/Levodopa 25/100 TABLET 1 TAB PO ×2 (09:58→20:27)
[2021-01-20] MEDS: hydrOXYzine HCL 25 MG TABLET 50 MG PO ×2 (10:29→21:07)
--- NOTE | 2021-01-20 14:40 | HO.PSYCHPN ---
Subjective Subjective Date of Service: 01/20/21 Reason For Visit: Bipolar disorder Subjective Notes: Section 7 and Section 8 Healthcare Proxy: No Guardianship: Yes Medical Problems Affecting Mental Status: No Interim History: The nursing staff that the patient has being euthymic, tending to meals. We interview, he denies new symptoms and he is hopeful that he will be discharged pretty soon probably tomorrow Medication Compliance: Yes Side effects from medications: No Attending Groups: Intermittent Review of Systems Acute medical concerns: No Medical Review of Systems: unchanged Mental Status Exam Mental Status Exam Patient Appearance: Unkempt Patient Orientation: Person Level of Consciousness: Awake Patient Behavior: Appropriate Mood Description: Calm Affect Description: Constricted Patient Cognition Impaired: No Ability to Follow Directions: Good Speech Pattern: Clear Hallucinations: None Delusions: Not Present Thought Process: Slowed Thinking Thought Content: positive for Linear and positive for Poverty of Content Judgement: Fair Diagnostics Vital Signs (24Hr): Vital Signs - 24 hr 01/19/21 18:00 01/20/21 09:53 01/20/21 09:58 Temperature 98 F 98.4 F Pulse Rate 63 67 67 Respiratory Rate 18 16 Blood Pressure 134/83 127/73 127/73 Pulse Oximetry 93 93 Body Mass Index 27.0 Labs Results: 11/19/20 06:25 12/14/20 06:53 Medications Medications Current Medications Generic Name Dose Route Start Last Admin Trade Name Freq PRN Reason Stop Dose Admin Acetaminophen 650 mg 11/18/20 13:10 12/24/20 10:51 Acetaminophen 325 Mg Tablet PO 650 mg Q6H PRN Administration Headache/Pain Mild Scale (1-3) Al Hydroxide/Mg Hydroxide 30 ml 11/18/20 13:10 Magnesium Hydrox/Alum Hydrox 30 Ml Oral.Susp PO Q6H PRN Heartburn/Nausea Amlodipine Besylate 5 mg 11/19/20 09:00 01/20/21 09:58 Amlodipine Besylate 5 Mg Tablet PO 5 mg DAILY RADHAMES Administration Protocol Aspirin 81 mg 11/19/20 09:00 01/20/21 09:58 Aspirin 81 Mg Tab.Chew PO 81 mg DAILY RADHAMES Administration Carbamazepine 400 mg 11/18/20 21:00 01/20/21 09:58 Carbamazepine 200 Mg Tablet PO 400 mg BID RADHAMES Administration Carbidopa/Levodopa 1 tab 11/18/20 21:00 01/20/21 09:58 Carbidopa/Levodopa 25/100 Tablet PO 1 tab BID RADHAMES Administration Diphenhydramine HCl 50 mg 11/30/20 13:52 01/19/21 01:06 Diphenhydramine Hcl 25 Mg Tablet PO 50 mg BID PRN Administration agitation Haloperidol 5 mg 11/30/20 13:52 01/19/21 01:54 Haloperidol 5 Mg Tablet PO 5 mg TID PRN Administration Psychosis Haloperidol 20 mg 12/16/20 21:00 01/19/21 20:44 Haloperidol 5 Mg Tablet PO 20 mg BEDTIME RADHAMES Administration Haloperidol Lactate 2.5 mg 11/20/20 19:38 11/30/20 11:13 Haloperidol Lactate 10 Mg/5 Ml Oral.Conc PO 2.5 mg TID PRN Administration hypersexuality Hydroxyzine HCl 50 mg 01/08/21 09:51 01/20/21 10:29 Hydroxyzine Hcl 25 Mg Tablet PO 50 mg Q6H PRN Administration Anxiety Magnesium Hydroxide 30 ml 11/18/20 13:10 Milk Of Magnesia 30 Ml Oral.Susp PO DAILY PRN Constipation Multi-Ingred Cream/Lotion/Oil/Oint 1 appl 01/01/21 21:00 01/20/21 09:59 Mineral Oil/Petrolatum,White 106 Gm Tube TOPICAL Not Given BID RADHAMES Paliperidone Palmitate 234 mg 01/13/21 10:00 01/13/21 12:05 Paliperidone Palmitate 234 Mg/1.5 Ml Syringe IM 234 mg Q21D RADHAMES Administration Pravastatin Sodium 40 mg 11/19/20 09:00 01/20/21 09:58 Pravastatin Sodium 40 Mg Tablet PO 40 mg DAILY RADHAMES Administration Tamsulosin HCl 0.4 mg 11/18/20 21:00 01/19/21 20:44 Tamsulosin Hcl 0.4 Mg Capsule PO 0.4 mg BEDTIME RADHAMES Administration Trolamine Salicylate/Aloe Vera 1 appl 12/19/20 10:37 01/17/21 03:10 Trolamine Salicylate 10%/Aloe Cream 35.4 Gm TOPICAL 1 appl TID PRN Administration Pain, Mild (Pain Scale 1-3) Allergies Allergies Allergy/AdvReac Type Severity Reaction Status Date / Time No Known Allergies Allergy Verified 11/18/20 11:30 Assessment & Plan Assessment & Plan (1) Bipolar 1 disorder: Status: Acute Code(s): F31.9 - Bipolar disorder, unspecified Assessment and Plan: The patient is an elderly male with Bipolar disorder, resident of [place] [facility], who was admitted due to being grossly manic and psychotic, extremely disruptive and abusive towards peers and staff. He has a Montiel order and a guardianship. As of 01/03- He is currently much less manic, no overt psychosis noted, effect blunted no active SI/HI. Later in January, he presented himself with more depression No behavioral concerns. Continue per primary treatment team: Plan: Invega Sustenna 234 mg second dose on 12/01, 3rd dose 12/23 Next dose today. From now on q21d Next Haldol dec od/c Change haloperidol to 20 mg p.o. q.h.s. Continue rest the same. Now on Section 7 and 8. Over the phone meeting with his guardian, no new PT suggestions. Discharge most likely at the end of the week to his residential Tomorrow we will have habitual meeting with his team for discharge planning Greater than 50% of the session was spent on counseling and/or coordination of care Reason for contiued inpatient stay Substantial Risk for: inability to function, rapid decompensation and med/psych decompensation
[2021-01-20 15:47] LABS: COVID-19 Test Negative (Negative); IDNOW Serial# 9DD0AD1C
[2021-01-20 18:32] VITALS: BP 127/66; PULSE 61; RESP 18; TEMP 37.1; O2SAT 93
[2021-01-20] MEDS: HaloperidoL 5 MG TABLET 20 MG PO (20:28)
[2021-01-20] MEDS: Tamsulosin HCL 0.4 MG CAPSULE PO (20:28)
[2021-01-21] MEDS: diphenhydrAMINE HCL 25 MG TABLET 50 MG PO (02:18)
[2021-01-21] MEDS: HaloperidoL 5 MG TABLET PO (02:59)
[2021-01-21 09:18] VITALS: BP 130/75; PULSE 68; RESP 16; TEMP 36.7; O2SAT 94
--- NOTE | 2021-01-21 09:18 | P.DS_ITS ---
DS: Providers Provider Date of Service: 01/21/21 Date of admission: 11/18/20 11:19 Date of discharge: 01/21/21 Primary care physician: Nonstaff Physician Consults: 11/18/20 10:58 Consult to Hospitalist Routine Consulting Provider: Hospitalist Reason For Exam: direct admission 01/01/21 18:06 Consult to Podiatry Routine Consulting Provider: Lola Vazquez Reason for consultation: Long Fungal Toenails need Trimming Attending physician on discharge: Brian Michael DS: Diagnosis Discharge Diagnosis (1) Bipolar 1 disorder: Status: Acute DS: Medications Discharge Medications Home Medications: Home Medications Medication Instructions Recorded Confirmed amlodipine 5 mg tablet 5 mg PO DAILY 11/26/20 11/26/20 aspirin 81 mg tablet 81 mg PO DAILY 11/26/20 11/26/20 carbamazepine 400 mg 400 mg PO BID 11/26/20 11/26/20 tablet,extended release,12 hr carbidopa 10 mg-levodopa 100 mg 1 tab PO BID 11/26/20 11/26/20 tablet cholecalciferol (vitamin D3)-soy 1 tab PO DAILY 11/26/20 12/16/20 isoflavone 2,000 unit-64 mg tablet (Iso D3) haloperidol 10 mg tablet 10 mg PO BID 11/26/20 12/16/20 haloperidol lactate 5 mg/mL 5 mg IM ONCE 11/26/20 11/26/20 intramuscular syringe latanoprost 0.005 % eye drops 1 drp OPHTHALMIC (EYE) QPM 11/26/20 11/26/20 lorazepam 2 mg/mL injection syringe 1 mg IM DIRECTED PRN 11/26/20 11/26/20 lorazepam 2 mg/mL injection syringe 2 mg IM ONCE PRN 11/26/20 11/26/20 pravastatin 40 mg tablet 40 mg PO BEDTIME 11/26/20 11/26/20 tamsulosin 0.4 mg capsule 0.4 mg PO BEDTIME 11/26/20 11/26/20 Mental Status Exam Mental Status Exam Patient Appearance: Well Grooomed Patient Orientation: Person, Place and Time Level of Consciousness: Awake Patient Behavior: Cooperative Mood Description: Depressed Affect Description: Constricted Patient Cognition Impaired: Yes Ability to Follow Directions: Good Speech Pattern: Clear Memory Description: Intact Hallucinations: None Thought Process: Goal Oriented Thought Content: positive for Circumstantial and positive for Poverty of Content Judgement: Fair Data Data Completed and Pending Completed studies during hospitalization [Text1]: 01/20/21 15:20 COVID-19 (BITA) Negative COVID-19 Clin Com See Note DS: Summary Hospital Course Hospital Course: The patient was initially admitted into the hospital for manic episode. He has been in an out of hospitals since February 2020 due to unstable mood. Please see admission note for more details. As per history years older under guardianship, we decided to change Haldol Decanoate to Invega Sustenna. It seems that Invega Sustenna was replaced by Haldol in the previous admission. We gather collateral information, we contacted with his outpatient psychiatrist, his guardian and the staff of the senior care and apparently before going to the senior care in 2019, he was independent. As per his guardian, his baseline is mild dysphoria. The patient was on Invega Sustenna 234 Q 28 days for several weeks with limited improvement. We discussed the case with his primary team from [facility] and we initially did a referral for long-term hospitalization. The patient was very oppositional, with frequent p.r.n. meds but eventually on the 36 of the hospitalization, his mood improved with less irritability, he was pleasant and cooperative and he attended several groups. The patient had been stable for several weeks and since there were no criteria for inpatient level of care we coordinated his discharge to the community. At the moment of the discharge, there were no safety concerns, the patient was pleasant and cooperative and he was future oriented. We realized that the patient will require Invega Sustenna every 21 days instead of 28 Time spent discussing smoking cessation with patient: 3 to 10 minutes Status at Discharge Cognitive/behavioral status at discharge: At baseline Functional status at discharge: independent ambulation Overall status at discharge: patient is back to baseline Time Spent with Patient Time attestation: Total time spent providing and/or coordinating discharge services: Time spent: Less than 30 minutes Discharge Plan Discharge Patient Disposition: Xfer Other Discharge Diagnosis: Bipolar Disorder Referrals: Dr Jacob Roque [facility] Primary Care [Other] - 01/27/21 4:30 pm (Your next baggage porter head appointment is scheduled for 01/27/21 at 4:30pm. The appointment is virtual and you will be sent a link to your cell phone. ) Dr Branch [Other] - 02/01/21 4:00 pm (Your next appointment with your psychiatrist is scheduled for 02/01/21 4:00pm. The appointment is virtual and the office will send link to your phone. ) Physician,Nonstaff [Primary Care Provider] - 1 Week Discharge Medications: New acetaminophen 325 mg Tablet 650 mg PO Q6H PRN (Reason: Headache/Pain Mild Scale (1-3)) 30 Days Qty: 60 RF: 0 haloperidol 5 mg Tablet 20 mg PO BEDTIME 30 Days Qty: 120 RF: 0 carbamazepine 200 mg Tablet 400 mg PO BID 30 Days Qty: 120 RF: 0 diphenhydramine HCl [Allergy Relief(diphenhydramin)] 25 mg Tablet 50 mg PO BID PRN (Reason: agitation) 30 Days Qty: 30 RF: 0 aspirin 81 mg Tablet,Chewable 81 mg PO DAILY 30 Days Qty: 30 RF: 0 hydroxyzine HCl 25 mg Tablet 50 mg PO Q6H PRN (Reason: Anxiety) 30 Days Qty: 30 RF: 0 carbidopa-levodopa 25-100 mg Tablet 1 tab PO BID 30 Days Qty: 60 RF: 0 Invega Sustenna 234 mg/1.5 mL Syringe 234 mg IM Q21D 30 Days Qty: 3 RF: 0 Dermacerin Cream 1 appl topical BID 30 Days Qty: 10 RF: 0 Aspercreme with Aloe 10 % Cream 1 appl topical TID PRN (Reason: Pain, Mild (Pain Scale 1-3)) 30 Days Qty: 10 RF: 0 Continued latanoprost 0.005 % Drops 1 drp OPHTHALMIC (EYE) QPM 30 Days Qty: 10 RF: 0 pravastatin 40 mg Tablet 40 mg PO BEDTIME 30 Days Qty: 30 RF: 0 amlodipine 5 mg Tablet 5 mg PO DAILY 30 Days Qty: 30 RF: 0 tamsulosin 0.4 mg Capsule 0.4 mg PO BEDTIME 30 Days Qty: 30 RF: 0 Discontinued aspirin 81 mg Tablet 81 mg PO DAILY RF: 0 carbamazepine 400 mg Tablet Extended Release 12 Hr 400 mg PO BID RF: 0 carbidopa-levodopa 10-100 mg Tablet 1 tab PO BID RF: 0 Iso D3 2,000-64 unit-mg Tablet 1 tab PO DAILY RF: 0 haloperidol 10 mg Tablet 10 mg PO BID RF: 0 haloperidol lactate 5 mg/mL Syringe 5 mg IM ONCE RF: 0 lorazepam 2 mg/mL Syringe 1 mg IM DIRECTED PRN (Reason: Agitation) RF: 0 lorazepam 2 mg/mL Syringe 2 mg IM ONCE PRN (Reason: Agitation) RF: 0 Discharge Orders: Discharge Order (Routine); Ordered 01/21/21 Ordered By: Brian Michael Diet: advance to usual diet Activity on Discharge: As tolerated Stand Alone Forms: Patient Portal Discharge page Care Plan Goals: Car plan goals already achieved in this hospitalization Health Concerns: Continue medical treatment by PCP to address Parkinson's disease and other medical problems. Plan of Treatment: Continue medication management with psychiatrist. Continue psychotherapy as an outpatient. Assessment: The patient is an elderly male with a long history of bipolar disorder, chronically institutionalized with the guardian and milieu support in the community, resident of a senior care with a [facility] services, admitted for manic symptoms. At this point, the patient is a with thymic at baseline with no safety concerns.
[2021-01-21] MEDS: Acetaminophen 325 MG TABLET 650 MG PO (09:21)
[2021-01-21] MEDS: Carbidopa/Levodopa 25/100 TABLET 1 TAB PO ×2 (09:21→22:12)
[2021-01-21] MEDS: Aspirin 81 MG TAB.CHEW PO (09:21)
[2021-01-21 09:22] VITALS: BP 130/75; PULSE 68
[2021-01-21] MEDS: Pravastatin Sodium 40 MG TABLET PO (09:22)
[2021-01-21] MEDS: carBAMazepine 200 MG TABLET 400 MG PO ×2 (09:22→20:27)
[2021-01-21] MEDS: amLODIPine Besylate 5 MG TABLET PO (09:22)
[2021-01-21] MEDS: HaloperidoL 5 MG TABLET 20 MG PO (20:29)
[2021-01-21] MEDS: hydrOXYzine HCL 25 MG TABLET 50 MG PO (21:04)
[2021-01-21 21:37] VITALS: BP 145/72; PULSE 74; RESP 18; TEMP 36.5; O2SAT 95
[2021-01-21] MEDS: Tamsulosin HCL 0.4 MG CAPSULE PO (22:12)
[2021-01-22] MEDS: diphenhydrAMINE HCL 25 MG TABLET 50 MG PO ×2 (00:38→21:38)
[2021-01-22] MEDS: HaloperidoL 5 MG TABLET PO (01:31)
[2021-01-22 06:00] VITALS: BP 127/75; PULSE 63; O2SAT 92
[2021-01-22 08:28] VITALS: BP 127/75; PULSE 63
[2021-01-22] MEDS: Aspirin 81 MG TAB.CHEW PO (08:28)
[2021-01-22] MEDS: Pravastatin Sodium 40 MG TABLET PO (08:28)
[2021-01-22] MEDS: Carbidopa/Levodopa 25/100 TABLET 1 TAB PO ×2 (08:28→20:49)
[2021-01-22] MEDS: carBAMazepine 200 MG TABLET 400 MG PO ×2 (08:28→20:49)
[2021-01-22] MEDS: amLODIPine Besylate 5 MG TABLET PO (08:28)
[2021-01-22] MEDS: Latanoprost 0.005 % Ophth Sol 2.5 ML DROPS 1 DROP EYE-LEFT (20:49)
[2021-01-22] MEDS: hydrOXYzine HCL 25 MG TABLET 50 MG PO (20:49)
[2021-01-22] MEDS: Tamsulosin HCL 0.4 MG CAPSULE PO (20:49)
[2021-01-22] MEDS: HaloperidoL 5 MG TABLET 20 MG PO (20:50)
--- NOTE | 2021-01-22 21:04 | HO.PSYCHPN ---
Subjective Subjective Date of Service: 01/23/21 Reason For Visit: Bipolar disorder Subjective Notes: Montiel Order Interim History: Pt lying comfortably in bed. Aware that DC was delayed. No complaints. Ct Rx plan Medication Compliance: Yes Side effects from medications: No Review of Systems Acute medical concerns: No Medical Review of Systems: unchanged Review of Systems Review of Systems Yes all other systems are reviewed and are negative Constitutional: Reports as per HPI Eyes: Reports as per HPI Mental Status Exam Mental Status Exam Patient Appearance: Well Grooomed Patient Orientation: Person, Place and Time Level of Consciousness: Awake Patient Behavior: Cooperative Mood Description: Depressed Affect Description: Constricted Patient Cognition Impaired: Yes Ability to Follow Directions: Good Speech Pattern: Clear Memory Description: Intact Hallucinations: None Delusions: Not Present Thought Process: Intact Thought Content: positive for Intact Diagnostics Vital Signs (24Hr): Vital Signs - 24 hr 01/21/21 21:37 01/22/21 06:00 01/22/21 08:28 Temperature 97.7 F Pulse Rate 74 63 63 Respiratory Rate 18 Blood Pressure 145/72 H 127/75 127/75 Pulse Oximetry 95 92 Body Mass Index 27.0 Labs Results: 11/19/20 06:25 12/14/20 06:53 Medications Medications Current Medications Acetaminophen (Acetaminophen 325 Mg Tablet) 650 mg PO Q6H PRN PRN Reason: Headache/Pain Mild Scale (1-3) Last Admin: 01/21/21 09:21 Dose: 650 mg Documented by: Al Hydroxide/Mg Hydroxide (Magnesium Hydrox/Alum Hydrox 30 Ml Oral.Susp) 30 ml PO Q6H PRN PRN Reason: Heartburn/Nausea Amlodipine Besylate (Amlodipine Besylate 5 Mg Tablet) 5 mg PO DAILY [facility]; Protocol Last Admin: 01/22/21 08:28 Dose: 5 mg Documented by: Aspirin (Aspirin 81 Mg Tab.Chew) 81 mg PO DAILY [facility] Last Admin: 01/22/21 08:28 Dose: 81 mg Documented by: Carbamazepine (Carbamazepine 200 Mg Tablet) 400 mg PO BID [facility] Last Admin: 01/22/21 20:49 Dose: 400 mg Documented by: Carbidopa/Levodopa (Carbidopa/Levodopa 25/100 Tablet) 1 tab PO BID [facility] Last Admin: 01/22/21 20:49 Dose: 1 tab Documented by: Diphenhydramine HCl (Diphenhydramine Hcl 25 Mg Tablet) 50 mg PO BID PRN PRN Reason: agitation Last Admin: 01/22/21 00:38 Dose: 50 mg Documented by: Haloperidol (Haloperidol 5 Mg Tablet) 5 mg PO TID PRN PRN Reason: Psychosis Last Admin: 01/22/21 01:31 Dose: 5 mg Documented by: Haloperidol (Haloperidol 5 Mg Tablet) 20 mg PO BEDTIME [facility] Last Admin: 01/22/21 20:50 Dose: 20 mg Documented by: Haloperidol Lactate (Haloperidol Lactate 10 Mg/5 Ml Oral.Conc) 2.5 mg PO TID PRN PRN Reason: hypersexuality Last Admin: 11/30/20 11:13 Dose: 2.5 mg Documented by: Hydroxyzine HCl (Hydroxyzine Hcl 25 Mg Tablet) 50 mg PO Q6H PRN PRN Reason: Anxiety Last Admin: 01/22/21 20:49 Dose: 50 mg Documented by: Latanoprost (Latanoprost 0.005 % Ophth Lissett 2.5 Ml Drops) 1 drop EYE-LEFT BEDTIME [facility] Last Admin: 01/22/21 20:49 Dose: 1 drop Documented by: Magnesium Hydroxide (Milk Of Magnesia 30 Ml Oral.Susp) 30 ml PO DAILY PRN PRN Reason: Constipation Multi-Ingred Cream/Lotion/Oil/Oint (Mineral Oil/Petrolatum,White 106 Gm Tube) 1 appl TOPICAL BID [facility] Last Admin: 01/22/21 20:51 Dose: Not Given Documented by: Paliperidone Palmitate (Paliperidone Palmitate 234 Mg/1.5 Ml Syringe) 234 mg IM Q21D [facility] Pravastatin Sodium (Pravastatin Sodium 40 Mg Tablet) 40 mg PO DAILY [facility] Last Admin: 01/22/21 08:28 Dose: 40 mg Documented by: Tamsulosin HCl (Tamsulosin Hcl 0.4 Mg Capsule) 0.4 mg PO BEDTIME [facility] Last Admin: 01/22/21 20:49 Dose: 0.4 mg Documented by: Trolamine Salicylate/Aloe Vera (Trolamine Salicylate 10%/Aloe Cream 35.4 Gm) 1 appl TOPICAL TID PRN PRN Reason: Pain, Mild (Pain Scale 1-3) Last Admin: 01/17/21 03:10 Dose: 1 appl Documented by: Allergies Allergies Allergy/AdvReac Type Severity Reaction Status Date / Time No Known Allergies Allergy Verified 11/18/20 11:30 Assessment & Plan Assessment & Plan (1) Bipolar 1 disorder: Status: Acute Code(s): F31.9 - Bipolar disorder, unspecified Assessment and Plan: The patient is an elderly male with Bipolar disorder, resident of [place] [facility], who was admitted due to being grossly manic and psychotic, extremely disruptive and abusive towards peers and staff. He has a Montiel order and a guardianship. As of 01/03- He is currently much less manic, no overt psychosis noted, effect blunted no active SI/HI. Later in January, he presented himself with more depression No behavioral concerns. Continue per primary treatment team: Plan: Invega Sustenna 234 mg second dose on 12/01, 3rd dose 12/23 Next dose today. From now on q21d Next Haldol dec od/c Change haloperidol to 20 mg p.o. q.h.s. Continue rest the same. Now on Section 7 and 8. Over the phone meeting with his guardian, no new PT suggestions. Discharge planning underway Greater than 50% of the session was spent on counseling and/or coordination of care Reason for contiued inpatient stay Substantial Risk for: rapid decompensation
[2021-01-23] MEDS: HaloperidoL 5 MG TABLET PO ×2 (02:20→22:34)
[2021-01-23] MEDS: Acetaminophen 325 MG TABLET 650 MG PO (02:39)
--- NOTE | 2021-01-23 06:45 | HO.PSYCHPN ---
Subjective Subjective Date of Service: 01/23/21 Reason For Visit: Bipolar disorder Interim History: Pt lying comfortably in bed. Aware that DC was delayed. No complaints. Ct Rx plan Review of Systems Review of Systems Yes all other systems are reviewed and are negative Constitutional: Reports as per HPI Eyes: Reports as per HPI Mental Status Exam Mental Status Exam Patient Appearance: Well Grooomed Patient Orientation: Person, Place and Time Level of Consciousness: Awake Patient Behavior: Cooperative Mood Description: Depressed Affect Description: Constricted Patient Cognition Impaired: Yes Ability to Follow Directions: Good Speech Pattern: Clear Memory Description: Intact Diagnostics Vital Signs (24Hr): Vital Signs - 24 hr 01/22/21 08:28 Pulse Rate 63 Blood Pressure 127/75 Body Mass Index 27.0 Labs Results: 11/19/20 06:25 12/14/20 06:53 Medications Medications Current Medications Acetaminophen (Acetaminophen 325 Mg Tablet) 650 mg PO Q6H PRN PRN Reason: Headache/Pain Mild Scale (1-3) Last Admin: 01/23/21 02:39 Dose: 650 mg Documented by: Al Hydroxide/Mg Hydroxide (Magnesium Hydrox/Alum Hydrox 30 Ml Oral.Susp) 30 ml PO Q6H PRN PRN Reason: Heartburn/Nausea Amlodipine Besylate (Amlodipine Besylate 5 Mg Tablet) 5 mg PO DAILY [facility]; Protocol Last Admin: 01/22/21 08:28 Dose: 5 mg Documented by: Aspirin (Aspirin 81 Mg Tab.Chew) 81 mg PO DAILY [facility] Last Admin: 01/22/21 08:28 Dose: 81 mg Documented by: Carbamazepine (Carbamazepine 200 Mg Tablet) 400 mg PO BID [facility] Last Admin: 01/22/21 20:49 Dose: 400 mg Documented by: Carbidopa/Levodopa (Carbidopa/Levodopa 25/100 Tablet) 1 tab PO BID [facility] Last Admin: 01/22/21 20:49 Dose: 1 tab Documented by: Diphenhydramine HCl (Diphenhydramine Hcl 25 Mg Tablet) 50 mg PO BID PRN PRN Reason: agitation Last Admin: 01/22/21 21:38 Dose: 50 mg Documented by: Haloperidol (Haloperidol 5 Mg Tablet) 5 mg PO TID PRN PRN Reason: Psychosis Last Admin: 01/23/21 02:20 Dose: 5 mg Documented by: Haloperidol (Haloperidol 5 Mg Tablet) 20 mg PO BEDTIME [facility] Last Admin: 01/22/21 20:50 Dose: 20 mg Documented by: Haloperidol Lactate (Haloperidol Lactate 10 Mg/5 Ml Oral.Conc) 2.5 mg PO TID PRN PRN Reason: hypersexuality Last Admin: 11/30/20 11:13 Dose: 2.5 mg Documented by: Hydroxyzine HCl (Hydroxyzine Hcl 25 Mg Tablet) 50 mg PO Q6H PRN PRN Reason: Anxiety Last Admin: 01/22/21 20:49 Dose: 50 mg Documented by: Latanoprost (Latanoprost 0.005 % Ophth Lissett 2.5 Ml Drops) 1 drop EYE-LEFT BEDTIME [facility] Last Admin: 01/22/21 20:49 Dose: 1 drop Documented by: Magnesium Hydroxide (Milk Of Magnesia 30 Ml Oral.Susp) 30 ml PO DAILY PRN PRN Reason: Constipation Multi-Ingred Cream/Lotion/Oil/Oint (Mineral Oil/Petrolatum,White 106 Gm Tube) 1 appl TOPICAL BID [facility] Last Admin: 01/22/21 20:51 Dose: Not Given Documented by: Paliperidone Palmitate (Paliperidone Palmitate 234 Mg/1.5 Ml Syringe) 234 mg IM Q21D [facility] Pravastatin Sodium (Pravastatin Sodium 40 Mg Tablet) 40 mg PO DAILY [facility] Last Admin: 01/22/21 08:28 Dose: 40 mg Documented by: Tamsulosin HCl (Tamsulosin Hcl 0.4 Mg Capsule) 0.4 mg PO BEDTIME [facility] Last Admin: 01/22/21 20:49 Dose: 0.4 mg Documented by: Trolamine Salicylate/Aloe Vera (Trolamine Salicylate 10%/Aloe Cream 35.4 Gm) 1 appl TOPICAL TID PRN PRN Reason: Pain, Mild (Pain Scale 1-3) Last Admin: 01/17/21 03:10 Dose: 1 appl Documented by: Allergies Allergies Allergy/AdvReac Type Severity Reaction Status Date / Time No Known Allergies Allergy Verified 11/18/20 11:30 Assessment & Plan Assessment & Plan (1) Bipolar 1 disorder: Status: Acute Code(s): F31.9 - Bipolar disorder, unspecified Assessment and Plan: The patient is an elderly male with Bipolar disorder, resident of a [facility] in the [place] [facility] of [facility], who was admitted due to being grossly manic and psychotic, extremely disruptive and abusive towards peers and staff. He has a Montiel order and a guardianship. As of 01/03- He is currently much less manic, no overt psychosis noted, effect blunted no active SI/HI. Later in January, he presented himself with more depression No behavioral concerns. Continue per primary treatment team: Plan: Invega Sustenna 234 mg second dose on 12/01, 3rd dose 12/23 Next dose today. From now on q21d Next Haldol dec od/c Change haloperidol to 20 mg p.o. q.h.s. Continue rest the same. Now on Section 7 and 8. Over the phone meeting with his guardian, no new PT suggestions. Discharge planning underway Greater than 50% of the session was spent on counseling and/or coordination of care Reason for contiued inpatient stay Substantial Risk for: med/psych decompensation
[2021-01-23 08:00] VITALS: BP 125/75; PULSE 68; RESP 18; TEMP 36.4; O2SAT 94
[2021-01-23 08:47] VITALS: BP 127/77; PULSE 89
[2021-01-23] MEDS: amLODIPine Besylate 5 MG TABLET PO (08:47)
[2021-01-23] MEDS: Carbidopa/Levodopa 25/100 TABLET 1 TAB PO ×2 (08:47→20:41)
[2021-01-23] MEDS: carBAMazepine 200 MG TABLET 400 MG PO ×2 (08:48→20:41)
[2021-01-23] MEDS: Aspirin 81 MG TAB.CHEW PO (08:48)
[2021-01-23] MEDS: Pravastatin Sodium 40 MG TABLET PO (08:48)
[2021-01-23 18:00] VITALS: BP 155/78; PULSE 77; RESP 18; TEMP 36.6; O2SAT 94
[2021-01-23] MEDS: Tamsulosin HCL 0.4 MG CAPSULE PO (20:40)
[2021-01-23] MEDS: HaloperidoL 5 MG TABLET 20 MG PO (20:41)
[2021-01-23] MEDS: Latanoprost 0.005 % Ophth Sol 2.5 ML DROPS 1 DROP EYE-LEFT (20:44)
[2021-01-23] MEDS: hydrOXYzine HCL 25 MG TABLET 50 MG PO (21:37)
[2021-01-23] MEDS: diphenhydrAMINE HCL 25 MG TABLET 50 MG PO (21:59)
[2021-01-24 06:00] VITALS: BP 133/74; PULSE 68; RESP 20; TEMP 36.4; O2SAT 93
[2021-01-24 07:35] VITALS: BP 133/74; PULSE 68
[2021-01-24] MEDS: amLODIPine Besylate 5 MG TABLET PO (07:35)
[2021-01-24] MEDS: carBAMazepine 200 MG TABLET 400 MG PO ×2 (07:36→20:24)
[2021-01-24] MEDS: Pravastatin Sodium 40 MG TABLET PO (07:36)
[2021-01-24] MEDS: Carbidopa/Levodopa 25/100 TABLET 1 TAB PO ×2 (07:36→20:24)
[2021-01-24] MEDS: Aspirin 81 MG TAB.CHEW PO (07:37)
[2021-01-24] MEDS: hydrOXYzine HCL 25 MG TABLET 50 MG PO (08:10)
--- NOTE | 2021-01-24 12:36 | P.PNPSI_ITS ---
Subjective Subjective Date of Service: 01/24/21 Reason For Visit: Bipolar disorder Subjective Notes: Section 7 and Section 8 Interim History: The nursing staff reported the patient has been anxious for the discharge that will happen in the next hours. The social science professor reported to the retirement asked for several services such as being a with a PT component and E lder Services. On interview the patient denies new symptoms he is waiting for his discharge. Medication Compliance: Yes Side effects from medications: No Attending Groups: Intermittent Review of Systems Acute medical concerns: No Medical Review of Systems: unchanged Mental Status Exam Mental Status Exam Patient Appearance: Well Grooomed Patient Orientation: Person Level of Consciousness: Awake Patient Behavior: Cooperative Mood Description: Depressed Affect Description: Constricted Patient Cognition Impaired: Yes Ability to Follow Directions: Good Speech Pattern: Clear Memory Description: Intact Hallucinations: None Delusions: Not Present Thought Process: Slowed Thinking Thought Content: positive for Poverty of Content Judgement: Fair Diagnostics Vital Signs (24Hr): Vital Signs - 24 hr 01/23/21 18:00 01/24/21 06:00 01/24/21 07:35 Temperature 97.8 F 97.6 F Pulse Rate 77 68 68 Respiratory Rate 18 20 Blood Pressure 155/78 H 133/74 133/74 Pulse Oximetry 94 93 Body Mass Index 27.0 Labs Results: 11/19/20 06:25 12/14/20 06:53 Medications Medications Current Medications Acetaminophen (Acetaminophen 325 Mg Tablet) 650 mg PO Q6H PRN PRN Reason: Headache/Pain Mild Scale (1-3) Last Admin: 01/23/21 02:39 Dose: 650 mg Documented by: Al Hydroxide/Mg Hydroxide (Magnesium Hydrox/Alum Hydrox 30 Ml Oral.Susp) 30 ml PO Q6H PRN PRN Reason: Heartburn/Nausea Amlodipine Besylate (Amlodipine Besylate 5 Mg Tablet) 5 mg PO DAILY [facility]; Protocol Last Admin: 01/24/21 07:35 Dose: 5 mg Documented by: Aspirin (Aspirin 81 Mg Tab.Chew) 81 mg PO DAILY [facility] Last Admin: 01/24/21 07:37 Dose: 81 mg Documented by: Carbamazepine (Carbamazepine 200 Mg Tablet) 400 mg PO BID [facility] Last Admin: 01/24/21 07:36 Dose: 400 mg Documented by: Carbidopa/Levodopa (Carbidopa/Levodopa 25/100 Tablet) 1 tab PO BID [facility] Last Admin: 01/24/21 07:36 Dose: 1 tab Documented by: Diphenhydramine HCl (Diphenhydramine Hcl 25 Mg Tablet) 50 mg PO BID PRN PRN Reason: agitation Last Admin: 01/23/21 21:59 Dose: 50 mg Documented by: Haloperidol (Haloperidol 5 Mg Tablet) 5 mg PO TID PRN PRN Reason: Psychosis Last Admin: 01/23/21 22:34 Dose: 5 mg Documented by: Haloperidol (Haloperidol 5 Mg Tablet) 20 mg PO BEDTIME [facility] Last Admin: 01/23/21 20:41 Dose: 20 mg Documented by: Haloperidol Lactate (Haloperidol Lactate 10 Mg/5 Ml Oral.Conc) 2.5 mg PO TID PRN PRN Reason: hypersexuality Last Admin: 11/30/20 11:13 Dose: 2.5 mg Documented by: Hydroxyzine HCl (Hydroxyzine Hcl 25 Mg Tablet) 50 mg PO Q6H PRN PRN Reason: Anxiety Last Admin: 01/24/21 08:10 Dose: 50 mg Documented by: Latanoprost (Latanoprost 0.005 % Ophth Lissett 2.5 Ml Drops) 1 drop EYE-LEFT BEDTIME [facility] Last Admin: 01/23/21 20:44 Dose: 1 drop Documented by: Magnesium Hydroxide (Milk Of Magnesia 30 Ml Oral.Susp) 30 ml PO DAILY PRN PRN Reason: Constipation Multi-Ingred Cream/Lotion/Oil/Oint (Mineral Oil/Petrolatum,White 106 Gm Tube) 1 appl TOPICAL BID [facility] Last Admin: 01/24/21 11:37 Dose: Not Given Documented by: Paliperidone Palmitate (Paliperidone Palmitate 234 Mg/1.5 Ml Syringe) 234 mg IM Q21D [facility] Pravastatin Sodium (Pravastatin Sodium 40 Mg Tablet) 40 mg PO DAILY [facility] Last Admin: 01/24/21 07:36 Dose: 40 mg Documented by: Tamsulosin HCl (Tamsulosin Hcl 0.4 Mg Capsule) 0.4 mg PO BEDTIME [facility] Last Admin: 01/23/21 20:40 Dose: 0.4 mg Documented by: Trolamine Salicylate/Aloe Vera (Trolamine Salicylate 10%/Aloe Cream 35.4 Gm) 1 appl TOPICAL TID PRN PRN Reason: Pain, Mild (Pain Scale 1-3) Last Admin: 01/17/21 03:10 Dose: 1 appl Documented by: Allergies Allergies Allergy/AdvReac Type Severity Reaction Status Date / Time No Known Allergies Allergy Verified 11/18/20 11:30 Assessment & Plan Assessment & Plan (1) Bipolar 1 disorder: Status: Acute Code(s): F31.9 - Bipolar disorder, unspecified Assessment and Plan: The patient is an elderly male with Bipolar disorder, resident of a retirement [facility] [place] [facility], who was admitted due to being grossly manic and psychotic, extremely disruptive and abusive towards peers and staff. He has a Montiel order and a guardianship. As of 01/03- He is currently much less manic, no overt psychosis noted, effect blunted no active SI/HI. Later in January, he presented himself with more depression No behavioral concerns. Continue per primary treatment team: Plan: Invega Sustenna 234 mg second dose on 12/01, 3rd dose 12/23 Next dose today. From now on q21d Next Haldol dec od/c Change haloperidol to 20 mg p.o. q.h.s. Continue rest the same. Now on Section 7 and 8. Over the phone meeting with his guardian, no new PT suggestions. Discharge planning underway Greater than 50% of the session was spent on counseling and/or coordination of care Reason for contiued inpatient stay Substantial Risk for: stable for discharge
[2021-01-24 18:00] VITALS: BP 142/81; PULSE 67; RESP 18; TEMP 36.6; O2SAT 94
[2021-01-24] MEDS: HaloperidoL 5 MG TABLET 20 MG PO (20:25)
[2021-01-24] MEDS: Tamsulosin HCL 0.4 MG CAPSULE PO (20:26)
[2021-01-24] MEDS: Latanoprost 0.005 % Ophth Sol 2.5 ML DROPS 1 DROP EYE-LEFT (20:27)
[2021-01-25] MEDS: hydrOXYzine HCL 25 MG TABLET 50 MG PO ×2 (01:29→21:11)
[2021-01-25] MEDS: diphenhydrAMINE HCL 25 MG TABLET 50 MG PO ×2 (01:55→21:46)
[2021-01-25] MEDS: HaloperidoL 5 MG TABLET PO (05:50)
[2021-01-25 06:00] VITALS: BP 153/89; PULSE 79; TEMP 36.6; O2SAT 94
[2021-01-25 08:23] VITALS: BP 153/89; PULSE 79
[2021-01-25] MEDS: Aspirin 81 MG TAB.CHEW PO (08:23)
[2021-01-25] MEDS: Pravastatin Sodium 40 MG TABLET PO (08:23)
[2021-01-25] MEDS: amLODIPine Besylate 5 MG TABLET PO (08:23)
[2021-01-25] MEDS: Carbidopa/Levodopa 25/100 TABLET 1 TAB PO ×2 (08:24→21:11)
[2021-01-25] MEDS: carBAMazepine 200 MG TABLET 400 MG PO ×2 (08:24→21:11)
[2021-01-25] MEDS: Acetaminophen 325 MG TABLET 650 MG PO (08:28)
[2021-01-25 20:00] VITALS: BP 144/80; PULSE 93; RESP 18; TEMP 36.5; O2SAT 95
[2021-01-25] MEDS: Tamsulosin HCL 0.4 MG CAPSULE PO (21:11)
[2021-01-25] MEDS: HaloperidoL 5 MG TABLET 20 MG PO (21:11)
[2021-01-26] MEDS: HaloperidoL 5 MG TABLET PO (02:39)
[2021-01-26] MEDS: Acetaminophen 325 MG TABLET 650 MG PO (03:59)
[2021-01-26] MEDS: hydrOXYzine HCL 25 MG TABLET 50 MG PO (05:13)
[2021-01-26 06:00] VITALS: BP 142/75; PULSE 61; RESP 17; TEMP 36.2; O2SAT 95
[2021-01-26 08:19] VITALS: BP 142/75; PULSE 61
[2021-01-26] MEDS: carBAMazepine 200 MG TABLET 400 MG PO (08:19)
[2021-01-26] MEDS: Aspirin 81 MG TAB.CHEW PO (08:19)
[2021-01-26] MEDS: Carbidopa/Levodopa 25/100 TABLET 1 TAB PO (08:19)
[2021-01-26] MEDS: Pravastatin Sodium 40 MG TABLET PO (08:19)
[2021-01-26] MEDS: amLODIPine Besylate 5 MG TABLET PO (08:19)
== END 2021-01-26 10:15 | disposition other institution (70) | DRG 885 ==
PROVIDERS: Admitting Provider Psychiatry & Neurology Psychiatry; Visit Provider Psychiatry & Neurology Psychiatry
DX: F31.9 Bipolar disorder, unspecified (principal); G20 Parkinson's disease; Z20.822 Contact with and (suspected) exposure to COVID-19; F17.210 Nicotine dependence, cigarettes, uncomplicated; Z71.6 Tobacco abuse counseling; Z79.82 Long term (current) use of aspirin; Z79.899 Other long term (current) drug therapy
CPT/HCPCS: 36415; 80048; 80061; 80076; 80156; 82607; 82746; 83036; 84443; 85025; 87635; 93005; 97161; 99232; J1200; J2060; J2426; Q0163